=== PATIENT | female | born 1940 | race Caucasian/White ===

== ENCOUNTER → 2017-08-08 10:15 | Outpatient (CLI) | payer SELFPAY ==
[2017-08-08 10:53] LABS: Cholesterol 178 mg/dL (200); Glucose 85 mg/dL (74-106); High Density Lipoprotein 64 mg/dL; Triglycerides 93 mg/dL; Very Low Density Lipoprotein 19 mg/dL (5-40)
== END ==
PROVIDERS: Family Provider Internal Medicine; PCP Internal Medicine; Visit Provider Internal Medicine
DX: Z00.00 Encounter for general adult medical examination without abnormal findings (principal)
CPT/HCPCS: 80061; 82947

== ENCOUNTER → 2017-09-01 09:28 | Outpatient (CLI) | payer MEDICARE, SELFPAY ==
[2017-09-01 13:25] LABS: Absolute Lymphocyte Count 1.92 X10^3/ul (0.83-4.51); Absolute Neutrophil Count 2.1 X10^3/uL (2.0-7.7); Basophil# 0.03 X10^3/uL; Basophil% 0.6 % (0-1); Eosinophil# 0.12 X10^3/uL; Eosinophils% 2.5 % (0-5); Hematocrit 43.5 % (37-47); Hemoglobin 14.3 g/dl (12.0-15.0); Lymphocyte # 1.92 X10^3/ul (4.0); Mean Corp Hgb Conc 32.9 g/gl (32-36); Mean Corpuscular Hgb 30.5 pg (27.0-32.0); Mean Corpuscular Volume 92.8 fL (81-99); Monocyte% 12.5 % (0-10); Neutrophil # 2.13 X10^3/uL (2.7-7.7); Neutrophil % 44.4 % (47-70); POSITIVE COUNT NO; POSITIVE DIFFERENTIAL NO; POSITIVE MORPHOLOGY NO; Platelet Count 191 K/mm3 (150-450); RBC Distribution Width CV 11.6 % (11.6-14.6); RBC Distribution Width SD 38.8 fl (35.1-43.9); Red Blood Count 4.69 M/mm3 (4.2-5.4); White Blood Count 4.8 K/mm3 (4.4-11.0)
[2017-09-01 13:37] LABS: ALB/GLOB Ratio 1.1 RATIO (0.9-2.4); AST(SGOT) 23 U/L (15-37); Alanine Aminotransfer ALT/SGPT 32 U/L (13-56); Albumin, Serum 3.8 g/dL (3.2-5.0); Alkaline Phosphatase 113 U/L (45-117); Anion Gap 5 (5-15); BUN 17 mg/dL (7-18); BUN/Creat Ratio 24.5 RATIO (10-20); Calcium,Total 8.7 mg/dL (8.5-10.1); Chloride 105 mmol/L (98-107); EST Glomerular Filtration Rate 87 mL/min (>60); Est Glom Filt Rate - Afr Amer 106 mL/min (>60); Globulin 3.5 g/dL (2.2-4.2); Glucose 72 mg/dL (74-106); Protein, Total 7.3 g/dL (6.4-8.2); Sodium Level 139 mmol/L (136-145)
== END ==
PROVIDERS: Family Provider Internal Medicine; PCP Internal Medicine; Visit Provider Clinical Nurse Specialist
DX: Z01.818 Encounter for other preprocedural examination (principal)
CPT/HCPCS: 80053; 85025

== ENCOUNTER → 2017-09-12 09:47 | Outpatient (CLI) | payer SELFPAY ==
[2017-09-12 11:00] LABS: Cholesterol 173 mg/dL (200); Glucose 85 mg/dL (74-106); High Density Lipoprotein 55 mg/dL; Triglycerides 136 mg/dL; Very Low Density Lipoprotein 27 mg/dL (5-40)
== END ==
PROVIDERS: Family Provider Internal Medicine; PCP Internal Medicine; Visit Provider Internal Medicine
DX: Z00.00 Encounter for general adult medical examination without abnormal findings (principal)
CPT/HCPCS: 36415; 80061; 82947

== ENCOUNTER 2017-10-06 07:42 | Inpatient (IN) | payer MEDICARE, SELFPAY ==
[2017-09-09 13:23] VITALS: BP 115/67; PULSE 76; RESP 17; TEMP 37.2; O2SAT 95; BMI 34.1
[2017-09-09 14:43] LABS: Thyroid Stim Hormone (TSH) 0.19 uIU/mL (0.358-3.74)
--- NOTE | 2017-10-01 09:28 | CASEMGMT ---
PRE-OP Joint Call: RACHEL PHILLIP called Mrs. Ridley to discuss transition planning and care coordination. Mrs. Ridley lives with her in a bilevel home. Mrs. Ridley reports 6-8 stairs to get to her bedroom and bathroom and 2 entry steps. Mrs. Ridley states she has a FWW, raised toilet seat, grab bars, and plans to use a folding chair with a towel on it to shower. Mrs. Ridley will have her dtr and spouse assisting her with recovery. Mrs. Ridley reports she will have transportation to therapy at [facility]. Denies further questions at this time. Disposition Plan: Home with support of family and with outpatient therapy at [facility] DEEP Evans, RN-BC, CCM
[2017-10-06] VITALS (14 sets, daily range): BP systolic 92–114; BP diastolic 54–86; PULSE 66–78; RESP 16–18; TEMP 36–37.1; O2SAT 93–100; BMI 34.1
[2017-10-06] MEDS: oxyCODONE HCl Cr 10 MG Tablet PO (08:23)
[2017-10-06] MEDS: Celecoxib 200 MG Capsule 400 MG PO (08:24)
[2017-10-06] MEDS: Acetaminophen 500 MG Tablet 1000 MG PO ×3 (08:24→22:39)
[2017-10-06] MEDS: Lactated Ringers 1,000 ML 999 ML IV (08:48)
[2017-10-06] MEDS: Cefazolin 2 GM in 0.9% Normal Saline 100 ML IV (09:05)
--- NOTE | 2017-10-06 10:30 | OP.PCM_ITS ---
Report of Operation Date of Procedure: 10/06/17 Pre-Operative Diagnosis: Severe end-stage osteoarthritis left knee Post-Operative Diagnosis: Severe end-stage arthritis left knee Surgery/Procedure Performed:: Total knee arthroplasty left Description of Surgical Findings:: Eburnation of bone, periarticular osteophytes and varus alignment consistent with tricompartmental osteoarthritis criminal psychologist: Josh Clayton Type of Anesthesia:: Spinal Anesthesiologist: Chris Saunders Special Medications: txa Specimen's removed: Bone and soft tissue Estimated Blood Loss (mL): 100 Fluids Replaced: See anesthesia report Description of Procedure: Implants: Mady triathlon size 5 posterior stabilized femur, 4 tibia, 32 x 10 mm patella all cemented with Simplex, 9 mm posterior stabilized articulating surface Indications: Patient has severe end-stage osteoarthritis diagnosed via x-rays in the knee. They have failed all forms of conservative measures including activity modification, injections, anti-inflammatories, use of assistive device. The patient has pain that affects on a daily basis and prevents him from doing things that they enjoyed. They have elected to undergo the above procedure. The risks of the procedure were discussed at length and their questions were answered. Procedure description: The patient was greeted in the preoperative area. The left knee was then marked with a surgical marker. Patient was then taken to or [address]. They were administered a dose of antibiotics as well as tranexamic acid. Once adequate anesthesia was obtained and airway was secured to placed in supine position on the operating room table. A well-padded tourniquet was placed on the affected extremity. Leg was then prepped and draped in the usual sterile fashion from the knee down. Ioban was used on the skin. Surgical timeout was then performed and confirmed with all present. Six-inch Esmarch was used to examine the limb and tourniquet was then inflated to 250 mmHg. A longitudinal incision was then planned and carried out in the anterior aspect of the knee. The dissection was then carried the length of the incision the extensor mechanism was identified. Standard medial parapatellar arthrotomy was then performed revealing severe eburnation of bone and periarticular osteophytes. There is complete loss of cartilage especially in the medial compartment with varus alignment. Anterior fat pad was removed for visualization purposes and the anterior medial aspect of the tibia was skeletonized for exposure to the knee. The knee was then flexed the patella was inverted. Opening reamer was then used in the femur approximately 1 cm anterior to the attachment of the PCL. The intramedullary valgus wand was then placed in the femur set at 5? of valgus. The distal femoral cutting jig was then applied to the femur with anticipated resection of approximately 8 mm. This was then made with a oscillating saw. The sizing guide was then placed referencing off the posterior condyles and also reference off the epicondylar axis. This was measured and the appropriate size 4-in-1 cutting jig was then applied to the distal femur. Anterior posterior cuts were made followed by the anterior and posterior chamfer cuts. These bony pieces and fragments were removed and placed on the back table. Posterior retractor was then utilized and the tibia was subluxed anteriorly. Extramedullary tibial alignment jig was then applied to the tibia referencing off the medial one third of the tibial tubercle the anterior tibial spine the middle aspect of the tibiotalar joint. Also reference off patient's [place] slope. The tibial cutting jig was then pinned with anticipated resection of 2 mm off of the deficient medial tibial condyle. This cut was made with the oscillating saw. Once this was complete a laminar operations architect was utilized in both medial lateral meniscus were removed and a posterior capsular osteophytes were also removed. Posterior capsule release was performed in the posterior capsule as well as the geniculate arteries are treated with the aqua Mitchel. The tibia was incised and the appropriate sized tibial tray was then pinned. The femoral box cutting jig was then applied to the femur and the box was prepared removing a portion of the intercondylar notch. The femoral trial was then placed and the knee was trialed. Full flexion-extension were easily achieved. The knee seemed to balance quite nicely. Any remaining osteophytes were removed at this time. Once this was complete the patella was everted and the Marcus patella reaming device was then utilized the patella was then placed in the appropriate jig and reamer was then used to remove approximately 9 mm of the undersurface of the patella. A soft tissue remaining was in the way was removed and patella trial was then placed listed maintain excellent tracking using the no thumbs technique. The tibial tray at this point was punched to accommodate the fins of the final implant. At this point cement was mixed on the back table. The trial components were removed and the knee was copiously irrigated. Did use a cocktail of injection for postoperative pain control. The final components were then cemented in the standard fashion and excess cement was removed with cement removal tools and patellar clamp is placed in the patella. As the cement had cured in full extension tourniquet was deflated and hemostasis was perfect with Bovie cautery as well as the aqua Manus. Needle is once again trialed with different size polyethylenes to ensure the full range of motion was achieved as well as excellent balancing ligamentously was achieved. At this point the knee was copiously irrigated. Final implant was then inserted locking mechanism was engaged and confirmed to be locked. The arthrotomy was then closed with #1 Vicryl aggravate type fashion interrupted. Subcutaneous tissue was closed with 0 Vicryl and surgical cristina were placed in the skin. A occlusive silver impregnated dressing was then applied followed by well-padded sterile dressing secured with an Duke wrap. The patient was taken to the PACU in stable condition. No complications known at this time. Postoperatively we will maintain standard total knee postoperative protocol. The use of the physician medical receptionist medical assistant was integral during this procedure. They assisted with positioning placement of the tourniquet retracting closure and placement of the dressing. The procedure would have been much more difficult without their expertise and assistance - Complications None known - Admit VTE Documentation VTE Present on Admission: Yes VTE Mechan Device Prophylaxis: SCD's, Thigh High RAFAELA Hose VTE Pharm Prophylaxis ordered?: Yes
--- NOTE | 2017-10-06 11:35 | RAD_ITS ---
STUDY: X-RAY - LEFT KNEE REASON FOR EXAM: Female, 77 years old. Total knee replacement. TECHNIQUE: AP and lateral view(s) of the knee. COMPARISON: None. FINDINGS: Normal visualized distal femur. Normal visualized proximal tibia and fibula. Normal proximal tibiofibular articulation. The patient is status post total knee replacement. There is good alignment. Postoperative soft tissue changes. RAD/Knee 1 or 2 Views IMPRESSION: Status post total knee replacement. There is good alignment. Postoperative soft tissue changes. Electronically Signed: Raymon Dasilva MD at 12:41 EDT Tel [phone], Service support ,
[2017-10-06] MEDS: Cefazolin 1 GM/50 ML BAG IV ×2 (15:23→22:39)
[2017-10-06] MEDS: Aspirin 325 MG Tablet PO (17:28)
[2017-10-06] MEDS: Ketorolac 15 MG/ML Vial IV (18:13)
[2017-10-06] MEDS: oxyCODONE 5 MG Tablet PO (19:11)
[2017-10-06] MEDS: Lactated Ringers 1,000 ML 125 ML IV (20:39)
[2017-10-06] MEDS: Ondansetron 4 MG/2 ML Vial IV (20:39)
--- NOTE | 2017-10-06 21:57 | NURSING ---
Pt is on a continuous pulse ox postop. Sats have been running between 89 - 90%. O2 placed at 2L via n/c for the night. Pt states her tells her she goes for long periods without taking a breath at night. Dory RAMOS, primary nurse, aware.
[2017-10-06] MEDS: Senna/Docusate Sodium 1 Tablet 2 TABLET PO (22:39)
[2017-10-06] MEDS: morphine SR 15 MG Tablet PO (22:40)
[2017-10-07 02:00] VITALS: BP 114/76; PULSE 61; RESP 16; TEMP 36.9; O2SAT 96
[2017-10-07] MEDS: Acetaminophen 500 MG Tablet 1000 MG PO ×3 (05:53→21:03)
[2017-10-07] MEDS: Aspirin 325 MG Tablet PO ×2 (07:45→18:42)
[2017-10-07] MEDS: Famotidine 20 MG Tablet PO (07:45)
[2017-10-07] MEDS: Senna/Docusate Sodium 1 Tablet 2 TABLET PO ×2 (07:45→21:03)
[2017-10-07] MEDS: oxyCODONE 5 MG Tablet PO ×2 (07:46→15:01)
[2017-10-07 07:54] VITALS: O2SAT 94
[2017-10-07 08:00] VITALS: BP 102/62; PULSE 66; RESP 18; TEMP 36.8; O2SAT 96
--- NOTE | 2017-10-07 08:01 | PCM.PN.ORT ---
Subjective: Patient sitting up at bedside eating breakfast. Pain well managed. Patient denies chest pain, shortness breath, calf pain, nausea vomiting. No other complaints. Objective: Dressing is clean dry intact, vital signs labs within normal limits. Negative signs and symptoms of DVT. Patient is afebrile neurovascular is intact. - Physical Exam General: Alert, Oriented x3, Cooperative HEENT: PERRLA Neurological: Cranial nerves II-XII grossly intact Psych/Mental Status: Normal Affect, Alert and oriented to time, place, person, mood and affect Vital Signs Temp Pulse Resp BP Pulse Ox 98.3 F 66 18 102/62 96 10/07/17 08:00 10/07/17 08:00 10/07/17 08:00 10/07/17 08:00 10/07/17 08:00 Oxygen Flow Rate (L/min) 2 Oxygen Delivery Method Room Air Weight: 93 kg Body Mass Index (BMI) 34.1 Intake and Output for Last 24 Hours 10/05/17 10/06/17 10/07/17 23:59 23:59 23:59 Intake Total 3002 / 3002 1404 / 1404 Output Total 400 / 400 1600 / 1600 Balance 2602 / 2602 -196 / -196 Medical Necessity - Tobacco Use Smoking Status: Never smoker Assessment/Plan Status post left total knee arthroplasty. Plan 1. Continue all pain medications as prescribed. 2. Begin physical therapy today 3. Aspirin 325 mg 1 p.o. every 12 hours ?30 days for postop DVT prophylaxis 4. Encourage incentive spirometry 5. Possible discharge home tomorrow
[2017-10-07] MEDS: morphine SR 15 MG Tablet PO ×2 (10:52→21:04)
--- NOTE | 2017-10-07 11:03 | CASEMGMT ---
RACHEL PHILLIP Face to Face with patient for initial transition planning/care coordination assessment. RN KENJI introduced self and role at [facility]. Patient sitting in chair, alert and oriented. Patient willing to participate in assessment and is able to answer all questions appropriately. Care providers, pharmacy, and demographics verified. Patient lives in bi-level house with spouse. DME consists of raised toilet seat, cane, and walker. Patient wishes to discharge home and has outpatient therapy setup with [facility] with spouse providing transportation. Patient states she has no further needs or concerns at this time. CM to follow for discharge planning needs that may arise. Disposition Plan: Patient to discharge home with outpatient therapy, family support, and follow-up plans in place.
[2017-10-07 15:00] VITALS: BP 116/65; PULSE 65; RESP 18; TEMP 36.9; O2SAT 95
[2017-10-07] MEDS: Escitalopram Oxalate 10 MG Tablet PO (15:30)
[2017-10-07] MEDS: Levothyroxine 125 MCG Tablet PO (15:30)
[2017-10-07] MEDS: Celecoxib 200 MG Capsule PO (15:30)
[2017-10-07 21:00] VITALS: BP 105/74; PULSE 65; RESP 16; TEMP 37.4; O2SAT 94
[2017-10-07] MEDS: LORazepam 1 MG Tablet PO (21:04)
[2017-10-08 02:50] VITALS: BP 97/59; PULSE 78; RESP 18; TEMP 37.5; O2SAT 94
[2017-10-08] MEDS: oxyCODONE 5 MG Tablet PO ×3 (02:53→14:34)
[2017-10-08] MEDS: Acetaminophen 500 MG Tablet 1000 MG PO ×2 (05:56→14:32)
[2017-10-08] MEDS: Levothyroxine 125 MCG Tablet PO (05:57)
[2017-10-08] MEDS: Folic Acid 1 MG Tablet 0.5 MG PO (07:48)
[2017-10-08] MEDS: Ondansetron 4 MG/2 ML Vial IV (07:48)
[2017-10-08] MEDS: Aspirin 325 MG Tablet PO (07:48)
[2017-10-08] MEDS: 0.9% NaCl Peripheral Flush Adult/Peds IV (07:49)
[2017-10-08] MEDS: Escitalopram Oxalate 10 MG Tablet PO (07:55)
[2017-10-08] MEDS: Famotidine 20 MG Tablet PO (07:55)
[2017-10-08] MEDS: Celecoxib 200 MG Capsule PO (07:55)
[2017-10-08] MEDS: Senna/Docusate Sodium 1 Tablet 2 TABLET PO (07:55)
[2017-10-08 08:50] VITALS: BP 109/74; PULSE 69; RESP 16; TEMP 37; O2SAT 94
[2017-10-08] MEDS: morphine SR 15 MG Tablet PO (10:46)
--- NOTE | 2017-10-08 13:48 | PN.ORTHO_ITS ---
Subjective: Patient lying in bed, with her at her bedside. Patient awake, pain well -managed. Patient denies chest pain, shortness breath, calf pain, nausea vomiting. Patient ready for discharge home Objective: Dressings clean dry intact. Vital signs labs within normal limits. Patient is afebrile, neurovascular is intact. Negative signs and symptoms of DVT. - Physical Exam General: Alert, Oriented x3, Cooperative HEENT: PERRLA Oral: Moist Mucosa Neurological: Cranial nerves II-XII grossly intact Psych/Mental Status: Normal Affect, Alert and oriented to time, place, person, mood and affect Vital Signs Temp Pulse Resp BP Pulse Ox 98.6 F 69 16 109/74 94 10/08/17 08:50 10/08/17 08:50 10/08/17 08:50 10/08/17 08:50 10/08/17 08:50 Oxygen Flow Rate (L/min) 2 Oxygen Delivery Method Room Air Weight: 93 kg Body Mass Index (BMI) 34.1 Intake and Output for Last 24 Hours 10/06/17 10/07/17 10/08/17 23:59 23:59 23:59 Intake Total 3002 / 3002 1404 / 1404 Output Total 400 / 400 1600 / 1600 Balance 2602 / 2602 -196 / -196 Medical Necessity - Tobacco Use Smoking Status: Never smoker Assessment/Plan Status post left total knee arthroplasty. Plan 1. Continue all pain medications as prescribed. 2. Continue physical therapy at [facility] 3. Aspirin 325 mg 1 p.o. every 12 hours ?30 days for postop DVT prophylaxis 4. Follow-up as scheduled 5. Discharge home today
--- NOTE | 2017-10-08 13:55 | PCM.DC.TKR ---
Discharge Diet: No Restrictions Discharge Activity: May Not Drive, May Shower, Use Walker May shower in (days): 1 Ice area for (Minutes): 20 - each hour while awake. Weight Bearing Status: Weight bearing as tolerated Elevate: Operative Extremity Additional Activity Instructions:: Wear elastic stockings for 2 weeks after your surgery. Call your doctor if your incision/area has: Continuous Slow Oozing, Sudden Increased Bleeding, Increased Pain/ Swelling, Increased Redness, Foul Smelling Discharge Call your doctor if you observe: Fever of 101 or Higher, Coldness, Increased Pain - in extremity, Numbness or Tingling, Change in Color, Calf discomfort, Uncontrolled pain Change Dressing in (Days):: 0 - and daily as needed. Remove Dressing in (days):: 8 Cleanse incision/area with: Soap & Water Allergies/Adverse Reactions: Allergies codeine Adverse Reaction (Verified 09/09/17 13:11) Other MAKES HYPER, UNABLE TO SLEEP Medications to take at Discharge Escitalopram Oxalate [Lexapro] 10 mg PO DAILY 07/31/14 Levothyroxine [Synthroid] 125 mcg PO DAILY 07/31/14 Lorazepam [Ativan] 1 mg PO QHS PRN 07/31/14 Acetic Acid [Acetasol] 4 - 6 drop OTIC PRN PRN 07/15/17 Biotin 5,000 mcg PO DAILY 07/15/17 Celecoxib [Celebrex] 200 mg PO DAILY 07/15/17 Cholecalciferol (VIT D3) [Vitamin D3] 2,000 unit PO DAILY 07/15/17 Folic Acid 0.4 mg PO DAILY@0800 07/15/17 L.acidoph,Paracasei, B.lactis [Probiotic] 1 each PO DAILY 07/15/17 Magnesium 250 mg PO DAILY 07/15/17 Triamcinolone 0.1% Cream [Kenalog] 1 applic TP PRN PRN 07/15/17 Acetaminophen [Tylenol] 1,000 mg PO Q8 #90 tab 10/08/17 Aspirin 325 mg PO BIDCM #60 tab 10/08/17 Oxycodone [Oxyir] 5 - 10 mg PO Q6H PRN PRN 7 Days #60 tab 10/08/17 morphine SR tablet [Ms Contin] 15 mg PO BID 7 Days #14 tab 10/08/17 The following prescriptions were given: Oxycodone [Oxyir] 5 - 10 mg PO Q6H PRN PRN 7 Days #60 tab PRN Reason: Mod-Severe Pain (4-04/01) Acetaminophen [Tylenol] 1,000 mg PO Q8 #90 tab Aspirin 325 mg PO BIDCM #60 tab morphine SR tablet [Ms Contin] 15 mg PO BID 7 Days #14 tab Primary Care Physician: Patrica Jhaveri MD [Primary Care Provider] - Please Follow Up With: Josh Clayton PA-C When: see pink sheet
[2017-10-08 14:02] VITALS: BP 101/66; PULSE 61; RESP 18; TEMP 36.5; O2SAT 97
== END 2017-10-08 15:01 | disposition home or self-care (01) | DRG 470 ==
LOC: ACINP 07:43 → MS3 09:46
PROVIDERS: Anesthesiology; Admitting Provider Orthopaedic Surgery; Family Provider Internal Medicine; PCP Internal Medicine; Visit Provider Orthopaedic Surgery
PROC: 0SRD0J9 Replacement of Left Knee Joint with Synthetic Substitute, Cemented, Open Approach (ICD-10-PCS; CPT 27447; principal; 2017-10-06 08:40)
DX: M17.12 Unilateral primary osteoarthritis, left knee (principal); E07.9 Disorder of thyroid, unspecified; Z79.899 Other long term (current) drug therapy; Z87.891 Personal history of nicotine dependence; I44.0 Atrioventricular block, first degree; K21.9 Gastro-esophageal reflux disease without esophagitis; Z85.3 Personal history of malignant neoplasm of breast; F41.9 Anxiety disorder, unspecified; F32.9 Major depressive disorder, single episode, unspecified
CPT/HCPCS: 73560; 84443; 87081; 97110; 97162; 97165; 97530; 97535; J7120; A4216; J2405

== ENCOUNTER → 2017-10-17 15:50 | Outpatient (CLI) | payer MEDICARE, SELFPAY ==
--- NOTE | 2017-10-17 15:51 | VDLE_ITS ---
Reason For Study: LEG PAIN RIGHT LEFT CFV is compressible, spontaneous, phasic, CFV is compressible, spontaneous, phasic, competent and demonstrates normal competent, and demonstrates normal augmentation. augmentation. FV is compressible, spontaneous, phasic, competent and demonstrates normal augmentation. POP V is compressible, spontaneous, phasic, competent and demonstrates normal augmentation. T/P Trunk is compressible. PTV is compressible. LT PerV is compressible. GSV harvested. Interpretation Summary Deep veins of the left lower extremity are patent and compressible segmentally. There is no evidence of left lower extremity deep vein thrombosis. Valvular competence appears intact within the proximal deep venous system on the left . The left great saphenous vein has been previously harvested. Ordering Physician: Josh Clayton Referring Physician: Patrica Jhaveri Performed By: Marli Adams RVT
== END ==
PROVIDERS: Family Provider Internal Medicine; PCP Internal Medicine; Visit Provider Orthopaedic Surgery
DX: M79.662 Pain in left lower leg (principal)
CPT/HCPCS: 93971

== ENCOUNTER → 2018-04-09 10:36 | Outpatient (CLI) | payer MEDICARE, SELFPAY | PROVIDERS: Family Provider Internal Medicine; PCP Internal Medicine; Referring Provider Internal Medicine; Visit Provider Internal Medicine | DX: Z12.11 Encounter for screening for malignant neoplasm of colon (principal) | CPT/HCPCS: 82274 ==

== ENCOUNTER → 2018-06-01 16:01 | Outpatient (CLI) | payer MEDICARE, SELFPAY ==
[2017-10-06 13:48] VITALS: BMI 34.1
[2018-06-01 16:36] LABS: Hematocrit 40.7 % (37-47); Hemoglobin 13.1 g/dl (12.0-15.0); Mean Corp Hgb Conc 32.2 g/gl (32-36); Mean Corpuscular Volume 93.3 fL (81-99); Mean Platelet Vol. 9.3 fl (6.2-12.0); Platelet Count 222 K/mm3 (150-450); RBC Distribution Width CV 12.2 % (11.6-14.6); RBC Distribution Width SD 41.6 fl (35.1-43.9); Red Blood Count 4.36 M/mm3 (4.2-5.4)
[2018-06-01 16:37] LABS: Scan Indicated on CBC? Y/N NO
[2018-06-01 16:51] LABS: AST(SGOT) 22 U/L (15-37); Alanine Aminotransfer ALT/SGPT 30 U/L (13-56); Albumin, Serum 3.6 g/dL (3.2-5.0); Alkaline Phosphatase 126 U/L (45-117); Anion Gap 5 (5-15); BUN 27 mg/dL (7-18); BUN/Creat Ratio 41.6 RATIO (10-20); Calcium,Total 8.5 mg/dL (8.5-10.1); Chloride 107 mmol/L (98-107); Creatinine, Serum 0.65 mg/dL (0.55-1.02); EST Glomerular Filtration Rate 94 mL/min (>60); Est Glom Filt Rate - Afr Amer 114 mL/min (>60); Globulin 3.6 g/dL (2.2-4.2); Glucose 80 mg/dL (74-106); Potassium 4.1 mmol/L (3.5-5.1); Protein, Total 7.2 g/dL (6.4-8.2); Sodium Level 140 mmol/L (136-145); T4 Free Direct 1.04 ng/dL (0.76-1.46); Thyroid Stim Hormone (TSH) 1.52 uIU/mL (0.358-3.74)
--- OUTSIDE RECORDS SUMMARY | 2018-07-19 01:00 | XMS RPT_ITS ---
:1940 Author Organization OHIP Support Name Relationship Address Phone R Unavailable Unavailable Unavailable CONCHAASHU WYNNY Unavailable [address] + [place] [address] CONCHA, YARITZA Unavailable Unavailable + [place] [address] R Unavailable Unavailable Unavailable CONCHA, GERARDO Unavailable [address] + [place] [address] CONCHA, YARITZA Unavailable Unavailable + [place] [address] R Unavailable Unavailable Unavailable CONCHA, GERARDO Unavailable [address] [phone] [place] [address] CONCHA, YARITZA Unavailable X [phone] [place] [address] R Unavailable Unavailable Unavailable CONCHA, GERARDO Unavailable [address] [phone] [place] [address] CONCHA, YARITZA Unavailable X [phone] [place] [address] R Unavailable Unavailable Unavailable CONCHA, GERARDO Unavailable [address] [phone] [place] [address] CONCHA, YARITZA Unavailable X [phone] [place] [address] R Unavailable Unavailable Unavailable CONCHA, GERARDO Unavailable [address] [phone] [place] [address] CONCHA, YARITZA Unavailable X [phone] [place] [address] R Unavailable Unavailable Unavailable CONCHA, GERARDO Unavailable [address] [phone] [place] [address] CONCHA, YARITZA Unavailable X [phone] [place] [address] R Unavailable Unavailable Unavailable CONCHA, GERARDO Unavailable [address] [phone] [place] [address] YARITZA RIDLEY Unavailable X [phone] [place] [address] Care Team Providers Name Role Phone ERENDIRA HERANNDEZ (REGROOVER) Attending Unavailable RAVI FINCH Referring Unavailable HERNANDEZERENDIRA (REGROOVER) Referring Unavailable TALAMPAS, CELIO D Attending Unavailable TALAMPAS, CELIO D Referring Unavailable TALAMPAS, CELIO D Referring Unavailable HERNANDEZ, ERENDIRA (REGROOVER) Attending Unavailable TALAMPAS, CELIO D Attending Unavailable TALAMPAS, CELIO D Referring Unavailable Talampas, Celio Attending Unavailable Talampas, Celio Referring Unavailable Talampas, Celio Primary Care Unavailable Della Larson Attending Unavailable Talampas, Celio Primary Care Unavailable Talampas, Celio Attending Unavailable Talampas, Celio Referring Unavailable Talampas, Celio Primary Care Unavailable Erendira Hernandez AUTOMOTIVE PAINT TECHNICIAN-C Attending Unavailable Hernandez, Erendira AUTOMOTIVE PAINT TECHNICIAN-C Referring Unavailable Talampas, Celio Primary Care Unavailable StefRavi Admitting Unavailable Stef, Ravi Attending Unavailable Talampas, Celio Primary Care Unavailable Talampas, Celio Attending Unavailable Talampas, Celio Referring Unavailable Talampas, Celio Primary Care Unavailable Talampas, Celio Primary Care Unavailable Stef, Ravi Attending Unavailable Talampas, Celio Attending Unavailable Talampas, Celio Referring Unavailable Talampas, Celio Primary Care Unavailable PROBLEMS PROBLEMS DATE TYPE CONDITION / CODE ATTENDING STATUS SOURCE 06/01/2018 Unknown E03.9 - Talampas, Celio Active [place] Hypothyroidism, Community unspecified / Hospital E03.9(ICD-10) Repository 06/01/2018 Unknown Z79.899 - Other long Talampas, Celio Active [place] term (current) drug Community therapy / Hospital Z79.899(ICD-10) Repository 06/01/2018 Active Other long-term NA Active [place] (current) drug Clinic Main therapy / [place] Z79.899(ICD-10) Repository 06/01/2018 Active Hypothyroidism, NA Active [place] unspecified / Clinic Main E03.9(ICD-10) [place] Repository 04/09/2018 Active Encounter for NA Active [place] screening for Clinic Main malignant neoplasm [place] of colon / Repository Z12.11(ICD-10) 04/09/2018 Unknown Z12.11 - Encounter Celio Jhaveri Active [place] for screening for Community malignant neoplasm Hospital of colon / Repository Z12.11(ICD-10) 10/17/2017 Unknown M79.662 - Pain in Ravi Finch Active [facility] left lower leg / Community M79.662(ICD-10) Hospital Repository 10/08/2017 Unknown G89.18 - Other acute Ravi Finch Active [place] postprocedural pain Community / G89.18(ICD-10) Hospital Repository 09/01/2017 Active Encounter for other NA Active [place] preprocedural [facility] Main examination / [place] Z01.818(ICD-10) Repository 09/01/2017 Unknown Z01.818 - Encounter Erendira Hernandez Active [place] for other AUTOMOTIVE PAINT TECHNICIAN-C [facility] preprocedural Hospital examination / Repository Z01.818(ICD-10) PROCEDURES PROCEDURES No Procedure Records FoundRESULTS RESULTS CBC Collected: 06/01/2018 Status: F Source: [place] 10:20 AM [facility] REPOSITORY TYPE CODE TESTS RESULT OUT OF REFERENCE UNITS RANGE LAB WBC 3.70-11.00 k/uL Test WBC sent to [facility]. Result Comment: Account Credited [facility] LAB RBC 3.90-5.20 m/uL Test sent RBC to [facility]. Result Comment: Account Credited [facility] LAB HGB 11.5-15.5 g/dL Hemoglobin Test sent to [facility]. Result Comment: Account Credited [facility] LAB HCT 36.0-46.0 % Hematocrit Test sent to [facility]. Result Comment: Account Credited [facility] LAB MCV 80.0-100.0 fL Test sent MCV to [facility]. Result Comment: Account Credited [facility] LAB MCH 26.0-34.0 pG Test sent MCH to [facility]. Result Comment: Account Credited [facility] LAB MCHC 30.5-36.0 g/dL Test MCHC sent to [facility]. Result Comment: Account Credited [facility] LAB RDWCV 11.5-15.0 % Test RDW-CV sent to [facility]. Result Comment: Account Credited [facility] LAB PLTCT 150-400 k/uL Test Platelet Count sent to [facility]. Result Comment: Account Credited [facility] LAB MPV 9.0-12.7 fL Test sent MPV to [facility]. Result Comment: Account Credited [facility] LAB NITHYA Recheck Test sent to [facility]. Result Comment: Account Credited [facility]IDE LAB REVW Test sent to Review [facility]. Result Comment: Account Credited [facility]IDE LAB CBCCOM Comment Test sent to [facility]. Result Comment: Account Credited [facility] LAB ABSNUC <0.01 k/uL Test Absolute nRBC sent to [facility]. Result Comment: Account Credited [facility]IDE COMP METABOLIC PANEL Collected: 06/01/2018 Status: F Source: [place] 10:20 AM CLINIC [facility]IN [facility] REPOSITORY TYPE CODE TESTS RESULT OUT OF REFERENCE UNITS RANGE LAB TP 6.3-8.0 g/dL Test sent to [facility]. Result Comment: Account Credited [facility] LAB ALB 3.9-4.9 g/dL Test Albumin sent to [facility]. Result Comment: Account Credited [facility] LAB CA 8.5-10.2 mg/dL Test Calcium, Total sent to [facility]. Result Comment: Account Credited HIDE LAB TBIL 0.2-1.3 mg/dL Bilirubin, Test Total sent to [facility]. Result Comment: Account Credited H[facility] LAB ALKP 34-123 U/L Alkaline Test Phosphatase sent to [facility]. Result Comment: Account Credited [facility] LAB AST 13-35 U/L Test sent AST to [facility]. Result Comment: Account Credited [facility] LAB GLU 74-99 mg/dL Test sent Glucose to [facility]. Result Comment: Account Credited [facility] LAB BUN 7-21 mg/dL Test sent BUN to [facility]. Result Comment: Account Credited [facility] LAB CRET 0.58-0.96 mg/dL Creatinine Test sent to [facility]. Result Comment: Account Credited [facility] LAB NA 136-144 mmol/L Test Sodium sent to [facility]. Result Comment: Account Credited [facility] LAB K 3.7-5.1 mmol/L Test Potassium sent to [facility]. Result Comment: Account Credited [facility] LAB CL 97-105 mmol/L Test Chloride sent to [facility]. Result Comment: Account Credited [facility] LAB CO2 22-30 mmol/L Test sent CO2 to [facility]. Result Comment: Account Credited [facility] LAB AGAP 9-18 mmol/L Test sent Anion Gap to [facility]. Result Comment: Account Credited [place] LAB ALT 7-38 U/L Test sent to ALT [facility]. Result Comment: Account Credited [place] LAB GFRAA eGFR- Amer. Test sent to [facility]. Result Comment: Account Credited [place] LAB GFRNAA . eGFR-All Test sent Other Races to [facility]. Result Comment: Account Credited [facility] LAB GFRPED eGFR-Ped. Test sent Factor to [facility]. Result Comment: Account Credited HIDE FREE T4 Collected: 06/01/2018 Status: F Source: [place] 10:20 AM [facility] REPOSITORY TYPE CODE TESTS RESULT OUT OF REFERENCE UNITS RANGE LAB FT4 0.9-1.7 ng/dL Test Free sent to [address] Result Comment: Account Credited [place] TSH Collected: 06/01/2018 Status: F Source: [place] 10:20 AM [facility] REPOSITORY TYPE CODE TESTS RESULT OUT OF REFERENCE UNITS RANGE LAB TSH 0.400-5.500 uU/mL Test TSH sent to [facility]. Result Comment: Account Credited MAR[facility]NE CBC-COMPLETE BLOOD CNT Collected: 06/01/2018 Status: F Source: [place] NO DIFF 10:15 AM [facility] REPOSITORY TYPE CODE TESTS RESULT OUT OF RANGE REFERENCE UNITS LAB L100.1000 4.4-11.0 K/mm3 Low WBC 4.0 LAB L100.1200 4.2-5.4 M/mm3 Normal RBC 4.36 LAB L100.1300 12.0-15.0 g/dl Normal HGB 13.1 LAB L100.1400 37-47 % Normal HCT 40.7 LAB L100.1500 81-99 fL Normal MCV 93.3 LAB L100.1600 27.0-32.0 pg Normal MCH 30.0 LAB L100.1700 32-36 g/gl Normal MCHC 32.2 LAB L100.1810 11.6-14.6 % Normal RDW CV 12.2 LAB L100.1820 35.1-43.9 fl Normal RDW SD 41.6 LAB L100.1900 150-450 K/mm3 Normal PLT 222 LAB L100.2000 6.2-12.0 fl Normal MPV 9.3 Performed By: #### L100.0500 #### [facility] [address] [place], [address] COMPREHENSIVE METABOLIC Collected: 06/01/2018 Status: F Source: [place] 10:15 AM [facility] REPOSITORY TYPE CODE TESTS RESULT OUT OF RANGE REFERENCE UNITS LAB L501.0100 74-106 mg/dL Normal GLU 80 Result Comment: Please note revised GLUCOSE reference range effective 2017. LAB L501.1000 7-18 mg/dL High BUN 27 LAB L501.1100 0.55-1.02 mg/dL Normal CREAT,SERUM 0.65 Result Comment: The validity of the calculated GFR AND GFRAA in patients over 70 years has not been determined. Clinical correlation is essential. LAB L501.1110 >60 mL/min Normal EST GFR 94 Result Comment: Non- GFR Calc LAB L501.1115 >60 mL/min Normal EST GFR - AA 114 Result Comment: GFR Calc LAB L501.1300 10-20 RATIO High BUN/CRE 41.6 LAB L501.1500 6.4-8.2 g/dL T Normal PROT 7.2 LAB L501.1800 3.2-5.0 g/dL Normal ALB 3.6 LAB L501.1950 2.2-4.2 g/dL Normal GLOB 3.6 LAB L501.2000 0.9-2.4 RATIO Normal A/G 1.0 LAB L501.2200 8.5-10.1 mg/dL CA Normal 8.5 LAB L501.4100 15-37 U/L Normal AST 22 LAB L501.4305 45-117 U/L High ALK P 126 LAB L501.4405 13-56 U/L Normal ALT 30 LAB L501.4600 0.20-1.00 mg/dL T Normal BILI 0.30 LAB L501.5300 136-145 mmol/L NA Normal 140 LAB L501.5600 3.5-5.1 mmol/L K Normal 4.1 LAB L501.5900 98-107 mmol/L CL Normal 107 LAB L501.6100 21.0-32.0 mmol/L Normal CO2 28.0 LAB L501.6200 5-15 Normal GAP 5 Performed By: #### L500.4050, L501.9520, L506.0400 #### [facility] [address] [place], [address] THYROID STIM HORMONE Collected: 06/01/2018 Status: F Source: [place] (TSH) 10:15 AM [facility] REPOSITORY TYPE CODE TESTS RESULT OUT OF RANGE REFERENCE UNITS LAB L501.9520 0.358-3.74 uIU/mL Normal TSH 1.52 Performed By: #### L500.4050, L501.9520, L506.0400 #### [facility] [address] [place], [address] T4 FREE DIRECT Collected: 06/01/2018 Status: F Source: [place] 10:15 AM [facility] REPOSITORY TYPE CODE TESTS RESULT OUT OF RANGE REFERENCE UNITS LAB L506.0400 0.76-1.46 ng/dL Normal T4 FREE 1.04 DIRECT Performed By: #### L500.4050, L501.9520, L506.0400 #### [facility] [address] [place], [address] PROGRESS Observed: 06/01/2018 Status: COMPLETED Source: [place] 9:22 AM [facility] REPOSITORY O ID: [id number] Author: Celio Jhaveri Service: (none) Author Type: Physician Type: Progress Notes Filed: 06/01/2018 7:39 PM Note Text: Patient presents with: Recheck: Follow up SUBJECTIVE: Patty Ridley is a 77 year old year old lady here today for 6 month follow up appointment for review of medical conditions. Taking 2 pills Lexapro cause issues with tension in jaw and trouble with sleep. Would like to be able to stay on the Lexapro 5 mg dose and get off lorazepam. Tapering off lorazepam. Hard going from 1mg pill at bedtime to half pill at bedtime nightly. Trouble sleeping. Withrdrawal symptoms. Okay at this time but still not sleeping as well as used to. Would like to try something Legs get tired easily. Plans to resume PT exercises and some walking. Had stopped being as active as used to be with dancing before had TKR 10/06/2017. Had stopped doing PT exercises.Cannot dance as much as used to. Reviewed had issues with skin lesions in the past and treated by F[employer]ERLINE SUPERVISOR with Keflex and Bactroban. Prior issues MRSA treated. Now seems to be one lesion will pop up the start resolving then another will pop up. 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 hydrocortisone-acetic acid (ACETASOL HC) otic solution Use 4 Drops in the ears as needed. LORazepam (ATIVAN) 1 mg tablet Take 0.5-1 tablets by mouth once daily for 180 days. For neck pain or spasms and anxiety. mupirocin (BACTROBAN) 2 % ointment Apply 1 application to affected area three times daily. triamcinolone acetonide (KENALOG) 0.1 % cream Apply 1 application to affected area three times daily. Apply sparingly to area for rash/itching. ketoconazole (NIZORAL) 2 % cream Apply 1 application to affected area once daily as needed. As directed escitalopram oxalate (LEXAPRO) 5 mg tablet Take 1-2 tablets by mouth once daily. As directed (Usually once daily but increases as needed--last filled September 2017) BACILLUS COAGULANS (PROBIOTIC, B. COAGULANS, ORAL) Take by mouth. levothyroxine (SYNTHROID) 125 mcg tablet Take 1 tablet by mouth once daily. Biotin 2,500 mcg cap Take 2 capsules by mouth once daily. Cholecalciferol, Vitamin D3, 2,000 unit cap Take 1 tablet by mouth once daily. folic acid ORAL Take one(1) tablet two(2) times daily. Magnesium Oxide-Mg AA Chelate (ELEMENTAL MAGNESIUM) 300 mg ORAL Cap Take one(1) tablet three times daily. celecoxib (CELEBREX) 200 mg capsule Take 200 mg by mouth. No current facility-administered medications for this visit. OBJECTIVE: BP 122/84 Pulse 60 Temp 36.5 ?C (97.7 ?F) (Tympanic) Resp 20 Wt 91.2 kg (201 lb) BMI 32.94 kg/m? Patient is alert, oriented times 3, no apparent distress, affect is bright, reactive. Last 5 Encounter BP Readings: Date: BP: 06/01/2018 122/84 05/22/2018 122/88 04/06/2018 130/82 03/07/2018 122/88 11/25/2017 116/80 Last 5 Encounter Wt Readings: Date: Wt: 06/01/2018 91.2 kg (201 lb) 05/22/2018 89.4 kg (197 lb) 04/06/2018 87.8 kg (193 lb 9.6 oz) 03/07/2018 85.6 kg (188 lb 12.8 oz) 11/25/2017 85.3 kg (188 lb) Heart: Regular rate, rhythm, no murmurs, gallops, rubs. Lungs: Clear to auscultation, bilaterally, breathing non labored. Ext: No cyanosis, clubbing, or pitting edema (mild doughy edema left). Skin: noted healing red skin sore on left cheek. No signs of cellulitis. Last labs done at [facility] reviewed. ASSESSMENT AND PLAN: Encounter Diagnosis ICD-10-CM 1. Acquired hypothyroidism E03.9 levothyroxine (SYNTHROID) 125 mcg tablet TSH BLD T4 FREE/FREE THYROX 2. Depression, unspecified depression type F32.9 3. Anxiety F41.9 4. Skin lesion L98.9 can get new lesion anywhere--face, leg, arms or torso; seems like one at a time 5. Encounter for long-term current use of medication Z79.899 CBC COMP METABOLIC PANEL 6. Need for vaccination Z23 INFLUENZA SEASONAL HIGH DOSE AGE 65+ 7. 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 Patient involved in shared decision making for management of medical issues. History and medications reviewed. Epic updated as needed Refills taken care of and meds adjusted as indicated after reviewed history, exam and labs. Health Maintenance reviewed. Updated record and/or ordered tests as recorded. Encouraged on efforts at healthy diet and regular exercise and adequate sleep. Will try trazodone for sleep with plans to keep tapering off lorazepam as able. Discussed would go from 0.5 to 0.25 mg dose instead of to zero or every other only to avoid withdrawal symptoms from lorazepam. If too much hangover effect still with trazodone, try other meds. Work on sleep hygiene. Resume PT for legs to help with fatigue. 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 Further evaluation and treatment as indicated. Discussed management of skin sores. Also, discussed prevention--encouraged adequate water intake, as well as nutrition with Vitamin C. Consider adding Biotin and minerals including Zinc. Also needs to prevent skin from drying out--lotion daily at least. Further evaluation and treatment as indicated. The majority of the visit was spent counseling and/or coordinating care for the patient. Ssms-bb-ioas time was at least 30 minutes. Celio Jhaveri MD CNOV Observed: 06/01/2018 Status: COMPLETED Source: [place] 8:40 AM [facility] REPOSITORY Office Visit (INTMWS) PATTY RIDLEY ([id number]) 1940 F Date Time Provider Department 06/01/18 8:40 AM CELIO JHAVERI INTMWS During your visit today, we recorded the following information about you: Temperature Pulse Respiration Blood pressure 97.7 degrees 60/minute 20/minute 122/84 Weight 91.2 kg Celio Jhaveri MD 06/01/2018 7:39 PM Signed Patient presents with: Recheck: Follow up SUBJECTIVE: Patty Ridley is a 77 year old year old lady here today for 6 month follow up appointment for review of medical conditions. Taking 2 pills Lexapro cause issues with tension in jaw and trouble with sleep. Would like to be able to stay on the Lexapro 5 mg dose and get off lorazepam. Tapering off lorazepam. Hard going from 1mg pill at bedtime to half pill at bedtime nightly. Trouble sleeping. Withrdrawal symptoms. Okay at this time but still not sleeping as well as used to. Would like to try something Legs get tired easily. Plans to resume PT exercises and some walking. Had stopped being as active as used to be with dancing before had TKR 10/06/2017. Had stopped doing PT exercises.Cannot dance as much as used to. Reviewed had issues with skin lesions in the past and treated by [employer]ER[employer] SUPERVISOR with Keflex and Bactroban. Prior issues MRSA treated. Now seems to be one lesion will pop up the start resolving then another will pop up. 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 hydrocortisone-acetic acid (ACETASOL HC) otic solution Use 4 Drops in the ears as needed. LORazepam (ATIVAN) 1 mg tablet Take 0.5-1 tablets by mouth once daily for 180 days. For neck pain or spasms and anxiety. mupirocin (BACTROBAN) 2 % ointment Apply 1 application to affected area three times daily. triamcinolone acetonide (KENALOG) 0.1 % cream Apply 1 application to affected area three times daily. Apply sparingly to area for rash/itching. ketoconazole (NIZORAL) 2 % cream Apply 1 application to affected area once daily as needed. As directed escitalopram oxalate (LEXAPRO) 5 mg tablet Take 1-2 tablets by mouth once daily. As directed (Usually once daily but increases as needed--last filled September 2017) BACILLUS COAGULANS (PROBIOTIC, B. COAGULANS, ORAL) Take by mouth. levothyroxine (SYNTHROID) 125 mcg tablet Take 1 tablet by mouth once daily. Biotin 2,500 mcg cap Take 2 capsules by mouth once daily. Cholecalciferol, Vitamin D3, 2,000 unit cap Take 1 tablet by mouth once daily. folic acid ORAL Take one(1) tablet two(2) times daily. Magnesium Oxide-Mg AA Chelate (ELEMENTAL MAGNESIUM) 300 mg ORAL Cap Take one(1) tablet three times daily. celecoxib (CELEBREX) 200 mg capsule Take 200 mg by mouth. No current facility-administered medications for this visit. OBJECTIVE: BP 122/84 Pulse 60 Temp 36.5 ?C (97.7 ?F) (Tympanic) Resp 20 Wt 91.2 kg (201 lb) BMI 32.94 kg/m? Patient is alert, oriented times 3, no apparent distress, affect is bright, reactive. Last 5 Encounter BP Readings: Date: BP: 06/01/2018 122/84 05/22/2018 122/88 04/06/2018 130/82 03/07/2018 122/88 11/25/2017 116/80 Last 5 Encounter Wt Readings: Date: Wt: 06/01/2018 91.2 kg (201 lb) 05/22/2018 89.4 kg (197 lb) 04/06/2018 87.8 kg (193 lb 9.6 oz) 03/07/2018 85.6 kg (188 lb 12.8 oz) 11/25/2017 85.3 kg (188 lb) Heart: Regular rate, rhythm, no murmurs, gallops, rubs. Lungs: Clear to auscultation, bilaterally, breathing non labored. Ext: No cyanosis, clubbing, or pitting edema (mild doughy edema left). Skin: noted healing red skin sore on left cheek. No signs of cellulitis. Last labs done at [facility] reviewed. ASSESSMENT AND PLAN: Encounter Diagnosis ICD-10-CM 1. Acquired hypothyroidism E03.9 levothyroxine (SYNTHROID) 125 mcg tablet TSH BLD T4 FREE/FREE THYROX 2. Depression, unspecified depression type F32.9 3. Anxiety F41.9 4. Skin lesion L98.9 can get new lesion anywhere--face, leg, arms or torso; seems like one at a time 5. Encounter for long-term current use of medication Z79.899 CBC COMP METABOLIC PANEL 6. Need for vaccination Z23 INFLUENZA SEASONAL HIGH DOSE AGE 65+ 7. 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 Patient involved in shared decision making for management of medical issues. History and medications reviewed. Epic updated as needed Refills taken care of and meds adjusted as indicated after reviewed history, exam and labs. Health Maintenance reviewed. Updated record and/or ordered tests as recorded. Encouraged on efforts at healthy diet and regular exercise and adequate sleep. Will try trazodone for sleep with plans to keep tapering off lorazepam as able. Discussed would go from 0.5 to 0.25 mg dose instead of to zero or every other only to avoid withdrawal symptoms from lorazepam. If too much hangover effect still with trazodone, try other meds. Work on sleep hygiene. Resume PT for legs to help with fatigue. 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 Further evaluation and treatment as indicated. Discussed management of skin sores. Also, discussed prevention--encouraged adequate water intake, as well as nutrition with Vitamin C. Consider adding Biotin and minerals including Zinc. Also needs to prevent skin from drying out--lotion daily at least. Further evaluation and treatment as indicated. The majority of the visit was spent counseling and/or coordinating care for the patient. [id number] time was at least 30 minutes. MD Stacey Dixon LPN 06/01/2018 10:05 AM Signed Influenza Vaccine Documentation: ? Patient is identified by name and date of : Yes ? Patient is older than 6 months of age: Yes ? Patient denies a severe allergy to any vaccine component or to a previous dose of influenza vaccine: Yes FOR EGG ALLERGY CONCERNS, REFER TO PROVIDER. ? Denies allergy to gelatin, formaldehyde, thimerosol :Yes ? Patient is afebrile and not moderately or severely ill: Yes ? Does the patient have a history of Guillain ?[place] Syndrome (a severe paralytic illness): No ? Denies bone marrow transplant prior 6 months or solid organ transplant prior 3 months: Yes ? Denies a history of fainting after a prior injection or medical procedure? Yes If patient has fainted in the past, the CDC recommends sitting or lying down for 15 minutes after the vaccination. ? VIS sheet provided: Yes ? See Immunization Form in [employer] for details of immunizations administered today. If patient reports dizziness, vision changes or ringing in the ears post vaccination ? please have patient sit or lie down for 15 minutes. Referring Provider: SELF [200] Allergies As of Date: 06/01/2018 (No Known Allergies) Date Reviewed: 06/01/2018 Reviewed by: Stacey Call LPN - Fully Assessed Reason for Visit: Recheck [92] Cmt: Follow up Imm/Inj [58] Cmt: Flu Vaccine Reason For Visit History Recorded Primary Visit Diagnosis:Acquired hypothyroidism [E03.9] Other Visit Diagnoses:Depression, unspecified depression type [F32.9] Anxiety [F41.9] Skin lesion [L98.9] Comment:can get new lesion anywhere--face, leg, arms or torso; seems like one at a time Encounter for long-term current use of medication [Z79.899] Need for vaccination [Z23] 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 Monitor for symptoms for now. Order(s):traZODone (DESYREL) 50 mg tabletTake 0.5-1 tablets by mouth daily at bedtime.Disp: 30 tabletRfl: 0 levothyroxine (SYNTHROID) 125 mcg tabletTake 1 tablet by mouth once daily.Disp: 90 tabletRfl: 3 CBC [SQCBC] Order #: [id number] FUTURE COMP METABOLIC PANEL [SQCMP] Order #: [id number] FUTURE TSH BLD [SQTSH] Order #: [id number] STANDING T4 FREE/FREE THYROX [SQFT4] Order #: [id number] STANDING INFLUENZA SEASONAL HIGH DOSE AGE 65+ [[id number]] Order #: [id number] Prescriptions as of 06/01/2018 Sig: ASCORBIC ACID (VITAMIN C) 1,0* Take 1,000 mg by mouth once d* TRAZODONE 50 MG TABLET Take 0.5-1 tablets by mouth d* LEVOTHYROXINE 125 MCG TABLET Take 1 tablet by mouth once d* HYDROCORTISONE-ACETIC ACID 1 * Use 4 Drops in the ears as ne* LORAZEPAM 1 MG TABLET Take 0.5-1 tablets by mouth o* MUPIROCIN 2 % TOPICAL OINTMENT Apply 1 application to affect* TRIAMCINOLONE ACETONIDE 0.1 %* Apply 1 application to affect* KETOCONAZOLE 2 % TOPICAL CREAM Apply 1 application to affect* ESCITALOPRAM 5 MG TABLET Take 1-2 tablets by mouth onc* PROBIOTIC (B. COAGULANS) ORAL Take by mouth. BIOTIN 2,500 MCG CAPSULE Take 2 capsules by mouth once* CHOLECALCIFEROL (VITAMIN D3) * Take 1 tablet by mouth once d* FOLIC ACID 400 MCG TABLET Take one(1) tablet two(2) sinai* ELEMENTAL MAGNESIUM 300 MG CA* Take one(1) tablet three time* CELECOXIB 200 MG CAPSULE Take 200 mg by mouth. Medication notes this encounter HYDROCORTISONE-ACETIC ACID 1 %-2 % EAR DROPS >> Celio Jhaveri MD 06/01/2018 9:44 AM >> CELIO JHAVERI MD FriJun 01, 2018 9:44 AM Effective ESCITALOPRAM 5 MG TABLET >> Celio Jhaveri MD 06/01/2018 9:33 AM >> CELIO JHAVERI MD FriJun 01, 2018 9:33 AM taking just 1 pills a day CELECOXIB 200 MG CAPSULE >> Stacey Call LPN 06/01/2018 8:58 AM >> STACEY CALL LPN FriJun 01, 2018 8:58 AM Problem List As Of Date 06/01/2018 Noted Resolved Sprain of neck [S13.9XXA] INVALID FOR*09/26/2014 Unspecified constipation [K59.00] 11/16/2010 More... BREAST DISORDERS NEC [611.8] INVALID FOR* PERS HX OF BREAST MALIGNANCY [Z85.3] INVALID FOR* Hypothyroidism [E03.9] INVALID FOR* More... Hyperlipidemia [E78.5] INVALID FOR* More... Pain in limb [M79.609] INVALID FOR*09/26/2014 Unspecified Backache [M54.9] INVALID FOR* Abnormal mammogram, unspecified [R92.8] INVALID FOR* Depression [F32.9] INVALID FOR* More... 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 Chronic allergic rhinitis [J30.9] INVALID FOR* ADD (attention deficit disorder) [F98.8] INVALID FOR* Osteopenia [M85.80] INVALID FOR* Occult blood in stools [R19.5] INVALID FOR* More... Nonintractable episodic headache [R51] INVALID FOR* More... Visit Notes: >> Stacey Call LPN Mon Jun 01, 2018 10:05 AM Status: Signed Influenza Vaccine Documentation: ? Patient is identified by name and date of : Yes ? Patient is older than 6 months of age: Yes ? Patient denies a severe allergy to any vaccine component or to a previous dose of influenza vaccine: Yes FOR EGG ALLERGY CONCERNS, REFER TO PROVIDER. ? Denies allergy to gelatin, formaldehyde, thimerosol :Yes ? Patient is afebrile and not moderately or severely ill: Yes ? Does the patient have a history of Guillain ?[place] Syndrome (a severe paralytic illness): No ? Denies bone marrow transplant prior 6 months or solid organ transplant prior 3 months: Yes ? Denies a history of fainting after a prior injection or medical procedure? Yes If patient has fainted in the past, the CDC recommends sitting or lying down for 15 minutes after the vaccination. ? VIS sheet provided: Yes ? See Immunization Form in [facility] for details of immunizations administered today. If patient reports dizziness, vision changes or ringing in the ears post vaccination ? please have patient sit or lie down for 15 minutes. Prescriptions ordered this encounter Disp Refills Start End TRAZODONE 50 MG TABLET 30 t* 0 06/01/2018 Route: ORAL Sig: Take 0.5-1 tablets by mouth daily at bedtime. LEVOTHYROXINE 125 MCG TABLET 90 t* 3 06/01/2018 Route: ORAL Sig: Take 1 tablet by mouth once daily. Medications Discontinued During This Encounter levothyroxine (SYNTHROID) 125 mcg ta* 90 t* 3 05/21/2017 06/01/2018 Route: ORAL Sig: Take 1 tablet by mouth once daily. Disc: Reason for discontinue is not on file. Disposition: Return in about 6 months (around 11/30/2018) for 6 months follow up. Follow-up and Disposition History Recorded Encounter Status:Closed by CELIO JHAVERI MD on 06/01/18 PROGRESS Observed: 05/22/2018 Status: COMPLETED Source: [place] 9:21 AM [facility] REPOSITORY HNO ID: [id number] Author: Erendira (Expedition Supervisor) Hernandez Service: (none) Author Type: Nurse Specialist Type: Progress Notes Filed: 05/22/2018 10:10 AM Note Text: OUTPATIENT VISIT DATE May 22, 2018 OUTPATIENT VISIT TYPE ESTABLISHED PRIMARY CARE PHYSICIAN: Celio Jhaveri MD CHIEF COMPLAINT: Patient presents with: Abscess: L cheek History of Present Illness: Patty Ridley is a 77 year old female who was last seen 02/2018 She has been seen in the past for ACTIVE PROBLEM LIST Other Specified Disorder of Breast Personal History of Malignant Neoplasm of Breast Hypothyroidism Hyperlipidemia Backache, Unspecified Abnormal Mammogram, Unspecified Depression Anxiety Iliac Artery Aneurysm (Hcc) Chronic Allergic Rhinitis Add (Attention Deficit Disorder) Osteopenia Occult Blood in Stools Nonintractable Episodic Headache Treated for rash with bactroban at last visit. Culture completed showed staph. She reports she reports large pimple-like lesions appearing on her nose, face, left arm and right leg. She reports they have been coming and going since February. She reports treatment with Bactroban and has helped them go away. She reports the lesions get large bit do not typically formed pustules and drain, become large red and painful then resolved. No fever. No recent travel. No change in soaps detergents or clothing. She has had a respiratory illness for which she has taken amoxicillin with some relief however symptoms of nasal drainage and congestion persist. No recent hospital or ED visits. No new medical problems or medications. Able to obtain medications. No problems with taking medications or note side effects. 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 - PAST SURGICAL HISTORY OF 07/2007 breast implants removed and replaced with new ones - PAST SURGICAL HISTORY OF Jan 2009 release of trigger finger , right thumb - PAST SURGICAL HISTORY OF 06/2008 TRANSFLAP RECONSTRUCTION OF LEFT BREAST - PAST SURGICAL HISTORY OF 03/09/2009 left saffes vein ablasted and removed varicose vein left leg, dr corea - STEREO LOC FOR CORE BRST BX LT 11-1-10 FAMILY HISTORY Problem Relation Age of Onset - Breast Cancer Paternal Aunt - other (hodgkins disease [Other]) Father - Cancer Brother renal cancer - Heart Mother - Hypertension Mother CHF - Genitourinary () Father renal failure Social History Substance Use Topics - Smoking status: Former Smoker - Smokeless tobacco: Never Used Comment: quit about 24 yrs ago; passive smoker prior to quitting - Alcohol use Yes Comment: occasionally ALLERGIES: ALLERGIES No Known Allergies MEDICATIONS triamcinolone acetonide (KENALOG) 0.1 % cream Apply 1 application to affected area three times daily. Apply sparingly to area for rash/itching. ketoconazole (NIZORAL) 2 % cream Apply 1 application to affected area once daily as needed. As directed escitalopram oxalate (LEXAPRO) 5 mg tablet Take 1-2 tablets by mouth once daily. As directed (Usually once daily but increases as needed--last filled September 2017) LORazepam (ATIVAN) 1 mg tablet Take 0.5-1 tablets by mouth once daily for 180 days. For neck pain or spasms and anxiety. BACILLUS COAGULANS (PROBIOTIC, B. COAGULANS, ORAL) Take by mouth. levothyroxine (SYNTHROID) 125 mcg tablet Take 1 tablet by mouth once daily. hydrocortisone-acetic acid (ACETASOL HC) otic solution Use 4 Drops in the ears as needed. Biotin 2,500 mcg cap Take 2 capsules by mouth once daily. Cholecalciferol, Vitamin D3, 2,000 unit cap Take 1 tablet by mouth once daily. folic acid ORAL Take one(1) tablet two(2) times daily. Magnesium Oxide-Mg AA Chelate (ELEMENTAL MAGNESIUM) 300 mg ORAL Cap Take one(1) tablet three times daily. celecoxib (CELEBREX) 200 mg capsule Take 200 mg by mouth. REVIEW OF SYSTEMS: GENERAL: Negative for: Weight loss or gain, Fever or Chills, Weakness and Sleep difficulties. Physical Examination: BP 122/88 Pulse 68 Resp 16 Wt 197 lb (89.4kg) BP w/Orthostatic Vitals Date and Time Orthostatic BP Orthostatic Pulse BP Pulse BP Position BP Site BP Cuff Size 05/22/18906 -- -- 122/88 68 Sitting Left Arm Regular Adult Peak Flow Date and Time PF Resp 05/22/18906 -- 16 General appearance: Well appearing, alert, in no acute distress, well-hydrated, well nourished. Skin: Skin color, texture, turgor normal, erythematous raised lesion ~1cm diameter consistent with boil on left cheek, tender to palpation, no fluctuance; 5mm erythematous lesion left forearm, non-tender. Head: Normocephalic, no masses, lesions, tenderness or abnormalities Eyes: Anicteric sclera. Ears: External ears normal, canals with some cerumen, TM's normal Nose/Sinuses: Nares erythematous, septum midline, mucosa normal, clear drainage no sinus tenderness Oropharynx: Lips, mucosa, and tongue normal, teeth and gums normal, oropharynx normal Peripheral pulses: Normal Neuro: Gait normal. Sensation grossly intact. Reviewed chart, outside records, tests I personally interviewed, confirmed and edited the above information if obtained by others. TESTING: Glucose (mg/dL) Date Value 09/01/2017 Test sent to [facility]. Potassium (mmol/L) Date Value 09/01/2017 Test sent to [facility]. Sodium (mmol/L) Date Value 09/01/2017 Test sent to [facility]. Chloride (mmol/L) Date Value 09/01/2017 Test sent to [facility]. CO2 (mmol/L) Date Value 09/01/2017 Test sent to [facility]. Creatinine (mg/dL) Date Value 09/01/2017 Test sent to [facility]. BUN (mg/dL) Date Value 09/01/2017 Test sent to [facility]. Anion Gap (mmol/L) Date Value 09/01/2017 Test sent to [facility]. Calcium (mg/dL) Date Value 09/01/2017 Test sent to [facility]. Glucose (mg/dL) Date Value 09/01/2017 Test sent to [facility]. Potassium (mmol/L) Date Value 09/01/2017 Test sent to [facility]. Sodium (mmol/L) Date Value 09/01/2017 Test sent to [facility]. Chloride (mmol/L) Date Value 09/01/2017 Test sent to [facility]. CO2 (mmol/L) Date Value 09/01/2017 Test sent to [facility]. Creatinine (mg/dL) Date Value 09/01/2017 Test sent to [facility]. BUN (mg/dL) Date Value 09/01/2017 Test sent to [facility]. Anion Gap (mmol/L) Date Value 09/01/2017 Test sent to [facility]. Calcium (mg/dL) Date Value 09/01/2017 Test sent to [facility]. Protein, Total (g/dL) Date Value 09/01/2017 Test sent to [facility]. Albumin (g/dL) Date Value 09/01/2017 Test sent to [facility]. Bilirubin, Total (mg/dL) Date Value 09/01/2017 Test sent to [facility]. Alkaline Phosphatase (U/L) Date Value 09/01/2017 Test sent to [facility]. AST (U/L) Date Value 09/01/2017 Test sent to [facility]. ALT (U/L) Date Value 09/01/2017 Test sent to [facility]. Hemoglobin (g/dL) Date Value 09/01/2017 Test sent to [facility]. Hematocrit (%) Date Value 09/01/2017 Test sent to [facility]. WBC (k/uL) Date Value 09/01/2017 Test sent to [facility]. Cholesterol, Total (mg/dL) Date Value 05/13/2017 200 Cholesterol (no units) Date Value 09/12/2017 173 HDL Cholesterol Date Value 09/12/2017 55 05/13/2017 82 mg/dL LDL Cholesterol Date Value 09/12/2017 91 05/13/2017 103 mg/dL Triglyceride Date Value 09/12/2017 136 05/13/2017 77 mg/dL Hemoglobin A1C Date Value Ref Range Status 02/10/2009 5.3 4.0 - 6.0 % Final Ejection Fraction - Result: 59 % Date: 05/17/2014 Time: 11:18:12 IMPRESSION: Ms. Ridley is a 77 year old Woman presents for skin lesions that have appeared off and on x-rays places on her body, nose, left cheek, left forearm since February; exam today consistent with boil, reports continued symptoms of sinusitis however improved After my examination and review of data, I make the following recommendations. PLAN AND RECOMMENDATIONS: 1. Skin lesions - ICD9: 709.9, ICD10: L98.9 (primary diagnosis) - CEPHALEXIN 500 MG CAPSULE - CONSULT TO DERMATOLOGY 2. Rash - ICD9: 782.1, ICD10: R21 - MUPIROCIN 2 % TOPICAL OINTMENT - CONSULT TO DERMATOLOGY - if continues to recur, concerns Advised to go to ER if develops chest pain, shortness of breath, or severe worsening of symptoms. Discussed risks, benefits, alternatives, and potential side effects of medications. Ms. Ridley expressed understanding and agreed with the plan. Erendira Hernandez APRN.CNS CNOV Observed: 05/22/2018 Status: COMPLETED Source: [place] 9:00 AM [facility] REPOSITORY Office Visit (INTMWS) PATTY RIDLEY ([id number]) 1940 F Date Time Provider Department 05/22/18 9:00 AM ERENDIRA HERNANDEZ (SARAH) INTMWS During your visit today, we recorded the following information about you: Pulse Respiration Blood pressure Weight 68/minute 16/minute 122/88 89.4 kg Erendira Hernandez APRN.REGROOVER 05/22/2018 10:10 AM Signed OUTPATIENT VISIT DATE May 22, 2018 OUTPATIENT VISIT TYPE ESTABLISHED PRIMARY CARE PHYSICIAN: Celio Jhaveri MD CHIEF COMPLAINT: Patient presents with: Abscess: L cheek History of Present Illness: Patty Ridley is a 77 year old female who was last seen 02/2018 She has been seen in the past for ACTIVE PROBLEM LIST Other Specified Disorder of Breast Personal History of Malignant Neoplasm of Breast Hypothyroidism Hyperlipidemia Backache, Unspecified Abnormal Mammogram, Unspecified Depression Anxiety Iliac Artery Aneurysm (Hcc) Chronic Allergic Rhinitis Add (Attention Deficit Disorder) Osteopenia Occult Blood in Stools Nonintractable Episodic Headache Treated for rash with bactroban at last visit. Culture completed showed staph. She reports she reports large pimple-like lesions appearing on her nose, face, left arm and right leg. She reports they have been coming and going since February. She reports treatment with Bactroban and has helped them go away. She reports the lesions get large bit do not typically formed pustules and drain, become large red and painful then resolved. No fever. No recent travel. No change in soaps detergents or clothing. She has had a respiratory illness for which she has taken amoxicillin with some relief however symptoms of nasal drainage and congestion persist. No recent hospital or ED visits. No new medical problems or medications. Able to obtain medications. No problems with taking medications or note side effects. 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 - PAST SURGICAL HISTORY OF 07/2007 breast implants removed and replaced with new ones - PAST SURGICAL HISTORY OF Jan 2009 release of trigger finger , right thumb - PAST SURGICAL HISTORY OF 06/2008 TRANSFLAP RECONSTRUCTION OF LEFT BREAST - PAST SURGICAL HISTORY OF 03/09/2009 left saffes vein ablasted and removed varicose vein left leg, dr corea - STEREO LOC FOR CORE BRST BX LT 11-1-10 FAMILY HISTORY Problem Relation Age of Onset - Breast Cancer Paternal Aunt - other (hodgkins disease [Other]) Father - Cancer Brother renal cancer - Heart Mother - Hypertension Mother CHF - Genitourinary () Father renal failure Social History Substance Use Topics - Smoking status: Former Smoker - Smokeless tobacco: Never Used Comment: quit about 24 yrs ago; passive smoker prior to quitting - Alcohol use Yes Comment: occasionally ALLERGIES: ALLERGIES No Known Allergies MEDICATIONS triamcinolone acetonide (KENALOG) 0.1 % cream Apply 1 application to affected area three times daily. Apply sparingly to area for rash/itching. ketoconazole (NIZORAL) 2 % cream Apply 1 application to affected area once daily as needed. As directed escitalopram oxalate (LEXAPRO) 5 mg tablet Take 1-2 tablets by mouth once daily. As directed (Usually once daily but increases as needed--last filled September 2017) LORazepam (ATIVAN) 1 mg tablet Take 0.5-1 tablets by mouth once daily for 180 days. For neck pain or spasms and anxiety. BACILLUS COAGULANS (PROBIOTIC, B. COAGULANS, ORAL) Take by mouth. levothyroxine (SYNTHROID) 125 mcg tablet Take 1 tablet by mouth once daily. hydrocortisone-acetic acid (ACETASOL HC) otic solution Use 4 Drops in the ears as needed. Biotin 2,500 mcg cap Take 2 capsules by mouth once daily. Cholecalciferol, Vitamin D3, 2,000 unit cap Take 1 tablet by mouth once daily. folic acid ORAL Take one(1) tablet two(2) times daily. Magnesium Oxide-Mg AA Chelate (ELEMENTAL MAGNESIUM) 300 mg ORAL Cap Take one(1) tablet three times daily. celecoxib (CELEBREX) 200 mg capsule Take 200 mg by mouth. REVIEW OF SYSTEMS: GENERAL: Negative for: Weight loss or gain, Fever or Chills, Weakness and Sleep difficulties. Physical Examination: BP 122/88 Pulse 68 Resp 16 Wt 197 lb (89.4kg) BP w/Orthostatic Vitals Date and Time Orthostatic BP Orthostatic Pulse BP Pulse BP Position BP Site BP Cuff Size 05/22/18906 -- -- 122/88 68 Sitting Left Arm Regular Adult Peak Flow Date and Time PF Resp 05/22/18906 -- 16 General appearance: Well appearing, alert, in no acute distress, well-hydrated, well nourished. Skin: Skin color, texture, turgor normal, erythematous raised lesion ~1cm diameter consistent with boil on left cheek, tender to palpation, no fluctuance; 5mm erythematous lesion left forearm, non-tender. Head: Normocephalic, no masses, lesions, tenderness or abnormalities Eyes: Anicteric sclera. Ears: External ears normal, canals with some cerumen, TM's normal Nose/Sinuses: Nares erythematous, septum midline, mucosa normal, clear drainage no sinus tenderness Oropharynx: Lips, mucosa, and tongue normal, teeth and gums normal, oropharynx normal Peripheral pulses: Normal Neuro: Gait normal. Sensation grossly intact. Reviewed chart, outside records, tests I personally interviewed, confirmed and edited the above information if obtained by others. TESTING: Glucose (mg/dL) Date Value 09/01/2017 Test sent to [facility]. Potassium (mmol/L) Date Value 09/01/2017 Test sent to [facility]. Sodium (mmol/L) Date Value 09/01/2017 Test sent to [facility]. Chloride (mmol/L) Date Value 09/01/2017 Test sent to [facility]. CO2 (mmol/L) Date Value 09/01/2017 Test sent to [facility]. Creatinine (mg/dL) Date Value 09/01/2017 Test sent to [facility]. BUN (mg/dL) Date Value 09/01/2017 Test sent to [facility]. Anion Gap (mmol/L) Date Value 09/01/2017 Test sent to [facility]. Calcium (mg/dL) Date Value 09/01/2017 Test sent to [facility]. Glucose (mg/dL) Date Value 09/01/2017 Test sent to [facility]. Potassium (mmol/L) Date Value 09/01/2017 Test sent to [facility]. Sodium (mmol/L) Date Value 09/01/2017 Test sent to [facility]. Chloride (mmol/L) Date Value 09/01/2017 Test sent to [facility]. CO2 (mmol/L) Date Value 09/01/2017 Test sent to [facility]. Creatinine (mg/dL) Date Value 09/01/2017 Test sent to [facility]. BUN (mg/dL) Date Value 09/01/2017 Test sent to [facility]. Anion Gap (mmol/L) Date Value 09/01/2017 Test sent to [facility]. Calcium (mg/dL) Date Value 09/01/2017 Test sent to [facility]. Protein, Total (g/dL) Date Value 09/01/2017 Test sent to [facility]. Albumin (g/dL) Date Value 09/01/2017 Test sent to [facility]. Bilirubin, Total (mg/dL) Date Value 09/01/2017 Test sent to [facility]. Alkaline Phosphatase (U/L) Date Value 09/01/2017 Test sent to [facility]. AST (U/L) Date Value 09/01/2017 Test sent to [facility]. ALT (U/L) Date Value 09/01/2017 Test sent to [facility]. Hemoglobin (g/dL) Date Value 09/01/2017 Test sent to [facility]. Hematocrit (%) Date Value 09/01/2017 Test sent to [facility]. WBC (k/uL) Date Value 09/01/2017 Test sent to [facility]. Cholesterol, Total (mg/dL) Date Value 05/13/2017 200 Cholesterol (no units) Date Value 09/12/2017 173 HDL Cholesterol Date Value 09/12/2017 55 05/13/2017 82 mg/dL LDL Cholesterol Date Value 09/12/2017 91 05/13/2017 103 mg/dL Triglyceride Date Value 09/12/2017 136 05/13/2017 77 mg/dL Hemoglobin A1C Date Value Ref Range Status 02/10/2009 5.3 4.0 - 6.0 % Final Ejection Fraction - Result: 59 % Date: 05/17/2014 Time: 11:18:12 IMPRESSION: Ms. Ridley is a 77 year old Woman presents for skin lesions that have appeared off and on x-rays places on her body, nose, left cheek, left forearm since February; exam today consistent with boil, reports continued symptoms of sinusitis however improved After my examination and review of data, I make the following recommendations. PLAN AND RECOMMENDATIONS: 1. Skin lesions - ICD9: 709.9, ICD10: L98.9 (primary diagnosis) - CEPHALEXIN 500 MG CAPSULE - CONSULT TO DERMATOLOGY 2. Rash - ICD9: 782.1, ICD10: R21 - MUPIROCIN 2 % TOPICAL OINTMENT - CONSULT TO DERMATOLOGY - if continues to recur, concerns Advised to go to ER if develops chest pain, shortness of breath, or severe worsening of symptoms. Discussed risks, benefits, alternatives, and potential side effects of medications. Ms. Ridley expressed understanding and agreed with the plan. Erendira Hernandez APRN.REGROOVER Referring Provider: SELF [200] Allergies As of Date: 05/22/2018 (No Known Allergies) Date Reviewed: 05/22/2018 Reviewed by: Jackelyn Heard LPN - Fully Assessed Reason for Visit: Abscess [1744] Cmt: L cheek Primary Visit Diagnosis:Skin lesions [L98.9] Other Visit Diagnosis:Rash [R21] Order(s):cephALEXin (KEFLEX) 500 mg capsuleTake 1 capsule by mouth four times daily for 5 days. Take with foodDisp: 40 capsuleRfl: 0 mupirocin (BACTROBAN) 2 % ointmentApply 1 application to affected area three times daily.Disp: 22 gRfl: 0 CONSULT TO DERMATOLOGY [9006] Order #: [id number]: 1 Prescriptions as of 05/22/2018 Sig: TRIAMCINOLONE ACETONIDE 0.1 %* Apply 1 application to affect* KETOCONAZOLE 2 % TOPICAL CREAM Apply 1 application to affect* ESCITALOPRAM 5 MG TABLET Take 1-2 tablets by mouth onc* LORAZEPAM 1 MG TABLET Take 0.5-1 tablets by mouth o* PROBIOTIC (B. COAGULANS) ORAL Take by mouth. LEVOTHYROXINE 125 MCG TABLET Take 1 tablet by mouth once d* HYDROCORTISONE-ACETIC ACID 1 * Use 4 Drops in the ears as ne* BIOTIN 2,500 MCG CAPSULE Take 2 capsules by mouth once* CHOLECALCIFEROL (VITAMIN D3) * Take 1 tablet by mouth once d* FOLIC ACID 400 MCG TABLET Take one(1) tablet two(2) sinai* ELEMENTAL MAGNESIUM 300 MG CA* Take one(1) tablet three time* CEPHALEXIN 500 MG CAPSULE Take 1 capsule by mouth four * MUPIROCIN 2 % TOPICAL OINTMENT Apply 1 application to affect* CELECOXIB 200 MG CAPSULE Take 200 mg by mouth. Problem List As Of Date 05/22/2018 Noted Resolved Sprain of neck [S13.9XXA] INVALID FOR*09/26/2014 Unspecified constipation [K59.00] 11/16/2010 More... BREAST DISORDERS NEC [611.8] INVALID FOR* PERS HX OF BREAST MALIGNANCY [Z85.3] INVALID FOR* Hypothyroidism [E03.9] INVALID FOR* More... Hyperlipidemia [E78.5] INVALID FOR* More... Pain in limb [M79.609] INVALID FOR*09/26/2014 Unspecified Backache [M54.9] INVALID FOR* Abnormal mammogram, unspecified [R92.8] INVALID FOR* Depression [F32.9] INVALID FOR* More... 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 Nonintractable episodic headache [R51] INVALID FOR* More... Prescriptions ordered this encounter Disp Refills Start End CEPHALEXIN 500 MG CAPSULE 40 c* 0 05/22/2018 05/27/2018 Route: ORAL Sig: Take 1 capsule by mouth four times daily for 5 days. Take with food MUPIROCIN 2 % TOPICAL OINTMENT 22 g 0 05/22/2018 Cmt: Hold on file until needed Route: TOPICAL Sig: Apply 1 application to affected area three times daily. Encounter Status:Closed by ERENDIRA FIGUEROA on 05/22/18 Observed: 04/09/2018 Status: F Source: [place] STOOL OCCULT BLOOD 10:36 AM [facility] REPOSITORY STOB iFOB Occult Blood Negative Performed By: #### [id number] #### [facility] [address] [place], [address] FECAL OCCULT BLD Collected: 04/09/2018 Status: F Source: [place] TST 7:38 AM [facility] [place] REPOSITORY TYPE CODE TESTS RESULT OUT OF RANGE REFERENCE UNITS LAB IFO Negative Abnormal Test Alert Immuno sent to [facility]. Result Comment: Account Credited HIDE PROGRESS Observed: 04/06/2018 Status: COMPLETED Source: [place] 10:33 AM [facility] REPOSITORY HNO ID: [id number] Author: Guillermo Chávez Service: (none) Author Type: Physician Type: Progress Notes Filed: 04/06/2018 10:54 AM Note Text: Patient presents with: cough, congestion, JEAN-BAPTISTE bodyaches and ear pain: x 4 weeks HPI: Feeling sick for 4 weeks. URI improved after 1 week, flared again for the last couple weeks. Positive symptoms: Cough, Earache, Body Aches, Headache, head congestion, ear congestion, Nasal Congestion, Rhinorrhea, Post nasal drainage, chills Negative symptoms: Shortness of breath, Chest pain, OTC: Mucinex DM MEDICATIONS: Current Outpatient Prescriptions: triamcinolone acetonide (KENALOG) 0.1 % cream Apply 1 application to affected area three times daily. Apply sparingly to area for rash/itching. ketoconazole (NIZORAL) 2 % cream Apply 1 application to affected area once daily as needed. As directed escitalopram oxalate (LEXAPRO) 5 mg tablet Take 1-2 tablets by mouth once daily. As directed (Usually once daily but increases as needed--last filled September 2017) LORazepam (ATIVAN) 1 mg tablet Take 0.5-1 tablets by mouth once daily for 180 days. For neck pain or spasms and anxiety. BACILLUS COAGULANS (PROBIOTIC, B. COAGULANS, ORAL) Take by mouth. celecoxib (CELEBREX) 200 mg capsule Take 200 mg by mouth. levothyroxine (SYNTHROID) 125 mcg tablet Take 1 tablet by mouth once daily. hydrocortisone-acetic acid (ACETASOL HC) otic solution Use 4 Drops in the ears as needed. Biotin 2,500 mcg cap Take 2 capsules by mouth once daily. Cholecalciferol, Vitamin D3, 2,000 unit cap Take 1 tablet by mouth once daily. folic acid ORAL Take one(1) tablet two(2) times daily. Magnesium Oxide-Mg AA Chelate (ELEMENTAL MAGNESIUM) 300 mg ORAL Cap Take one(1) tablet three times daily. No current facility-administered medications for this visit. ALLERGIES: ALLERGIES No Known Allergies VITALS: BP 130/82 Pulse 73 Temp 36.6 ?C (97.9 ?F) (Tympanic) Resp 16 Wt 87.8 kg (193 lb 9.6 oz) SpO2 96% BMI 31.73 kg/m? PHYSICAL EXAM: GEN: mildly ill appearing HEENT: PERRL, EOMI, conjunctiva clear Ears: canals clear, TMs without erythema, bulge, or effusion Sinuses: pressure over frontal sinus, pressure over maxillary sinuses Throat: moist mucous membranes, mild erythema, no exudate Neck: supple, no thyromegaly, no lymphadenopathy HEART: regular rate and rhythm, no murmurs LUNGS: clear to auscultation, no wheezes or crackles, no increased WOB ASSESSMENT/PLAN: 1. Acute non-recurrent sinusitis, unspecified location - ICD9: 461.9, ICD10: J01.90 - AMOXICILLIN 875 MG TABLET Guillermo Chávez MD CNOV Observed: 04/06/2018 Status: COMPLETED Source: [place] 10:30 AM [facility] REPOSITORY Office Visit ([facility]) PATTY RIDLEY ([id number]) 1940 F Date Time Provider Department 04/06/18 10:30 AM GUILLERMO CHÁVEZ [facility] During your visit today, we recorded the following information about you: Temperature Pulse Respiration Blood pressure 97.9 degrees 73/minute 16/minute 130/82 Weight 87.8 kg Guillermo Chávze MD 04/06/2018 10:54 AM Signed Patient presents with: cough, congestion, JEAN-BAPTISTE bodyaches and ear pain: x 4 weeks HPI: Feeling sick for 4 weeks. URI improved after 1 week, flared again for the last couple weeks. Positive symptoms: Cough, Earache, Body Aches, Headache, head congestion, ear congestion, Nasal Congestion, Rhinorrhea, Post nasal drainage, chills Negative symptoms: Shortness of breath, Chest pain, OTC: Mucinex DM MEDICATIONS: Current Outpatient Prescriptions: triamcinolone acetonide (KENALOG) 0.1 % cream Apply 1 application to affected area three times daily. Apply sparingly to area for rash/itching. ketoconazole (NIZORAL) 2 % cream Apply 1 application to affected area once daily as needed. As directed escitalopram oxalate (LEXAPRO) 5 mg tablet Take 1-2 tablets by mouth once daily. As directed (Usually once daily but increases as needed--last filled September 2017) LORazepam (ATIVAN) 1 mg tablet Take 0.5-1 tablets by mouth once daily for 180 days. For neck pain or spasms and anxiety. BACILLUS COAGULANS (PROBIOTIC, B. COAGULANS, ORAL) Take by mouth. celecoxib (CELEBREX) 200 mg capsule Take 200 mg by mouth. levothyroxine (SYNTHROID) 125 mcg tablet Take 1 tablet by mouth once daily. hydrocortisone-acetic acid (ACETASOL HC) otic solution Use 4 Drops in the ears as needed. Biotin 2,500 mcg cap Take 2 capsules by mouth once daily. Cholecalciferol, Vitamin D3, 2,000 unit cap Take 1 tablet by mouth once daily. folic acid ORAL Take one(1) tablet two(2) times daily. Magnesium Oxide-Mg AA Chelate (ELEMENTAL MAGNESIUM) 300 mg ORAL Cap Take one(1) tablet three times daily. No current facility-administered medications for this visit. ALLERGIES: ALLERGIES No Known Allergies VITALS: BP 130/82 Pulse 73 Temp 36.6 ?C (97.9 ?F) (Tympanic) Resp 16 Wt 87.8 kg (193 lb 9.6 oz) SpO2 96% BMI 31.73 kg/m? PHYSICAL EXAM: GEN: mildly ill appearing HEENT: PERRL, EOMI, conjunctiva clear Ears: canals clear, TMs without erythema, bulge, or effusion Sinuses: pressure over frontal sinus, pressure over maxillary sinuses Throat: moist mucous membranes, mild erythema, no exudate Neck: supple, no thyromegaly, no lymphadenopathy HEART: regular rate and rhythm, no murmurs LUNGS: clear to auscultation, no wheezes or crackles, no increased WOB ASSESSMENT/PLAN: 1. Acute non-recurrent sinusitis, unspecified location - ICD9: 461.9, ICD10: J01.90 - AMOXICILLIN 875 MG TABLET Guillermo Chávez MD Referring Provider: SELF [200] Allergies As of Date: 04/06/2018 (No Known Allergies) Date Reviewed: 04/06/2018 Reviewed by: Tanvi Ramirez LPN - Fully Assessed Reason for Visit: cough, congestion, JEAN-BAPTISTE bodyaches and ear pain [Other] Cmt: x 4 weeks Primary Visit Diagnosis:Acute non-recurrent sinusitis, unspecified location [J01.90] Order(s):amoxicillin (AMOXIL) 875 mg tabletTake 1 tablet by mouth twice daily for 7 days.Disp: 14 tabletRfl: 0 Prescriptions as of 04/06/2018 Sig: TRIAMCINOLONE ACETONIDE 0.1 %* Apply 1 application to affect* KETOCONAZOLE 2 % TOPICAL CREAM Apply 1 application to affect* ESCITALOPRAM 5 MG TABLET Take 1-2 tablets by mouth onc* LORAZEPAM 1 MG TABLET Take 0.5-1 tablets by mouth o* PROBIOTIC (B. COAGULANS) ORAL Take by mouth. CELECOXIB 200 MG CAPSULE Take 200 mg by mouth. LEVOTHYROXINE 125 MCG TABLET Take 1 tablet by mouth once d* HYDROCORTISONE-ACETIC ACID 1 * Use 4 Drops in the ears as ne* BIOTIN 2,500 MCG CAPSULE Take 2 capsules by mouth once* CHOLECALCIFEROL (VITAMIN D3) * Take 1 tablet by mouth once d* FOLIC ACID 400 MCG TABLET Take one(1) tablet two(2) sinai* ELEMENTAL MAGNESIUM 300 MG CA* Take one(1) tablet three time* AMOXICILLIN 875 MG TABLET Take 1 tablet by mouth twice * Problem List As Of Date 04/06/2018 Noted Resolved Sprain of neck [S13.9XXA] INVALID FOR*09/26/2014 Unspecified constipation [K59.00] 11/16/2010 More... BREAST DISORDERS NEC [611.8] INVALID FOR* PERS HX OF BREAST MALIGNANCY [Z85.3] INVALID FOR* Hypothyroidism [E03.9] INVALID FOR* More... Hyperlipidemia [E78.5] INVALID FOR* More... Pain in limb [M79.609] INVALID FOR*09/26/2014 Unspecified Backache [M54.9] INVALID FOR* Abnormal mammogram, unspecified [R92.8] INVALID FOR* Depression [F32.9] INVALID FOR* More... 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 Nonintractable episodic headache [R51] INVALID FOR* More... Prescriptions ordered this encounter Disp Refills Start End AMOXICILLIN 875 MG TABLET 14 t* 0 04/06/2018 04/13/2018 Route: ORAL Sig: Take 1 tablet by mouth twice daily for 7 days. Medications Discontinued During This Encounter dextroamphetamine-amphetamine (ADDER* 30 t* 0 05/21/2017 04/06/2018 Class: Print RX Route: ORAL Sig: Take 1 tablet by mouth once daily. Patient not taking: Reported on 11/15/2017 Disc: Course of therapy completed mupirocin (BACTROBAN) 2 % ointment 22 g 0 03/07/2018 04/06/2018 Route: TOPICAL Sig: Apply 1 application to affected area three times daily. Disc: Course of therapy completed Encounter Status:Closed by GUILLERMO CHÁVEZ MD on 04/06/18 PROGRESS Observed: 03/07/2018 Status: COMPLETED Source: [place] 12:33 PM [facility] REPOSITORY O ID: [id number] Author: Kylie Iglesias Service: (none) Author Type: Nurse Practitioner Type: Progress Notes Filed: 03/07/2018 12:39 PM Note Text: Subjective HPI Pt presents with c/o rash to nose x 5 months. Suspects MRSA as her daughter and son-in-law were dx with MRSA last year. Denies fever, chills, erythema, edema, heat, drainage from rash. Has been applying bactroban for a week, has run out. bactroban was prescribed for a skin lac several months ago. Review of Systems Constitutional: Negative for chills and fever. Musculoskeletal: Negative for myalgias. Skin: Positive for rash. Negative for itching. Objective Physical Exam Constitutional: She is oriented to person, place, and time and well-developed, well-nourished, and in no distress. No distress. HENT: Nose: 2, approx 2mm pink papules noted on nose. 1cm patch of flesh colored maculopapular lesions noted to right temporal area. No erythema, edema, heat, drainage noted from any lesions. Neurological: She is alert and oriented to person, place, and time. Skin: Skin is warm and dry. She is not diaphoretic. BP 122/88 Pulse 72 Temp 37 ?C (98.6 ?F) (Left Tympanic) Resp 16 Wt 85.6 kg (188 lb 12.8 oz) SpO2 98% BMI 30.94 kg/m? 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 - PAST SURGICAL HISTORY OF 07/2007 breast implants removed and replaced with new ones - PAST SURGICAL HISTORY OF Jan 2009 release of trigger finger , right thumb - PAST SURGICAL HISTORY OF 06/2008 TRANSFLAP RECONSTRUCTION OF LEFT BREAST - PAST SURGICAL HISTORY OF 03/09/2009 left saffes vein ablasted and removed varicose vein left leg, dr corea - STEREO LOC FOR CORE BRST BX LT 11-1-10 ALLERGIES Patient has no known allergies. MEDICATIONS triamcinolone acetonide (KENALOG) 0.1 % cream Apply 1 application to affected area three times daily. Apply sparingly to area for rash/itching. ketoconazole (NIZORAL) 2 % cream Apply 1 application to affected area once daily as needed. As directed escitalopram oxalate (LEXAPRO) 5 mg tablet Take 1-2 tablets by mouth once daily. As directed (Usually once daily but increases as needed--last filled September 2017) LORazepam (ATIVAN) 1 mg tablet Take 0.5-1 tablets by mouth once daily for 180 days. For neck pain or spasms and anxiety. BACILLUS COAGULANS (PROBIOTIC, B. COAGULANS, ORAL) Take by mouth. celecoxib (CELEBREX) 200 mg capsule Take 200 mg by mouth. levothyroxine (SYNTHROID) 125 mcg tablet Take 1 tablet by mouth once daily. hydrocortisone-acetic acid (ACETASOL HC) otic solution Use 4 Drops in the ears as needed. Biotin 2,500 mcg cap Take 2 capsules by mouth once daily. Cholecalciferol, Vitamin D3, 2,000 unit cap Take 1 tablet by mouth once daily. folic acid ORAL Take one(1) tablet two(2) times daily. Magnesium Oxide-Mg AA Chelate (ELEMENTAL MAGNESIUM) 300 mg ORAL Cap Take one(1) tablet three times daily. mupirocin (BACTROBAN) 2 % ointment Apply 1 application to affected area three times daily. dextroamphetamine-amphetamine (ADDERALL) 5 mg tablet Take 1 tablet by mouth once daily. FAMILY HISTORY Problem Relation Age of Onset - Breast Cancer Paternal Aunt - other (hodgkins disease [Other]) Father - Cancer Brother renal cancer - Heart Mother - Hypertension Mother CHF - Genitourinary () Father renal failure Social History Substance Use Topics - Smoking status: Former Smoker - Smokeless tobacco: Never Used Comment: quit about 24 yrs ago; passive smoker prior to quitting - Alcohol use Yes Comment: occasionally ASSESSMENT/PLAN: 1. Rash - ICD9: 782.1, ICD10: R21 - WOUND CULTURE AND GRAM STAIN Will call with results and any further POC. - MUPIROCIN 2 % TOPICAL OINTMENT The patient is instructed to return or seek emergency treatment if symptoms become worse or with any acute change in condition. The patient verbalizes understanding and is in agreement with plan of care. Kylie Iglesias CNP WOUND Observed: 03/07/2018 Status: F Source: [place] CULTURE/STAIN 12:30 PM [facility] REPOSITORY Sp. Request/Comment: - Swab Smear Result - No cells or organisms seen Culture Result - Rare Coagulase negative Staphylococcus species --> ABNORMAL ALERT No further workup --> ABNORMAL ALERT Performed By: #### WCUL #### [facility] [address] [place], [place] [address] CNOV Observed: 03/07/2018 Status: COMPLETED Source: [place] 12:00 PM [facility] REPOSITORY [facility] PATTY RIDLEY ([id number]) 1940 F Date Time Provider Department 03/07/18 12:00 PM KYLIE IGLESIAS [facility] During your visit today, we recorded the following information about you: Temperature Pulse Respiration Blood pressure 98.6 degrees 72/minute 16/minute 122/88 Weight 85.6 kg Kylie Iglesias APRN.FREDERICK 03/07/2018 12:39 PM Signed Subjective HPI Pt presents with c/o rash to nose x 5 months. Suspects MRSA as her daughter and son-in-law were dx with MRSA last year. Denies fever, chills, erythema, edema, heat, drainage from rash. Has been applying bactroban for a week, has run out. bactroban was prescribed for a skin lac several months ago. Review of Systems Constitutional: Negative for chills and fever. Musculoskeletal: Negative for myalgias. Skin: Positive for rash. Negative for itching. Objective Physical Exam Constitutional: She is oriented to person, place, and time and well-developed, well-nourished, and in no distress. No distress. HENT: Nose: 2, approx 2mm pink papules noted on nose. 1cm patch of flesh colored maculopapular lesions noted to right temporal area. No erythema, edema, heat, drainage noted from any lesions. Neurological: She is alert and oriented to person, place, and time. Skin: Skin is warm and dry. She is not diaphoretic. BP 122/88 Pulse 72 Temp 37 ?C (98.6 ?F) (Left Tympanic) Resp 16 Wt 85.6 kg (188 lb 12.8 oz) SpO2 98% BMI 30.94 kg/m? 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 - PAST SURGICAL HISTORY OF 07/2007 breast implants removed and replaced with new ones - PAST SURGICAL HISTORY OF Jan 2009 release of trigger finger , right thumb - PAST SURGICAL HISTORY OF 06/2008 TRANSFLAP RECONSTRUCTION OF LEFT BREAST - PAST SURGICAL HISTORY OF 03/09/2009 left saffes vein ablasted and removed varicose vein left leg, dr corea - STEREO LOC FOR CORE BRST BX LT 11-1-10 ALLERGIES Patient has no known allergies. MEDICATIONS triamcinolone acetonide (KENALOG) 0.1 % cream Apply 1 application to affected area three times daily. Apply sparingly to area for rash/itching. ketoconazole (NIZORAL) 2 % cream Apply 1 application to affected area once daily as needed. As directed escitalopram oxalate (LEXAPRO) 5 mg tablet Take 1-2 tablets by mouth once daily. As directed (Usually once daily but increases as needed--last filled September 2017) LORazepam (ATIVAN) 1 mg tablet Take 0.5-1 tablets by mouth once daily for 180 days. For neck pain or spasms and anxiety. BACILLUS COAGULANS (PROBIOTIC, B. COAGULANS, ORAL) Take by mouth. celecoxib (CELEBREX) 200 mg capsule Take 200 mg by mouth. levothyroxine (SYNTHROID) 125 mcg tablet Take 1 tablet by mouth once daily. hydrocortisone-acetic acid (ACETASOL HC) otic solution Use 4 Drops in the ears as needed. Biotin 2,500 mcg cap Take 2 capsules by mouth once daily. Cholecalciferol, Vitamin D3, 2,000 unit cap Take 1 tablet by mouth once daily. folic acid ORAL Take one(1) tablet two(2) times daily. Magnesium Oxide-Mg AA Chelate (ELEMENTAL MAGNESIUM) 300 mg ORAL Cap Take one(1) tablet three times daily. mupirocin (BACTROBAN) 2 % ointment Apply 1 application to affected area three times daily. dextroamphetamine-amphetamine (ADDERALL) 5 mg tablet Take 1 tablet by mouth once daily. FAMILY HISTORY Problem Relation Age of Onset - Breast Cancer Paternal Aunt - other (hodgkins disease [Other]) Father - Cancer Brother renal cancer - Heart Mother - Hypertension Mother CHF - Genitourinary () Father renal failure Social History Substance Use Topics - Smoking status: Former Smoker - Smokeless tobacco: Never Used Comment: quit about 24 yrs ago; passive smoker prior to quitting - Alcohol use Yes Comment: occasionally ASSESSMENT/PLAN: 1. Rash - ICD9: 782.1, ICD10: R21 - WOUND CULTURE AND GRAM STAIN Will call with results and any further POC. - MUPIROCIN 2 % TOPICAL OINTMENT The patient is instructed to return or seek emergency treatment if symptoms become worse or with any acute change in condition. The patient verbalizes understanding and is in agreement with plan of care. Kylie Iglesias CNP Referring Provider: SELF [[id number]] Allergies As of Date: 03/07/2018 (No Known Allergies) Date Reviewed: 03/07/2018 Reviewed by: Sarah Gallo Ma - Fully Assessed Reason for Visit: Derm Problem [33] Cmt: nose AND side of right eye Primary Visit Diagnosis:Rash [R21] Order(s):WOUND CULTURE AND GRAM STAIN [SQWCUL] Order #: [id number] mupirocin (BACTROBAN) 2 % ointmentApply 1 application to affected area three times daily.Disp: 22 gRfl: 0 Prescriptions as of 03/07/2018 Sig: TRIAMCINOLONE ACETONIDE 0.1 %* Apply 1 application to affect* KETOCONAZOLE 2 % TOPICAL CREAM Apply 1 application to affect* ESCITALOPRAM 5 MG TABLET Take 1-2 tablets by mouth onc* LORAZEPAM 1 MG TABLET Take 0.5-1 tablets by mouth o* PROBIOTIC (B. COAGULANS) ORAL Take by mouth. CELECOXIB 200 MG CAPSULE Take 200 mg by mouth. LEVOTHYROXINE 125 MCG TABLET Take 1 tablet by mouth once d* HYDROCORTISONE-ACETIC ACID 1 * Use 4 Drops in the ears as ne* BIOTIN 2,500 MCG CAPSULE Take 2 capsules by mouth once* CHOLECALCIFEROL (VITAMIN D3) * Take 1 tablet by mouth once d* FOLIC ACID 400 MCG TABLET Take one(1) tablet two(2) sinai* ELEMENTAL MAGNESIUM 300 MG CA* Take one(1) tablet three time* MUPIROCIN 2 % TOPICAL OINTMENT Apply 1 application to affect* DEXTROAMPHETAMINE-AMPHETAMINE* Take 1 tablet by mouth once d* Patient not taking: Reported on 11/15/2017 Problem List As Of Date 03/07/2018 Noted Resolved Sprain of neck [S13.9XXA] INVALID FOR*09/26/2014 Unspecified constipation [K59.00] 11/16/2010 More... BREAST DISORDERS NEC [611.8] INVALID FOR* PERS HX OF BREAST MALIGNANCY [Z85.3] INVALID FOR* Hypothyroidism [E03.9] INVALID FOR* More... Hyperlipidemia [E78.5] INVALID FOR* More... Pain in limb [M79.609] INVALID FOR*09/26/2014 Unspecified Backache [M54.9] INVALID FOR* Abnormal mammogram, unspecified [R92.8] INVALID FOR* Depression [F32.9] INVALID FOR* More... 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 Nonintractable episodic headache [R51] INVALID FOR* More... Prescriptions ordered this encounter Disp Refills Start End MUPIROCIN 2 % TOPICAL OINTMENT 22 g 0 03/07/2018 Route: TOPICAL Sig: Apply 1 application to affected area three times daily. Encounter Status:Closed by KYLIE IGLESIAS CNP on 03/07/18 PROGRESS Observed: 11/25/2017 Status: COMPLETED Source: [place] 9:23 AM [facility] REPOSITORY HNO ID: [id number] Author: Celio Jhaveri Service: (none) Author Type: Physician Type: Progress Notes Filed: 12/05/2017 12:12 AM Note Text: Patient presents with: Recheck: 6 month follow up SUBJECTIVE: Patty Ridley is a 77 year old year old lady here today for 6 month follow up appointment for review of medical conditions. Nausea and headaches--reason went to . Diagnosed with dental abscess. Gets pain left side of head--can be severe and stop her in her tracks. For years. Random. Not daily. Not monthly or weekly. Very brief. Does not last even a minute. No associated symptoms. Eating vegan diet mostly. Small amount. Doing well with PT after knee surgery--TKR left. Doing fine on Lexapro for depression and anxiety. 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 As directed BACILLUS COAGULANS (PROBIOTIC, B. COAGULANS, ORAL) Take by mouth. triamcinolone acetonide (KENALOG) 0.1 % cream Apply 1 application to affected area three times daily. Apply sparingly to area for rash/itching. celecoxib (CELEBREX) 200 mg capsule Take 200 mg by mouth. levothyroxine (SYNTHROID) 125 mcg tablet Take 1 tablet by mouth once daily. ketoconazole (NIZORAL) 2 % cream Apply 1 application to affected area once daily as needed. As directed hydrocortisone-acetic acid (ACETASOL HC) otic solution Use 4 Drops in the ears as needed. Biotin 2,500 mcg cap Take 2 capsules by mouth once daily. Cholecalciferol, Vitamin D3, 2,000 unit cap Take 1 tablet by mouth once daily. folic acid ORAL Take one(1) tablet two(2) times daily. Magnesium Oxide-Mg AA Chelate (ELEMENTAL MAGNESIUM) 300 mg ORAL Cap Take one(1) tablet three times daily. amoxicillin (AMOXIL) 875 mg tablet Take 1 tablet by mouth twice daily for 10 days. GLUCOSAMINE HCL/CHONDROITIN VINCENT (GLUCOSAMINE-CHONDROITIN ORAL) Take by mouth. dextroamphetamine-amphetamine (ADDERALL) 5 mg tablet Take 1 tablet by mouth once daily. (Patient not taking: Reported on 11/15/2017 ) oxybutynin (DITROPAN) 5 mg tablet Take 1 tablet by mouth twice daily. As needed as directed (Patient not taking: Reported on 11/15/2017 ) hydrOXYzine HCl (ATARAX) 25 mg tablet Take 1 tablet by mouth every 6 hours as needed for Itching/Rash. (Patient not taking: Reported on 11/15/2017 ) No current facility-administered medications for this visit. OBJECTIVE: BP 116/80 Pulse 88 Resp 12 Wt 85.3 kg (188 lb) BMI 30.81 kg/m? Patient is alert, oriented times 3, no apparent distress, affect is bright, reactive. Last 5 Encounter BP Readings: Date: BP: 11/25/2017 116/80 11/15/2017 122/68 09/01/2017 116/82 05/21/2017 114/78 02/07/2017 120/70 Last 5 Encounter Wt Readings: Date: Wt: 11/25/2017 85.3 kg (188 lb) 11/15/2017 85.7 kg (189 lb) 09/01/2017 92.5 kg (204 lb) 05/21/2017 91 kg (200 lb 9.6 oz) 02/07/2017 90.3 kg (199 lb) Heart: Regular rate, rhythm, no murmurs, gallops, rubs. Lungs: Clear to auscultation, bilaterally, breathing non labored. Ext: No cyanosis, clubbing, or edema aside from trace left leg edema . LIPID PROFILE Collected: 09/12/2017 9:56 AM Status: F Source: [facility] REPOSITORY Order Comment: THIS REQUISITION IS A SELF DIRECTED LABORATORY ORDER. THESE RESULTS ARE BEING SENT TO YOU A COURTESY PER PATIENT REQUEST. TYPE CODE TESTS RESULT OUT OF RANGE REFERENCE UNITS LAB L501.4900 CHOL 173 Normal 200 mg/dL Result Comment: <200 mg/dL Desirable 200-240 mg/dL Borderline >240 mg/dL High Risk LAB L501.5000 TRIG 136 Normal ? mg/dL Result Comment: The drugs N-Acetylcysteine and Metamizole may falsely depress this assay. Serum Triglycerides Reference Interval Normal <150 mg/dL Borderline high 150 - 199 mg/dL High 200 - 499 mg/dL Very High > or = 500 mg/dL LAB L501.6400 HDL 55 Normal ? mg/dL Result Comment: The drugs N-Acetylcysteine and Metamizole may falsely depress this assay. Reference Range HDL <40 mg/dL Low HDL Cholesterol HDL >or= 60 mg/dL High HDL Cholesterol LAB L501.6500 LDL 91 Normal 0-130 mg/dL LAB L501.6600 VLDL 27 Normal 5-40 mg/dL Performed By: #### L500.4100, L501.0100 #### [facility] [address] [place], [address] GLUCOSE Collected: 09/12/2017 9:56 AM Status: F Source: [facility] REPOSITORY Order Comment: THIS REQUISITION IS A SELF DIRECTED LABORATORY ORDER. THESE RESULTS ARE BEING SENT TO YOU A COURTESY PER PATIENT REQUEST. TYPE CODE TESTS RESULT OUT OF RANGE REFERENCE UNITS LAB L501.0100 GLU 85 Normal 74-106 mg/dL Result Comment: Please note revised GLUCOSE reference range effective 2017. Performed By: #### L500.4100, L501.0100 #### [facility] [address] [place], [address] THYROID STIM HORMONE (TSH) Collected: 09/09/2017 1:58 PM Status: F Source: [facility] REPOSITORY TYPE CODE TESTS RESULT OUT OF RANGE REFERENCE UNITS LAB L501.9520 TSH 0.19 Low 0.358-3.74 uIU/mL Performed By: #### L501.9520 #### [facility] [address] [place], [address] MRSA/SAID SCREEN Observed: 09/09/2017 1:58 PM Status: F Source: [facility] MRSA/SAID SCRN S. AUREUS S. aureus Negative MRSA MRSA Negative Performed By: #### M100.651 #### [facility] [address] [place], [address] CBC W/DIFF, AUTOMATED Collected: 09/01/2017 9:33 AM Status: F Source: [facility] TYPE CODE TESTS RESULT OUT OF RANGE REFERENCE UNITS LAB L100.1000 WBC 4.8 Normal 4.4-11.0 K/mm3 LAB L100.1200 RBC 4.69 Normal 4.2-5.4 M/mm3 LAB L100.1300 HGB 14.3 Normal 12.0-15.0 g/dl LAB L100.1400 HCT 43.5 Normal 37-47 % LAB L100.1500 MCV 92.8 Normal 81-99 fL LAB L100.1600 MCH 30.5 Normal 27.0-32.0 pg LAB L100.1700 MCHC 32.9 Normal 32-36 g/gl LAB L100.1810 RDW CV 11.6 Normal 11.6-14.6 % LAB L100.1820 RDW SD 38.8 Normal 35.1-43.9 fl LAB L100.1900 PLT 191 Normal 150-450 K/mm3 LAB L100.2000 MPV 10.0 Normal 6.2-12.0 fl LAB L100.2100 NEUT% 44.4 Low 47-70 % LAB L100.2200 LY% 40.0 Normal 19-41 % LAB L100.2300 MONO% 12.5 High 0-10 % LAB L100.2400 EO% 2.5 Normal 0-5 % LAB L100.2500 BASO% 0.6 Normal 0-1 % LAB L100.2550 IM GRAN % 0.000 Normal 0.0-0.9 % Result Comment: IG% - Immature Granulocytes (promyelocytes, myelocytes and metamyelocytes) > 1% indicates that a LEFT SHIFT is Present. LAB L100.2620 Absolute Neut 2.1 Normal 2.0-7.7 X10 3/uL LAB L100.2720 Absolute Lymph 1.92 Normal 0.83-4.51 X10 3/ul Performed By: #### L100.0100 #### [facility] [address] [place], [address] COMPREHENSIVE METABOLIC PROFIL Collected: 09/01/2017 9:33 AM Status: F Source: [facility] REPOSITORY TYPE CODE TESTS RESULT OUT OF RANGE REFERENCE UNITS LAB L501.0100 GLU 72 Low 74-106 mg/dL Result Comment: Please note revised GLUCOSE reference range effective 2017. LAB L501.1000 BUN 17 Normal 7-18 mg/dL LAB L501.1100 CREAT,SERUM 0.70 Normal 0.55-1.02 mg/dL Result Comment: The validity of the calculated GFR AND GFRAA in patients over 70 years has not been determined. Clinical correlation is essential. LAB L501.1110 EST GFR 87 Normal >60 mL/min Result Comment: Non- GFR Calc LAB L501.1115 EST GFR - AA 106 Normal >60 mL/min Result Comment: GFR Calc LAB L501.1300 BUN/CRE 24.5 High 10-20 RATIO LAB L501.1500 T PROT 7.3 Normal 6.4-8.2 g/dL LAB L501.1800 ALB 3.8 Normal 3.2-5.0 g/dL LAB L501.1950 GLOB 3.5 Normal 2.2-4.2 g/dL LAB L501.2000 A/G 1.1 Normal 0.9-2.4 RATIO LAB L501.2200 CA 8.7 Normal 8.5-10.1 mg/dL LAB L501.4100 AST 23 Normal 15-37 U/L LAB L501.4305 ALK P 113 Normal 45-117 U/L LAB L501.4405 ALT 32 Normal 13-56 U/L Result Comment: Please note revised ALT reference range effective 2017. LAB L501.4600 T BILI 0.40 Normal 0.20-1.00 mg/dL LAB L501.5300 NA 139 Normal 136-145 mmol/L LAB L501.5600 K 4.0 Normal 3.5-5.1 mmol/L LAB L501.5900 CL 105 Normal 98-107 mmol/L LAB L501.6100 CO2 29.0 Normal 21.0-32.0 mmol/L LAB L501.6200 GAP 5 Normal 5-15 ? Performed By: #### L500.4050 #### [facility] [address] [place], [address] LIPID PROFILE Collected: 08/08/2017 10:00 AM Status: F Source: [facility] REPOSITORY Order Comment: THIS REQUISITION IS A SELF DIRECTED LABORATORY ORDER. THESE RESULTS ARE BEING SENT TO YOU A COURTESY PER PATIENT REQUEST. TYPE CODE TESTS RESULT OUT OF RANGE REFERENCE UNITS LAB L501.4900 CHOL 178 Normal 200 mg/dL Result Comment: <200 mg/dL Desirable 200-240 mg/dL Borderline >240 mg/dL High Risk LAB L501.5000 TRIG 93 Normal ? mg/dL Result Comment: The drugs N-Acetylcysteine and Metamizole may falsely depress this assay. Serum Triglycerides Reference Interval Normal <150 mg/dL Borderline high 150 - 199 mg/dL High 200 - 499 mg/dL Very High > or = 500 mg/dL LAB L501.6400 HDL 64 Normal ? mg/dL Result Comment: The drugs N-Acetylcysteine and Metamizole may falsely depress this assay. Reference Range HDL <40 mg/dL Low HDL Cholesterol HDL >or= 60 mg/dL High HDL Cholesterol LAB L501.6500 LDL 95 Normal 0-130 mg/dL LAB L501.6600 VLDL 19 Normal 5-40 mg/dL Performed By: #### L500.4100, L501.0100 #### [facility] [address] [place], [address] GLUCOSE Collected: 08/08/2017 10:00 AM Status: F Source: [facility] REPOSITORY Order Comment: THIS REQUISITION IS A SELF DIRECTED LABORATORY ORDER. THESE RESULTS ARE BEING SENT TO YOU A COURTESY PER PATIENT REQUEST. TYPE CODE TESTS RESULT OUT OF RANGE REFERENCE UNITS LAB L501.0100 GLU 85 Normal 74-106 mg/dL Result Comment: Please note revised GLUCOSE reference range effective 2017. Performed By: #### L500.4100, L501.0100 #### [facility] [address] [place], [address] ASSESSMENT AND PLAN: Encounter Diagnosis ICD-10-CM 1. Neck muscle spasm M62.838 LORazepam (ATIVAN) 1 mg tablet 2. Anxiety F41.9 escitalopram oxalate (LEXAPRO) 5 mg tablet LORazepam (ATIVAN) 1 mg tablet 3. Acquired hypothyroidism E03.9 TSH BLD T4 FREE/FREE THYROX 4. Nonintractable episodic headache, unspecified headache type R51 ice pick headache 5. Rectal itching L29.0 triamcinolone acetonide (KENALOG) 0.1 % cream ketoconazole (NIZORAL) 2 % cream suspect lichen sclerosus contributing 6. Depression, unspecified depression type F32.9 escitalopram oxalate (LEXAPRO) 5 mg tablet Additional Medical Conditions Last edited 11/25/17 09:52 EDT by Celio Jhaveri MD Discussed ice pick headache. Further evaluation and treatment as indicated. Doing okay on Lexapro and prn lorazepam. Neck spasms also controlled. Further evaluation and treatment as indicated. Above issues addressed with patient. Patient involved in shared decision making for management of her medical issues. History and medications reviewed. Epic updated as needed Refills taken care of and meds adjusted as indicated after reviewed history, exam and labs. Further evaluation and treatment as indicated. Health Maintenance reviewed. Updated record and/or ordered tests as recorded. Encouraged on efforts at healthy diet and regular exercise and adequate sleep. Stable with control of anxiety. No signs of diversion or abuse of medication(s); no adverse effects. Continue present management. [place]ARRS website checked and validated. All prescriptions have been APPROPRIATELY filled. No suspicious activity was identified.- 12/05/2017 by Celio Jhaveri MD The majority of the visit was spent counseling and/or coordinating care for the patient. Klly-xr-pabi time was at least 25 minutes. Celio Jhaveri MD CNOV Observed: 11/25/2017 Status: COMPLETED Source: [place] 8:40 AM [facility] REPOSITORY Office Visit (INTMWS) PATTY RIDLEY ([id number]) 1940 F Date Time Provider Department 11/25/17 8:40 AM CELIO JHAVERI INTMWS During your visit today, we recorded the following information about you: Pulse Respiration Blood pressure Weight 88/minute 12/minute 116/80 85.3 kg Celio Jhaveri MD 12/05/2017 12:12 AM Signed Patient presents with: Recheck: 6 month follow up SUBJECTIVE: Patty Ridley is a 77 year old year old lady here today for 6 month follow up appointment for review of medical conditions. Nausea and headaches--reason went to UC. Diagnosed with dental abscess. Gets pain left side of head--can be severe and stop her in her tracks. For years. Random. Not daily. Not monthly or weekly. Very brief. Does not last even a minute. No associated symptoms. Eating vegan diet mostly. Small amount. Doing well with PT after knee surgery--TKR left. Doing fine on Lexapro for depression and anxiety. 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 As directed BACILLUS COAGULANS (PROBIOTIC, B. COAGULANS, ORAL) Take by mouth. triamcinolone acetonide (KENALOG) 0.1 % cream Apply 1 application to affected area three times daily. Apply sparingly to area for rash/itching. celecoxib (CELEBREX) 200 mg capsule Take 200 mg by mouth. levothyroxine (SYNTHROID) 125 mcg tablet Take 1 tablet by mouth once daily. ketoconazole (NIZORAL) 2 % cream Apply 1 application to affected area once daily as needed. As directed hydrocortisone-acetic acid (ACETASOL HC) otic solution Use 4 Drops in the ears as needed. Biotin 2,500 mcg cap Take 2 capsules by mouth once daily. Cholecalciferol, Vitamin D3, 2,000 unit cap Take 1 tablet by mouth once daily. folic acid ORAL Take one(1) tablet two(2) times daily. Magnesium Oxide-Mg AA Chelate (ELEMENTAL MAGNESIUM) 300 mg ORAL Cap Take one(1) tablet three times daily. amoxicillin (AMOXIL) 875 mg tablet Take 1 tablet by mouth twice daily for 10 days. GLUCOSAMINE HCL/CHONDROITIN VINCENT (GLUCOSAMINE-CHONDROITIN ORAL) Take by mouth. dextroamphetamine-amphetamine (ADDERALL) 5 mg tablet Take 1 tablet by mouth once daily. (Patient not taking: Reported on 11/15/2017 ) oxybutynin (DITROPAN) 5 mg tablet Take 1 tablet by mouth twice daily. As needed as directed (Patient not taking: Reported on 11/15/2017 ) hydrOXYzine HCl (ATARAX) 25 mg tablet Take 1 tablet by mouth every 6 hours as needed for Itching/Rash. (Patient not taking: Reported on 11/15/2017 ) No current facility-administered medications for this visit. OBJECTIVE: BP 116/80 Pulse 88 Resp 12 Wt 85.3 kg (188 lb) BMI 30.81 kg/m? Patient is alert, oriented times 3, no apparent distress, affect is bright, reactive. Last 5 Encounter BP Readings: Date: BP: 11/25/2017 116/80 11/15/2017 122/68 09/01/2017 116/82 05/21/2017 114/78 02/07/2017 120/70 Last 5 Encounter Wt Readings: Date: Wt: 11/25/2017 85.3 kg (188 lb) 11/15/2017 85.7 kg (189 lb) 09/01/2017 92.5 kg (204 lb) 05/21/2017 91 kg (200 lb 9.6 oz) 02/07/2017 90.3 kg (199 lb) Heart: Regular rate, rhythm, no murmurs, gallops, rubs. Lungs: Clear to auscultation, bilaterally, breathing non labored. Ext: No cyanosis, clubbing, or edema aside from trace left leg edema . LIPID PROFILE Collected: 09/12/2017 9:56 AM Status: F Source: [facility] REPOSITORY Order Comment: THIS REQUISITION IS A SELF DIRECTED LABORATORY ORDER. THESE RESULTS ARE BEING SENT TO YOU A COURTESY PER PATIENT REQUEST. TYPE CODE TESTS RESULT OUT OF RANGE REFERENCE UNITS LAB L501.4900 CHOL 173 Normal 200 mg/dL Result Comment: <200 mg/dL Desirable 200-240 mg/dL Borderline >240 mg/dL High Risk LAB L501.5000 TRIG 136 Normal ? mg/dL Result Comment: The drugs N-Acetylcysteine and Metamizole may falsely depress this assay. Serum Triglycerides Reference Interval Normal <150 mg/dL Borderline high 150 - 199 mg/dL High 200 - 499 mg/dL Very High > or = 500 mg/dL LAB L501.6400 HDL 55 Normal ? mg/dL Result Comment: The drugs N-Acetylcysteine and Metamizole may falsely depress this assay. Reference Range HDL <40 mg/dL Low HDL Cholesterol HDL >or= 60 mg/dL High HDL Cholesterol LAB L501.6500 LDL 91 Normal 0-130 mg/dL LAB L501.6600 VLDL 27 Normal 5-40 mg/dL Performed By: #### L500.4100, L501.0100 #### [facility] [address] [place], [address] GLUCOSE Collected: 09/12/2017 9:56 AM Status: F Source: [facility] REPOSITORY Order Comment: THIS REQUISITION IS A SELF DIRECTED LABORATORY ORDER. THESE RESULTS ARE BEING SENT TO YOU A COURTESY PER PATIENT REQUEST. TYPE CODE TESTS RESULT OUT OF RANGE REFERENCE UNITS LAB L501.0100 GLU 85 Normal 74-106 mg/dL Result Comment: Please note revised GLUCOSE reference range effective 2017. Performed By: #### L500.4100, L501.0100 #### [facility] [address] [place], [address] THYROID STIM HORMONE (TSH) Collected: 09/09/2017 1:58 PM Status: F Source: [facility] TYPE CODE TESTS RESULT OUT OF RANGE REFERENCE UNITS LAB L501.9520 TSH 0.19 Low 0.358-3.74 uIU/mL Performed By: #### L501.9520 #### [facility] [address] [place], [address] MRSA/SAID SCREEN Observed: 09/09/2017 1:58 PM Status: F Source: [facility] MRSA/SAID SCRN S. AUREUS S. aureus Negative MRSA MRSA Negative Performed By: #### M100.651 #### [facility] [address] [place], [address] CBC W/DIFF, AUTOMATED Collected: 09/01/2017 9:33 AM Status: F Source: [facility] TYPE CODE TESTS RESULT OUT OF RANGE REFERENCE UNITS LAB L100.1000 WBC 4.8 Normal 4.4-11.0 K/mm3 LAB L100.1200 RBC 4.69 Normal 4.2-5.4 M/mm3 LAB L100.1300 HGB 14.3 Normal 12.0-15.0 g/dl LAB L100.1400 HCT 43.5 Normal 37-47 % LAB L100.1500 MCV 92.8 Normal 81-99 fL LAB L100.1600 MCH 30.5 Normal 27.0-32.0 pg LAB L100.1700 MCHC 32.9 Normal 32-36 g/gl LAB L100.1810 RDW CV 11.6 Normal 11.6-14.6 % LAB L100.1820 RDW SD 38.8 Normal 35.1-43.9 fl LAB L100.1900 PLT 191 Normal 150-450 K/mm3 LAB L100.2000 MPV 10.0 Normal 6.2-12.0 fl LAB L100.2100 NEUT% 44.4 Low 47-70 % LAB L100.2200 LY% 40.0 Normal 19-41 % LAB L100.2300 MONO% 12.5 High 0-10 % LAB L100.2400 EO% 2.5 Normal 0-5 % LAB L100.2500 BASO% 0.6 Normal 0-1 % LAB L100.2550 IM GRAN % 0.000 Normal 0.0-0.9 % Result Comment: IG% - Immature Granulocytes (promyelocytes, myelocytes and metamyelocytes) > 1% indicates that a LEFT SHIFT is Present. LAB L100.2620 Absolute Neut 2.1 Normal 2.0-7.7 X10 3/uL LAB L100.2720 Absolute Lymph 1.92 Normal 0.83-4.51 X10 3/ul Performed By: #### L100.0100 #### [facility] [address] [place], [place], [address] COMPREHENSIVE METABOLIC PROFIL Collected: 09/01/2017 9:33 AM Status: F Source: [facility] REPOSITORY TYPE CODE TESTS RESULT OUT OF RANGE REFERENCE UNITS LAB L501.0100 GLU 72 Low 74-106 mg/dL Result Comment: Please note revised GLUCOSE reference range effective 2017. LAB L501.1000 BUN 17 Normal 7-18 mg/dL LAB L501.1100 CREAT,SERUM 0.70 Normal 0.55-1.02 mg/dL Result Comment: The validity of the calculated GFR AND GFRAA in patients over 70 years has not been determined. Clinical correlation is essential. LAB L501.1110 EST GFR 87 Normal >60 mL/min Result Comment: Non- GFR Calc LAB L501.1115 EST GFR - AA 106 Normal >60 mL/min Result Comment: GFR Calc LAB L501.1300 BUN/CRE 24.5 High 10-20 RATIO LAB L501.1500 T PROT 7.3 Normal 6.4-8.2 g/dL LAB L501.1800 ALB 3.8 Normal 3.2-5.0 g/dL LAB L501.1950 GLOB 3.5 Normal 2.2-4.2 g/dL LAB L501.2000 A/G 1.1 Normal 0.9-2.4 RATIO LAB L501.2200 CA 8.7 Normal 8.5-10.1 mg/dL LAB L501.4100 AST 23 Normal 15-37 U/L LAB L501.4305 ALK P 113 Normal 45-117 U/L LAB L501.4405 ALT 32 Normal 13-56 U/L Result Comment: Please note revised ALT reference range effective 2017. LAB L501.4600 T BILI 0.40 Normal 0.20-1.00 mg/dL LAB L501.5300 NA 139 Normal 136-145 mmol/L LAB L501.5600 K 4.0 Normal 3.5-5.1 mmol/L LAB L501.5900 CL 105 Normal 98-107 mmol/L LAB L501.6100 CO2 29.0 Normal 21.0-32.0 mmol/L LAB L501.6200 GAP 5 Normal 5-15 ? Performed By: #### L500.4050 #### [facility] [address] [place], [place], [address] LIPID PROFILE Collected: 08/08/2017 10:00 AM Status: F Source: [facility] REPOSITORY Order Comment: THIS REQUISITION IS A SELF DIRECTED LABORATORY ORDER. THESE RESULTS ARE BEING SENT TO YOU A COURTESY PER PATIENT REQUEST. TYPE CODE TESTS RESULT OUT OF RANGE REFERENCE UNITS LAB L501.4900 CHOL 178 Normal 200 mg/dL Result Comment: <200 mg/dL Desirable 200-240 mg/dL Borderline >240 mg/dL High Risk LAB L501.5000 TRIG 93 Normal ? mg/dL Result Comment: The drugs N-Acetylcysteine and Metamizole may falsely depress this assay. Serum Triglycerides Reference Interval Normal <150 mg/dL Borderline high 150 - 199 mg/dL High 200 - 499 mg/dL Very High > or = 500 mg/dL LAB L501.6400 HDL 64 Normal ? mg/dL Result Comment: The drugs N-Acetylcysteine and Metamizole may falsely depress this assay. Reference Range HDL <40 mg/dL Low HDL Cholesterol HDL >or= 60 mg/dL High HDL Cholesterol LAB L501.6500 LDL 95 Normal 0-130 mg/dL LAB L501.6600 VLDL 19 Normal 5-40 mg/dL Performed By: #### L500.4100, L501.0100 #### [facility] [address] [place], [address] GLUCOSE Collected: 08/08/2017 10:00 AM Status: F Source: [facility] REPOSITORY Order Comment: THIS REQUISITION IS A SELF DIRECTED LABORATORY ORDER. THESE RESULTS ARE BEING SENT TO YOU A COURTESY PER PATIENT REQUEST. TYPE CODE TESTS RESULT OUT OF RANGE REFERENCE UNITS LAB L501.0100 GLU 85 Normal 74-106 mg/dL Result Comment: Please note revised GLUCOSE reference range effective 2017. Performed By: #### L500.4100, L501.0100 #### [facility] [address] [place], [address] ASSESSMENT AND PLAN: Encounter Diagnosis ICD-10-CM 1. Neck muscle spasm M62.838 LORazepam (ATIVAN) 1 mg tablet 2. Anxiety F41.9 escitalopram oxalate (LEXAPRO) 5 mg tablet LORazepam (ATIVAN) 1 mg tablet 3. Acquired hypothyroidism E03.9 TSH BLD T4 FREE/FREE THYROX 4. Nonintractable episodic headache, unspecified headache type R51 ice pick headache 5. Rectal itching L29.0 triamcinolone acetonide (KENALOG) 0.1 % cream ketoconazole (NIZORAL) 2 % cream suspect lichen sclerosus contributing 6. Depression, unspecified depression type F32.9 escitalopram oxalate (LEXAPRO) 5 mg tablet Additional Medical Conditions Last edited 11/25/17 09:52 EDT by Celio Jhaveri MD Discussed ice pick headache. Further evaluation and treatment as indicated. Doing okay on Lexapro and prn lorazepam. Neck spasms also controlled. Further evaluation and treatment as indicated. Above issues addressed with patient. Patient involved in shared decision making for management of her medical issues. History and medications reviewed. Epic updated as needed Refills taken care of and meds adjusted as indicated after reviewed history, exam and labs. Further evaluation and treatment as indicated. Health Maintenance reviewed. Updated record and/or ordered tests as recorded. Encouraged on efforts at healthy diet and regular exercise and adequate sleep. Stable with control of anxiety. No signs of diversion or abuse of medication(s); no adverse effects. Continue present management. [place]ARRS website checked and validated. All prescriptions have been APPROPRIATELY filled. No suspicious activity was identified.- 12/05/2017 by Celio Jhaveri MD The majority of the visit was spent counseling and/or coordinating care for the patient. Gdaz-oy-ujgp time was at least 25 minutes. Celio Jhaveri MD Referring Provider: CELIO JHAVERI [[id number]] Allergies As of Date: 11/25/2017 (No Known Allergies) Date Reviewed: 11/25/2017 Reviewed by: Stacey Call LPN - Fully Assessed Reason for Visit: Recheck [92] Cmt: 6 month follow up Primary Visit Diagnosis:Neck muscle spasm [M62.838] Other Visit Diagnoses:Anxiety [F41.9] Acquired hypothyroidism [E03.9] Nonintractable episodic headache, unspecified headache type [R51] Comment:ice pick headache Rectal itching [L29.0] Comment:suspect lichen sclerosus contributing Depression, unspecified depression type [F32.9] Order(s):triamcinolone acetonide (KENALOG) 0.1 % creamApply 1 application to affected area three times daily. Apply sparingly to area for rash/itching.Disp: 30 gRfl: 0 ketoconazole (NIZORAL) 2 % creamApply 1 application to affected area once daily as needed. As directedDisp: 30 gRfl: 0 escitalopram oxalate (LEXAPRO) 5 mg tabletTake 1- 2 tablets by mouth once daily. As directed (Usually once daily but increases as needed--last filled September 2017)Disp: Rfl: LORazepam (ATIVAN) 1 mg tabletTake 0.5-1 tablets by mouth once daily for 180 days. For neck pain or spasms and anxiety.Disp: 90 tabletRfl: 1 TSH BLD [SQTSH] Order #: [id number] STANDING T4 FREE/FREE THYROX [SQFT4] Order #: [id number] STANDING Prescriptions as of 11/25/2017 Sig: TRIAMCINOLONE ACETONIDE 0.1 %* Apply 1 application to affect* ESCITALOPRAM 5 MG TABLET Take 1-2 tablets by mouth onc* PROBIOTIC (B. COAGULANS) ORAL Take by mouth. CELECOXIB 200 MG CAPSULE Take 200 mg by mouth. LEVOTHYROXINE 125 MCG TABLET Take 1 tablet by mouth once d* HYDROCORTISONE-ACETIC ACID 1 * Use 4 Drops in the ears as ne* BIOTIN 2,500 MCG CAPSULE Take 2 capsules by mouth once* CHOLECALCIFEROL (VITAMIN D3) * Take 1 tablet by mouth once d* FOLIC ACID 400 MCG TABLET Take one(1) tablet two(2) sinai* ELEMENTAL MAGNESIUM 300 MG CA* Take one(1) tablet three time* KETOCONAZOLE 2 % TOPICAL CREAM Apply 1 application to affect* LORAZEPAM 1 MG TABLET Take 0.5-1 tablets by mouth o* DEXTROAMPHETAMINE-AMPHETAMINE* Take 1 tablet by mouth once d* Patient not taking: Reported on 11/15/2017 Medication notes this encounter AMOXICILLIN 875 MG TABLET >> Stacey Call LPN 11/25/2017 8:48 AM >> STACEY CALL LPN FriNov 25, 2017 8:48 AM Course of therapy completed. GLUCOSAMINE-CHONDROITIN ORAL >> Stacey Call LPN 11/25/2017 8:48 AM >> STACEY CALL LPN FriNov 25, 2017 8:48 AM No longer taking DEXTROAMPHETAMINE-AMPHETAMINE 5 MG TABLET >> Stacey Call LPN 11/25/2017 8:49 AM >> STACEY CALL LPN FriNov 25, 2017 8:49 AM Patient uses as needed >> Celio Jhaveri MD 11/25/2017 9:46 AM >> CELIO JHAVERI MD FriNov 25, 2017 9:46 AM Not needing RX yet OXYBUTYNIN CHLORIDE 5 MG TABLET >> Stacey Call LPN 11/25/2017 8:49 AM >> STACEY CALL LPN FriNov 25, 2017 8:49 AM No longer using Problem List As Of Date 11/25/2017 Noted Resolved Sprain of neck [S13.9XXA] INVALID FOR*09/26/2014 Unspecified constipation [K59.00] 11/16/2010 More... BREAST DISORDERS NEC [611.8] INVALID FOR* PERS HX OF BREAST MALIGNANCY [Z85.3] INVALID FOR* Hypothyroidism [E03.9] INVALID FOR* More... Hyperlipidemia [E78.5] INVALID FOR* More... Pain in limb [M79.609] INVALID FOR*09/26/2014 Unspecified Backache [M54.9] INVALID FOR* Abnormal mammogram, unspecified [R92.8] INVALID FOR* Depression [F32.9] INVALID FOR* More... 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 Nonintractable episodic headache [R51] INVALID FOR* More... Prescriptions ordered this encounter Disp Refills Start End TRIAMCINOLONE ACETONIDE 0.1 % TOPICA* 30 g 0 11/25/2017 Route: TOPICAL Sig: Apply 1 application to affected area three times daily. Apply sparingly to area for rash/itching. KETOCONAZOLE 2 % TOPICAL CREAM 30 g 0 11/25/2017 Route: TOPICAL Sig: Apply 1 application to affected area once daily as needed. As directed ESCITALOPRAM 5 MG TABLET 11/25/2017 Class: Med Update Route: ORAL Sig: Take 1-2 tablets by mouth once daily. As directed (Usually once daily but increases as needed--last filled September 2017) LORAZEPAM 1 MG TABLET 90 t* 1 11/25/2017 05/24/2018 Class: Print RX Cmt: This RX with the 1 refills is to last 180 days Route: ORAL Sig: Take 0.5-1 tablets by mouth once daily for 180 days. For neck pain or spasms and anxiety. Medications Discontinued During This Encounter hydrOXYzine HCl (ATARAX) 25 mg tablet 20 t* 0 02/07/2017 11/25/2017 Route: ORAL Sig: Take 1 tablet by mouth every 6 hours as needed for Itching/Rash. Patient not taking: Reported on 11/15/2017 Disc: Reason for discontinue is not on file. amoxicillin (AMOXIL) 875 mg tablet 20 t* 0 11/15/2017 11/25/2017 Route: ORAL Sig: Take 1 tablet by mouth twice daily for 10 days. Disc: Course of therapy completed oxybutynin (DITROPAN) 5 mg tablet 30 t* 1 05/21/2017 11/25/2017 Route: ORAL Sig: Take 1 tablet by mouth twice daily. As needed as directed Patient not taking: Reported on 11/15/2017 Disc: Reason for discontinue is not on file. GLUCOSAMINE HCL/CHONDROITIN VINCENT (GLUC* 11/25/2017 Class: Historical Med Route: ORAL Sig: Take by mouth. Disc: Reason for discontinue is not on file. triamcinolone acetonide (KENALOG) 0.* 30 g 0 07/07/2017 11/25/2017 Route: TOPICAL Sig: Apply 1 application to affected area three times daily. Apply sparingly to area for rash/itching. Disc: Reason for discontinue is not on file. ketoconazole (NIZORAL) 2 % cream 30 g 0 05/21/2017 11/25/2017 Route: TOPICAL Sig: Apply 1 application to affected area once daily as needed. As directed Disc: Reason for discontinue is not on file. escitalopram oxalate (LEXAPRO) 5 mg * 180 * 3 09/25/2017 11/25/2017 Route: ORAL Sig: Take 1 tablet by mouth twice daily. As directed Disc: Reason for discontinue is not on file. LORazepam (ATIVAN) 1 mg tablet 14 t* 0 11/11/2017 11/25/2017 Class: Print RX Route: ORAL Sig: Take 0.5-1 tablets by mouth twice daily as needed for up to 7 days. Needed increased dose short term for neck pain or spasms after knee surgery and will wean back down to prior dosing of 0.5 to 1 tablet in the evening as needed for neck pain or spasms Disc: Reason for discontinue is not on file. Disposition: Return in about 6 months (around 05/27/2018) for 6 months follow up. Follow-up and Disposition History Recorded Encounter Status:Closed by CELIO JHAVERI MD on 12/05/17 PROGRESS Observed: 11/15/2017 Status: COMPLETED Source: [place] 12:24 PM [facility] REPOSITORY O ID: [id number] Author: Yecenia Rothman Service: (none) Author Type: Physician [employer] Type: Progress Notes Filed: 11/15/2017 12:54 PM Note Text: 11/15/2017 Patient presents with: Nausea: x 1 week Headache: x 1 week across forehead Dental Problem: x 1 week upper left side of mouth painful at tooth abscess site SUBJECTIVE: This is a 77 year old that is here today for Complaint(s) of nausea x 1 week. + low grade JEAN-BAPTISTE across forehead. Also having abscess on the left upper tooth. Has an appointment with the dentist next week. Not on antibiotics. She does have some acid stomachache last night. Denies fever/chills, vomiting, denies worst JEAN-BAPTISTE of life, head trauma, vision changes, diplopia, dizziness, weakness, paralysis, facial droop, slurred speech, chest pain, SOB. Recent knee replacement surgery. No pain in the knee. Denies redness, warmth, fever/chills. 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 MEDICATIONS Current Outpatient Prescriptions: LORazepam (ATIVAN) 1 mg tablet Take 0.5-1 tablets by mouth twice daily as needed for up to 7 days. Needed increased dose short term for neck pain or spasms after knee surgery and will wean back down to prior dosing of 0.5 to 1 tablet in the evening as needed for neck pain or spasms escitalopram oxalate (LEXAPRO) 5 mg tablet Take 1 tablet by mouth twice daily. As directed triamcinolone acetonide (KENALOG) 0.1 % cream Apply 1 application to affected area three times daily. Apply sparingly to area for rash/itching. celecoxib (CELEBREX) 200 mg capsule Take 200 mg by mouth. levothyroxine (SYNTHROID) 125 mcg tablet Take 1 tablet by mouth once daily. ketoconazole (NIZORAL) 2 % cream Apply 1 application to affected area once daily as needed. As directed hydrocortisone-acetic acid (ACETASOL HC) otic solution Use 4 Drops in the ears as needed. BACILLUS COAGULANS (PROBIOTIC, B. COAGULANS, ORAL) Take by mouth. GLUCOSAMINE HCL/CHONDROITIN VINCENT (GLUCOSAMINE-CHONDROITIN ORAL) Take by mouth. dextroamphetamine-amphetamine (ADDERALL) 5 mg tablet Take 1 tablet by mouth once daily. (Patient not taking: Reported on 11/15/2017 ) oxybutynin (DITROPAN) 5 mg tablet Take 1 tablet by mouth twice daily. As needed as directed (Patient not taking: Reported on 11/15/2017 ) hydrOXYzine HCl (ATARAX) 25 mg tablet Take 1 tablet by mouth every 6 hours as needed for Itching/Rash. (Patient not taking: Reported on 11/15/2017 ) Biotin 2,500 mcg cap Take 2 capsules by mouth once daily. Cholecalciferol, Vitamin D3, 2,000 unit cap Take 1 tablet by mouth once daily. (Patient not taking: Reported on 11/15/2017 ) folic acid ORAL Take one(1) tablet two(2) times daily. Magnesium Oxide-Mg AA Chelate (ELEMENTAL MAGNESIUM) 300 mg ORAL Cap Take one(1) tablet three times daily. No current facility-administered medications for this visit. 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 OBJECTIVE: BP 122/68 Pulse 72 Temp 36.5 ?C (97.7 ?F) Resp 16 Wt 85.7 kg (189 lb) BMI 30.97 kg/m? APPEARANCE Well appearing, alert, in no acute distress, well-hydrated, well nourished. EYES PERRLA, conjunctiva and sclera normal. EARS External ears normal, canals clear. TMs normal GARRET NOSE/SINUS Nares normal. Septum midline. Mucosa normal. No drainage or sinus tenderness. THROAT normal, no erythema Dental + erythematous nodular lesions, not fluctuance overlying left anterior gum line. NECK Supple, no adenopathy HEART RRR with normal S1 and S2 LUNG clear to auscultation, No wheezing, rhonchi, rales. NEURO Awake, alert and oriented x 3, Cranial nerves II-XII grossly intact,No involuntary motions. EXT left knee vertical incision well healed. No surrounding erythema, warmth, drainage. No TTP. ASSESSMENT/PLAN: 1. Dental infection - ICD9: 522.4, ICD10: K04.7 (primary diagnosis) f/u with dentist - AMOXICILLIN 875 MG TABLET 2. Headache, unspecified headache type - ICD9: 784.0, ICD10: R51 Low grade, denies worst JEAN-BAPTISTE of life, neurologically intact. Tylenol prn, tx possible dental infection 3. Nausea - ICD9: 787.02, ICD10: R11.0 Zantac/pepcid Reviewed red flags and when to seek care sooner. Has zofran at home f/u with PCP for persistent sx. Reviewed red flags and when to seek care sooner in ER Yecenia Rothman PA-C CNOV Observed: 11/15/2017 Status: COMPLETED Source: [place] 11:30 AM [facility] REPOSITORY Office Visit ([facility]) PATTY RIDLEY ([id number]) 1940 F Date Time Provider Department 11/15/17 11:30 AM YECENIA ROTHMAN) [facility] During your visit today, we recorded the following information about you: Temperature Pulse Respiration Blood pressure 97.7 degrees 72/minute 16/minute 122/68 Weight 85.7 kg Yecenia Rothman PA-C 11/15/2017 12:54 PM Signed 11/15/2017 Patient presents with: Nausea: x 1 week Headache: x 1 week across forehead Dental Problem: x 1 week upper left side of mouth painful at tooth abscess site SUBJECTIVE: This is a 77 year old that is here today for Complaint(s) of nausea x 1 week. + low grade JEAN-BAPTISTE across forehead. Also having abscess on the left upper tooth. Has an appointment with the dentist next week. Not on antibiotics. She does have some acid stomachache last night. Denies fever/chills, vomiting, denies worst JEAN-BAPTISTE of life, head trauma, vision changes, diplopia, dizziness, weakness, paralysis, facial droop, slurred speech, chest pain, SOB. Recent knee replacement surgery. No pain in the knee. Denies redness, warmth, fever/chills. 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 MEDICATIONS Current Outpatient Prescriptions: LORazepam (ATIVAN) 1 mg tablet Take 0.5-1 tablets by mouth twice daily as needed for up to 7 days. Needed increased dose short term for neck pain or spasms after knee surgery and will wean back down to prior dosing of 0.5 to 1 tablet in the evening as needed for neck pain or spasms escitalopram oxalate (LEXAPRO) 5 mg tablet Take 1 tablet by mouth twice daily. As directed triamcinolone acetonide (KENALOG) 0.1 % cream Apply 1 application to affected area three times daily. Apply sparingly to area for rash/itching. celecoxib (CELEBREX) 200 mg capsule Take 200 mg by mouth. levothyroxine (SYNTHROID) 125 mcg tablet Take 1 tablet by mouth once daily. ketoconazole (NIZORAL) 2 % cream Apply 1 application to affected area once daily as needed. As directed hydrocortisone-acetic acid (ACETASOL HC) otic solution Use 4 Drops in the ears as needed. BACILLUS COAGULANS (PROBIOTIC, B. COAGULANS, ORAL) Take by mouth. GLUCOSAMINE HCL/CHONDROITIN VINCENT (GLUCOSAMINE-CHONDROITIN ORAL) Take by mouth. dextroamphetamine-amphetamine (ADDERALL) 5 mg tablet Take 1 tablet by mouth once daily. (Patient not taking: Reported on 11/15/2017 ) oxybutynin (DITROPAN) 5 mg tablet Take 1 tablet by mouth twice daily. As needed as directed (Patient not taking: Reported on 11/15/2017 ) hydrOXYzine HCl (ATARAX) 25 mg tablet Take 1 tablet by mouth every 6 hours as needed for Itching/Rash. (Patient not taking: Reported on 11/15/2017 ) Biotin 2,500 mcg cap Take 2 capsules by mouth once daily. Cholecalciferol, Vitamin D3, 2,000 unit cap Take 1 tablet by mouth once daily. (Patient not taking: Reported on 11/15/2017 ) folic acid ORAL Take one(1) tablet two(2) times daily. Magnesium Oxide-Mg AA Chelate (ELEMENTAL MAGNESIUM) 300 mg ORAL Cap Take one(1) tablet three times daily. No current facility-administered medications for this visit. 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 OBJECTIVE: BP 122/68 Pulse 72 Temp 36.5 ?C (97.7 ?F) Resp 16 Wt 85.7 kg (189 lb) BMI 30.97 kg/m? APPEARANCE Well appearing, alert, in no acute distress, well- hydrated, well nourished. EYES PERRLA, conjunctiva and sclera normal. EARS External ears normal, canals clear. TMs normal GARRET NOSE/SINUS Nares normal. Septum midline. Mucosa normal. No drainage or sinus tenderness. THROAT normal, no erythema Dental + erythematous nodular lesions, not fluctuance overlying left anterior gum line. NECK Supple, no adenopathy HEART RRR with normal S1 and S2 LUNG clear to auscultation, No wheezing, rhonchi, rales. NEURO Awake, alert and oriented x 3, Cranial nerves II-XII grossly intact,No involuntary motions. EXT left knee vertical incision well healed. No surrounding erythema, warmth, drainage. No TTP. ASSESSMENT/PLAN: 1. Dental infection - ICD9: 522.4, ICD10: K04.7 (primary diagnosis) f/u with dentist - AMOXICILLIN 875 MG TABLET 2. Headache, unspecified headache type - ICD9: 784.0, ICD10: R51 Low grade, denies worst JEAN-BAPTISTE of life, neurologically intact. Tylenol prn, tx possible dental infection 3. Nausea - ICD9: 787.02, ICD10: R11.0 Zantac/pepcid Reviewed red flags and when to seek care sooner. Has zofran at home f/u with PCP for persistent sx. Reviewed red flags and when to seek care sooner in ER Yecenia Rothman PA-C Referring Provider: SELF [[id number]] Allergies As of Date: 11/15/2017 (No Known Allergies) Date Reviewed: 11/15/2017 Reviewed by: Mirela Muller LPN - Fully Assessed Reason for Visit: Nausea [70] Cmt: x 1 week Headache [52] Cmt: x 1 week across forehead Dental Problem [31] Cmt: x 1 week upper left side of mouth painful at tooth abscess site Primary Visit Diagnosis:Dental infection [K04.7] Other Visit Diagnoses:Headache, unspecified headache type [R51] Nausea [R11.0] Order(s):amoxicillin (AMOXIL) 875 mg tabletTake 1 tablet by mouth twice daily for 10 days.Disp: 20 tabletRfl: 0 Prescriptions as of 11/15/2017 Sig: LORAZEPAM 1 MG TABLET Take 0.5-1 tablets by mouth t* ESCITALOPRAM 5 MG TABLET Take 1 tablet by mouth twice * TRIAMCINOLONE ACETONIDE 0.1 %* Apply 1 application to affect* CELECOXIB 200 MG CAPSULE Take 200 mg by mouth. LEVOTHYROXINE 125 MCG TABLET Take 1 tablet by mouth once d* KETOCONAZOLE 2 % TOPICAL CREAM Apply 1 application to affect* HYDROCORTISONE-ACETIC ACID 1 * Use 4 Drops in the ears as ne* AMOXICILLIN 875 MG TABLET Take 1 tablet by mouth twice * PROBIOTIC (B. COAGULANS) ORAL Take by mouth. GLUCOSAMINE-CHONDROITIN ORAL Take by mouth. DEXTROAMPHETAMINE-AMPHETAMINE* Take 1 tablet by mouth once d* Patient not taking: Reported on 11/15/2017 OXYBUTYNIN CHLORIDE 5 MG TABL* Take 1 tablet by mouth twice * Patient not taking: Reported on 11/15/2017 HYDROXYZINE HCL 25 MG TABLET Take 1 tablet by mouth every * Patient not taking: Reported on 11/15/2017 BIOTIN 2,500 MCG CAPSULE Take 2 capsules by mouth once* CHOLECALCIFEROL (VITAMIN D3) * Take 1 tablet by mouth once d* Patient not taking: Reported on 11/15/2017 FOLIC ACID 400 MCG TABLET Take one(1) tablet two(2) sinai* ELEMENTAL MAGNESIUM 300 MG CA* Take one(1) tablet three time* Problem List As Of Date 11/15/2017 Noted Resolved Sprain of neck [S13.9XXA] INVALID FOR*09/26/2014 Unspecified constipation [K59.00] 11/16/2010 More... BREAST DISORDERS NEC [611.8] INVALID FOR* PERS HX OF BREAST MALIGNANCY [Z85.3] INVALID FOR* Hypothyroidism [E03.9] INVALID FOR* More... Hyperlipidemia [E78.5] INVALID FOR* More... Pain in limb [M79.609] INVALID FOR*09/26/2014 Unspecified Backache [M54.9] INVALID FOR* Abnormal mammogram, unspecified [R92.8] INVALID FOR* Depression [F32.9] INVALID FOR* More... 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 Prescriptions ordered this encounter Disp Refills Start End AMOXICILLIN 875 MG TABLET 20 t* 0 11/15/2017 11/25/2017 Route: ORAL Sig: Take 1 tablet by mouth twice daily for 10 days. Encounter Status:Closed by YECENIA ROTHMAN PA-C on 11/15/17 VENOUS DUPLEX LOWER Observed: 10/18/2017 Status: F Source: [facility] 6:55 PM [facility] REPOSITORY [facility] Cardiovascular Services [address] [place] [id number] Venous Duplex US, Unilateral 10/17/17 1549 MR#: [id number] Acct: [id number] Name: PATTY RIDLEY Rep #: [id number] : 1940 77 From: Telly Corea MD Attending Dr: Ravi Finch DO Status: REG CLI Ordering Dr: Josh Clayton PA-C Date: 10/17/17 Location: CVS Sex: F C Admitted: Reason For Study: LEG PAIN RIGHT LEFT CFV is compressible, spontaneous, phasic, CFV is compressible, spontaneous, phasic, competent and demonstrates normal competent, and demonstrates normal augmentation. augmentation. FV is compressible, spontaneous, phasic, competent and demonstrates normal augmentation. POP V is compressible, spontaneous, phasic, competent and demonstrates normal augmentation. T/P Trunk is compressible. PTV is compressible. LT PerV is compressible. GSV harvested. Interpretation Summary Deep veins of the left lower extremity are patent and compressible segmentally. There is no evidence of left lower extremity deep vein thrombosis. Valvular competence appears intact within the proximal deep venous system on the left . The left great saphenous vein has been previously harvested. Ordering Physician: Josh Clayton Referring Physician: Celio Jhaveri Performed By: Marli Adams RVT 10/18/171854 Date Telly Corea MD CC: Ravi Finch DO; Celio Jhaveri MD; Josh YATES Date Dictated: 10/17/17 1549 Date Transcribed: 10/18/171854 Energy Economist: Signed DISCHARGE INSTRUCTION Observed: 10/08/2017 Status: F Source: [place] 1:57 PM [facility] REPOSITORY [facility] Medical Records Department [address] [place] [address] Instructions for Home/Discharge Instructions 10/08/17 1355 MR#: [id number] Acct: [id number] Name: PATTY RIDLEY Rep #: [id number] : 1940 77 From: Josh Clayton PA-C PCP: Celio Jhaveri MD Status: ADM IN Discharge Diet: No Restrictions Discharge Activity: May Not Drive, May Shower, Use Walker May shower in (days): 1 Ice area for (Minutes): 20 - each hour while awake. Weight Bearing Status: Weight bearing as tolerated Elevate: Operative Extremity Additional Activity Instructions:: Wear elastic stockings for 2 weeks after your surgery. Call your doctor if your incision/area has: Continuous Slow Oozing, Sudden Increased Bleeding, Increased Pain/ Swelling, Increased Redness, Foul Smelling Discharge Call your doctor if you observe: Fever of 101 or Higher, Coldness, Increased Pain - in extremity, Numbness or Tingling, Change in Color, Calf discomfort, Uncontrolled pain Change Dressing in (Days):: 0 - and daily as needed. Remove Dressing in (days):: 8 Cleanse incision/area with: Soap AND Water Allergies/Adverse Reactions: Allergies codeine Adverse Reaction (Verified 09/09/17 13:11) Other MAKES HYPER, UNABLE TO SLEEP Medications to take at Discharge Escitalopram Oxalate [Lexapro] 10 mg PO DAILY 07/31/14 Levothyroxine [Synthroid] 125 mcg PO DAILY 07/31/14 Lorazepam [Ativan] 1 mg PO QHS PRN 07/31/14 Acetic Acid [Acetasol] 4 - 6 drop OTIC PRN PRN 07/15/17 Biotin 5,000 mcg PO DAILY 07/15/17 Celecoxib [Celebrex] 200 mg PO DAILY 07/15/17 Cholecalciferol (VIT D3) [Vitamin D3] 2,000 unit PO DAILY 07/15/17 Folic Acid 0.4 mg PO DAILY@0800 07/15/17 L.acidoph,Paracasei, B.lactis [Probiotic] 1 each PO DAILY 07/15/17 Magnesium 250 mg PO DAILY 07/15/17 Triamcinolone 0.1% Cream [Kenalog] 1 applic TP PRN PRN 07/15/17 Acetaminophen [Tylenol] 1,000 mg PO Q8 #90 tab 10/08/17 Aspirin 325 mg PO BIDCM #60 tab 10/08/17 Oxycodone [Oxyir] 5 - 10 mg PO Q6H PRN PRN 7 Days #60 tab 10/08/17 morphine SR tablet [Ms Contin] 15 mg PO BID 7 Days #14 tab 10/08/17 The following prescriptions were given: Oxycodone [Oxyir] 5 - 10 mg PO Q6H PRN PRN 7 Days #60 tab PRN Reason: Mod-Severe Pain (4-10) Acetaminophen [Tylenol] 1,000 mg PO Q8 #90 tab Aspirin 325 mg PO BIDCM #60 tab morphine SR tablet [Ms Contin] 15 mg PO BID 7 Days #14 tab Primary Care Physician: Celio Jhaveri MD [Primary Care Provider] - Please Follow Up With: Josh Clayton PA-C When: see pink sheet 10/08/17 1357 <Electronically signed by Josh Clayton PA-C> Date Josh Clayton PA-C CC: Celio Jhaveri MD OPERATIVE REPORT Observed: 10/06/2017 Status: F Source: [place] 10:30 AM [facility] REPOSITORY [facility] Medical Records Department [address] [place] [address] Operative Report 10/06/17 1028 MR#: [id number] Acct: [id number] Name: PATTY RIDLEY Rep #: [id number] : 1940 77 From: Ravi Finch DO PCP: Celio Jhaveri MD Status: ADM IN Y Location: [place] [id number] Report of Operation Date of Procedure: 10/06/17 Pre-Operative Diagnosis: Severe end-stage osteoarthritis left knee Post-Operative Diagnosis: Severe end-stage arthritis left knee Surgery/Procedure Performed:: Total knee arthroplasty left Description of Surgical Findings:: Eburnation of bone, periarticular osteophytes and varus alignment consistent with tricompartmental osteoarthritis slab tripper: Josh Clayton Type of Anesthesia:: Spinal Anesthesiologist: Chris Saunders Special Medications: txa Specimen's removed: Bone and soft tissue Estimated Blood Loss (mL): 100 Fluids Replaced: See anesthesia report Description of Procedure: Implants: Mady triathlon size 5 posterior stabilized femur, 4 tibia, 32 x 10 mm patella all cemented with Simplex, 9 mm posterior stabilized articulating surface Indications: Patient has severe end-stage osteoarthritis diagnosed via x-rays in the knee. They have failed all forms of conservative measures including activity modification, injections, anti-inflammatories, use of assistive device. The patient has pain that affects on a daily basis and prevents him from doing things that they enjoyed. They have elected to undergo the above procedure. The risks of the procedure were discussed at length and their questions were answered. Procedure description: The patient was greeted in the preoperative area. The left knee was then marked with a surgical marker. Patient was then taken to or [address]. They were administered a dose of antibiotics as well as tranexamic acid. Once adequate anesthesia was obtained and airway was secured to placed in supine position on the operating room table. A well-padded tourniquet was placed on the affected extremity. Leg was then prepped and draped in the usual sterile fashion from the knee down. Ioban was used on the skin. Surgical timeout was then performed and confirmed with all present. Six-inch Esmarch was used to examine the limb and tourniquet was then inflated to 250 mmHg. A longitudinal incision was then planned and carried out in the anterior aspect of the knee. The dissection was then carried the length of the incision the extensor mechanism was identified. Standard medial parapatellar arthrotomy was then performed revealing severe eburnation of bone and periarticular osteophytes. There is complete loss of cartilage especially in the medial compartment with varus alignment. Anterior fat pad was removed for visualization purposes and the anterior medial aspect of the tibia was skeletonized for exposure to the knee. The knee was then flexed the patella was inverted. Opening reamer was then used in the femur approximately 1 cm anterior to the attachment of the PCL. The intramedullary valgus wand was then placed in the femur set at 5 of valgus. The distal femoral cutting jig was then applied to the femur with anticipated resection of approximately 8 mm. This was then made with a oscillating saw. The sizing guide was then placed referencing off the posterior condyles and also reference off the epicondylar axis. This was measured and the appropriate size 4-in-1 cutting jig was then applied to the distal femur. Anterior posterior cuts were made followed by the anterior and posterior chamfer cuts. These bony pieces and fragments were removed and placed on the back table. Posterior retractor was then utilized and the tibia was subluxed anteriorly. Extramedullary tibial alignment jig was then applied to the tibia referencing off the medial one third of the tibial tubercle the anterior tibial spine the middle aspect of the tibiotalar joint. Also reference off patient's [place] slope. The tibial cutting jig was then pinned with anticipated resection of 2 mm off of the deficient medial tibial condyle. This cut was made with the oscillating saw. Once this was complete a laminar toolroom keeper was utilized in both medial lateral meniscus were removed and a posterior capsular osteophytes were also removed. Posterior capsule release was performed in the posterior capsule as well as the geniculate arteries are treated with the aqua Mitchel. The tibia was incised and the appropriate sized tibial tray was then pinned. The femoral box cutting jig was then applied to the femur and the box was prepared removing a portion of the intercondylar notch. The femoral trial was then placed and the knee was trialed. Full flexion-extension were easily achieved. The knee seemed to balance quite nicely. Any remaining osteophytes were removed at this time. Once this was complete the patella was everted and the Marcus patella reaming device was then utilized the patella was then placed in the appropriate jig and reamer was then used to remove approximately 9 mm of the undersurface of the patella. A soft tissue remaining was in the way was removed and patella trial was then placed listed maintain excellent tracking using the no thumbs technique. The tibial tray at this point was punched to accommodate the fins of the final implant. At this point cement was mixed on the back table. The trial components were removed and the knee was copiously irrigated. Did use a cocktail of injection for postoperative pain control. The final components were then cemented in the standard fashion and excess cement was removed with cement removal tools and patellar clamp is placed in the patella. As the cement had cured in full extension tourniquet was deflated and hemostasis was perfect with Bovie cautery as well as the aqua Manus. Needle is once again trialed with different size polyethylenes to ensure the full range of motion was achieved as well as excellent balancing ligamentously was achieved. At this point the knee was copiously irrigated. Final implant was then inserted locking mechanism was engaged and confirmed to be locked. The arthrotomy was then closed with #1 Vicryl aggravate type fashion interrupted. Subcutaneous tissue was closed with 0 Vicryl and surgical cristina were placed in the skin. A occlusive silver impregnated dressing was then applied followed by well-padded sterile dressing secured with an Duke wrap. The patient was taken to the PACU in stable condition. No complications known at this time. Postoperatively we will maintain standard total knee postoperative protocol. The use of the physician rehab assistant was integral during this procedure. They assisted with positioning placement of the tourniquet retracting closure and placement of the dressing. The procedure would have been much more difficult without their expertise and assistance - Complications None known - Admit VTE Documentation VTE Present on Admission: Yes VTE Mechan Device Prophylaxis: SCD's, Thigh High RAFAELA Hose VTE Pharm Prophylaxis ordered?: Yes 10/06/17 1030 <Electronically signed by Ravi Finch DO> Date Ravi Finch DO CC: Ravi Finch DO; Celio Jhaveri MD Signed KNEE 1 OR 2 VIEWS Observed: 10/06/2017 Status: F Source: [place] 9:23 AM [facility] REPOSITORY [facility] Imaging Services [address] [place] [address] Knee 1 or 2 Views MR#: [id number] Acct: [id number] Name: PATTY RIDLEY Rep #: [id number] : 1940 F 77 From: Raymon Dasilva MD PCP: Celio Jhaveri MD Status: ADM IN Study: Knee 1 or 2 Views Date of Exam: 10/06/17 Exam# [id number] Ordering Dr: Ravi Finch DO STUDY: X-RAY - LEFT KNEE REASON FOR EXAM: Female, 77 years old. Total knee replacement. TECHNIQUE: AP and lateral view(s) of the knee. COMPARISON: None. FINDINGS: Normal visualized distal femur. Normal visualized proximal tibia and fibula. Normal proximal tibiofibular articulation. The patient is status post total knee replacement. There is good alignment. Postoperative soft tissue changes. RAD/Knee 1 or 2 Views IMPRESSION: Status post total knee replacement. There is good alignment. Postoperative soft tissue changes. Electronically Signed: Raymon Dasilva MD at 12:41 EDT Tel [phone], Service support , CC: Ravi Finch DO; Celio Jhaveri MD Energy Economist: Signed LIPID PROFILE Collected: 09/12/2017 Status: F Source: [place] 9:56 AM [facility] REPOSITORY Order Comment: THIS REQUISITION IS A SELF DIRECTED LABORATORY ORDER. THESE RESULTS ARE BEING SENT TO YOU A COURTESY PER PATIENT REQUEST. TYPE CODE TESTS RESULT OUT OF RANGE REFERENCE UNITS LAB L501.4900 200 mg/dL Normal CHOL 173 Result Comment: <200 mg/dL Desirable 200-240 mg/dL Borderline >240 mg/dL High Risk LAB L501.5000 mg/dL Normal TRIG 136 Result Comment: The drugs N-Acetylcysteine and Metamizole may falsely depress this assay. Serum Triglycerides Reference Interval Normal <150 mg/dL Borderline high 150 - 199 mg/dL High 200 - 499 mg/dL Very High > or = 500 mg/dL LAB L501.6400 mg/dL Normal HDL 55 Result Comment: The drugs N-Acetylcysteine and Metamizole may falsely depress this assay. Reference Range HDL <40 mg/dL Low HDL Cholesterol HDL >or= 60 mg/dL High HDL Cholesterol LAB L501.6500 0-130 mg/dL Normal LDL 91 LAB L501.6600 5-40 mg/dL Normal VLDL 27 Performed By: #### L500.4100, L501.0100 #### [facility] [address] [place], [address] GLUCOSE Collected: 09/12/2017 Status: F Source: [place] 9:56 AM [facility] REPOSITORY Order Comment: THIS REQUISITION IS A SELF DIRECTED LABORATORY ORDER. THESE RESULTS ARE BEING SENT TO YOU A COURTESY PER PATIENT REQUEST. TYPE CODE TESTS RESULT OUT OF RANGE REFERENCE UNITS LAB L501.0100 74-106 mg/dL Normal GLU 85 Result Comment: Please note revised GLUCOSE reference range effective 2017. Performed By: #### L500.4100, L501.0100 #### [facility] [address] [place], [address] THYROID STIM HORMONE Collected: 09/09/2017 Status: F Source: [place] (TSH) 1:58 PM [facility] REPOSITORY TYPE CODE TESTS RESULT OUT OF RANGE REFERENCE UNITS LAB L501.9520 0.358-3.74 uIU/mL Low TSH 0.19 Performed By: #### L501.9520 #### [facility] [address] [place] [place], [address] Observed: 09/09/2017 Status: F Source: [place] MRSA/SAID SCREEN 1:58 PM [facility] REPOSITORY MRSA/SAID SCRN S. AUREUS S. aureus Negative MRSA MRSA Negative Performed By: #### M100.651 #### [facility] [address] [place], [address] CBC AND DIFFERENTIAL Collected: 09/01/2017 Status: F Source: [place] 9:33 AM [facility] REPOSITORY TYPE CODE TESTS RESULT OUT OF REFERENCE UNITS RANGE LAB WBC 3.70-11.00 k/uL Test WBC sent to [facility]. Result Comment: [facility] Credited [facility] RBC 3.90-5.20 m/uL Test sent RBC to [facility]. Result Comment: [facility] Credited [facility] HGB 11.5-15.5 g/dL Hemoglobin Test sent to [facility]. Result Comment: [facility] HCT 36.0-46.0 % Hematocrit Test sent to [facility]. Result Comment: [facility] MCV 80.0-100.0 fL Test sent MCV to [facility]. Result Comment: [facility]redited [facility] MCH 26.0-34.0 pG Test sent MCH to [facility]. Result Comment: [facility]redited [facility] MCHC 30.5-36.0 g/dL Test MCHC sent to [facility]. Result Comment: [facility] RDWCV 11.5-15.0 % Test RDW-CV sent to [facility]. Result Comment: [facility] PLTCT 150-400 k/uL Test Platelet Count sent to [facility]. Result Comment: [facility] MPV 9.0-12.7 fL Test sent MPV to [facility]. Result Comment: [facility] NITHYA Recheck Test sent to [facility]. Result Comment: [facility] ANEUT % Test sent to Neut% [facility]. Result Comment: [facility]redited [facility] AANEUT 1.45-7.50 k/uL Test Abs sent to [facility]. Result Comment: [facility]redited [facility] ALYMP % Test sent to Lymph% [facility]. Result Comment: [facility] Credited [facility] AALYMP 1.00-4.00 k/uL Test Abs Lymph sent to [facility]. Result Comment: [facility] AMONO % Test sent to [place]% [facility]. Result Comment: [facility]redited [facility] AAMONO <0.87 k/uL Test sent Abs [place] to [facility]. Result Comment: [facility] AEOS [facility] Result Comment: [facility] Credited [facility] AAEOS <0.46 k/uL Test sent Abs Eosin to [facility]. Result Comment: [facility]redited [facility] ABASO % [facility]. Result Comment: [facility] Credited [facility] AABASO <0.11 k/uL Test sent Abs Baso to [facility]. Result Comment: [facility] REVW Test sent to Review [facility]. Result Comment: [facility] CBCCOM Comment Test sent to [facility]. Result Comment: Account Credited [facility] COMP METABOLIC PANEL Collected: 09/01/2017 Status: F Source: [place] 9:33 AM [facility] REPOSITORY TYPE CODE TESTS RESULT OUT OF REFERENCE UNITS RANGE LAB TP 6.3-8.0 g/dL Test sent to [facility]. Result Comment: [facility] Credited [facility] ALB 3.9-4.9 g/dL Test Albumin sent to [facility]. Result Comment: [facility] CA 8.5-10.2 mg/dL Test Calcium, Total sent to [facility]. Result Comment: [facility] TBIL 0.2-1.3 mg/dL Bilirubin, Test Total sent to [facility]. Result Comment: [facility] ALKP 32-117 U/L Alkaline Test Phosphatase sent to [facility]. Result Comment: [facility] AST 13-35 U/L Test sent AST to [facility]. Result Comment: [facility] GLU 74-99 mg/dL Test sent Glucose to [facility]. Result Comment: [facility] BUN 7-21 mg/dL Test sent BUN to [facility]. Result Comment: [facility] CRET 0.58-0.96 mg/dL Creatinine Test sent to [facility]. Result Comment: [facility] NA 136-144 mmol/L Test Sodium sent to [facility]. Result Comment: [facility] K 3.7-5.1 mmol/L Test Potassium sent to [facility]. Result Comment: [facility] CL 97-105 mmol/L Test Chloride sent to [facility]. Result Comment: [facility] CO2 22-30 mmol/L Test sent CO2 to [facility]. Result Comment: [facility] AGAP 9-18 mmol/L Test sent Anion Gap to [facility]. Result Comment: [facility] ALT 7-38 U/L Test sent to ALT [facility]. Result Comment: [facility] GFRAA eGFR- Amer. Test sent to [facility]. Result Comment: [facility]redited [facility] GFRNAA . eGFR-All Test sent Other Races to [facility]. Result Comment: [facility]redited [facility] GFRPED eGFR-Ped. Test sent Factor to [facility]. Result Comment: Account Credited [facility] CBC W/DIFF, AUTOMATED Collected: 09/01/2017 Status: F Source: [place] 9:33 AM [facility] REPOSITORY TYPE CODE TESTS RESULT OUT OF RANGE REFERENCE UNITS LAB L100.1000 4.4-11.0 K/mm3 Normal WBC 4.8 LAB L100.1200 4.2-5.4 M/mm3 Normal RBC 4.69 LAB L100.1300 12.0-15.0 g/dl Normal HGB 14.3 LAB L100.1400 37-47 % Normal HCT 43.5 LAB L100.1500 81-99 fL Normal MCV 92.8 LAB L100.1600 27.0-32.0 pg Normal MCH 30.5 LAB L100.1700 32-36 g/gl Normal MCHC 32.9 LAB L100.1810 11.6-14.6 % Normal RDW CV 11.6 LAB L100.1820 35.1-43.9 fl Normal RDW SD 38.8 LAB L100.1900 150-450 K/mm3 Normal PLT 191 LAB L100.2000 6.2-12.0 fl Normal MPV 10.0 LAB L100.2100 47-70 % Low NEUT% 44.4 LAB L100.2200 19-41 % Normal LY% 40.0 LAB L100.2300 0-10 % High MONO% 12.5 LAB L100.2400 0-5 % Normal EO% 2.5 LAB L100.2500 0-1 % Normal BASO% 0.6 LAB L100.2550 0.0-0.9 % Normal IM GRAN % 0.000 Result Comment: IG% - Immature Granulocytes (promyelocytes, myelocytes and metamyelocytes) > 1% indicates that a LEFT SHIFT is Present. LAB L100.2620 2.0-7.7 X10 3/uL Normal Absolute Neut 2.1 LAB L100.2720 0.83-4.51 X10 3/ul Normal Absolute Lymph 1.92 Performed By: #### L100.0100 #### [facility] [address] [place], [address] COMPREHENSIVE METABOLIC Collected: 09/01/2017 Status: F Source: [facility] 9:33 AM [facility] REPOSITORY TYPE CODE TESTS RESULT OUT OF RANGE REFERENCE UNITS LAB L501.0100 74-106 mg/dL Low GLU 72 Result Comment: Please note revised GLUCOSE reference range effective 2017. LAB L501.1000 7-18 mg/dL Normal BUN 17 LAB L501.1100 0.55-1.02 mg/dL Normal CREAT,SERUM 0.70 Result Comment: The validity of the calculated GFR AND GFRAA in patients over 70 years has not been determined. Clinical correlation is essential. LAB L501.1110 >60 mL/min Normal EST GFR 87 Result Comment: Non- GFR Calc LAB L501.1115 >60 mL/min Normal EST GFR - AA 106 Result Comment: GFR Calc LAB L501.1300 10-20 RATIO High BUN/CRE 24.5 LAB L501.1500 6.4-8.2 g/dL T Normal PROT 7.3 LAB L501.1800 3.2-5.0 g/dL Normal ALB 3.8 LAB L501.1950 2.2-4.2 g/dL Normal GLOB 3.5 LAB L501.2000 0.9-2.4 RATIO Normal A/G 1.1 LAB L501.2200 8.5-10.1 mg/dL CA Normal 8.7 LAB L501.4100 15-37 U/L Normal AST 23 LAB L501.4305 45-117 U/L Normal ALK P 113 LAB L501.4405 13-56 U/L Normal ALT 32 Result Comment: Please note revised ALT reference range effective 2017. LAB L501.4600 0.20-1.00 mg/dL Normal T BILI 0.40 LAB L501.5300 136-145 mmol/L Normal NA 139 LAB L501.5600 3.5-5.1 mmol/L Normal K 4.0 LAB L501.5900 98-107 mmol/L Normal CL 105 LAB L501.6100 21.0-32.0 mmol/L Normal CO2 29.0 LAB L501.6200 5-15 Normal GAP 5 Performed By: #### L500.4050 #### [facility] [address] [place], [address] CNOV Observed: 09/01/2017 Status: COMPLETED Source: [place] 8:40 AM [facility] REPOSITORY Office Visit (INTMWS) PATTY RIDLEY ([id number]) 1940 F Date Time Provider Department 09/01/17 8:40 AM ERENDIRA HERNANDEZ) INTMWS During your visit today, we recorded the following information about you: Pulse Respiration Blood pressure Weight 72/minute 16/minute 116/82 92.5 kg Height 1.664 m Erendira HernandezSARAH, REGROOVER 09/01/2017 9:21 AM Signed OUTPATIENT VISIT DATE September 01, 2017 OUTPATIENT VISIT TYPE ESTABLISHED PRIMARY CARE PHYSICIAN: Celio Jhaveri MD CHIEF COMPLAINT: Patient presents with: Pre-Op Exam History of Present Illness: Patty Ridley is a 77 year old female who was last seen 04/2017 by Celio Jhaveri MD She has been seen in the past for ACTIVE PROBLEM LIST Other Specified Disorder of Breast Personal History of Malignant Neoplasm of Breast Hypothyroidism Hyperlipidemia Backache, Unspecified Abnormal Mammogram, Unspecified Depression Anxiety Iliac Artery Aneurysm (Hcc) Chronic Allergic Rhinitis Add (Attention Deficit Disorder) Osteopenia Occult Blood in Stools She presents today for preoperative evaluation prior to left total knee arthroplasty. She is scheduled to have surgery with Dr. Ravi Finch October 09 without [facility]. She does have a preop visit scheduled at the hospital prior to surgery. She reports no current chest pain shortness of breath palpitations presyncope or syncope. She does note feeling a bit lightheaded now and then for about 90 seconds, no associated symptoms, passes without intervention, not associated with position change. No edema, presyncope or syncope. She had chest pain 2014 with negative stress test, no further chest pain noted, attributed to GERD. Echocardiogram was completed which showed 2+ aortic regurgitation, normal ejection fraction. No history of heart disease or stroke. No history of diabetes. No prior treatment for hypertension. She is currently active, somewhat limited by her left knee pain. Independent in daily activities. ACS NSQIP Surgical Risk Calculator Procedure CPT Code: Left total knee arthroplasty 1. Age Group: 75 - 84 years 2. Sex: female 3. Functional Status: Independent 4. Emergency Case: No 5. ASA Class: Mild systemic disease 6. Steroid use for chronic condition: No 7. Ascites within 30 days prior to surgery: No 8. Systemic Sepsis within 48 hours prior to surgery: None 9. Ventilator Dependent: No 10. 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 Diabetes: None 12. Hypertension requiring medication: No 13. Congestive Heart Failure in 30 days prior to surgery: No 14. Dyspnea: No 15. Current Smoker within 1 Year: No 16. History of COPD: No 17. Dialysis: No 18. Acute Renal Failure: No 19. BMI Class Calculation: 33 No recent hospital or ED visits. No new medical problems or medications. Able to obtain medications. No problems with taking medications or note side effects. 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 - PAST SURGICAL HISTORY OF 07/2007 breast implants removed and replaced with new ones - PAST SURGICAL HISTORY OF Jan 2009 release of trigger finger , right thumb - PAST SURGICAL HISTORY OF 06/2008 TRANSFLAP RECONSTRUCTION OF LEFT BREAST - PAST SURGICAL HISTORY OF 03/09/2009 left saffes vein ablasted and removed varicose vein left leg, dr corea - STEREO LOC FOR CORE BRST BX LT 11-1-10 FAMILY HISTORY Problem Relation Age of Onset - Breast Cancer Paternal Aunt - hodgkins disease [Other] [OTHER] Father - Cancer Brother renal cancer - Heart Mother - Hypertension Mother CHF - Genitourinary () Father renal failure Social History Substance Use Topics - Smoking status: Former Smoker - Smokeless tobacco: Never Used Comment: quit about 24 yrs ago; passive smoker prior to quitting - Alcohol use Yes Comment: occasionally ALLERGIES: ALLERGIES No Known Allergies MEDICATIONS BACILLUS COAGULANS (PROBIOTIC, B. COAGULANS, ORAL) Take by mouth. GLUCOSAMINE HCL/CHONDROITIN VINCENT (GLUCOSAMINE-CHONDROITIN ORAL) Take by mouth. triamcinolone acetonide (KENALOG) 0.1 % cream Apply 1 application to affected area three times daily. Apply sparingly to area for rash/itching. celecoxib (CELEBREX) 200 mg capsule Take 200 mg by mouth. levothyroxine (SYNTHROID) 125 mcg tablet Take 1 tablet by mouth once daily. dextroamphetamine-amphetamine (ADDERALL) 5 mg tablet Take 1 tablet by mouth once daily. LORazepam (ATIVAN) 1 mg tablet Take 1/2 - 1 whole tablet by mouth in the evening as needed for neck pain or spasms. escitalopram oxalate (LEXAPRO) 5 mg tablet Take 1 tablet by mouth twice daily. ketoconazole (NIZORAL) 2 % cream Apply 1 application to affected area once daily as needed. As directed oxybutynin (DITROPAN) 5 mg tablet Take 1 tablet by mouth twice daily. As needed as directed hydrocortisone-acetic acid (ACETASOL HC) otic solution Use 4 Drops in the ears as needed. Biotin 2,500 mcg cap Take 2 capsules by mouth once daily. Cholecalciferol, Vitamin D3, 2,000 unit cap Take 1 tablet by mouth once daily. folic acid ORAL Take one(1) tablet two(2) times daily. Magnesium Oxide-Mg AA Chelate (ELEMENTAL MAGNESIUM) 300 mg ORAL Cap Take one(1) tablet three times daily. hydrOXYzine HCl (ATARAX) 25 mg tablet Take 1 tablet by mouth every 6 hours as needed for Itching/Rash. escitalopram oxalate (LEXAPRO) 5 mg tablet Take 1 tablet by mouth once daily. Currently taking 1 daily. REVIEW OF SYSTEMS: GENERAL: Negative for: Weight loss or gain, Fever or Chills, Weakness and Sleep difficulties. Physical Examination: BP 116/82 Pulse 72 Resp 16 Ht 5' 5.5ANDquot; (1.66m) Wt 204 lb (92.5kg) BMI 33.42 kg/(m2). Extended Vitals not filed for this encounter. General appearance: Well appearing, alert, in no acute distress, well-hydrated, well nourished. Skin: Skin color, texture, turgor normal, no suspicious rashes or lesions Head: Normocephalic, no masses, lesions, tenderness or abnormalities Eyes: Anicteric sclera. Pupils are equally round and reactive to light. Extraocular movements are intact. Ears: External ears normal, canals clear, TM's normal Nose/Sinuses: Nares normal, septum midline, mucosa normal, no drainage or sinus tenderness Oropharynx: Lips, mucosa, and tongue normal, teeth and gums normal, oropharynx normal Neck: Supple, no adenopathy; thyroid symmetric, normal size, no bruits Back: Normal exam Lungs: Lungs clear to auscultation. No wheezing, rhonchi, rales Heart: RRR without murmur, gallop, or rubs. No ectopy Abdomen: Normal abdominal exam, Abdomen soft, non-tender. Bowel sounds normal. No masses, organomegaly Extremities: No deformities, edema, skin discoloration, clubbing or cyanosis. Good capillary refill. Musculoskeletal: Spine range of motion normal. Muscular strength intact, No joint swelling, deformity, or tenderness Peripheral pulses: Normal Neuro: Gait normal. Reflexes normal and symmetric. Sensation grossly intact. Reviewed chart, outside records, tests I personally interviewed, confirmed and edited the above information if obtained by others. TESTING: Glucose (mg/dL) Date Value 05/13/2017 79 Potassium (mmol/L) Date Value 05/13/2017 4.3 Sodium (mmol/L) Date Value 05/13/2017 142 Chloride (mmol/L) Date Value 05/13/2017 102 CO2 (mmol/L) Date Value 05/13/2017 24 Creatinine (mg/dL) Date Value 05/13/2017 0.81 BUN (mg/dL) Date Value 05/13/2017 20 Anion Gap (mmol/L) Date Value 05/13/2017 16 Calcium (mg/dL) Date Value 05/13/2017 9.3 Glucose (mg/dL) Date Value 05/13/2017 79 Potassium (mmol/L) Date Value 05/13/2017 4.3 Sodium (mmol/L) Date Value 05/13/2017 142 Chloride (mmol/L) Date Value 05/13/2017 102 CO2 (mmol/L) Date Value 05/13/2017 24 Creatinine (mg/dL) Date Value 05/13/2017 0.81 BUN (mg/dL) Date Value 05/13/2017 20 Anion Gap (mmol/L) Date Value 05/13/2017 16 Calcium (mg/dL) Date Value 05/13/2017 9.3 Protein, Total (g/dL) Date Value 05/11/2014 Test sent to [facility]. Albumin (g/dL) Date Value 05/11/2014 Test sent to [facility]. Bilirubin, Total (mg/dL) Date Value 05/11/2014 Test sent to [facility]. Alkaline Phosphatase (U/L) Date Value 05/11/2014 Test sent to [facility]. AST (U/L) Date Value 05/11/2014 Test sent to [facility]. ALT (U/L) Date Value 05/11/2014 Test sent to [facility]. Hemoglobin (g/dL) Date Value 05/13/2017 14.7 Hematocrit (%) Date Value 05/13/2017 46.3 WBC (k/uL) Date Value 05/13/2017 5.01 Cholesterol, Total (mg/dL) Date Value 05/13/2017 200 HDL Cholesterol (mg/dL) Date Value 05/13/2017 82 LDL Cholesterol (mg/dL) Date Value 05/13/2017 103 Triglyceride (mg/dL) Date Value 05/13/2017 77 Hemoglobin A1C Date Value Ref Range Status 02/10/2009 5.3 4.0 - 6.0 % Final Ejection Fraction - Result: 59 % Date: 05/17/2014 Time: 11:18:12 IMPRESSION: Ms. Ridley is a 77 year old woman presents for preoperative evaluation prior to left total knee arthroplasty with Dr. Ravi Finch at [facility] scheduled for October 09, 2017 After my examination and review of data, I make the following recommendations. PLAN AND RECOMMENDATIONS: 1. Preop exam for internal medicine - ICD9: V72.83, ICD10: Z01.818 ACS NSQIP - risk of serious application is 3%, any complication 3.5%, below average EKG completed in office today showed sinus rhythm with first- degree AV block and left anterior fascicular block. Ventricular rate 64 bpm, AK interval 226 ms, QRS duration 94 ms QTc 447 ms. She will complete lab work today. Barring any abnormalities she will be at low risk for complications with surgery. Once lab results are received will fax information to [facility]. - CBC + DIFF - COMP METABOLIC PANEL - ECG COMPLETE W INTERPRETATION Advised to go to ER if develops chest pain, shortness of breath, or severe worsening of symptoms. Discussed risks, benefits, alternatives, and potential side effects of medications. Ms. Ridley expressed understanding and agreed with the plan. Erendira Hernandez, REGROOVER Referring Provider: RAVI FINCH [[id number]] Allergies As of Date: 09/01/2017 (No Known Allergies) Date Reviewed: 09/01/2017 Reviewed by: Jackelyn Heard LPN - Fully Assessed Reason for Visit: Pre-Op Exam [87] Primary Visit Diagnosis:Preop exam for internal medicine [Z01.818] Order(s):CBC + DIFF [SQCBCDIF] Order #: [id number] FUTURE COMP METABOLIC PANEL [SQCMP] Order #: [id number] FUTURE ECG COMPLETE W INTERPRETATION [ECG01] Order #: [id number] FUTURE Prescriptions as of 09/01/2017 Sig: PROBIOTIC (B. COAGULANS) ORAL Take by mouth. GLUCOSAMINE-CHONDROITIN ORAL Take by mouth. TRIAMCINOLONE ACETONIDE 0.1 %* Apply 1 application to affect* CELECOXIB 200 MG CAPSULE Take 200 mg by mouth. LEVOTHYROXINE 125 MCG TABLET Take 1 tablet by mouth once d* DEXTROAMPHETAMINE-AMPHETAMINE* Take 1 tablet by mouth once d* LORAZEPAM 1 MG TABLET Take 1/2 - 1 whole tablet by * ESCITALOPRAM 5 MG TABLET Take 1 tablet by mouth twice * KETOCONAZOLE 2 % TOPICAL CREAM Apply 1 application to affect* OXYBUTYNIN CHLORIDE 5 MG TABL* Take 1 tablet by mouth twice * HYDROCORTISONE-ACETIC ACID 1 * Use 4 Drops in the ears as ne* BIOTIN 2,500 MCG CAPSULE Take 2 capsules by mouth once* CHOLECALCIFEROL (VITAMIN D3) * Take 1 tablet by mouth once d* FOLIC ACID 400 MCG TABLET Take one(1) tablet two(2) sinai* ELEMENTAL MAGNESIUM 300 MG CA* Take one(1) tablet three time* HYDROXYZINE HCL 25 MG TABLET Take 1 tablet by mouth every * ESCITALOPRAM 5 MG TABLET Take 1 tablet by mouth once d* Patient taking differently: Take 5 mg by mouth once daily* Medication notes this encounter HYDROXYZINE HCL 25 MG TABLET >> Jackelyn Heard [facility] 09/01/2017 8:43 AM >> JACKELYN HEARD LPN FriSep 01, 2017 8:43 AM Not taking ESCITALOPRAM 5 MG TABLET >> Jackelyn Heard LPN 09/01/2017 8:36 AM >> JACKELYN HEARD LPN FriSep 01, 2017 8:36 AM duplicate Problem List As Of Date 09/01/2017 Noted Resolved Sprain of neck [S13.9XXA] INVALID FOR*09/26/2014 Unspecified constipation [K59.00] 11/16/2010 More... BREAST DISORDERS NEC [611.8] INVALID FOR* PERS HX OF BREAST MALIGNANCY [Z85.3] INVALID FOR* Hypothyroidism [E03.9] INVALID FOR* More... Hyperlipidemia [E78.5] INVALID FOR* More... Pain in limb [M79.609] INVALID FOR*09/26/2014 Unspecified Backache [M54.9] INVALID FOR* Abnormal mammogram, unspecified [R92.8] INVALID FOR* Depression [F32.9] INVALID FOR* More... 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 Encounter Status:Closed by ERENDIRA FIGUEROA on 09/01/17 PROGRESS Observed: 09/01/2017 Status: COMPLETED Source: [place] 8:35 AM [facility] [place] REPOSITORY HNO ID: [id number] Author: Erendira (Sarah) SARAH Hernandez Service: (none) Author Type: Nurse Specialist Type: Progress Notes Filed: 09/01/2017 9:21 AM Note Text: OUTPATIENT VISIT DATE September 01, 2017 OUTPATIENT VISIT TYPE ESTABLISHED PRIMARY CARE PHYSICIAN: Celio Jhaveri MD CHIEF COMPLAINT: Patient presents with: Pre-Op Exam History of Present Illness: Patty Ridley is a 77 year old female who was last seen 04/2017 by Celio Jhaveri MD She has been seen in the past for ACTIVE PROBLEM LIST Other Specified Disorder of Breast Personal History of Malignant Neoplasm of Breast Hypothyroidism Hyperlipidemia Backache, Unspecified Abnormal Mammogram, Unspecified Depression Anxiety Iliac Artery Aneurysm (Hcc) Chronic Allergic Rhinitis Add (Attention Deficit Disorder) Osteopenia Occult Blood in Stools She presents today for preoperative evaluation prior to left total knee arthroplasty. She is scheduled to have surgery with Dr. Ravi Finch October 09 without [facility]. She does have a preop visit scheduled at the hospital prior to surgery. She reports no current chest pain shortness of breath palpitations presyncope or syncope. She does note feeling a bit lightheaded now and then for about 90 seconds, no associated symptoms, passes without intervention, not associated with position change. No edema, presyncope or syncope. She had chest pain 2014 with negative stress test, no further chest pain noted, attributed to GERD. Echocardiogram was completed which showed 2+ aortic regurgitation, normal ejection fraction. No history of heart disease or stroke. No history of diabetes. No prior treatment for hypertension. She is currently active, somewhat limited by her left knee pain. Independent in daily activities. ACS NSQIP Surgical Risk Calculator Procedure CPT Code: Left total knee arthroplasty 1. Age Group: 75 - 84 years 2. Sex: female 3. Functional Status: Independent 4. Emergency Case: No 5. ASA Class: Mild systemic disease 6. Steroid use for chronic condition: No 7. Ascites within 30 days prior to surgery: No 8. Systemic Sepsis within 48 hours prior to surgery: None 9. Ventilator Dependent: No 10. 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 Diabetes: None 12. Hypertension requiring medication: No 13. Congestive Heart Failure in 30 days prior to surgery: No 14. Dyspnea: No 15. Current Smoker within 1 Year: No 16. History of COPD: No 17. Dialysis: No 18. Acute Renal Failure: No 19. BMI Class Calculation: 33 No recent hospital or ED visits. No new medical problems or medications. Able to obtain medications. No problems with taking medications or note side effects. 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 - PAST SURGICAL HISTORY OF 07/2007 breast implants removed and replaced with new ones - PAST SURGICAL HISTORY OF Jan 2009 release of trigger finger , right thumb - PAST SURGICAL HISTORY OF 06/2008 TRANSFLAP RECONSTRUCTION OF LEFT BREAST - PAST SURGICAL HISTORY OF 03/09/2009 left saffes vein ablasted and removed varicose vein left leg, dr corea - STEREO LOC FOR CORE BRST BX LT 11-1-10 FAMILY HISTORY Problem Relation Age of Onset - Breast Cancer Paternal Aunt - hodgkins disease [Other] [OTHER] Father - Cancer Brother renal cancer - Heart Mother - Hypertension Mother CHF - Genitourinary () Father renal failure Social History Substance Use Topics - Smoking status: Former Smoker - Smokeless tobacco: Never Used Comment: quit about 24 yrs ago; passive smoker prior to quitting - Alcohol use Yes Comment: occasionally ALLERGIES: ALLERGIES No Known Allergies MEDICATIONS BACILLUS COAGULANS (PROBIOTIC, B. COAGULANS, ORAL) Take by mouth. GLUCOSAMINE HCL/CHONDROITIN VINCENT (GLUCOSAMINE-CHONDROITIN ORAL) Take by mouth. triamcinolone acetonide (KENALOG) 0.1 % cream Apply 1 application to affected area three times daily. Apply sparingly to area for rash/itching. celecoxib (CELEBREX) 200 mg capsule Take 200 mg by mouth. levothyroxine (SYNTHROID) 125 mcg tablet Take 1 tablet by mouth once daily. dextroamphetamine-amphetamine (ADDERALL) 5 mg tablet Take 1 tablet by mouth once daily. LORazepam (ATIVAN) 1 mg tablet Take 1/2 - 1 whole tablet by mouth in the evening as needed for neck pain or spasms. escitalopram oxalate (LEXAPRO) 5 mg tablet Take 1 tablet by mouth twice daily. ketoconazole (NIZORAL) 2 % cream Apply 1 application to affected area once daily as needed. As directed oxybutynin (DITROPAN) 5 mg tablet Take 1 tablet by mouth twice daily. As needed as directed hydrocortisone-acetic acid (ACETASOL HC) otic solution Use 4 Drops in the ears as needed. Biotin 2,500 mcg cap Take 2 capsules by mouth once daily. Cholecalciferol, Vitamin D3, 2,000 unit cap Take 1 tablet by mouth once daily. folic acid ORAL Take one(1) tablet two(2) times daily. Magnesium Oxide-Mg AA Chelate (ELEMENTAL MAGNESIUM) 300 mg ORAL Cap Take one(1) tablet three times daily. hydrOXYzine HCl (ATARAX) 25 mg tablet Take 1 tablet by mouth every 6 hours as needed for Itching/Rash. escitalopram oxalate (LEXAPRO) 5 mg tablet Take 1 tablet by mouth once daily. Currently taking 1 daily. REVIEW OF SYSTEMS: GENERAL: Negative for: Weight loss or gain, Fever or Chills, Weakness and Sleep difficulties. Physical Examination: BP 116/82 Pulse 72 Resp 16 Ht 5' 5.5 (1.66m) Wt 204 lb (92.5kg) BMI 33.42 kg/(m2). Extended Vitals not filed for this encounter. General appearance: Well appearing, alert, in no acute distress, well-hydrated, well nourished. Skin: Skin color, texture, turgor normal, no suspicious rashes or lesions Head: Normocephalic, no masses, lesions, tenderness or abnormalities Eyes: Anicteric sclera. Pupils are equally round and reactive to light. Extraocular movements are intact. Ears: External ears normal, canals clear, TM's normal Nose/Sinuses: Nares normal, septum midline, mucosa normal, no drainage or sinus tenderness Oropharynx: Lips, mucosa, and tongue normal, teeth and gums normal, oropharynx normal Neck: Supple, no adenopathy; thyroid symmetric, normal size, no bruits Back: Normal exam Lungs: Lungs clear to auscultation. No wheezing, rhonchi, rales Heart: RRR without murmur, gallop, or rubs. No ectopy Abdomen: Normal abdominal exam, Abdomen soft, non-tender. Bowel sounds normal. No masses, organomegaly Extremities: No deformities, edema, skin discoloration, clubbing or cyanosis. Good capillary refill. Musculoskeletal: Spine range of motion normal. Muscular strength intact, No joint swelling, deformity, or tenderness Peripheral pulses: Normal Neuro: Gait normal. Reflexes normal and symmetric. Sensation grossly intact. Reviewed chart, outside records, tests I personally interviewed, confirmed and edited the above information if obtained by others. TESTING: Glucose (mg/dL) Date Value 05/13/2017 79 Potassium (mmol/L) Date Value 05/13/2017 4.3 Sodium (mmol/L) Date Value 05/13/2017 142 Chloride (mmol/L) Date Value 05/13/2017 102 CO2 (mmol/L) Date Value 05/13/2017 24 Creatinine (mg/dL) Date Value 05/13/2017 0.81 BUN (mg/dL) Date Value 05/13/2017 20 Anion Gap (mmol/L) Date Value 05/13/2017 16 Calcium (mg/dL) Date Value 05/13/2017 9.3 Glucose (mg/dL) Date Value 05/13/2017 79 Potassium (mmol/L) Date Value 05/13/2017 4.3 Sodium (mmol/L) Date Value 05/13/2017 142 Chloride (mmol/L) Date Value 05/13/2017 102 CO2 (mmol/L) Date Value 05/13/2017 24 Creatinine (mg/dL) Date Value 05/13/2017 0.81 BUN (mg/dL) Date Value 05/13/2017 20 Anion Gap (mmol/L) Date Value 05/13/2017 16 Calcium (mg/dL) Date Value 05/13/2017 9.3 Protein, Total (g/dL) Date Value 05/11/2014 Test sent to [facility]. Albumin (g/dL) Date Value 05/11/2014 Test sent to [facility]. Bilirubin, Total (mg/dL) Date Value 05/11/2014 Test sent to [facility]. Alkaline Phosphatase (U/L) Date Value 05/11/2014 Test sent to [facility]. AST (U/L) Date Value 05/11/2014 Test sent to [facility]. ALT (U/L) Date Value 05/11/2014 Test sent to [facility]. Hemoglobin (g/dL) Date Value 05/13/2017 14.7 Hematocrit (%) Date Value 05/13/2017 46.3 WBC (k/uL) Date Value 05/13/2017 5.01 Cholesterol, Total (mg/dL) Date Value 05/13/2017 200 HDL Cholesterol (mg/dL) Date Value 05/13/2017 82 LDL Cholesterol (mg/dL) Date Value 05/13/2017 103 Triglyceride (mg/dL) Date Value 05/13/2017 77 Hemoglobin A1C Date Value Ref Range Status 02/10/2009 5.3 4.0 - 6.0 % Final Ejection Fraction - Result: 59 % Date: 05/17/2014 Time: 11:18:12 IMPRESSION: Ms. Ridley is a 77 year old woman presents for preoperative evaluation prior to left total knee arthroplasty with Dr. Ravi Finch at [facility] scheduled for October 09, 2017 After my examination and review of data, I make the following recommendations. PLAN AND RECOMMENDATIONS: 1. Preop exam for internal medicine - ICD9: V72.83, ICD10: Z01.818 ACS NSQIP - risk of serious application is 3%, any complication 3.5%, below average EKG completed in office today showed sinus rhythm with first- degree AV block and left anterior fascicular block. Ventricular rate 64 bpm, AK interval 226 ms, QRS duration 94 ms QTc 447 ms. She will complete lab work today. Barring any abnormalities she will be at low risk for complications with surgery. Once lab results are received will fax information to [facility]. - CBC + DIFF - COMP METABOLIC PANEL - ECG COMPLETE W INTERPRETATION Advised to go to ER if develops chest pain, shortness of breath, or severe worsening of symptoms. Discussed risks, benefits, alternatives, and potential side effects of medications. Ms. Ridley expressed understanding and agreed with the plan. SARAH Rasmussen LIPID PROFILE Collected: 08/08/2017 Status: F Source: [place] 10:00 AM [facility] [place] REPOSITORY Order Comment: THIS REQUISITION IS A SELF DIRECTED LABORATORY ORDER. THESE RESULTS ARE BEING SENT TO YOU A COURTESY PER PATIENT REQUEST. TYPE CODE TESTS RESULT OUT OF RANGE REFERENCE UNITS LAB L501.4900 200 mg/dL Normal CHOL 178 Result Comment: <200 mg/dL Desirable 200-240 mg/dL Borderline >240 mg/dL High Risk LAB L501.5000 mg/dL Normal TRIG 93 Result Comment: The drugs N-Acetylcysteine and Metamizole may falsely depress this assay. Serum Triglycerides Reference Interval Normal <150 mg/dL Borderline high 150 - 199 mg/dL High 200 - 499 mg/dL Very High > or = 500 mg/dL LAB L501.6400 mg/dL Normal HDL 64 Result Comment: The drugs N-Acetylcysteine and Metamizole may falsely depress this assay. Reference Range HDL <40 mg/dL Low HDL Cholesterol HDL >or= 60 mg/dL High HDL Cholesterol LAB L501.6500 0-130 mg/dL Normal LDL 95 LAB L501.6600 5-40 mg/dL Normal VLDL 19 Performed By: #### L500.4100, L501.0100 #### [facility] [address] [place], [address] GLUCOSE Collected: 08/08/2017 Status: F Source: [place] 10:00 AM [facility] REPOSITORY Order Comment: THIS REQUISITION IS A SELF DIRECTED LABORATORY ORDER. THESE RESULTS ARE BEING SENT TO YOU A COURTESY PER PATIENT REQUEST. TYPE CODE TESTS RESULT OUT OF RANGE REFERENCE UNITS LAB L501.0100 74-106 mg/dL Normal GLU 85 Result Comment: Please note revised GLUCOSE reference range effective 2017. Performed By: #### L500.4100, L501.0100 #### [facility] [address] [place], [address] VENOUS DUPLEX LOWER Observed: 07/15/2017 Status: F Source: [place] EXTREMITY 11:16 AM [facility] REPOSITORY [facility] Cardiovascular Services [address] [place] [address] Venous Duplex US, Unilateral 07/15/17 0841 MR#: [id number] Acct: [id number] Name: PATTY RIDLEY Rep #: [id number] : 1940 76 From: Pedro Pablo Apodaca MD Attending Dr: Status: DEP ER Ordering Dr: Della Larson MD Date: 07/15/17 Location: ED Sex: F C Admitted: Reason For Study: LEG PAIN Procedure LEFT Exam performed portable in ED. CFV is compressible, spontaneous, phasic, A preliminary report was called and/or faxed competent, and demonstrates normal to ED nurse. augmentation. FV is compressible, spontaneous, phasic, competent and demonstrates normal augmentation. POP V is compressible, spontaneous, phasic, competent and demonstrates normal augmentation. T/P Trunk is compressible. PTV is compressible. LT PerV is compressible. GSV absent s/p stripping. Interpretation Summary There is no evidence of left lower extremity deep vein thrombosis. Surgically removed left great saphenous vein. Ordering Physician: Della Larson Referring Physician: Celio Jhaveri M.D. Performed By: Marli Adams RVT 07/15/17 1116 Date Pedro Pablo Apodaca MD CC: Della Larson MD; Celio Jhaveri MD Date Dictated: 07/15/17 0841 Date Transcribed: 07/15/17 111 Energy Economist: Signed DISCHARGE INSTRUCTION Observed: 07/15/2017 Status: F Source: [place] 9:17 AM [facility] REPOSITORY [facility] Medical Records Department [address] [place] [address] Discharge Instruction 07/15/17 0915 MR#: [id number] Acct: [id number] Name: PATTY RIDLEY Rep #: [id number] : 1940 76 From: Della Larson MD PCP: Celio Jhaveri MD Status: REG ER ED Disposition - Plan for ED Patient: Chief Complaint: Lower Extremity Injury Instructions: ED Muscle Pain Leg Cramps Prescriptions: Cyclobenzaprine [Flexeril] 10 mg PO TID PRN #20 tablet PRN Reason: Muscle Spasm Referrals: Celio Jhaveri MD [Primary Care Provider] - What to do if you have Problems For any increased pain, shortness of breath, bleeding, nausea or vomiting, chest pain, or any unexpected problems, contact your Primary Care Provider. Call [facility] ([phone]) or report to the closest Emergency Room. Call 911 if necessary. 07/15/17 0917 <Electronically signed by Della Larson MD> Date Della Larson MD Cosigner Signature (If Indicated): Date CC: Celio Jhaveri MD EMERGENCY DEPARTMENT Observed: 07/15/2017 Status: F Source: [place] SUMMARY 9:15 AM [facility] REPOSITORY [facility] Medical Records Department [address] [place] [address] Emergency Department Summary 07/15/17 0820 MR#: [id number] Acct: [id number] Name: PATTY RIDLEY Rep #: [id number] : 1940 76 From: Della Larson MD PCP: Celio Jhaveri MD Status: REG ER - ER Visit Summary Date of Service: 07/15/17 Chief Complaint: Left leg pain History of Present Illness: The patient is a 76 F presenting with left leg pain which started yesterday. She states after sitting in a meeting for over an hour yesterday she began having pain in her left posterior thigh. She initially thought this was a cramp. She states she tried to move around and massage the area. This did not improve. She denies injury. Denies history of blood clots. Denies fever. Denies chest pain or shortness of breath. She is able to ambulate. Physical Examination: Vitals are stable. Patient is afebrile. Alert no acute distress. HEENT exam is unremarkable. Lungs are clear and equal bilaterally. Heart is regular rate and rhythm. Extremities left posterior thigh mild tenderness, normal distal pulses, normal cap refill Skin is warm and dry. No focal neurologic deficit. Remainder of exam is unremarkable. Emergency Department Course and Treatment: Venous doppler was obtained and shows no acute process. She is given a prescription for Flexeril and advised to take Tylenol as needed. Advised to follow-up with primary care physician. Advised to return to ED if worsening complaints. Disposition: Discharge home Impression: Left thigh pain This note was generated with Viralheat dictation software. It may contain incorrect words, spelling, and punctuation that were not noted in review of the chart prior to signing ED Disposition - Plan for ED Patient: Chief Complaint: Lower Extremity Injury Referrals: Celio Jhaveri MD [Primary Care Provider] - What to do if you have Problems For any increased pain, shortness of breath, bleeding, nausea or vomiting, chest pain, or any unexpected problems, contact your Primary Care Provider. Call [facility] ([phone]) or report to the closest Emergency Room. Call 911 if necessary. 07/15/17 0915 <Electronically signed by Della Larson MD> Date Della Larson MD Cosigner Signature (If Indicated): Date CC: Celio Jhaveri MD ALLERGIES ALLERGIES DATE TYPE / CODE NAME / CODE REACTION SEVERITY SOURCE 09/09/2017 Drug codeine/[id number] Other Unknown [facility] Allergy/416 50(RXNORM) [facility] 354388(SNOM Repository ED CT) Drug NO KNOWN [facility] Class/27071 ALLERGIES [place] 1003(SNOMED Repository CT) ENCOUNTERS ENCOUNTERS ADMIT/DISCHARGE ACCOUNT ADMITTING ENCOUNTER LOCATION SOURCE NUMBER CLASS 06/01/[id number] [facility] ing:LABSPEC Repository 06/01/2018/06/01/20 [id number] Ambulatory [address] Main [place] Repository 06/01/2018/06/02/20 [id number] Ambulatory [address] Repository 05/22/2018/05/25/20 [id number] Ambulatory [address] Repository 04/09/2018/04/09/20 [id number] Ambulatory [address] Repository 04/09/[id number] [facility] ing:LABSPEC Repository 04/06/2018/04/08/20 [id number] Ambulatory [address] Repository 03/07/2018/03/09/20 [id number] Ambulatory [address] Repository 11/25/2017/12/06/19 [id number] Ambulatory [address] Repository 11/15/2017/11/19/19 [id number] Ambulatory [address] Repository 10/17/[id number] [facility] ing:CVS Repository 10/06/2017/10/09/[id number] ing:PU2Bfjo: Repository [id number]: 1 09/12/[id number] [facility] ing:LAB Repository 09/01/2017 [id number] Ambulatory [facility] Repository 09/01/[id number] [facility] ing:LABSPEC Repository 09/01/2017/09/02/19 [id number] Ambulatory [address] Repository 08/08/2017 [id number] Ambulatory [facility] ing:LAB Repository 07/15/2017/07/15/19 [id number] Emergency [address] ing:ED Repository PAYERS PAYERS ENCOUNTER GUARANTOR PAYER SUBSCRIBER SOURCE 06/01/2018 GERARDO DUNN Primary PATTY REBOLLEDO Insurance:[facility] [place]: [place] [id number] [address]Dqm: (330) Number: Repository [phone] () [id number] Date:5591-68-[address] [place] [address]RD: 06/01/2018 Secondary NOT GIVENUNK [place] Insurance:SELF PAY [facility] Number: Effective Repository Date:2018-06-01 04/09/2018 GERARDO DUNN Primary CHERRILL C [place] KESHA [facility] [place]: [place] [id number] [address]Tel: (330) Number: Repository [phone] () [id number] Date:4546-36-44[address] [place] [address]YD: 04/09/2018 Secondary NOT GIVENUNK [place] Insurance:SELF PAY [facility] [place] Number: Effective Repository Date:2018-04-09 10/17/2017 GERARDO DUNN Primary CHERRILL C [place] KESHA Insurance[facility] [place] [id number] [place] [address]Tel: Number: Repository [phone] [id number] (HP) Date:0676-62-55[address], [place] [address]IA: 10/17/2017 Secondary NOT GIVENUNK [place] Insurance:SELF PAY [facility] [place] Number: Effective Repository Date:2017-10-17 10/06/2017 GERARDO RIDLEY112 Primary CHERRILL C [place] KESHA Insurance:[facility] WERT[place]DOB: [place] [id number] [place] [id number]: Number: Repository [phone] [id number] (HP) Date:[address]20[address]25[address] [place] [address]HN: 10/06/2017 Secondary NOT GIVENUNK [place] Insurance:SELF PAY [facility] Number: Effective Repository Date:2017-07-29 09/12/2017 GERARDO DUNN Primary Insurance:[facility] CHERRILL C [place] KES[place] PACKAGE PLANPolicy WERTZDOB: [facility] [place] Number: [id number] Hospital [address]Eiy: 330 [id number] Repository [phone] () Date:2017-09-12 09/12/2017 Secondary NOT GIVENUNK [place] Insurance:SELF PAY [facility] Number: Effective Repository Date:2017-09-12 09/01/2017 GERARDO Susan [id number] Primary CHERRILL C [place] K[place]HA Insurance:[facility] [place]DOB: [place] [id number] Hospital [address]Aqd: (330) Number: Repository [phone] () [id number] Date:2558-25-29QS [place] [address] [address]HL: 09/01/2017 Secondary NOT GIVENUNK [place] Insurance:SELF PAY [facility] Number: Effective Repository Date:2017-09-01 08/08/2017 GERARDO Davis [id number] Primary Insurance:[facility] VIVEKRILL C [place] KESHA PACKAGE PLANPolicy WERTZDOB: [facility] [place] Number: [id number] Hospital [address]Dvt: 330 [id number] Repository [phone] () Date:2017-08-08 08/08/2017 Secondary NOT GIVENUNK [place] Insurance:SELF PAY [facility] Number: Effective Repository Date:2017-08-08 07/15/2017 GERARDO Davis [id number] Primary VIVEKRILL C [place] KESHA Insurance:[facility] WERTZDOB: [facility] [place] [id number] Hospital [address]Tjd: (330) Number: Repository [phone] () [id number] Date:8708-70-09KV [address] [facility] CenterJo-Ann[place], [place] [address]FY: 07/15/2017 Secondary NOT GIVENUNK [place] Insurance:SELF PAY [facility] Number: Effective Repository Date:2017-07-15
== END ==
PROVIDERS: Family Provider Internal Medicine; PCP Internal Medicine; Referring Provider Internal Medicine; Visit Provider Internal Medicine
DX: E03.9 Hypothyroidism, unspecified (principal); Z79.899 Other long term (current) drug therapy
CPT/HCPCS: 80053; 84439; 84443; 85027

== ENCOUNTER → 2018-12-02 | Outpatient (CLI) | payer MEDICARE, SELFPAY ==
[2017-10-06 13:48] VITALS: BMI 34.1
[2018-12-02 12:03] LABS: Hemoglobin A1c 5.5 % (4.2-6.3)
[2018-12-02 12:05] LABS: Cholesterol 173 mg/dL (200); High Density Lipoprotein 52 mg/dL; T4 Free Direct 1.17 ng/dL (0.76-1.46); Thyroid Stim Hormone (TSH) 0.09 uIU/mL (0.358-3.74); Triglycerides 133 mg/dL; Very Low Density Lipoprotein 27 mg/dL (5-40)
== END | disposition home or self-care (01) ==
LOC: LABSPEC 11:24
PROVIDERS: Family Provider Internal Medicine; PCP Internal Medicine; Referring Provider Internal Medicine; Visit Provider Internal Medicine
DX: E03.9 Hypothyroidism, unspecified (principal); E78.5 Hyperlipidemia, unspecified; Z79.899 Other long term (current) drug therapy
CPT/HCPCS: 80061; 83036; 84439; 84443

== ENCOUNTER → 2019-03-08 16:48 | Outpatient (CLI) | payer MEDICARE, SELFPAY ==
[2017-10-06 13:48] VITALS: BMI 34.1
== END ==
PROVIDERS: Family Provider Internal Medicine; PCP Internal Medicine
DX: R35.0 Frequency of micturition (principal)
CPT/HCPCS: 87086; 87088; 87186

== ENCOUNTER → 2019-04-02 15:52 | Outpatient (CLI) | payer MEDICARE, SELFPAY ==
[2017-10-06 13:48] VITALS: BMI 34.1
[2019-04-02 17:26] LABS: T4 Free Direct 0.97 ng/dL (0.76-1.46); Thyroid Stim Hormone (TSH) 3.19 uIU/mL (0.358-3.74)
== END ==
PROVIDERS: Family Provider Internal Medicine; PCP Internal Medicine; Referring Provider Internal Medicine; Visit Provider Internal Medicine
DX: E03.9 Hypothyroidism, unspecified (principal)
CPT/HCPCS: 84439; 84443

== ENCOUNTER → 2019-06-02 13:01 | Outpatient (CLI) | payer MEDICARE, SELFPAY ==
[2017-10-06 13:48] VITALS: BMI 34.1
[2019-06-02 13:48] LABS: T4 Free Direct 1.09 ng/dL (0.76-1.46); Thyroid Stim Hormone (TSH) 1.45 uIU/mL (0.358-3.74)
[2019-06-02 13:52] LABS: Microalbumin,Random Urine 9.8 mg/L (NO RANGE EST.); Microalbumin:Creatinine Ratio 13.5 mg/g CRE (<30 mg/g CRE)
== END ==
PROVIDERS: Family Provider Internal Medicine; PCP Internal Medicine; Referring Provider Internal Medicine; Visit Provider Internal Medicine
DX: E03.9 Hypothyroidism, unspecified (principal); Z79.899 Other long term (current) drug therapy
CPT/HCPCS: 82043; 82570; 83036; 84439; 84443

== ENCOUNTER → 2020-01-04 11:14 | Outpatient (CLI) | payer MEDICARE, SELFPAY ==
[2017-10-06 13:48] VITALS: BMI 34.1
[2020-01-04 12:12] LABS: Magnesium 2.2 mg/dL (1.6-2.6); T4 Free Direct 1.37 ng/dL (0.76-1.46)
== END ==
PROVIDERS: PCP Internal Medicine; Referring Provider Internal Medicine; Visit Provider Internal Medicine
DX: Z79.899 Other long term (current) drug therapy (principal)
CPT/HCPCS: 83735; 84439; 84443

== ENCOUNTER 2020-05-29 09:36 | Observation (INO) | payer MEDICARE, SELFPAY ==
[2020-05-29] VITALS (14 sets, daily range): BP systolic 113–166; BP diastolic 71–118; PULSE 63–97; RESP 12–20; TEMP 36.3–36.9; O2SAT 92–98; BMI 34.9; BMI 35.4
--- NOTE | 2020-05-29 09:46 | EKG12_ITS ---
Test Reason : Blood Pressure : / mmHG Vent. Rate : 096 BPM Atrial Rate : 120 BPM P-R Int : 000 ms QRS Dur : 090 ms QT Int : 326 ms P-R-T Axes : 000 -46 006 degrees QTc Int : 411 ms Atrial fibrillation Left anterior fascicular block Septal infarct , age undetermined Abnormal ECG Confirmed by CALVIN CAM, VIPIN ([id number]), editorial manager CAMMY BARKER ([id number]) on 05/31/2020 12:54:54 PM Referred By: CHEPE Confirmed By:VIPIN SIMPSON MD
--- NOTE | 2020-05-29 09:46 | RAD_ITS ---
STUDY: X-RAY CHEST REASON FOR EXAM: Female, 79 years old. AFIB, FATIGUE, NO CHEST PAIN TECHNIQUE: Single AP portable view of the chest. COMPARISON: Comparison is made with prior study dated 07/31/2014. FINDINGS: EKG electrodes are seen. Surgical clips are seen overlying the left breast. The lungs are clear and expanded. There is no demonstrated pleural abnormality. Normal size heart. Normal mediastinum and william. Normal visualized pulmonary arteries. There is atherosclerotic tortuosity of the aortic arch and descending thoracic aorta. Normal visualized thoracic spine. Normal visualized ribs, clavicles, and shoulders. There is no demonstrated abnormality of the visualized soft tissue structures of the upper abdomen. RAD/Chest 1 View (Portable) IMPRESSION: No acute abnormality is seen. Electronically Signed: Raymon Dasilva, at 10:22 EST , Service support ,
--- NOTE | 2020-05-29 09:47 | ED.VIS.GEN ---
History of Present Illness Chief Complaint: Palpitations Informant: Patient Onset: Days Context: Gradual Onset Timing: Intermittent Current Severity: Moderate Maximum Severity: Moderate Narrative: Patient is a 79-year-old female with medical history significant for fibromyalgia, GERD, thyroid disease the presents to the emergency department with new onset atrial fibrillation. Patient states she had outpatient follow-up this morning. She states that she is waiting to have a carotid ultrasound. She states that for the past 2 months, she will have intermittent dizziness. She states that it only lasts a few seconds and goes away. About 3 weeks ago, she states she got rather significant shortness of breath that woke her from sleep. She states she also chest tightness at that time. She does admit to some orthopnea and peripheral edema. She denies any fevers or chills. Apparently, at her primary care, she did have new onset atrial fibrillation. Patient has no history of underlying heart disease. She states she is otherwise been in her normal state of health. Prior similar symptoms: No Recent Illness/Hospitalization: No Past Medical History - Allergies and Home Meds Allergies/Adverse Reactions: Allergies codeine Adverse Reaction (Verified 05/29/20 09:39) Other MAKES HYPER, UNABLE TO SLEEP Primary Care Physician: Patrica Jhaveri MD [Primary Care Provider] - Prior records reviewed: Yes Past Medical History: - - Fibromyalgia, GERD, thyroid disease Surgical History: appendectomy, - - She has the past had bilateral breast implants. 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 She has had a facelift and bilateral blepharoplasty. She has also had a vein ligation in her lower extremity, left leg. She has had surgery on her right hand for trigger finger. Smoking Status: Never smoker - Family History Maternal Family History: Reports: - - Her mother had pulmonary hypertension and COPD Paternal Family History: Reports: - - Father had lymphoma. She states that she has brothers and sisters and they are all healthy. Her family of old age. Review of Systems General: Denies: Chills, Fever, Sweats Eyes: Denies: Visual changes - bilaterally, Diplopia ENT: Denies: Rhinorrhea, Sore throat Cardiovascular: Reports: Chest pain, Palpitations Respiratory: Reports: Dyspnea, Dyspnea on exertion. Denies: Cough Gastrointestinal: Denies: Abdominal pain, Nausea, Vomiting, Diarrhea, Melena, Hematochezia Genitourinary: Denies: Dysuria, Hematuria, Frequency Musculoskeletal: Denies: Back pain, Extremity Pain Skin: Denies: Rash, Wounds Neurological: Denies: Headache, Weakness, Numbness Physical Exam Vital Signs/Narrative: Vital Signs Temp Pulse Resp BP Pulse Ox 05/29/20 09:37 97.6 F L 97 20 H 166/113 H 98 Inital Vital Signs reviewed: Yes General: Well nourished, Well developed, No Acute Distress Head: Normocephalic, Atraumatic Eyes: Perrl, EOMI ENT: Moist mucous membranes, No rhinorrhea Neck: Supple, Nontender Cardiovascular: No murmurs, Irregular, Tachycardia Respiratory: No distress, CTA bilaterally, Chest nontender Abdomen: Soft, Nontender, Nondistended, Normal bowel sounds Back: Nontender, Normal Inspection Extremities: Nontender, No edema Skin: Normal color, No rash Neurological: Alert, Oriented x3, Cranial nerves II-XII grossly intact, Normal Strength, Normal Sensation Psychological: Normal affect, Normal Mood Diagnostic/Tx/Re-eval Chest X-Ray - ED: 1 View, Read by ED Physician, Normal, Heart, Lungs, Mediastinum Clinical Impression(s) from Imaging Studies Chest X-Ray 05/29/20 09:46 IMPRESSION: No acute abnormality is seen. Electronically Signed: Raymon Dasilva, at 10:22 EST , Service support , Abnormal Lab Results 05/29/20 05/29/20 05/29/20 10:00 10:00 10:00 WBC 7.7 RBC 5.17 Hgb 15.0 Hct 45.9 MCV 88.8 MCH 29.0 MCHC 32.7 RDW Std Deviation 39.2 RDW Coeff of [place] 12.1 Plt Count 207 MPV 9.5 Immature Gran % (Auto) 0.300 Neut % (Auto) 52.5 Lymph % (Auto) 34.5 [place] % (Auto) 10.0 Eos % (Auto) 2.2 Baso % (Auto) 0.5 Absolute Neuts (auto) 4.0 Absolute Lymphs (auto) 2.65 Nucleated RBC % 0 Sodium 140 Potassium 3.8 Chloride 106 Carbon Dioxide 29.0 Anion Gap 5 BUN 25 H Creatinine 0.82 Estim Creat Clear Calc 50.88 Est GFR (MDRD) Af Amer 86 Est GFR (MDRD) Non-Af 71 BUN/Creatinine Ratio 30.3 H Glucose 85 Calcium 9.2 Magnesium 2.3 Total Bilirubin 0.50 AST 15 ALT 24 Alkaline Phosphatase 138 H Troponin I < 0.015 B-Natriuretic Peptide 108.1 H Total Protein 7.7 Albumin 3.8 Globulin 3.9 Albumin/Globulin Ratio 1.0 - Rhythm Strip Rate: 90 Ectopy: PVC(s) - EKG Initial EKG Interpretation: No Acute Injury Pattern, Atrial Fibrillation Prior: Changed - Medical Decision Making The patient presents with new onset atrial fibrillation. She states that she has had exertional shortness of breath and a few bouts of chest tightness. On arrival, EKG was obtained. It did demonstrate A. fib at a rate of 90. There was no RVR. Metabolic work-up was pursued. The patient's rate was not aggressively controlled because she was intrinsically rate controlled. Chest x-ray shows no significant volume overload. Metabolic work-up was unremarkable. My concern is that the patient is having exertional dyspnea. I am not sure if this is from underlying heart disease versus symptomatic atrial fibrillation. As she has no history, I do feel the most prudent plan of care would be observation for echo and reevaluation. The patient was discussed with the hospitalist. Impression 1. New onset atrial fibrillation 2. Exertional dyspnea ED Disposition - Plan for ED Patient: Referrals: Patrica Jhaveri MD [Primary Care Provider] -
[2020-05-29 10:14] LABS: Absolute Lymphocyte Count 2.65 X10^3/uL (0.83-4.51); Basophil# 0.04 X10^3/uL; Basophil% 0.5 % (0-1); Eosinophil# 0.17 X10^3/uL; Eosinophils% 2.2 % (0-5); Hematocrit 45.9 % (37-47); Lymphocyte # 2.65 X10^3/ul (4.0); Lymphocyte % 34.5 % (19-41); Mean Corp Hgb Conc 32.7 g/dL (32-36); Mean Corpuscular Volume 88.8 fL (81-99); Mean Platelet Vol. 9.5 fl (6.2-12.0); Monocyte# 0.77 X10^3/uL; NRBC Flagged by Analyzer 0 % (0-5); Neutrophil # 4.03 X10^3/uL (2.7-7.7); Neutrophil % 52.5 % (47-70); Platelet Count 207 K/mm3 (150-450); RBC Distribution Width CV 12.1 % (11.6-14.6); RBC Distribution Width SD 39.2 fl (35.1-43.9); Red Blood Count 5.17 M/mm3 (4.2-5.4); White Blood Count 7.7 K/mm3 (4.4-11.0)
[2020-05-29 10:28] LABS: AST(SGOT) 15 U/L (15-37); Alanine Aminotransfer ALT/SGPT 24 U/L (13-56); Albumin, Serum 3.8 g/dL (3.2-5.0); Alkaline Phosphatase 138 U/L (45-117); Anion Gap 5 (5-15); BUN 25 mg/dL (7-18); BUN/Creat Ratio 30.3 RATIO (10-20); Calcium,Total 9.2 mg/dL (8.5-10.1); Chloride 106 mmol/L (98-107); Creatinine, Serum 0.82 mg/dL (0.55-1.02); EST Glomerular Filtration Rate 71 mL/min (>60); Est Glom Filt Rate - Afr Amer 86 mL/min (>60); Estimated Creatinine Clearance 50.88 ml/min; Globulin 3.9 g/dL (2.2-4.2); Glucose 85 mg/dL (74-106); Magnesium 2.3 mg/dL (1.6-2.6); Potassium 3.8 mmol/L (3.5-5.1); Protein, Total 7.7 g/dL (6.4-8.2); Sodium Level 140 mmol/L (136-145)
[2020-05-29 10:39] LABS: BNP,B-Type NATRIURETIC PEPTIDE 108.1 pg/mL (0-100)
--- NOTE | 2020-05-29 11:22 | NURSING ---
DR TURK FOR DR LINTON
--- NOTE | 2020-05-29 11:35 | NURSING ---
PCU NEW ONSET AFSHE PASTRANAAH
--- NOTE | 2020-05-29 12:17 | ECHOD_ITS ---
Reason For Study: AFIB Procedure This was a 2D Doppler, Color Flow transthoracic echocardiogram. The study was technically difficult. Exam performed portable in patient room. Left Ventricle Normal LV size. Left ventricular systolic function is normal. The estimated ejection fraction is 60 %. Diastolic function is indeterminate. Unable to assess diastolic dysfunction due to arrhythmia. Right Ventricle Normal RV size. Normal systolic function. Atria Normal left atrium. Normal right atrium. Mitral Valve There is mild mitral annular calcification. Mild (1+) mitral valve insufficiency. Tricuspid Valve Normal tricuspid valve. Mild (1+) tricuspid valve insufficiency. Pulmonary artery systolic pressure is 36 mmHg. Aortic Valve Trisinus/trileaflet aortic valve. Mild focal aortic valve calcification. Trivial aortic valve insufficiency. Pulmonic Valve Normal pulmonic valve. Great Vessels Mildly dilated aortic root. The pulmonary artery is normal size. Normal inferior vena cava. Pericardium/Pleural No pericardial effusion. MMode/2D Measurements & Calculations LVIDd: 4.1 cm IVSd: 0.80 cm Ao root diam: 4.2 cm LVIDs: 2.9 cm LVPWd: 0.72 cm RVDd: 2.8 cm FS: 30.0 % LAV(MOD-bp): 58.5 ml LVAd ap4: 21.2 cm2 SV(MOD-sp4): 25.6 ml LAV(MOD-bp) Indexed: 29.0 ml/m2 EDV(MOD-sp4): 48.3 ml LAV(MOD-sp2): 71.9 ml EDV(sp4-el): 50.9 ml LAV(MOD-sp4): 39.9 ml LVAs ap4: 13.3 cm2 ESV(MOD-sp4): 22.7 ml ESV(sp4-el): 23.2 ml EF(MOD-sp4): 53.1 % EF(sp4-el): 54.4 % SV(sp4-el): 27.7 ml LA A4 area: 15.3 cm2 LA dimension(2D): 4.1 cm RA A4 area: 8.7 cm2 Time Measurements MV dec time: 0.19 sec Doppler Measurements & Calculations MV E max gina: 107.3 cm/sec Ao V2 max: 141.3 cm/sec AI max gina: 281.1 cm/sec Ao max P.0 mmHg AI max P.6 mmHg AI dec slope: 165.0 cm/sec2 AI P1/2t: 498.9 msec LV V1 max: 83.8 cm/sec PA V2 max: 74.6 cm/sec TR max gina: 284.2 cm/sec LV V1 max P.8 mmHg TR max P.3 mmHg Interpretation Summary Normal LV size. Left ventricular systolic function is normal. The estimated ejection fraction is 60 %. Diastolic function is indeterminate. Unable to assess diastolic dysfunction due to arrhythmia. Pulmonary artery systolic pressure is 36 mmHg. Ordering Physician: Polo Webber Referring Physician: CELIO BARRETT Performed By: Gaby Rascon, ZITA, RVT
--- NOTE | 2020-05-29 13:06 | HP.PCM_ITS ---
Problem List (1) New onset atrial fibrillation Status: Acute (2) Hypothyroidism Status: Chronic (3) Nephrolithiasis Status: Chronic (4) Mixed anxiety depressive disorder Status: Chronic History of Present Illness Date of Admission: 05/29/20 Chief Complaint: She was sent from her PCPs office for new onset A. fib. The patient is a 79 year old F with past medical history as mentioned above was sent to ED by her PCPs office for new onset atrial fibrillation. Today, patient went to see her PCP for symptoms of fatigue and weakness that has been going on for at least 1 year and she thinks that she may have fibromyalgia. Also, she complained of intermittent episodes of dizziness on the tendons over the last 2 months. She complains of significant shortness of breath on exertion, associated with palpitation and without aggravating or relieving factors. She denied chest pain. She denied cough or sputum production. She denied fever or chills. She had an EKG done at her PCPs office and she was found to have new onset atrial fibrillation. She had a history of hypothyroidism and she has been on levothyroxine. She will history of depression and anxiety, has been on Lexapro but recently, she was started on trazodone to help her sleep. She had history of kidney stones as well without history of kidney disease. In the emergency department, patient was afebrile, heart rate has been around 90, was in A. fib, no RVR, blood pressure was slight elevated, pulse ox was 97% on room air. Routine blood work was unremarkable. LFT was unremarkable. EKG revealed atrial fibrillation, rate is 96 bpm, no acute ischemic changes. Troponin was negative. Chest x-ray showed no acute findings. She is being admitted for new onset atrial fibrillation for evaluation and treatment. Past Medical History Past Medical History (Chronic Problems): Chronic Problems Hypothyroidism (Chronic) Obesity (BMI 30.0-34.9) (Chronic) Nephrolithiasis (Chronic) Mixed anxiety depressive disorder (Chronic) Allergies codeine Adverse Reaction (Mild, Verified 05/29/20 12:27) Other MAKES HYPER, UNABLE TO SLEEP Home Medications: Ambulatory Orders Medication Instructions Recorded Levothyroxine [Synthroid] 112 mcg PO DAILY 07/31/14 Lorazepam [Ativan] 1 mg PO QHS PRN 07/31/14 Acetic Acid [Acetasol] 4 - 6 drop OTIC PRN PRN 07/15/17 Biotin 5,000 mcg PO DAILY 07/15/17 Cholecalciferol (VIT D3) [Vitamin 2,000 unit PO DAILY 07/15/17 D3] Folic Acid 0.8 mg PO DAILY@0800 07/15/17 Magnesium 250 mg PO DAILY 07/15/17 Triamcinolone 0.1% Cream [Kenalog] 1 applic TP PRN PRN 07/15/17 Ascorbic Acid [Vitamin C] 500 mg PO DAILY 05/29/20 Meloxicam [Mobic] 15 mg PO DAILY 05/29/20 Omeprazole [Prilosec] 10 mg PO DAILY 05/29/20 Vitamin E 100 unit PO DAILY 05/29/20 traZODone [Desyrel] 50 mg PO QHS 05/29/20 Surgical History: appendectomy, total knee arthroplasty, - - She has the past had bilateral breast implants. 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 She has had a facelift and bilateral blepharoplasty. She has also had a vein ligation in her lower extremity, left leg. She has had surgery on her right hand for trigger finger. 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 She states that she has brothers and sisters and they are all healthy. Her family of old age. Review of Systems Constitutional: Reports: Weakness, Fatigue. Denies: Anorexia, Chills, Fever Eyes: Denies: Blurred vision, Double vision, Drainage, Redness HEENT: Denies: Difficulty Hearing, Ear Pain, Nasal Congestion, Sore Throat Cardiovascular: Reports: Light Headedness, Palpitations. Denies: Chest Pain, Chest Pressure, Chest Tightness, Heaviness, Syncope Respiratory: Reports: Shortness of breath upon exertion. Denies: Cough, Pleuritic Pain, Shortness of Breath, Sputum production, Wheezing Gastrointestinal: Denies: Abdominal Pain, Constipation, Diarrhea, Nausea, Vo miting Genitourinary: Denies: Dysuria, Frequency, Hematuria Musculoskeletal: Denies: Arm Pain, Back Pain, Foot Pain Skin: Denies: Dryness, Rash Neurological: Denies: Balance problems, Double vision, Change in Speech, Slurred speech, Confusion, Headaches, Incoordination, Numbness Psychiatric: Reports: Anxiety, Depression Endocrine: Denies: Change in Body Habitus, Polydipsia, Polyuria VTE Information - Inpt Only VTE Present on Admission: No VTE Mechan Device Prophylaxis: None VTE Pharm Prophylaxis ordered?: No - Physical Exam Vitals/I&O's: Vital Signs Temp Pulse Resp BP Pulse Ox 97.6 F L 84 12 152/108 H 97 05/29/20 12:21 05/29/20 12:42 05/29/20 12:21 05/29/20 12:21 05/29/20 12:21 Oxygen Delivery Method Room Air Weight: 213 lb Body Mass Index (BMI) 35.4 General: Alert, Oriented x3, Cooperative, No apparent distress HEENT: Atraumatic, PERRLA, EOMI, Normocephalic Oral: Moist Mucosa, No Gingival or Mucosal Lesions/ Ulcerations Neck: Supple, No JVD, Negative Carotid Bruits, Trachea Midline, Thyroid Normal Size and Texture Lungs: Clear to auscultation, Normal air movement, No rhonchi, No wheeze, No rales, Diminished Cardiovascular: Normal S1, Normal S2, No murmurs, PMI Normal, Irregular Rate Abdomen: Bowel Sounds Present, Soft, Non Tender, Non-Distended, No Hepato- splenomegaly, Obese Extremities: No clubbing, No cyanosis, No edema Skin: No rashes, No breakdown Lymphatic: No Cervical, Supraclavicular, or Inguinal Adenopathy Neurological: Cranial nerves II-XII grossly intact, Motor Exam 5/5 strength throughout Psych/Mental Status: Normal Affect, Appropriate, Alert and oriented to time, place, person, mood and affect Laboratory Results 05/29/20 10:00: WBC 7.7, RBC 5.17, Hgb 15.0, Hct 45.9, MCV 88.8, MCH 29.0, MCHC 32.7, RDW Std Deviation 39.2, RDW Coeff of Talita 12.1, Plt Count 207, MPV 9.5, Immature Gran % (Auto) 0.300, Neut % (Auto) 52.5, Lymph % (Auto) 34.5, Lamb % (Auto) 10.0, Eos % (Auto) 2.2, Baso % (Auto) 0.5, Absolute Neuts (auto) 4.0, Absolute Lymphs (auto) 2.65, Nucleated RBC % 0 05/29/20 10:00: Sodium 140, Potassium 3.8, Chloride 106, Carbon Dioxide 29.0, Anion Gap 5, BUN 25 H, Creatinine 0.82, Estim Creat Clear Calc 50.88, Est GFR (MDRD) Af Amer 86, Est GFR (MDRD) Non-Af 71, BUN/Creatinine Ratio 30.3 H, Glucose 85, Calcium 9.2, Magnesium 2.3, Total Bilirubin 0.50, AST 15, ALT 24, Alkaline Phosphatase 138 H, Troponin I < 0.015, Total Protein 7.7, Albumin 3.8, Globulin 3.9, Albumin/Globulin Ratio 1.0 05/29/20 10:00: B-Natriuretic Peptide 108.1 H Clinical Impression(s) from Imaging Studies Chest X-Ray 05/29/20 09:46 IMPRESSION: No acute abnormality is seen. Electronically Signed: Raymon Dasilva, at 10:22 EST , Service support , Current Medications Acetaminophen (Acetaminophen 325 Mg Tablet) 650 mg PO Q6H PRN PRN PRN Reason: Pain Score 1-10/Temp > 100.7 F Enoxaparin Sodium (Enoxaparin 100 Mg/Ml Syringe) 90 mg SC Q12@0600,1800 [facility] Levothyroxine Sodium (Levothyroxine 112 Mcg Tablet) 112 mcg PO DAILY@0600 [facility] Lorazepam (Lorazepam 1 Mg Tablet) 1 mg PO QHS PRN PRN PRN Reason: SLEEP Meloxicam (Meloxicam 15 Mg Tablet) 15 mg PO DAILY GEORGE Metoprolol Tartrate (Metoprolol Tartrate 25 Mg Tablet) 25 mg PO BID GEORGE Ondansetron HCl (Ondansetron 4 Mg/2 Ml Vial) 4 mg IV Q8H PRN PRN PRN Reason: NAUSEA/VOMITING Pantoprazole Sodium (Pantoprazole Sodium 20 Mg Tablet) 20 mg PO DAILY GEORGE Sodium Chloride (0.9% Saline Lock 10 Ml Syringe) 10 - 40 ml IV UD PRN PRN Reason: SALINE FLUSH Trazodone HCl (Trazodone 50 Mg Tablet) 50 mg PO QHS GEORGE Zolpidem Tartrate (Zolpidem Tartrate 5 Mg Tablet) 5 mg PO QHS PRN PRN PRN Reason: INSOMNIA Assessment/Plan All Active Problems New onset atrial fibrillation (Acute) This is a 79 years old female patient presented to the emergency room because of fatigue and weakness postexertional as well as exertional shortness of breath and dizziness, found to have new onset atrial fibrillation and she is being admitted for evaluation and treatment. #1 new onset atrial fibrillation: Without history of cardiac disease in the past. EKG reviewed, revealed A. fib, no RVR, no acute ischemic changes. Troponin was negative. Blood pressure slight elevated, other vital signs are stable. Plan: Admit to PCU, cardiac monitoring, serial cardiac enzymes, repeat EKG tomorrow morning, 2D echocardiogram, start metoprolol for rate control, start Lovenox for anticoagulation, check TSH, serum magnesium, Tylenol as needed, Zofran as needed, PT OT evaluation and treatment. #2 hypothyroidism: Continue levothyroxine, will check TSH. #3 anxiety/depression: Continue trazodone and Ativan as needed. #4 DVT prophylaxis: She will be on Lovenox for anticoagulation. This note was generated with Trac[employer] dictation software. It may contain incorrect words, spelling, and punctuation that were not noted in checking the note before signing. Inpatient E&M: 76000 Init Hosp L2
[2020-05-29] MEDS: Metoprolol Tartrate 25 MG Tablet PO ×2 (13:14→22:15)
[2020-05-29 14:11] LABS: Magnesium 2.5 mg/dL (1.6-2.6); Thyroid Stim Hormone (TSH) 0.55 uIU/mL (0.358-3.74)
[2020-05-29 14:35] LABS: International Normalized Ratio 0.9; Prothrombin Time (Protime)PT. 12.1 SECONDS (11.7-14.9)
[2020-05-29] MEDS: Enoxaparin 100 MG/ML Syringe 90 MG SC (17:12)
[2020-05-29] MEDS: traZODone 50 MG Tablet PO (22:15)
[2020-05-29] MEDS: Acetaminophen 325 MG Tablet 650 MG PO (22:15)
[2020-05-30 03:02] VITALS: PULSE 72
[2020-05-30 03:58] VITALS: BP 132/88; PULSE 70; RESP 15; TEMP 36.4; O2SAT 92
--- NOTE | 2020-05-30 05:55 | EKG12_ITS ---
Test Reason : AM EKG Blood Pressure : / mmHG Vent. Rate : 065 BPM Atrial Rate : 234 BPM P-R Int : 000 ms QRS Dur : 088 ms QT Int : 456 ms P-R-T Axes : 000 -43 -29 degrees QTc Int : 474 ms Atrial fibrillation Left axis deviation Poor R wave progression Abnormal ECG Confirmed by CALVIN CAM, VIPIN ([id number]), online editor CAMMY BARKER ([id number]) on 05/31/2020 1:39:35 PM Referred By: BURKE Confirmed By:VIPIN SIMPSON MD
[2020-05-30] MEDS: Enoxaparin 100 MG/ML Syringe 90 MG SC (05:59)
[2020-05-30] MEDS: Levothyroxine 112 MCG Tablet PO (05:59)
[2020-05-30 06:59] VITALS: PULSE 55
[2020-05-30 07:01] VITALS: O2SAT 92
--- NOTE | 2020-05-30 08:28 | DCINST_ITS ---
- Discharge Diagnoses Current Active Problems: Current Active and Chronic Problems New onset atrial fibrillation (Acute) Hypothyroidism (Chronic) Nephrolithiasis (Chronic) Mixed anxiety depressive disorder (Chronic) You will use the following diet at home:: Cardiac Your food should be the consistency of: Regular Discharge Activity: Return to Normal Activity Weight Bearing Status: Full weight bearing Call your doctor if you observe: Fever of 101 or Higher, Shortness of breath, Dizziness, Fainting spells, Chest pain, Increased palpitations (irregular heartbeat), Uncontrolled pain Instructions: Apixaban Oral tablet, Atrial Fibrillation, What Is Atrial Flutter/Atrial Fibrillation? Allergies/Adverse Reactions: Allergies codeine Adverse Reaction (Mild, Verified 05/29/20 12:27) Other MAKES HYPER, UNABLE TO SLEEP Medications to take at Discharge Levothyroxine [Synthroid] 112 mcg PO DAILY 07/31/14 Lorazepam [Ativan] 1 mg PO QHS PRN 07/31/14 Acetic Acid [Acetasol] 4 - 6 drop OTIC PRN PRN 07/15/17 Biotin 5,000 mcg PO DAILY 07/15/17 Cholecalciferol (VIT D3) [Vitamin D3] 2,000 unit PO DAILY 07/15/17 Folic Acid 0.8 mg PO DAILY@0800 07/15/17 Magnesium 250 mg PO DAILY 07/15/17 Triamcinolone 0.1% Cream [Kenalog] 1 applic TP PRN PRN 07/15/17 Ascorbic Acid [Vitamin C] 500 mg PO DAILY 05/29/20 Omeprazole [Prilosec] 10 mg PO DAILY 05/29/20 Vitamin E 100 unit PO DAILY 05/29/20 traZODone [Desyrel] 50 mg PO QHS 05/29/20 Apixaban [Eliquis] 5 mg PO BID #90 tab 05/30/20 Metoprolol Tartrate [Lopressor (beta telly)] 25 mg PO BID #90 tab 05/30/20 The following prescriptions were given: Apixaban [Eliquis] 5 mg PO BID #90 tab Transmission Status: Pending to [id number] Metoprolol Tartrate [Lopressor (beta telly)] 25 mg PO BID #90 tab Transmission Status: Pending to [id number] Primary Care Physician: Patrica Jhaveri MD [Primary Care Provider] - Please follow up with your Primary Care Physician in: 1 week. Test Results: Test results from this visit will be discussed in further detail at your follow- up appointment, if applicable. Please Follow Up With: Eligio Butler MD When: 2-4 weeks.
--- NOTE | 2020-05-30 08:29 | PCM.DC.SUM ---
Discharge Date and Diagnosis - Problem List Patient Problems: Active and Suspected Problems New onset atrial fibrillation (Acute) Date of Admission: 05/29/20 Date of Discharge: 05/30/20 - Primary Discharge Diagnosis Acute Problems: Active Problems New onset atrial fibrillation (Acute) - Secondary Discharge Diagnosis Chronic Problems: Chronic Problems Hypothyroidism (Chronic) Obesity (BMI 30.0-34.9) (Chronic) Nephrolithiasis (Chronic) Mixed anxiety depressive disorder (Chronic) Hospital Course and Treatment Imaging Results: Clinical Impression(s) from Imaging Studies Chest X-Ray 05/29/20 09:46 IMPRESSION: No acute abnormality is seen. Electronically Signed: Raymon Dasilva, at 10:22 EST , Service support , Procedures: 2-D Echocardiogram, EKG Summary of Care Provided: Patient seen and examined on the day of discharge and appeared to be stable to be discharged home. She remained in A. fib but heart rate has been controlled. She denied any more symptoms of dizziness, lightheadedness, no shortness of breath. She denied chest pain. Her vital signs are stable. The patient is a 79 year old F was referred to the ED by her PCPs office for new onset atrial fibrillation. Patient stated that she has been having symptoms of fatigue and weakness after activity for almost 1 year. In addition to that, over the last couple of months, she has been having exertional shortness of breath as well with occasional dizziness and lightheadedness. Her EKG at the PCP office revealed atrial fibrillation and heart rate was around 90s. EKG in the emergency department revealed new onset atrial fibrillation and heart rate has been around 90s to 100. There was no acute ischemic changes. Troponin was negative x3. Her routine blood work was unremarkable. Serum electrolytes including sodium, potassium, magnesium were normal. TSH was normal. LFT was unremarkable. There was no evidence of acute CHF. Patient was started on metoprolol for rate control and on Lovenox for anticoagulation. 2D echocardiogram revealed normal LV size and function, ejection fraction was 60%, pulmonary artery pressure was 36 and there was no evidence of significant valvular heart disease. Patient was started on Eliquis for anticoagulation. Patient discharged home in a stable medical condition, discharged on metoprolol 25 mg p.o. twice daily for rate control, discharged on Eliquis for anticoagulation, recommended follow-up with PCP in 1 week, follow-up with cardiology in 2 to 4 weeks. Patient Problems: Active and Suspected Problems New onset atrial fibrillation (Acute) - Physical Exam Vitals/I&O's: Vital Signs Temp Pulse Resp BP Pulse Ox 97.6 F L 55 L 15 132/88 H 92 05/30/20 03:58 05/30/20 06:59 05/30/20 03:58 05/30/20 03:58 05/30/20 07:01 Oxygen Delivery Method Room Air Weight: 213 lb Body Mass Index (BMI) 35.4 Intake and Output for Last 24 Hours 05/28/20 05/29/20 05/30/20 23:59 23:59 23:59 Intake Total 120 / 745 625 / 625 Balance 120 / 745 625 / 625 General: Alert, Oriented x3, Cooperative, No apparent distress HEENT: Atraumatic, PERRLA, EOMI, Normocephalic Oral: Moist Mucosa, No Gingival or Mucosal Lesions/ Ulcerations Neck: Supple, No JVD, Negative Carotid Bruits, Trachea Midline, Thyroid Normal Size and Texture Lungs: Clear to auscultation, Normal air movement, No rhonchi, No wheeze, No rales Cardiovascular: Normal S1, Normal S2, No murmurs, PMI Normal, Irregular Rate Abdomen: Bowel Sounds Present, Soft, Non Tender, Non-Distended, Obese Extremities: No clubbing, No cyanosis, No edema Skin: No rashes, No breakdown Lymphatic: No Cervical, Supraclavicular, or Inguinal Adenopathy Neurological: Cranial nerves II-XII grossly intact, Neuro grossly intact Psych/Mental Status: Normal Affect, Appropriate Laboratory Results 05/29/20 10:00: WBC 7.7, RBC 5.17, Hgb 15.0, Hct 45.9, MCV 88.8, MCH 29.0, MCHC 32.7, RDW Std Deviation 39.2, RDW Coeff of Talita 12.1, Plt Count 207, MPV 9.5, Immature Gran % (Auto) 0.300, Neut % (Auto) 52.5, Lymph % (Auto) 34.5, Foster % (Auto) 10.0, Eos % (Auto) 2.2, Baso % (Auto) 0.5, Absolute Neuts (auto) 4.0, Absolute Lymphs (auto) 2.65, Nucleated RBC % 0 05/29/20 10:00: Sodium 140, Potassium 3.8, Chloride 106, Carbon Dioxide 29.0, Anion Gap 5, BUN 25 H, Creatinine 0.82, Estim Creat Clear Calc 50.88, Est GFR (MDRD) Af Amer 86, Est GFR (MDRD) Non-Af 71, BUN/Creatinine Ratio 30.3 H, Glucose 85, Calcium 9.2, Magnesium 2.3, Total Bilirubin 0.50, AST 15, ALT 24, Alkaline Phosphatase 138 H, Troponin I < 0.015, Total Protein 7.7, Albumin 3.8, Globulin 3.9, Albumin/Globulin Ratio 1.0 05/29/20 10:00: B-Natriuretic Peptide 108.1 H 05/29/20 13:08: PT 12.1, INR 0.9 05/29/20 13:08: Magnesium 2.5, Troponin I < 0.015, TSH 0.55 05/29/20 16:27: Troponin I < 0.015 Current Medications Acetaminophen (Acetaminophen 325 Mg Tablet) 650 mg PO Q6H PRN PRN PRN Reason: Pain Score 1-10/Temp > 100.7 F Last Admin: 05/29/20 22:15 Dose: 650 mg Documented by: Apixaban (Apixaban 5 Mg Tablet) 5 mg PO BID [facility] Levothyroxine Sodium (Levothyroxine 112 Mcg Tablet) 112 mcg PO DAILY@0600 [facility] Last Admin: 05/30/20 05:59 Dose: 112 mcg Documented by: Lorazepam (Lorazepam 1 Mg Tablet) 1 mg PO QHS PRN PRN PRN Reason: SLEEP Meloxicam (Meloxicam 15 Mg Tablet) 15 mg PO DAILY [facility] Metoprolol Tartrate (Metoprolol Tartrate 25 Mg Tablet) 25 mg PO BID [facility] Last Admin: 05/29/20 22:15 Dose: 25 mg Documented by: Ondansetron HCl (Ondansetron 4 Mg/2 Ml Vial) 4 mg IV Q8H PRN PRN PRN Reason: NAUSEA/VOMITING Pantoprazole Sodium (Pantoprazole Sodium 20 Mg Tablet) 20 mg PO DAILY [facility] Sodium Chloride (0.9% Saline Lock 10 Ml Syringe) 10 - 40 ml IV UD PRN PRN Reason: SALINE FLUSH Trazodone HCl (Trazodone 50 Mg Tablet) 50 mg PO QHS GEORGE Last Admin: 05/29/20 22:15 Dose: 50 mg Documented by: Zolpidem Tartrate (Zolpidem Tartrate 5 Mg Tablet) 5 mg PO QHS PRN PRN PRN Reason: INSOMNIA Discharge Activity: Return to Normal Activity Weight Bearing Status: Full weight bearing Call your doctor if you observe: Fever of 101 or Higher, Shortness of breath, Dizziness, Fainting spells, Chest pain, Increased palpitations (irregular heartbeat), Uncontrolled pain Home Medications: Medications to take at Discharge Levothyroxine [Synthroid] 112 mcg PO DAILY 07/31/14 Lorazepam [Ativan] 1 mg PO QHS PRN 07/31/14 Acetic Acid [Acetasol] 4 - 6 drop OTIC PRN PRN 07/15/17 Biotin 5,000 mcg PO DAILY 07/15/17 Cholecalciferol (VIT D3) [Vitamin D3] 2,000 unit PO DAILY 07/15/17 Folic Acid 0.8 mg PO DAILY@0800 07/15/17 Magnesium 250 mg PO DAILY 07/15/17 Triamcinolone 0.1% Cream [Kenalog] 1 applic TP PRN PRN 07/15/17 Ascorbic Acid [Vitamin C] 500 mg PO DAILY 05/29/20 Omeprazole [Prilosec] 10 mg PO DAILY 05/29/20 Vitamin E 100 unit PO DAILY 05/29/20 traZODone [Desyrel] 50 mg PO QHS 05/29/20 Apixaban [Eliquis] 5 mg PO BID #90 tab 05/30/20 Metoprolol Tartrate [Lopressor (beta telly)] 25 mg PO BID #90 tab 05/30/20 Following Prescriptions Were Given to Patient: Apixaban [Eliquis] 5 mg PO BID #90 tab Transmission Status: [id number] Metoprolol Tartrate [Lopressor (beta telly)] 25 mg PO BID #90 tab Transmission Status: Re[facility] by [id number] Primary Care Physician: Patrica Jhaveri MD [Primary Care Provider] - Please follow up with your Primary Care Physician in: 1 week. Please Follow Up With: Eligio Butler MD When: 2-4 weeks. Patient Instructions: Apixaban Oral tablet, What Is Atrial Flutter/Atrial Fibrillation?, Atrial Fibrillation Disposition: Home Minutes spent on discharge:: 26 Patient Condition:: Stable Medical Necessity - Tobacco Use Smoking Status: Former smoker Meaningful Use Info Meaningful Use Diagnoses (Choose all that apply): None applicable Inpatient E&M: 13509 Disch Hosp
--- NOTE | 2020-05-30 09:20 | CASEMGMT ---
RN KENJI CARBON [employer]PERVISOR CM to room to meet with patient for initial transition planning/care coordination assessment. RACHEL PHILLIP introduced self and role at [facility]. Pt voices understanding and consents to assessment at this time. Pt resting in bed in no distress at this time. Pt is A/O at this time and answers all questions appropriately. Care providers, pharmacy, and demographics verified/updated at this time. PCP: Dr Jhaveri Specialists: Dr Katey Kerr-Gynecology. States plans to f/u w/[facility] for A-fib. Preferred [facility]acy: [facility]. Eliquis has been e-scribed to [facility]. Pt given Eliquis 30-day free card and instructed on use. Insurance: [employer] Prescription Benefit: Yes Living Will/HPOA: States does not have LW or HCPOA . Interested in more information. Made aware SW may not be available to see her prior to d/c today and she states that is okay. Provided information on advanced directives and given Social Service rac card with number to call if chooses in the future to utilize [facility] social work for advanced directive completion. Educated patient that, if patient so chooses, can come back to [facility] and meet with a SW as an outpatient to complete health care advanced directives. Patient expresses understanding. LNOK: , Yamil. Daughter, Vivi. Has other kids out of state as well Living Arrangements: Lives in split-level home w/. States does have some rails on stairs and does have some difficulty with the stairs since her knee surgery but she has learned how to manage on them. Independent w/ADL's. /pt share home mgmt tasks. Transportation: Pt states drives self and states no transportation concerns at this time. also drives. DME: Denies using any DME and denies needs. Has a cane available but does not use. HHC/SNF: No history of either. Did go to OP therapy after her knee surgery. Denies need for HHC or OP therapy at this time. Pt aware PT/OT ordered to see her here. She states does not feel she needs this prior to discharge. Pt wishes to return home and states has no concerns with going home at time of discharge. CM to follow for any further discharge planning/needs. Pt voices no concerns/needs at this time. Advised pt to ask for CM if any questions/concerns/needs arise. Voices understanding. PLAN: Home Rose CANNONN RN CM
[2020-05-30 10:01] VITALS: BP 122/87; PULSE 72
[2020-05-30] MEDS: APIXABAN 5 MG TABLET PO (10:08)
[2020-05-30 10:09] VITALS: PULSE 72
[2020-05-30] MEDS: Pantoprazole Sodium 20 MG Tablet PO (10:09)
[2020-05-30] MEDS: Metoprolol Tartrate 25 MG Tablet PO (10:09)
[2020-05-30] MEDS: Meloxicam 15 MG Tablet PO (10:09)
--- NOTE | 2020-05-30 10:38 | PHA.DC.MC ---
Pharmacy Service has performed discharge medication reconciliation and counseling for this patient. 1. APIXABAN 5MG PO BID 2. METOPROLOL TARTRATE 25MG PO BID The patient's discharge medication list was reviewed for discrepancies and discrepancies were resolved. Home Medications Levothyroxine [Synthroid] 112 mcg PO DAILY 07/31/14 Lorazepam [Ativan] 1 mg PO QHS PRN 07/31/14 Acetic Acid [Acetasol] 4 - 6 drop OTIC PRN PRN 07/15/17 Biotin 5,000 mcg PO DAILY 07/15/17 Cholecalciferol (VIT D3) [Vitamin D3] 2,000 unit PO DAILY 07/15/17 Folic Acid 0.8 mg PO DAILY@0800 07/15/17 Magnesium 250 mg PO DAILY 07/15/17 Triamcinolone 0.1% Cream [Kenalog] 1 applic TP PRN PRN 07/15/17 Ascorbic Acid [Vitamin C] 500 mg PO DAILY 05/29/20 Omeprazole [Prilosec] 10 mg PO DAILY 05/29/20 Vitamin E 100 unit PO DAILY 05/29/20 traZODone [Desyrel] 50 mg PO QHS 05/29/20 Apixaban [Eliquis] 5 mg PO BID #90 tab 05/30/20 Metoprolol Tartrate [Lopressor (beta telly)] 25 mg PO BID #90 tab 05/30/20 The patient was counseled on the following discharge medications and changes in medications for homegoing were reviewed. The Reason for Use, instructions for use, and potential side effects were reviewed for all new medications. The patient's questions regarding all of their medications were answered. The patient was able to verbally demonstrate an understanding of their discharge medications.
== END 2020-05-30 08:29 | disposition home or self-care (01) ==
LOC: ED 10:24 → PCU 13:10
PROVIDERS: Admitting Provider Hospitalist; Emergency Provider Emergency Medicine; PCP Internal Medicine; Visit Provider Hospitalist
DX: I48.91 Unspecified atrial fibrillation (principal); E66.9 Obesity, unspecified; Z68.35 Body mass index [BMI] 35.0-35.9, adult; F41.8 Other specified anxiety disorders; E03.9 Hypothyroidism, unspecified; M79.7 Fibromyalgia; K21.9 Gastro-esophageal reflux disease without esophagitis; Z79.899 Other long term (current) drug therapy; Z87.891 Personal history of nicotine dependence; R06.02 Shortness of breath
CPT/HCPCS: 71045; 80053; 83735; 83880; 84443; 84484; 85025; 85610; 93005; 93306; 96372; 99218; 99285; A4216; G0378

== ENCOUNTER 2020-06-02 07:15 | Emergency (ER) | payer MEDICARE, SELFPAY ==
[2020-05-29 12:17] VITALS: BMI 35.4
[2020-06-02 07:16] VITALS: PULSE 76; RESP 25; O2SAT 96
[2020-06-02 07:17] VITALS: BP 125/97; PULSE 83; RESP 17; TEMP 36.8; O2SAT 97; BMI 35.8
--- NOTE | 2020-06-02 07:17 | EKG12_ITS ---
Test Reason : CP Blood Pressure : / mmHG Vent. Rate : 078 BPM Atrial Rate : 088 BPM P-R Int : 000 ms QRS Dur : 088 ms QT Int : 376 ms P-R-T Axes : 000 -47 -07 degrees QTc Int : 428 ms Atrial fibrillation Left anterior fascicular block Minimal voltage criteria for LVH, may be normal variant Septal infarct , age undetermined Abnormal ECG Confirmed by CALVIN CAM, VIPIN ([id number]), movie editor CAMMY BARKER ([id number]) on 06/07/2020 9:18:17 AM Referred By: CHEPE Confirmed By:VIPIN SIMPSON MD
--- NOTE | 2020-06-02 07:17 | ED.VIS.GEN ---
History of Present Illness Chief Complaint: Chest Pain Informant: Patient Onset: Today Context: Gradual Onset Timing: Intermittent Current Severity: Moderate Maximum Severity: Moderate Narrative: The patient is a 79-year-old female with no history of coronary vascular disease that presents to the emergency department with chest pain. Patient was recently hospitalized for new onset atrial fibrillation. She was discharged 3 days ago. She had an unremarkable echo. She was started on metoprolol and Eliquis. She states this morning, she had some shortness of breath that woke her from sleep. She states she did feel some tightness on her chest. She denies fever. She denies chills or sweats. It was not made worse with exertion. She states that she has had similar symptoms over the past month. She denies cough or orthopnea. She is otherwise been in her normal state of health. She has been compliant with her medications. Prior similar symptoms: Yes Recent Illness/Hospitalization: Yes Past Medical History - Allergies and Home Meds Allergies/Adverse Reactions: Allergies codeine Adverse Reaction (Mild, Verified 05/29/20 12:27) Other MAKES HYPER, UNABLE TO SLEEP Primary Care Physician: Jose Magaña MD [STAFF PHYSICIAN] - Prior records reviewed: Yes Past Medical History: - - Atrial fibrillation, hypertension Surgical History: appendectomy, total knee arthroplasty, - - She has the past had bilateral breast implants. 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 She has had a facelift and bilateral blepharoplasty. She has also had a vein ligation in her lower extremity, left leg. She has had surgery on her right hand for trigger finger. Smoking Status: Former smoker - Family History Maternal Family History: Reports: - - Her mother had pulmonary hypertension and COPD Paternal Family History: Reports: - - Father had lymphoma. She states that she has brothers and sisters and they are all healthy. Her family of old age. Review of Systems General: Denies: Chills, Fever, Sweats Eyes: Denies: Visual changes - bilaterally, Diplopia ENT: Denies: Rhinorrhea, Sore throat Cardiovascular: Reports: Chest pain. Denies: Palpitations Respiratory: Reports: Dyspnea. Denies: Cough, Dyspnea on exertion Gastrointestinal: Denies: Abdominal pain, Nausea, Vomiting, Diarrhea, Melena, Hematochezia Genitourinary: Denies: Dysuria, Hematuria, Frequency Musculoskeletal: Denies: Back pain, Extremity Pain Skin: Denies: Rash, Wounds Neurological: Denies: Headache, Weakness, Numbness Physical Exam Inital Vital Signs reviewed: Yes General: Well nourished, Well developed, No Acute Distress Head: Normocephalic, Atraumatic Eyes: Perrl, EOMI ENT: Moist mucous membranes, No rhinorrhea Neck: Supple, Nontender Cardiovascular: Regular rate, Regular rhythm, No murmurs Respiratory: No distress, CTA bilaterally, Chest nontender Abdomen: Soft, Nontender, Nondistended, Normal bowel sounds Back: Nontender, Normal Inspection Extremities: Nontender, No edema Skin: Normal color, No rash Neurological: Alert, Oriented x3, Cranial nerves II-XII grossly intact, Normal Strength, Normal Sensation Psychological: Normal affect, Normal Mood Diagnostic/Tx/Re-eval Chest X-Ray - ED: 1 View, Read by ED Physician, Normal, Heart, Lungs, Mediastinum Clinical Impression(s) from Imaging Studies Chest X-Ray 06/02/20 07:36 IMPRESSION: No acute abnormality is seen. Electronically Signed: Raymon Dasilva, at 8:09 EST , Service support , Abnormal Lab Results 06/02/20 06/02/20 06/02/20 07:15 07:15 07:15 WBC 6.8 RBC 5.29 Hgb 15.2 H Hct 46.6 MCV 88.1 MCH 28.7 MCHC 32.6 RDW Std Deviation 38.4 RDW Coeff of [place] 12.0 Plt Count 202 MPV 9.6 Immature Gran % (Auto) 0.300 Neut % (Auto) 48.8 Lymph % (Auto) 40.2 [place] % (Auto) 10.1 H Eos % (Auto) 0.0 Baso % (Auto) 0.6 Absolute Neuts (auto) 3.3 Absolute Lymphs (auto) 2.74 Nucleated RBC % 0 Sodium 140 Potassium 4.0 Chloride 106 Carbon Dioxide 28.0 Anion Gap 6 BUN 25 H Creatinine 0.79 Estim Creat Clear Calc 41.72 Est GFR (MDRD) Af Amer 90 Est GFR (MDRD) Non-Af 74 BUN/Creatinine Ratio 31.5 H Glucose 114 H Calcium 9.5 Troponin I < 0.015 B-Natriuretic Peptide 147.6 H - Rhythm Strip Rhythm Strip: A-fib Rate: 70 Ectopy: None - Medical Decision Making Patient presents with mild chest pain and dyspnea. She was recently hospitalized for atrial fibrillation. EKG was obtained. There is no evidence of acute ischemia. The patient ruled out for cardiac ischemia 3 days ago. I do have some suspicion that she may be having runs of A. fib RVR causing her to be short of breath. She also describes almost apneic episodes when she is sleeping. Chest x-ray shows no acute volume overload. Labs are unremarkable. I did discuss the patient with Dr. Butler as she is going to see Dr. Magaña in the office. We have attempted to set up the patient with Holter monitor, but do not have any available. Patient be discharged to follow-up with cardiology. Impression 1. Atrial fibrillation 2. Shortness of breath ED Disposition - Plan for ED Patient: Disposition: Home or Assisted Living Instructions: ED Chest Pain, Uncertain Cause Referrals: Jose Magaña MD [STAFF PHYSICIAN] -
[2020-06-02] MEDS: Aspirin 81 MG TAB.CHEW 324 MG PO (07:28)
[2020-06-02 07:29] LABS: Absolute Lymphocyte Count 2.74 X10^3/uL (0.83-4.51); Absolute Neutrophil Count 3.3 X10^3/uL (2.0-7.7); Basophil# 0.04 X10^3/uL; Basophil% 0.6 % (0-1); Hematocrit 46.6 % (37-47); Hemoglobin 15.2 g/dL (12.0-15.0); Lymphocyte # 2.74 X10^3/ul (4.0); Lymphocyte % 40.2 % (19-41); Mean Corp Hgb Conc 32.6 g/dL (32-36); Mean Corpuscular Hgb 28.7 pg (27.0-32.0); Mean Corpuscular Volume 88.1 fL (81-99); Mean Platelet Vol. 9.6 fl (6.2-12.0); Monocyte# 0.69 X10^3/uL; Monocyte% 10.1 % (0-10); NRBC Flagged by Analyzer 0 % (0-5); Neutrophil # 3.32 X10^3/uL (2.7-7.7); Neutrophil % 48.8 % (47-70); Platelet Count 202 K/mm3 (150-450); RBC Distribution Width SD 38.4 fl (35.1-43.9); Red Blood Count 5.29 M/mm3 (4.2-5.4); White Blood Count 6.8 K/mm3 (4.4-11.0)
--- NOTE | 2020-06-02 07:36 | RAD_ITS ---
STUDY: X-RAY CHEST REASON FOR EXAM: Female, 79 years old. CHEST TIGHTNESS AND SOB THIS MORNING- CHRONIC SOB, BUT WORSE LATELY -- RECENTLY DIAGNOSED WITH AFIB TECHNIQUE: Single AP portable view of the chest. COMPARISON: Comparison is made with prior study dated 05/29/2020. FINDINGS: EKG electrodes are seen. Surgical clips are seen overlying the lower left hemithorax most likely within the breast. The lungs are clear and expanded. There is no demonstrated pleural abnormality. Normal size heart. Normal mediastinum and william. Normal visualized pulmonary arteries. There is atherosclerotic tortuosity of the aortic arch and descending thoracic aorta. Normal visualized thoracic spine. Normal visualized ribs, clavicles, and shoulders. There is no demonstrated abnormality of the visualized soft tissue structures of the upper abdomen. RAD/Chest 1 View (Portable) IMPRESSION: No acute abnormality is seen. Electronically Signed: Raymon Dasilva, at 8:09 EST , Service support ,
[2020-06-02 07:49] LABS: Anion Gap 6 (5-15); BUN 25 mg/dL (7-18); BUN/Creat Ratio 31.5 RATIO (10-20); Calcium,Total 9.5 mg/dL (8.5-10.1); Chloride 106 mmol/L (98-107); Creatinine, Serum 0.79 mg/dL (0.55-1.02); EST Glomerular Filtration Rate 74 mL/min (>60); Est Glom Filt Rate - Afr Amer 90 mL/min (>60); Estimated Creatinine Clearance 41.72 ml/min; Glucose 114 mg/dL (74-106); Sodium Level 140 mmol/L (136-145)
[2020-06-02 09:15] LABS: BNP,B-Type NATRIURETIC PEPTIDE 147.6 pg/mL (0-100)
[2020-06-02 09:22] VITALS: BP 127/81; PULSE 64; RESP 18; O2SAT 99
== END 2020-06-02 09:24 | disposition home or self-care (01) ==
LOC: ED 07:28
PROVIDERS: Emergency Provider Emergency Medicine; PCP Internal Medicine
DX: I48.91 Unspecified atrial fibrillation (principal); R06.02 Shortness of breath; I10 Essential (primary) hypertension; Z79.899 Other long term (current) drug therapy; Z87.891 Personal history of nicotine dependence
CPT/HCPCS: 71045; 80048; 83880; 84484; 85025; 93005; 99285; A4216

== ENCOUNTER → 2020-06-14 20:27 | Outpatient (CLI) | payer MEDICARE, SELFPAY ==
[2020-06-02 07:17] VITALS: BMI 35.8
== END ==
PROVIDERS: PCP Clinical Nurse Specialist; Referring Provider Clinical Nurse Specialist; Visit Provider Clinical Nurse Specialist
DX: G47.30 Sleep apnea, unspecified (principal)
CPT/HCPCS: 95810

== ENCOUNTER → 2020-06-27 06:31 | Outpatient (CLI) | payer MEDICARE, SELFPAY ==
[2020-06-15 10:11] VITALS: BMI 35.5
--- NOTE | 2020-06-27 10:50 | STRESSREP_ITS ---
Stress Test Report Date: 06-27-2020 Procedure: Pharmacologic stress nuclear imaging study Indications: Atrial fibrillation; fatigue Consent: Per the patient Procedure: The patient underwent pharmacologic (Regadenoson) evaluation with a peak heart rate of 92 beats per minute (64%predicted maximal heart rate) and a peak blood pressure of 114/70 mmHg. The baseline ECG demonstrated atrial fibrillation; nonspecific ST/T wave abnormality. The peak pharmacologic ECG demonstrated somatic/motion artifact with no obvious ECG changes. There were no cardiac dysrhythmias pretest, during pharmacologic infusion, or recovery. There was no complaint of chest discomfort during pharmacologic infusion or recovery. The examination was discontinued secondary to completion of protocol. Impression: 1. Pharmacologic (Regadenoson) evaluation 2. Peak pharmacologic ECG with somatic/motion artifact with no obvious ECG changes. 3. There were no cardiac dysrhythmias pretest, during pharmacologic infusion, or recovery. 4. Nuclear images pending Myocardial perfusion imaging study: Technique: The patient was injected with 11.9 millicuries of technetium 99m Cardiolite and subsequently rest SPECT Cardiolite nuclear imaging was obtained in the horizontal long, vertical long, and short axis views. The patient underwent pharmacologic (Regadenoson) evaluation with a peak heart rate of 92 beats per minute (64% percent predicted maximal heart rate) and a peak blood pressure of 114/70 mmHg. The patient was injected with 34.6 millicuries of technetium 99m Cardiolite and subsequently stress SPECT Cardiolite nuclear imaging was obtained in the horizontal long, vertical long, and short axis views. A gated Cardiolite study at peak stress was obtained. Interpretation: Rest and stress SPECT Cardiolite nuclear imaging status post realignment, normalization, and attenuation correction demonstrate relative uniform tracer uptake and myocardial perfusion appearing within normal limits. There is end systolic thickening and brightening. The gated Cardiolite study demonstrates myocardial thickening and inward wall motion. The reported LVEF is 76%. Impression: 1. Rest and stress SPECT Cardiolite nuclear imaging demonstrate relative uniform tracer uptake and myocardial perfusion appearing within normal limits. 2. The gated Cardiolite study reports an LVEF of 76%. This note was generated with [employer] software. It may contain incorrect words, spelling, and punctuation that were not noted in checking the note before signing.
== END ==
PROVIDERS: PCP Clinical Nurse Specialist; Referring Provider Internal Medicine Cardiovascular Disease; Visit Provider Internal Medicine Cardiovascular Disease
DX: I48.91 Unspecified atrial fibrillation (principal); R06.02 Shortness of breath
CPT/HCPCS: 78452; 93017; A9500; A4216; J2785

== ENCOUNTER → 2020-07-05 20:47 | Outpatient (CLI) | payer MEDICARE, SELFPAY ==
[2020-06-15 10:11] VITALS: BMI 35.5
== END ==
PROVIDERS: PCP Clinical Nurse Specialist; Referring Provider Clinical Nurse Specialist; Visit Provider Clinical Nurse Specialist
DX: G47.33 Obstructive sleep apnea (adult) (pediatric) (principal)
CPT/HCPCS: 95811

== ENCOUNTER → 2020-07-18 | Outpatient (CLI) | payer MEDICARE, SELFPAY ==
[2020-07-18 10:50] VITALS: BMI 35.4
[2020-07-18 13:26] LABS: Erythrocyte Sedimentation Rate 15 mm/hr (0-30)
[2020-07-18 13:38] LABS: Hemoglobin A1c 5.5 % (3.8-5.6)
[2020-07-18 13:43] LABS: ALB/GLOB Ratio 1.1 RATIO (0.9-2.4); AST(SGOT) 31 U/L (15-37); Alanine Aminotransfer ALT/SGPT 52 U/L (13-56); Alkaline Phosphatase 103 U/L (45-117); Anion Gap 4 (5-15); BUN 19 mg/dL (7-18); BUN/Creat Ratio 22.5 RATIO (10-20); CPK Total, Creatine Kinase 47 U/L (26-192); Calcium,Total 9.2 mg/dL (8.5-10.1); Chloride 108 mmol/L (98-107); Cholesterol 178 mg/dL (200); Creatinine, Serum 0.85 mg/dL (0.55-1.02); EST Glomerular Filtration Rate 69 mL/min (>60); Est Glom Filt Rate - Afr Amer 83 mL/min (>60); Globulin 3.6 g/dL (2.2-4.2); Glucose 84 mg/dL (74-106); High Density Lipoprotein 50 mg/dL; Protein, Total 7.6 g/dL (6.4-8.2); Rheumatoid Factor < 10.0 IU/mL (<15); Sodium Level 140 mmol/L (136-145); Thyroid Stim Hormone (TSH) 1.62 uIU/mL (0.358-3.74); Triglycerides 159 mg/dL; Very Low Density Lipoprotein 32 mg/dL (5-40)
[2020-07-19 20:57] LABS: ANTINUCLEAR ANTIBODIES DIRECT Negative (Negative)
== END | disposition home or self-care (01) ==
LOC: LABSPEC 12:52
PROVIDERS: PCP Clinical Nurse Specialist; Referring Provider Internal Medicine; Visit Provider Internal Medicine
DX: E78.5 Hyperlipidemia, unspecified (principal); M79.604 Pain in right leg; E66.9 Obesity, unspecified; M79.605 Pain in left leg
CPT/HCPCS: 80053; 80061; 82550; 83036; 84443; 85652; 86038; 86140; 86431

== ENCOUNTER 2020-07-25 11:02 | Day surgery (SDC) | payer MEDICARE, SELFPAY ==
[2020-07-18 10:50] VITALS: BMI 35.4
[2020-07-19 15:20] LABS: International Normalized Ratio 1.2; Prothrombin Time (Protime)PT. 14.2 SECONDS (11.7-14.9)
[2020-07-19 15:25] LABS: Anion Gap 4 (5-15); BNP,B-Type NATRIURETIC PEPTIDE 224.2 pg/mL (0-100); BUN 23 mg/dL (7-18); BUN/Creat Ratio 26.9 RATIO (10-20); Calcium,Total 8.8 mg/dL (8.5-10.1); Chloride 105 mmol/L (98-107); Creatinine, Serum 0.85 mg/dL (0.55-1.02); EST Glomerular Filtration Rate 68 mL/min (>60); Est Glom Filt Rate - Afr Amer 83 mL/min (>60); Glucose 86 mg/dL (74-106); Potassium 4.1 mmol/L (3.5-5.1); Sodium Level 137 mmol/L (136-145)
[2020-07-24 08:30] VITALS: BMI 35.4
--- NOTE | 2020-07-25 08:34 | HP_ITS ---
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 She has undergone previous evaluation by [facility] cardiology in the past. This is led to noninvasive and invasive studies. It appears that she had a diagnostic cardiac catheterization performed at [facility] in [place], [place] on 01-25-2011. Per the report her coronary arteries were normal, her LV systolic function was normal, and there was an incidental finding of a small left common iliac aneurysm. She states she was being evaluated by her family physician and found to have an irregular heart rate. She was referred to [facility] for further evaluation. There she was admitted and evaluated for concerns of atrial fibrillation. She had troponin I levels performed which were negative. An ECG demonstrated no acute changes. She had a transthoracic echocardiogram performed. The results are as noted below. She denies arm, jaw, or neck discomfort. Her exercise tolerance is stable. She denies symptoms of palpitations, lightheadedness, dizziness, near syncope, or syncopal episodes. She denies claudication issues. She denies fever, chills, blood in urine, blood in stool, or myalgia. She states ongoing fatigue. She is currently undergoing treatment for MYRNA. She states at night she has breathing problems. She states limited sleep. She states d/t sleep issues her chest feels narley. She states ongoing SOB that is noted with activity and improves with rest. She states slight bilateral edema. She feels this to be worsening. She states orthopnea and PND. Intake Vital Signs 07/18/20 Height 5 ft 5 in 07/18/20 Weight: 213 lb 07/18/20 BP 113/80 07/18/20 Blood Pressure Location Lt brachial 07/18/20 Position Sitting 07/18/20 Respiration 18 07/18/20 Pulse 82 07/18/20 Pulse Source Monitor 07/18/20 Pulse Oximetry (%) 92 Intake Visit Reasons: 1 m fu Telecine Operator Required: No Accompanied by: None Is patient in pain?: No Allergies codeine Adverse Reaction (Mild, Verified 07/18/20 10:50) Other Medications Lorazepam [Ativan] 1 mg PO QHS PRN 07/31/14 [History Confirmed 07/18/20] Acetic Acid [Acetasol] 4 - 6 drp OTIC PRN PRN 07/15/17 [History Confirmed 06/15/20] Cholecalciferol (VIT D3) [Vitamin D3] 2,000 unit PO DAILY 07/15/17 [History Confirmed 07/18/20] Folic Acid 0.8 mg PO DAILY@0800 07/15/17 [History Confirmed 07/18/20] Triamcinolone 0.1% Cream [Kenalog] 1 applic TP PRN PRN 07/15/17 [History Confirmed 07/18/20] Ascorbic Acid [Vitamin C] 500 mg PO DAILY 05/29/20 [History Confirmed 07/18/20] Vitamin E 100 unit PO DAILY 05/29/20 [History Confirmed 07/18/20] traZODone [Desyrel] 50 mg PO QHS 05/29/20 [History Confirmed 07/18/20] acetaminophen 500 mg tablet 500 mg PO Q6H PRN 06/15/20 [History Confirmed 07/18/20] cetirizine 10 mg tablet 5 mg PO DAILY PRN 06/15/20 [History Confirmed 07/18/20] ketoconazole 2 % topical cream 1 applic TOPICAL DAILY PRN 06/15/20 [History Confirmed 07/18/20] levothyroxine 112 mcg tablet 112 mcg PO DAILY 06/15/20 [History Confirmed 07/18/20] magnesium 250 mg tablet 500 mg PO DAILY tab 06/15/20 [History Confirmed 07/18/20] omeprazole 10 mg capsule,delayed release 10 mg PO DAILY PRN 06/15/20 [History Confirmed 06/15/20] turmeric 400 mg capsule 400 mg PO DAILY cap 06/15/20 [History Confirmed 07/18/20] zinc 50 mg tablet 50 mg PO DAILY 06/15/20 [History Confirmed 07/18/20] apixaban 5 mg tablet 5 mg PO BID #60 tab 07/10/20 [Rx Confirmed 07/18/20] metoprolol tartrate 25 mg tablet 25 mg PO BID #60 tab 07/10/20 [Rx Confirmed 07/18/20] [facility] Medical History (Updated 06/15/20 @ 11:[address] 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) New onset atrial fibrillation (Acute) Hypothyroidism (Chronic) Obesity (BMI 30.0-34.9) (Chronic) Nephrolithiasis (Chronic) Mixed anxiety depressive disorder (Chronic) Sleep apnea (Acute) Osteoarthritis (Chronic) History of left heart catheterization (LHC) (Resolved ~01/25/11) Personal history of malignant neoplasm of breast (Resolved) Surgical History History of appendectomy (Resolved) History of blepharoplasty (Resolved) History of lumpectomy of left breast (Resolved) History of total knee arthroplasty (Resolved) Trigger finger of right hand (Resolved) Family History Mother Pulmonary hypertension COPD (chronic obstructive pulmonary disease) Father Lymphoma Social History (Updated 07/18/20 @ 12:21 by Bayron Pacheco DIRECTOR ACCOUNT MANAGEMENT, DIRECTOR ACCOUNT MANAGEMENT-C) Smoking Status: Former smoker alcohol intake: never substance use type: does not use caffeine: Yes ROS Const Const: Positive for fatigue; negative for weakness, body ache, fever(s) or chills ENT ENT: Negative for dizziness Cardio Chest Pain: No Palpitations: No Edema: Bilateral Muscle aches with walking: None Resp Respiratory: Positive for SOB with activity, SOB orthopnea\SOB lying down and paroxysmal nocturnal dyspnea; negative for SOB at rest GI GI: Negative nausea, vomiting blood/hematemesis, bright, red blood in stools or black,tarry stools : Negative for hematuria or frequent nighttime urination/ nocturia Musc Musc: Negative for muscle aches/ myalgia Skin Skin: Negative non-healing lesions or rash Neuro Neuro: Negative for dizziness, lightheadedness, near syncope, syncope, orthostatic symptoms or weakness Endo Endo: Positive for fatigue Allergy Allergy/Immunology: Negative for rash Cardiology Exam Const Appearance: cooperative, healthy appearing, comfortable and no acute distress Nutritional Appearance: average body habitus and well nourished Orientation: alert, awake and oriented x3 Head Head: normal to inspection Ears: hearing grossly normal bilaterally Nose: external nose normal Face and Sinus: face symmetric Mouth: oral mucosae normal Eyes General: appearance normal, both eyes and all related structures Eyelids: eyelids normal EOM: EOM intact bilaterally Neck Neck: normal visual inspection and no JVD Carotids: normal carotid upstroke Chest Chest inspection: normal inspection of the chest, symmetric chest movement and normal respiratory effort; negative cough Auscultation: Bilateral: Clear to Auscultation Cardio Rate: regular rate Rhythm: irregular rhythm Heart sounds: S1 normal and S2 normal; negative rub, gallop or murmur GI GI: normal to inspection Neuro General: alert, awake, oriented x3 and CN's II-XI intact bilaterally Skin Skin: no rashes or lesions noted Extremities Pulses: Normal: Right Posterior Tibial Pulse, Left Posterior Tibial Pulse, Right Radial Pulse, Left Radial Pulse Lower Extremity Edema: +1: Bilateral Psych Psychological: normal affect Assessment & Plan 1. New onset atrial fibrillation I48.91 Plan Patient's EKG continues to show atrial fibrillation at a rate of 73 bpm, QTC 416, and QRS 98. She states she has been on her anticoagulant/Eliquis therapy consistently since 06/15/2020. She does knowledge ongoing shortness of breath and fatigue. This may be multifactorial, but her rhythm is thought to be a contributory source. She is agreeable to proceed with cardioversion. She does inquire if she will require such medications long-term. This will be decided based on overall progress. Her [id number] score is elevated at 3 (age and gender), and thus it was recommended to consider taking anticoagulant therapy long-term. In regards to her fatigue, this may be result of her rhythm, short of sleep apnea, and beta-telly therapy. Hopefully with rhythm control her symptom improves and depending on long-term progress, her beta-telly could be adjusted as indicated. She was encouraged to continue to follow with treatment regarding MYRNA. Her heart is well controlled today. She will undergo laboratory evaluation with an additional BNP to assess fluid volume overload that may be contributing to her shortness of breath. We will await results for further recommendation or consideration for diuretic therapy. She will continue with Eliquis therapy for CVA protection. Patient's most recent laboratory testing was negative for anemia, electrolyte abnormalities, or thyroid disorder. She is currently on levothyroxine therapy. Her most recent stress test from 06/27/2020 was negative for ischemia. Her most recent echocardiogram on 05/29/2020 showed a preserved ejection fraction of 60% and normal left and right atrium size. Orders Orders: Cardioversion Today 12 Lead EKG performed by BMS Today Basic Metabolic Profile (BMP) Today Prothrombin Time w/INR Today BNP,B-Type NATRIURETIC PEPTIDE Today 2. Aneurysm of left common iliac artery I72.3 Plan She return to office in approximately 1 month to consider repeat ultrasound to evaluate further. Her blood pressure and heart rate are well controlled. Plan Detail Other Orders Orders: Cardioversion Today R06.00 12 Lead EKG performed by BMS Today R06.00 Basic Metabolic Profile (BMP) Today R06.00 Prothrombin Time w/INR Today R06.00 BNP,B-Type NATRIURETIC PEPTIDE Today R06.00 Additional Comments Patient will proceed with outpatient cardioversion with Dr. Magaña. Thank you for allowing us to participate in the patients plan of care, if you have any questions please do not hesitate to call. This note was generated using a voice recognition system and there may be incorrect words, spelling or punctuation that were not noted when reviewing the office note prior to saving. Follow Up DCCV 1 Week DCCV ECG 1 Month (DIRECTOR ACCOUNT MANAGEMENT/PA) 10 Months (PFM) Coding Level of Care Code Off vis,est,level 4 Diagnoses New onset atrial fibrillation I48.91 Aneurysm of left common iliac artery I72.3 Coding Level of Care Code Off vis,est,level 4 Diagnoses New onset atrial fibrillation I48.91 Aneurysm of left common iliac artery I72.3 Supplemental Info Supplemental Information Echocardiogram: 05-29-2020 Interpretation Summary Normal LV size. Left ventricular systolic function is normal. The estimated ejection fraction is 60 %. Diastolic function is indeterminate. Unable to assess diastolic dysfunction due to arrhythmia. Pulmonary artery systolic pressure is 36 mmHg. Stress Test Report Date: 06-27-2020 Procedure: Pharmacologic stress nuclear imaging study Indications: Atrial fibrillation; fatigue Consent: Per the patient Procedure: The patient underwent pharmacologic (Regadenoson) evaluation with a peak heart rate of 92 beats per minute (64%predicted maximal heart rate) and a peak blood pressure of 114/70 mmHg. The baseline ECG demonstrated atrial fibrillation; nonspecific ST/T wave abnormality. The peak pharmacologic ECG demonstrated somatic/motion artifact with no obvious ECG changes. There were no cardiac dysrhythmias pretest, during pharmacologic infusion, or recovery. There was no complaint of chest discomfort during pharmacologic infusion or recovery. The examination was discontinued secondary to completion of protocol. Impression: 1. Pharmacologic (Regadenoson) evaluation 2. Peak pharmacologic ECG with somatic/motion artifact with no obvious ECG changes. 3. There were no cardiac dysrhythmias pretest, during pharmacologic infusion, or recovery. 4. Nuclear images pending Myocardial perfusion imaging study: Technique: The patient was injected with 11.9 millicuries of technetium 99m Cardiolite and subsequently rest SPECT Cardiolite nuclear imaging was obtained in the horizontal long, vertical long, and short axis views. The patient underwent pharmacologic (Regadenoson) evaluation with a peak heart rate of 92 beats per minute (64% percent predicted maximal heart rate) and a peak blood pressure of 114/70 mmHg. The patient was injected with 34.6 millicuries of technetium 99m Cardiolite and subsequently stress SPECT Cardiolite nuclear imaging was obtained in the horizontal long, vertical long, and short axis views. A gated Cardiolite study at peak stress was obtained. Interpretation: Rest and stress SPECT Cardiolite nuclear imaging status post realignment, normalization, and attenuation correction demonstrate relative uniform tracer uptake and myocardial perfusion appearing within normal limits. There is end systolic thickening and brightening. The gated Cardiolite study demonstrates myocardial thickening and inward wall motion. The reported LVEF is 76%. Impression: 1. Rest and stress SPECT Cardiolite nuclear imaging demonstrate relative uniform tracer uptake and myocardial perfusion appearing within normal limits. 2. The gated Cardiolite study reports an LVEF of 76%. Diagnostics Electrocardiogram 06/15/20 Echocardiogram 05/29/20 Stress Test Nuclear Medicine 06/27/20 Stress Test 06/27/20 Chest X-Ray 06/02/20 I have re-examined the patient. There are no clinical changes since date of exam. The surgeon/proceduralist and patient have discussed in detail the risk of exposure to and/or potential harm posed by the COVID-19 virus with having a surgery/procedure at this time versus the risk of delaying the surgery/procedure. It is not possible to know either the risk of delaying the surgery or procedure or chance of getting an infection with perfect accuracy, but a joint decision was made between the patient and the surgeon/proceduralist to proceed at this time with the scheduled surgery/procedure as indicated on the consent form. I have re-examined the patient. There are no clinical changes since date of exam.
--- NOTE | 2020-07-25 14:33 | CARDIOVERS_ITS ---
Cardioversion Cardioversion: Date: 07-25-2020 Procedure: Synchronized Biphasic DC Cardioversion Indications: Atrial fibrillation Consent: Per the Patient Anesthesia: per Dr. Cash of pulmonology and critical care medicine with propofol 40 mg IV push total Procedure: Synchronized Biphasic DC Cardioversion: 200 J x 1: Result: Sinus rhythm; PACs Complications: no apparent complications This note was generated with [employer] software. It may contain incorrect words, spelling, and punctuation that were not noted in checking the note before signing.
--- NOTE | 2020-07-25 16:19 | PCM.OP.PRO ---
Problem List (1) New onset atrial fibrillation Status: Acute (2) Aneurysm of left common iliac artery Status: Chronic (3) Hypothyroidism Status: Chronic Qualifiers: (4) Mixed anxiety depressive disorder Status: Chronic (5) Nephrolithiasis Status: Chronic (6) Obesity (BMI 30.0-34.9) Status: Chronic Procedure Report Date of Procedure: 07/25/20 - Late entry CONSCIOUS SEDATION REPORT BRIEF HISTORY OF PRESENT ILLNESS: The patient is a 80-year-old female who presented to [facility] for an elective outpatient cardioversion due to underlying atrial fibrillation. The patient reports no PO intake since midnight. The patient does have a history of obstructive sleep apnea, but is not currently on noninvasive therapy. The patient reports a history of smoking, but denies COPD. The patient denies any recent constitutional symptoms such as fevers, chills, nausea or vomiting. The patient denies previous anesthetic complications. Patient's last known ejection fraction was 60%. Patient did take Eliquis on the day of the procedure PHYSICAL EXAMINATION: VITAL SIGNS: Reviewed and were acceptable. GENERAL: The patient is a female, in no apparent distress, speaking in full sentences. HEENT: Normocephalic, atraumatic. Mucous membranes are moist and pink. Good mouth opening noted. Trachea is midline. Good neck mobility. MP II CHEST: S1, S2 irregularly irregular. No murmurs, rubs or gallops were noted. LUNGS: Clear to auscultation bilaterally without appreciable wheezes, rales or rhonchi. ABDOMEN: Soft, nontender, nondistended. Positive bowel sounds. EXTREMITIES: There is no clubbing, cyanosis or edema. ASA Class: II DESCRIPTION OF PROCEDURE: After confirmation of informed consent, the patient's anesthesia plan was reviewed in detail. Propofol was chosen. Risks and benefits were reviewed and the patient agreed to proceed. At 1:05 PM, the patient was given 40 mg of propofol. The patient achieved an appropriate level of sedation and received 1 attempt synchronized cardioversion, at [address] Magaña at the bedside. This was successful in achieving normal sinus rhythm. The patient was monitored until 1:20 PM, at which time the patient reached their baseline mental status and function. The patient tolerated the procedure well. COMPLICATIONS: None ESTIMATED BLOOD LOSS: None RECOMMENDATIONS: Okay to recover in usual fashion. [id number]: Other Procedure See Report - [id number]
== END 2020-07-25 14:20 | disposition home or self-care (01) ==
LOC: CLSP 11:02
PROVIDERS: Nurse Practitioner Family; PCP Clinical Nurse Specialist; Referring Provider Internal Medicine Cardiovascular Disease; Visit Provider Internal Medicine Cardiovascular Disease
DX: I48.91 Unspecified atrial fibrillation (principal); I72.3 Aneurysm of iliac artery; E03.9 Hypothyroidism, unspecified; E66.9 Obesity, unspecified; G47.33 Obstructive sleep apnea (adult) (pediatric); F41.8 Other specified anxiety disorders; M19.90 Unspecified osteoarthritis, unspecified site; Z85.3 Personal history of malignant neoplasm of breast; Z79.01 Long term (current) use of anticoagulants; Z79.899 Other long term (current) drug therapy; Z87.891 Personal history of nicotine dependence; R06.00 Dyspnea, unspecified
CPT/HCPCS: 36415; 80048; 83880; 85610; 92960; 93005; J7040

== ENCOUNTER → 2020-08-02 10:01 | Outpatient (CLI) | payer MEDICARE, SELFPAY ==
[2020-07-24 08:30] VITALS: BMI 35.4
== END ==
PROVIDERS: PCP Clinical Nurse Specialist; Referring Provider Nurse Practitioner Family; Visit Provider Nurse Practitioner Family
DX: I48.91 Unspecified atrial fibrillation (principal)
CPT/HCPCS: 93005

== ENCOUNTER → 2020-10-12 12:40 | Outpatient (CLI) | payer MEDICARE, SELFPAY ==
[2020-09-20 15:09] VITALS: BMI 35.4
--- NOTE | 2020-10-12 12:44 | CT_ITS ---
STUDY: RIGHT LOWER EXTREMITY CT SCAN REASON FOR EXAM: Female, 80 years old. UNILATERAL PRIMARY OSTEOARTHRITIS,R KNEE -- VARUS DEFORMITY,NOT ELSEWHERE SPECIFIED,R KNEE RADIATION DOSAGE (If Supplied By Facility): CTDIvol = ( 18.76 ) mGy, DLP = ( 1131.31 ) mGycm. Individualized dose optimization techniques were used for this CT.? TECHNIQUE: Axial multidetector CT scan of the right lower extremity. Coronal and sagittal reformatted images. COMPARISON: 10/06/2017. FINDINGS: Right knee varus angulation. Right knee mild patellofemoral joint space narrowing, severe lateral joint space narrowing and preserved lateral compartment. Mild proximal tibiofibular joint arthrosis. Small volume right knee joint effusion. Small popliteal cyst. Mild swelling at the knee. Varicose veins. Right hip mild/moderate joint space narrowing posteriorly. Moderate pubic symphysis arthrosis. Visualized intra-abdominal/pelvic contents within normal limits given technique. Right ankle mild subtalar joint space narrowing. Distal tibial nonspecific sclerotic 8 mm bone lesion (sagittal image 19 series 607 and axial image 531 series 2) without cortical breakthrough. Tiny plantar spur. CT/Extremity Lower without Contra IMPRESSION: Right knee severe medial compartment osteoarthritis with varus angulation Right hip mild/moderate osteoarthritis Right ankle mild osteoarthritis Nonspecific distal tibial sclerotic bone lesion (statistically benign and less history of malignancy) Small volume right knee joint effusion, small popliteal cyst and mild swelling Electronically Signed: Jatinder Salas DO at 8:12 EDT Tel , Service support ,
== END ==
PROVIDERS: PCP Internal Medicine; Referring Provider Orthopaedic Surgery; Visit Provider Orthopaedic Surgery
DX: M17.11 Unilateral primary osteoarthritis, right knee (principal); M21.161 Varus deformity, not elsewhere classified, right knee
CPT/HCPCS: 73700

== ENCOUNTER 2020-10-30 08:11 | Day surgery (SDC) | payer MEDICARE, SELFPAY ==
[2020-09-20 15:09] VITALS: BMI 35.4
--- NOTE | 2020-10-18 11:12 | EKG12_ITS ---
Test Reason : PRE OP Blood Pressure : / mmHG Vent. Rate : 056 BPM Atrial Rate : 056 BPM P-R Int : 244 ms QRS Dur : 090 ms QT Int : 434 ms P-R-T Axes : 053 -48 022 degrees QTc Int : 418 ms Sinus bradycardia with 1st degree A-V block Left anterior fascicular block Poor R wave progression Abnormal ECG Confirmed by CALVIN CAM, VIPIN ([id number]), magazine editor CAMMY BARKER ([id number]) on 10/19/2020 9:17:32 AM Referred By: Roldan Ron Confirmed By:VIPIN SIMPSON MD
[2020-10-18 11:53] LABS: Hematocrit 43.7 % (37-47); Mean Corpuscular Hgb 29.7 pg (27.0-32.0); Mean Corpuscular Volume 92.8 fL (81-99); Mean Platelet Vol. 9.6 fl (6.2-12.0); Platelet Count 207 K/mm3 (150-450); RBC Distribution Width CV 11.7 % (11.6-14.6); Red Blood Count 4.71 M/mm3 (4.2-5.4); White Blood Count 5.6 K/mm3 (4.4-11.0)
[2020-10-18 12:03] LABS: Anion Gap 4 (5-15); BUN 18 mg/dL (7-18); BUN/Creat Ratio 23.8 RATIO (10-20); Calcium,Total 9.3 mg/dL (8.5-10.1); Chloride 105 mmol/L (98-107); Creatinine, Serum 0.76 mg/dL (0.55-1.02); EST Glomerular Filtration Rate 79 mL/min (>60); Est Glom Filt Rate - Afr Amer 95 mL/min (>60); Glucose 85 mg/dL (74-106); Potassium 4.1 mmol/L (3.5-5.1); Sodium Level 138 mmol/L (136-145)
[2020-10-18 12:15] LABS: Magnesium 2.5 mg/dL (1.6-2.6); Thyroid Stim Hormone (TSH) 0.14 uIU/mL (0.358-3.74)
[2020-10-30] VITALS (14 sets, daily range): BP systolic 92–132; BP diastolic 59–81; PULSE 55–74; RESP 16–18; TEMP 36.1–36.9; O2SAT 93–100; BMI 36.8
--- NOTE | 2020-10-30 | KNEE_PTH ---
PATIENT: OTF KERN LOC: [facility] [place] U#:[id number] AGE/SX: 80/F ROOM: RE10/30/[address]: Dr. Roldan Ron DO : 1940 BED: DIS: 10/30/2020 SPEC #: [id number] RECD: 10/30/20 13:20 STATUS: MAHSA REQ #: [id number] HO: 10/30/20 00:[address]: Roldan Ron DEPT: SURGICAL PATHOLOGY RECD BY: Yonathan Garcia ENTERED: 10/30/20 13:20 SP TYPE: TOTAL KNEE OTHR DR: Dr. Patrica Jhaveri MD Tissues: Knee, NOS Procedures: Decalcification bone/plaque Surgery Specimen Level IV HEADER OPERATION: ERAS, total knee replacement robotic arm assist PRE-OP DIAGNOSIS: Osteoarthritis right knee TISSUE SUBMITTED: Right knee bone and tissue MICROSCOPIC DIAGNOSIS Right knee bone and tissue, total knee replacement/resection: Pieces of bone with degenerative osteoarthritic changes. SHEFALI:pee 11/02/2020 MICROSCOPIC DESCRIPTION Slides are reviewed. GROSS DESCRIPTION Received is one container designated right knee bone and tissue. The specimen consists of multiple fragments of capone-yellow bone measuring in aggregate 11 x 9 x 3 cm. No soft tissue is identified. A number of bony fragments contain articular surfaces consistent with tibial plateau and femoral condyle and displaying prominent osteophyte formation, eburnation, and bone erosion. Freight Manager sections are submitted in two cassettes after decalcification. / SHEFALI:pee 10/30/20 TC:5 CPT: 99643, 70372
[2020-10-30] MEDS: Lactated Ringers 1,000 ML 100 ML IV ×3 (07:05→14:28)
[2020-10-30] MEDS: Gabapentin 600 MG Tablet PO (09:06)
[2020-10-30] MEDS: Acetaminophen 500 MG Tablet 1000 MG PO (09:06)
[2020-10-30 09:36] LABS: Bedside Glucose 63 mg/dL (70-110)
--- NOTE | 2020-10-30 09:39 | EX.PCM.DISCH ---
Discharge Instructions Procedure Total Knee Diet Discharge Diet: No restrictions Activity Discharge Activity: May Not Drive May shower in (days): 1 Ice area for (Minutes): 20 (Every hour while awake.) Weight Bearing Status: Weight bearing as tolerated Keep extremity elevated above heart level: Operative Extremity Dressing / Incision Call your doctor if your incision/area has: Continuous Slow Oozing, Sudden Increased Bleeding, Increased Pain/ Swelling, Increased Redness and Foul Smelling Discharge Call your doctor if you observe: Fever of 101 or Higher, Coldness, Increased Pain (in extremity), Numbness or Tingling, Change in Color, Calf discomfort and Uncontrolled pain Change Dressing in: 1 day Cleanse incision/area with: Soap & Water Follow Up Care Test Results: Test results from this visit will be discussed in further detail at your follow-up appointment, if applicable. Discharge Plan Admission Attending Provider: Roldan Ron Primary Care Provider: Patrica Jhaveri Discharge Orders/Prescriptions Prescriptions: Continued levothyroxine 112 mcg tablet 112 mcg PO DAILY RF: 0 ketoconazole 2 % cream 1 applic TOPICAL DAILY PRN (Reason: Agitation) RF: 0 acetaminophen [Tylenol Extra Strength] 500 mg tablet 500 mg PO Q6H PRN (Reason: Pain 1-10 Or Fever) RF: 0 cetirizine [Zyrtec] 10 mg tablet 10 mg PO DAILY RF: 0 tramadol 50 mg tablet 50 mg PO BID PRN (Reason: Pain 1-10 Or Fever) RF: 0 gabapentin 300 mg capsule 300 - 600 mg PO QHS RF: 0 multivitamin [Daily Multi-Vitamin] Tablet 1 tab PO DAILY RF: 0 lorazepam 1 MG tablet 1 mg PO QHS PRN (Reason: Sleep) RF: 0 triamcinolone acetonide 1 APPLIC cream 1 applic TP PRN PRN (Reason: anal rash/itching) RF: 0 magnesium 250 mg tablet 500 mg PO DAILY RF: 0 omeprazole 10 mg capsule,delayed release(DR/EC) 20 mg PO DAILY RF: 0 hydrocortisone-acetic acid 10 ML drops 10 ml OT PRN PRN (Reason: EAR ) RF: 0 metoprolol tartrate 25 mg tablet 25 mg PO BID Qty: 60 RF: 6 apixaban 5 mg tablet 5 mg PO BID Qty: 60 RF: 12 Referrals / Follow Up: Patrica Jhaveri MD [Primary Care Provider] - Disposition Disposition (needs filled in before D/C Order can be placed): Home, self care
[2020-10-30] MEDS: Cefazolin 2 GM in 0.9% Normal Saline 100 ML IV (09:47)
--- NOTE | 2020-10-30 12:05 | RAD_ITS ---
STUDY: X-RAY - RIGHT KNEE REASON FOR EXAM: Female, 80 years old. Post op -- AP and Lateral xray of operative knee in PACU TECHNIQUE: 2 view(s) of the knee. COMPARISON: None. FINDINGS: Normal visualized distal femur. Normal visualized proximal tibia and fibula. Normal proximal tibiofibular articulation. The patient status post total knee replacement. There is good alignment. Postoperative soft tissue changes. RAD/Knee 1 or 2 Views IMPRESSION: Status post total post knee replacement. There is good alignment. Postoperative soft tissue changes. Electronically Signed: Raymon Dasilva MD at 12:40 EDT , Service support ,
--- NOTE | 2020-10-30 12:18 | OP.PCM_ITS ---
Report of Operation Date of Procedure: 10/30/20 Pre-Operative Diagnosis: OA right knee Post-Operative Diagnosis: same Surgery/Procedure Performed:: Right TKR division order technician: rocael Type of Anesthesia: Spinal Specimen's removed: bone Admit VTE Documentation VTE Present on Admission: No VTE Mechan Device Prophylaxis: SCD's and Thigh High RAFAELA Hose VTE Pharm Prophylaxis ordered?: Yes
[2020-10-30 13:26] LABS: Bedside Glucose 115 mg/dL (70-110)
== END 2020-10-30 17:45 | disposition home or self-care (01) ==
LOC: SDC 08:12 → AC 08:13
PROVIDERS: Anesthesiology; PCP Internal Medicine; Referring Provider Orthopaedic Surgery; Visit Provider Orthopaedic Surgery
PROC: 0SRC0JZ Replacement of Right Knee Joint with Synthetic Substitute, Open Approach (ICD-10-PCS; CPT 27447; principal; 2020-10-30 09:45)
DX: M17.11 Unilateral primary osteoarthritis, right knee (principal); I48.91 Unspecified atrial fibrillation; G47.30 Sleep apnea, unspecified; F41.9 Anxiety disorder, unspecified; E06.9 Thyroiditis, unspecified; F32.9 Major depressive disorder, single episode, unspecified; K21.9 Gastro-esophageal reflux disease without esophagitis; Z78.0 Asymptomatic menopausal state; Z79.01 Long term (current) use of anticoagulants; Z79.899 Other long term (current) drug therapy; Z87.891 Personal history of nicotine dependence
CPT/HCPCS: 01402; 27447; S2900; 36415; 73560; 80048; 82962; 83735; 84443; 85027; 87081; 88305; 88311; 93005; 97161; C1776; J7120; J2405

== ENCOUNTER 2020-11-04 21:55 | Emergency (ER) | payer MEDICARE, SELFPAY ==
[2020-10-30 08:59] VITALS: BMI 36.8
[2020-11-04 21:56] VITALS: BP 112/68; PULSE 70; RESP 18; TEMP 37.6; O2SAT 93; BMI 36.8
--- NOTE | 2020-11-04 23:20 | EDS_ITS ---
HPI History of Present Illness Chief Complaint: Wound Check Narrative Narrative: Patient stated she is postop day 6 status post right knee replacement Dr. Ron. Stated she has had persistent pain and bruising from her knee down. She is on Eliquis for history of atrial fibrillation. She has been on that since postop day 1 but she stopped it for 5 days before surgery. She has been elevating. She is doing physical therapy. She is on doxy Contin with no relief of postop pain. She stated it makes her nauseous and she would like to try something else. [facility] Medical History Aneurysm of left common iliac artery History of cardioversion (~07/25/20) History of left heart catheterization (LHC) (~01/25/11) Hypothyroidism Mixed anxiety depressive disorder Nephrolithiasis New onset atrial fibrillation Obesity (BMI 30.0-34.9) Osteoarthritis Paroxysmal atrial fibrillation Personal history of malignant neoplasm of breast Sleep apnea Home Medications lorazepam 1 mg PO QHS PRN 07/31/14 [History Last Taken 10/05/17 22:00] triamcinolone acetonide 1 applic TP PRN PRN 07/15/17 [History Last Taken Unknown] acetaminophen 500 mg tablet 500 mg PO Q6H PRN 06/15/20 [History Last Taken Unknown] cetirizine 10 mg tablet 10 mg PO DAILY 06/15/20 [History Last Taken Unknown] ketoconazole 2 % topical cream 1 applic TOPICAL DAILY PRN 06/15/20 [History Last Taken Unknown] levothyroxine 112 mcg tablet 112 mcg PO DAILY 06/15/20 [History Last Taken 07/25/20] magnesium 250 mg tablet 500 mg PO DAILY tab 06/15/20 [History Last Taken Unknown] metoprolol tartrate 25 mg tablet 25 mg PO BID #60 tab 07/10/20 [Rx Last Taken 07/25/20] gabapentin 300 mg capsule 300 - 600 mg PO QHS 08/21/20 [History Last Taken U nknown] multivitamin 1 tab PO DAILY 08/21/20 [History Last Taken Unknown] omeprazole 10 mg capsule,delayed release 20 mg PO DAILY cap 08/21/20 [History Last Taken Unknown] tramadol 50 mg tablet 50 mg PO BID PRN 08/21/20 [History Last Taken Unknown] apixaban 5 mg tablet 5 mg PO BID #60 tab 09/13/20 [Rx Last Taken Unknown] hydrocortisone-acetic acid 10 ml OT PRN PRN 10/16/20 [History Last Taken Unk nown] escitalopram oxalate [Lexapro] 5 mg PO DAILY 11/04/20 [History Last Taken Unknown] oxycodone 5 mg PO Q6H PRN 11/04/20 [History Last Taken Unknown] Allergy/AdvReac Type Severity Reaction Status Date / Time codeine AdvReac Mild Other Verified 11/04/20 21:59 Family History Mother Pulmonary hypertension COPD (chronic obstructive pulmonary disease) Father Lymphoma Surgical History History of appendectomy History of blepharoplasty History of lumpectomy of left breast History of total knee arthroplasty Trigger finger of right hand Social History Smoking Status: Former smoker alcohol intake: never substance use type: does not use caffeine: Yes ROS ROS ED ROS Narrative ROS General: Denies fever, chills, sweats Eyes: Denies visual changes, blurred vision, double vision ENT: Denies ear pain, rhinorrhea, sore throat Cardiovascular: Denies chest pain, palpitations, heart racing Respiratory: Denies dyspnea, cough, sputum, dyspnea on exertion, orthopnea,PND GI: Denies abdominal pain, nausea, vomiting, diarrhea, constipation, melena : Denies dysuria, hematuria, frequency Musculoskeletal: See HPI Neuro: Denies headache, weakness, paresthesia Psych: Denies depression, anxiety Endo: Denies polyuria, polydipsia, polyphagia Heme: Denies easy bruising, easy bleeding, lymphadenopathy Allergy: Denies hives, swelling EXAM Physical Exam Narrative Exam Narrative: Vital signs reviewed General: Well-nourished well-developed Head: Normocephalic atraumatic Eyes: Pupils equal round and reactive to light extraocular movements intact ENT: TMs clear no hemotympanum no trauma Neck: Nontender full range of motion Cardiovascular: Regular rate rhythm no murmurs normal S1-S2 Respiratory: No distress clear to auscultation bilaterally chest nontender Abdomen: Soft nontender nondistended normal bowel sounds no masses Back: Nontender no CVA tenderness Extremities: Patient has bruising from her knee down to her foot. She has postoperative swelling. Distal neurovascular intact. Good distal pulses. Knee wound appears clean dry and intact. Decreased range of motion postop. Neuro alert oriented cranial nerves II through XII intact normal strength sensation reflexes Const Vital Signs: 11/04/20 21:56 Temperature 99.6 F H Temperature Source Oral Pulse Rate 70 Respiratory Rate 18 Blood Pressure 112/68 Blood Pressure Mean 82 Pulse Ox 93 Oxygen Delivery Method Room Air MDM MDM MDM Narrative Medical decision making narrative: I suspect this is just postoperative swelling. Given [facility] wrap. Give injection of morphine. Will be switched to Vicodin and Zofran for home. Outpatient venous ultrasound ordered just to be safe however I have a low suspicion for DVT. The patient is already on Eliquis. We will follow-up with her orthopedic surgeon Discharge Plan Triage Chief Complaint: Wound Check ED Provider: Allen Juarez Dx/Rx/DC Orders Prescriptions: No Action levothyroxine 112 mcg tablet 112 mcg PO DAILY RF: 0 ketoconazole 2 % cream 1 applic TOPICAL DAILY PRN (Reason: Agitation) RF: 0 acetaminophen [Tylenol Extra Strength] 500 mg tablet 500 mg PO Q6H PRN (Reason: Pain 1-10 Or Fever) RF: 0 cetirizine [Zyrtec] 10 mg tablet 10 mg PO DAILY RF: 0 tramadol 50 mg tablet 50 mg PO BID PRN (Reason: Pain 1-10 Or Fever) RF: 0 gabapentin 300 mg capsule 300 - 600 mg PO QHS RF: 0 multivitamin [Daily Multi-Vitamin] Tablet 1 tab PO DAILY RF: 0 lorazepam 1 MG tablet 1 mg PO QHS PRN (Reason: Sleep) RF: 0 triamcinolone acetonide 1 APPLIC cream 1 applic TP PRN PRN (Reason: anal rash/itching) RF: 0 magnesium 250 mg tablet 500 mg PO DAILY RF: 0 omeprazole 10 mg capsule,delayed release(DR/EC) 20 mg PO DAILY RF: 0 hydrocortisone-acetic acid 10 ML drops 10 ml OT PRN PRN (Reason: EAR ) RF: 0 oxycodone 5 mg Capsule 5 mg PO Q6H PRN (Reason: Pain) RF: 0 escitalopram oxalate [Lexapro] 5 mg tablet 5 mg PO DAILY RF: 0 metoprolol tartrate 25 mg tablet 25 mg PO BID Qty: 60 RF: 6 apixaban 5 mg tablet 5 mg PO BID Qty: 60 RF: 12 Primary Care Provider: Patirca Jhaveri
[2020-11-04 23:50] VITALS: RESP 16
--- NOTE | 2020-11-05 00:38 | ED.RN ---
patient given medication at 2330 via IM injection left arm
== END 2020-11-05 00:05 | disposition home or self-care (01) ==
PROVIDERS: Emergency Provider Emergency Medicine; PCP Internal Medicine
DX: M25.561 Pain in right knee (principal); Z96.651 Presence of right artificial knee joint; E66.9 Obesity, unspecified; Z68.36 Body mass index [BMI] 36.0-36.9, adult; E03.9 Hypothyroidism, unspecified; F41.8 Other specified anxiety disorders; I48.0 Paroxysmal atrial fibrillation; I72.3 Aneurysm of iliac artery; M19.90 Unspecified osteoarthritis, unspecified site; G47.30 Sleep apnea, unspecified; Z85.3 Personal history of malignant neoplasm of breast; Z87.442 Personal history of urinary calculi; Z79.01 Long term (current) use of anticoagulants; Z79.899 Other long term (current) drug therapy; Z87.891 Personal history of nicotine dependence
CPT/HCPCS: 99282

== ENCOUNTER → 2020-11-06 13:54 | Outpatient (CLI) | payer MEDICARE, SELFPAY ==
[2020-11-04 21:56] VITALS: BMI 36.8
--- NOTE | 2020-11-06 13:57 | VDLE_ITS ---
Reason For Study: Pain RIGHT GSV is normal. CFV is compressible, spontaneous, phasic, competent and demonstrates normal augmentation. FV is compressible, spontaneous, phasic, competent and demonstrates normal augmentation. POP V is compressible, spontaneous, phasic, competent and demonstrates normal augmentation. T/P Trunk is compressible. PTV is compressible. RT PerV is compressible. Procedure This is a venous duplex using B-mode, color flow and spectral Doppler. Exam performed in department. A preliminary report was called and/or faxed to [facility]: Asaf and PCP: Shakila. VL/Venous Duplex US, Unilateral Interpretation Summary There is no evidence of right lower extremity deep vein thrombosis. Right great saphenous vein appears patent and compressible segmentally. Ordering Physician: Allen Juarez Referring Physician: Patrica Jhaveri M.D. Performed By: Rita Livingston RVT
== END ==
PROVIDERS: PCP Internal Medicine; Referring Provider Emergency Medicine; Visit Provider Emergency Medicine
DX: M79.604 Pain in right leg (principal)
CPT/HCPCS: 93971

== ENCOUNTER → 2021-01-22 | Outpatient (CLI) | payer MEDICARE, SELFPAY ==
[2021-01-22 12:16] LABS: Ferritin 36 ng/mL (8-252)
[2021-01-22 12:24] LABS: Hemoglobin A1c 5.4 % (3.8-5.6)
[2021-01-22 12:25] LABS: Microalbumin,Random Urine 17.7 mg/L (NO RANGE EST.); Microalbumin:Creatinine Ratio 17.4 mg/g CRE (<30 mg/g CRE)
== END | disposition home or self-care (01) ==
LOC: LABSPEC 11:41
PROVIDERS: PCP Internal Medicine; Referring Provider Internal Medicine; Visit Provider Internal Medicine
DX: G25.81 Restless legs syndrome (principal); Z79.899 Other long term (current) drug therapy
CPT/HCPCS: 82043; 82570; 82728; 83036

== ENCOUNTER 2021-07-17 08:02 | Outpatient (CLI) | payer MEDICARE, SELFPAY ==
[2020-09-20 15:09] VITALS: BMI 35.4
--- NOTE | 2021-07-17 08:07 | AAVD_ITS ---
Reason For Study: Hx of left common iliac artery aneurysm Aorta Measurements Aorta Doppler Measurements Proximal aorta measures1.64 x 1.62cm. in cross- Peak systolic flow velocities within the proximal sectional axis. aorta measure 72.4 cm/sec. Proximal aorta measures1.65cm. in longitudinal Peak systolic flow velocities within the mid aorta axis. measure 71.4 cm/sec. Mid aorta measures1.47 x 1.46cm. in cross- Peak systolic flow velocities within the distal sectional axis. aorta measure 48.7 cm/sec. Mid aorta measures1.47cm. in longitudinal axis. Distal aorta measures1.60 x 1.57cm. in cross- sectional axis. Distal aorta measures1.60cm. in longitudinal axis. Left Iliac Artery Left iliac artery measures 1.68 x 1.68 cm. in the cross-sectional axis. Left iliac artery measures 1.69 cm. in the longitudinal axis. Peak systolic velocity in the left iliac artery measures 79.4 cm/sec. Right Iliac Artery Right iliac artery measures 1.09 x 1.09 cm. in the cross-sectional axis. Right iliac artery measures 1.09 cm. in the longitudinal axis. Peak systolic velocity in the right iliac artery measures 74.2 cm/sec. Procedure Aorta IVC Iliac vasculature or bypass grafts [id number]. Exam performed in department. VL/Abd Aortic/IVC Duplex scan Interpretation Summary No evidence of aortic iliac aneurysm or stenosis. Ordering Physician: Bayron Pacheco Referring Physician: Patrica Jhaveri M.D. Performed By: Rita Livingston RVT
== END 2021-07-17 23:59 | disposition short-term general hospital (02) ==
PROVIDERS: PCP Internal Medicine; Referring Provider Nurse Practitioner Family; Visit Provider Nurse Practitioner Family
DX: I72.3 Aneurysm of iliac artery (principal)
CPT/HCPCS: 93978

== ENCOUNTER → 2022-04-17 | Outpatient (CLI) | payer MEDICARE, SELFPAY ==
[2022-04-17 14:55] LABS: Absolute Lymphocyte Count 2.38 X10^3/uL (0.83-4.51); Absolute Neutrophil Count 2.7 X10^3/uL (2.0-7.7); Basophil# 0.03 X10^3/uL; Basophil% 0.5 % (0-1); Eosinophil# 0.11 X10^3/uL; Eosinophils% 1.9 % (0-5); Hematocrit 43.5 % (37-47); Hemoglobin 14.2 g/dL (12.0-15.0); Lymphocyte # 2.38 X10^3/ul (0.83-4.51); Lymphocyte % 41.5 % (19-41); Mean Corp Hgb Conc 32.6 g/dL (32-36); Mean Corpuscular Hgb 30.1 pg (27.0-32.0); Mean Corpuscular Volume 92.4 fL (81-99); Mean Platelet Vol. 9.8 fl (6.2-12.0); Monocyte# 0.55 X10^3/uL; Monocyte% 9.6 % (0-10); NRBC Flagged by Analyzer 0 % (0-5); Neutrophil # 2.65 X10^3/uL (2.7-7.7); Neutrophil % 46.3 % (47-70); Platelet Count 209 K/mm3 (150-450); RBC Distribution Width CV 11.9 % (11.6-14.6); RBC Distribution Width SD 40.3 fl (35.1-43.9); Red Blood Count 4.71 M/mm3 (4.2-5.4); White Blood Count 5.7 K/mm3 (4.4-11.0)
[2022-04-17 15:24] LABS: AST(SGOT) 20 U/L (15-37); Alanine Aminotransfer ALT/SGPT 32 U/L (13-56); Albumin, Serum 3.8 g/dL (3.2-5.0); Alkaline Phosphatase 96 U/L (45-117); Anion Gap 3 (5-15); BUN 22 mg/dL (7-18); BUN/Creat Ratio 26.6 RATIO (10-20); Calcium,Total 9.4 mg/dL (8.5-10.1); Chloride 106 mmol/L (98-107); Cholesterol 200 mg/dL (200); Creatinine, Serum 0.83 mg/dL (0.55-1.02); EST Glomerular Filtration Rate 70 mL/min (>60); Est Glom Filt Rate - Afr Amer 85 mL/min (>60); Globulin 3.8 g/dL (2.2-4.2); Glucose 86 mg/dL (74-106); High Density Lipoprotein 45 mg/dL; Potassium 4.3 mmol/L (3.5-5.1); Protein, Total 7.6 g/dL (6.4-8.2); Sodium Level 139 mmol/L (136-145); Triglycerides 246 mg/dL; Very Low Density Lipoprotein 49 mg/dL (5-40)
== END | disposition home or self-care (01) ==
LOC: LAB 14:00
PROVIDERS: PCP Internal Medicine; Referring Provider Internal Medicine; Visit Provider Internal Medicine
DX: E78.2 Mixed hyperlipidemia (principal); Z79.899 Other long term (current) drug therapy
CPT/HCPCS: 36415; 80053; 80061; 85025

== ENCOUNTER 2022-04-23 15:22 | Outpatient (RCR) | payer MEDICARE, SELFPAY | END 2022-05-22 18:00 | disposition home or self-care (01) | LOC: LAB 15:22 | PROVIDERS: PCP Internal Medicine; Visit Provider Internal Medicine | DX: E03.9 Hypothyroidism, unspecified (principal) | CPT/HCPCS: 36415; 84443 ==

== ENCOUNTER 2022-07-04 13:14 | Outpatient (RCR) | payer MEDICARE, SELFPAY ==
[2022-07-04 14:27] LABS: Thyroid Stim Hormone (TSH) 1.84 uIU/mL (0.358-3.74)
== END 2022-07-15 15:00 | disposition home or self-care (01) ==
LOC: LAB 13:14
PROVIDERS: PCP Internal Medicine; Referring Provider Internal Medicine; Visit Provider Internal Medicine
DX: Z00.00 Encounter for general adult medical examination without abnormal findings (principal)
CPT/HCPCS: 36415; 84443; 84481

== ENCOUNTER 2022-07-04 13:31 | Outpatient (CLI) | payer MEDICARE, SELFPAY ==
--- NOTE | 2022-07-04 13:33 | ECHOD_ITS ---
Reason For Study: afib Procedure This was a 2D Doppler, Color Flow transthoracic echocardiogram. The exam was of adequate technical quality. Exam performed in department. Left Ventricle Normal LV size. Mid cavitary false tendon noted. Left ventricular systolic function is normal. The estimated ejection fraction is 60 %. Diastolic function is indeterminate. No regional wall motion abnormalities noted. Right Ventricle Normal RV size. Normal systolic function. Atria The left atrium is moderately enlarged. The right atrium is moderately enlarged. No doppler evidence for ASD. Mitral Valve There is no mitral annular calcification. Normal mitral valve. Moderate (2+) mitral valve insufficiency. Tricuspid Valve Normal tricuspid valve. Moderate (2+) tricuspid valve insufficiency. Right ventricular systolic pressure estimated to be 40 mmHg. Aortic Valve Trisinus/trileaflet aortic valve. Mild focal aortic valve calcification. Mild (1+) aortic valve insufficiency. Pulmonic Valve The pulmonic valve is not well visualized. Trivial pulmonic valve insufficiency. Great Vessels Normal sized aortic root. Pericardium/Pleural No pericardial effusion. MMode/2D Measurements & Calculations LVIDd: 4.3 cm IVSd: 0.82 cm Ao root diam: 3.5 cm LVIDs: 3.0 cm LVPWd: 0.79 cm RVDd: 2.3 cm FS: 30.7 % LAV(MOD-sp4): 94.1 ml LVAd ap4: 21.0 cm2 SV(MOD-sp4): 30.7 ml LVLd ap4: 6.7 cm EDV(MOD-sp4): 51.9 ml EDV(sp4-el): 55.6 ml LVAs ap4: 12.3 cm2 LVLs ap4: 5.9 cm ESV(MOD-sp4): 21.3 ml ESV(sp4-el): 21.5 ml EF(MOD-sp4): 59.1 % EF(sp4-el): 61.2 % SV(sp4-el): 34.0 ml LA A4 area: 27.2 cm2 LA dimension(2D): 4.7 cm RA A4 area: 23.2 cm2 Doppler Measurements & Calculations MV E max gina: 112.7 cm/sec MV V2 max: 118.0 cm/sec Ao V2 max: 127.0 cm/sec MV max P.6 mmHg Ao max P.5 mmHg MV V2 mean: 66.9 cm/sec Ao V2 mean: 90.6 cm/sec MV mean P.1 mmHg Ao mean P.7 mmHg MV V2 VTI: 31.3 cm Ao V2 VTI: 27.3 cm AV (velocity ratio): 0.74 AI max gian: 350.8 cm/sec LV V1 max: 86.3 cm/sec PA V2 max: 87.0 cm/sec AI max P.2 mmHg LV V1 max P.0 mmHg PA V2 mean: 60.4 cm/sec LV V1 mean P.7 mmHg AI dec slope: 241.6 cm/sec2 LV V1 mean: 59.4 cm/sec AI P1/2t: 425.2 msec LV V1 VTI: 20.1 cm TR max gina: 304.7 cm/sec TR max P.1 mmHg ECHO/Echo Complete Interpretation Summary Left ventricular systolic function is normal. The estimated ejection fraction is 60 %. Mid cavitary false tendon noted. The left atrium is moderately enlarged. The right atrium is moderately enlarged. Moderate (2+) mitral valve insufficiency. Moderate (2+) tricuspid valve insufficiency. Mild focal aortic valve calcification. Mild (1+) aortic valve insufficiency. Trivial pulmonic valve insufficiency. Right ventricular systolic pressure estimated to be 40 mmHg. Diastolic function is indeterminate. Ordering Physician: Jose Magaña Referring Physician: Patrica Jhaveri M.D. Performed By: Jenny Keene RCS
== END 2022-07-04 23:59 | disposition home or self-care (01) ==
LOC: CVS 13:32
PROVIDERS: PCP Internal Medicine; Visit Provider Internal Medicine Cardiovascular Disease
DX: I48.0 Paroxysmal atrial fibrillation (principal); I34.0 Nonrheumatic mitral (valve) insufficiency; E03.9 Hypothyroidism, unspecified
CPT/HCPCS: 36415; 84443; 84481; 93306

== ENCOUNTER 2022-08-13 10:29 | Day surgery (SDC) | payer MEDICARE, SELFPAY ==
--- NOTE | 2022-08-06 15:15 | RAD_ITS ---
STUDY: X-RAY CHEST REASON FOR EXAM: Female, 82 years old. Cardioversion. TECHNIQUE: Frontal and lateral views of the chest. COMPARISON: May 2020. FINDINGS: The lungs are clear and expanded. There is no demonstrated pleural abnormality. Stable cardiomegaly. Normal mediastinum and william. Normal visualized pulmonary arteries. Aortic tortuosity unchanged. Thoracic osteopenia with increased kyphosis.. Normal visualized ribs, clavicles, and shoulders. There is no demonstrated abnormality of the visualized soft tissue structures of the upper abdomen. RAD/Chest PA and Lateral IMPRESSION: Stable cardiomegaly with no acute or active cardiopulmonary disease. Electronically Signed: Josh Villalba, at 10:46 EST ,
[2022-08-06 16:19] LABS: Anion Gap 4 (5-15); BUN 22 mg/dL (7-18); BUN/Creat Ratio 25.3 RATIO (10-20); Calcium,Total 9.2 mg/dL (8.5-10.1); Chloride 104 mmol/L (98-107); Creatinine, Serum 0.87 mg/dL (0.55-1.02); EST Glomerular Filtration Rate 67 mL/min (>60); Est Glom Filt Rate - Afr Amer 81 mL/min (>60); Glucose 80 mg/dL (74-106); Potassium 4.2 mmol/L (3.5-5.1); Sodium Level 138 mmol/L (136-145)
[2022-08-09 15:42] VITALS: BMI 36.4
--- NOTE | 2022-08-12 08:29 | HP.PCM_ITS ---
History and Physical Date of Admission: 08/13/22 [facility] [address] [place] [address] OFFICE VISIT Date of Service:? 08/06/22 MR#: [id number] Acct: [id number] Name:OTF HUFF Rep #: [id number] : 1940 Provider: ?CHANDA Orozco Age/Sex:? 82/F [place] [facility] [place] Status: Signed HPI HPI History of Present Illness Surgical H&P: Yes Details: This is a 82-year-old white female who presents to the office today for a cardiovascular follow-up visit. 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 She has undergone previous evaluation by [facility] in the past.? This is led to noninvasive and invasive studies.? It appears that she had a diagnostic cardiac catheterization performed at [facility] in [place], [place] on 01-25-2011.? Per the report her coronary arteries were normal, her LV systolic function was normal, and there was an incidental finding of a small left common iliac aneurysm. She states she was being evaluated by her family physician and found to have an irregular heart rate.? She was referred to [facility] for further evaluation.? There she was admitted and evaluated for concerns of atrial fibrillation.? She had troponin I levels performed which were negative.? An ECG demonstrated no acute changes.? She had a transthoracic echocardiogram performed.? She ultimately proceeded with a cardioversion on 07/25/2020. From a cardiac standpoint, the patient is doing well. She does use a cane to help with ambulation. She denies any palpitations. She does have an occasional chest pressure. This is located midsternal. This will last for a few minutes. This will occur at rest. She does have an occasional SOB with exertion and at rest. This is nothing new or worsening. She does have orthopnea.? She denies PND. She has been wearing her CPAP since her last office visit. She does not have bleeding issues; no blood in urine, stool or nosebleeds. She does acknowledge a decrease in energy level.? She denies claudication. She does have myalgias.? She does have bilateral ankle edema. This is relieved with elevation. She denies sudden weight gain. She does have an occasional dizziness/lighthead edness. She denies syncopal or near syncopal episodes, and headaches. Intake Vital Signs ? 08/06/2313:28 08/06/2313:35 Height 5 ft 5 in 5 ft 5 in Weight: ? 219 lb BMI ? 36.4 BP ? 102/78 Blood Pressure Location ? Lt brachial Position ? Sitting Respiration ? 18 Pulse ? 68 Pulse Source ? Monitor Pulse Oximetry (%) ? 96 Oxygen Delivery Method ? room air Intake Visit Reasons:?UPDATE H&P 08/13 DCCV Allergies codeine Adverse Reaction (Mild, Verified 08/06/22 14:32) Other Medications lorazepam 1 mg tablet 1 mg PO QHS PRN Sleep 07/31/14 [History Confirmed 3] triamcinolone acetonide 0.1 % topical cream 1 applic TP PRN PRN anal rash/itching 07/15/17 [History Confirmed 08/06/22] acetaminophen 500 mg tablet (Tylenol Extra Strength) 500 mg PO Q6H PRN Pain 1-10 Or Fever 06/15/20 [History Confirmed 08/06/22] cetirizine 10 mg tablet (Zyrtec) 10 mg PO DAILY 06/15/20 [History Confirmed 08/06/22] ketoconazole 2 % topical cream 1 applic topical DAILY PRN Agitation 06/15/20 [History Confirmed 08/06/22] hydrocortisone-acetic acid 1 %-2 % ear drops 10 ml OT PRN PRN EAR 10/16/20 [History Confirmed 08/06/22] escitalopram oxalate 5 mg tablet (Lexapro) 7.5 mg PO DAILY 07/24/21 [History Confirmed 08/06/22] apixaban 5 mg tablet 5 mg PO BID #180 tabs 07/02/22 [Rx Confirmed 08/06/22] metoprolol tartrate 25 mg tablet 25 mg PO BID 07/12/22 [History Confirmed ] omeprazole 20 mg tablet,delayed release 20 mg PO DAILY 07/12/22 [History Confirmed 08/06/22] gabapentin 300 mg capsule 300 mg PO QHS 08/06/22 [History Confirmed 08/06/22] levothyroxine 112 mcg tablet 100 mcg PO DAILY 08/06/22 [History Confirmed 08/06/22] PFSH Medical History?(Reviewed 08/06/22 @ 16:17 by Shoshana Orozco [employer], [employer]) Aneurysm of left common iliac artery History of cardioversion (~07/25/20) History of left heart catheterization (LHC) (~01/25/11) Hypothyroidism Mixed anxiety depressive disorder Nephrolithiasis New onset atrial fibrillation Obesity (BMI 30.0-34.9) Osteoarthritis Paroxysmal atrial fibrillation Personal history of malignant neoplasm of breast Sleep apnea Surgical History?(Reviewed 08/06/22 @ 16:17 by Shoshana Orozco [employer], [employer]) History of appendectomy History of blepharoplasty History of lumpectomy of left breast History of right knee joint replacement (~10/2020) History of total knee arthroplasty Trigger finger of right hand Family History?(Reviewed 08/06/22 @ 16:17 by Shoshana Orozco [employer], [employer]ELOPER-C) Mother Pulmonary hypertension COPD (chronic obstructive pulmonary disease)Father Lymphoma Social History? Smoking Status:? Former smoker alcohol intake:? never substance use type:? does not use caffeine:? Yes ROS Const Const: Positive for fatigue; Negative for weakness, fever(s), headache(s), chills, frequent falls, weight gain or weight loss Eyes Eyes: Negative for blind spots, loss of peripheral vision, transient loss of vision, blurry vision, change in vision, double vision, floaters or tunnel vision ENT ENT: Positive for dizziness (occasional); Negative for headache(s), Nosebleed/epistaxis, balance problems or neck pain Cardio Chest Pain: Yes Frequency: other Character: other (pressure) Onset: at rest and other (laying down) Location: mid sternal Duration: minutes Palpitations: No Edema: Bilateral (ankle) Muscle aches with walking: None Resp Respiratory: Positive for SOB with activity (occasional-nothing new or worsening) and SOB at rest; Negative for SOB orthopnea\SOB lying down GI GI: Negative nausea, vomiting, heartburn, bloating, vomiting blood/hematemesis, bright, red blood in stools or black,tarry stools Musc Musc: Positive for muscle aches/ myalgia; Negative for muscle weakness, joint pain or balance problems Neuro Neuro: Positive for dizziness (occasional) and lightheadedness; Negative for near syncope, syncope, orthostatic symptoms, frequent falls, headache(s), weakness, blurry vision or double vision Gary Hematologic/Lymphatic: Negative for easy bleeding or easy bruising Endo Endo: Positive for fatigue Cardiology Exam Const Appearance: cooperative, healthy appearing, comfortable and no acute distress Nutritional Appearance: well nourished and obese Orientation: alert, awake and oriented x3 Head Head: normal to inspection Ears: hearing grossly normal bilaterally Nose: external nose normal Face and Sinus: face symmetric Eyes General: appearance normal, both eyes and all related structures Eyelids: eyelids normal EOM: EOM intact bilaterally Neck Neck: normal visual inspection and no JVD Carotids: normal carotid upstroke Chest Chest inspection: normal inspection of the chest, symmetric chest movement and normal respiratory effort; Negative cough Auscultation: Bilateral: Clear to Auscultation Cardio Rate: bradycardic Rhythm: irregularly irregular Heart sounds: S1 normal, S2 normal and murmur; Negative rub or gallop Murmur: Grade 1/6, soft and LOPEZ loudest primary aortic area GI GI: normal to inspection and obese Neuro General: patient alert, patient awake, patient oriented x3 and CN's II-XI intact bilaterally Skin Skin: no rashes or lesions noted Extremities Pulses: Normal: Right Posterior Tibial Pulse, Left Posterior Tibial Pulse, Right Radial Pulse and Left Radial Pulse Lower Extremity Edema: None: Bilateral Psych Psychological: normal affect Supplemental Info Supplemental Information Echocardiogram 07/04/2022: Interpretation Summary Left ventricular systolic function is normal. The estimated ejection fraction is 60 %. Mid cavitary false tendon noted. The left atrium is moderately enlarged. The right atrium is moderately enlarged. Moderate (2+) mitral valve insufficiency. Moderate (2+) tricuspid valve insufficiency. Mild focal aortic valve calcification. Mild (1+) aortic valve insufficiency. Trivial pulmonic valve insufficiency. Right ventricular systolic pressure estimated to be 40 mmHg. Diastolic function is indeterminate. Echocardiogram from 05/29/2020: Interpretation Summary Normal LV size. Left ventricular systolic function is normal. The estimated ejection fraction is 60 %. Diastolic function is indeterminate. Unable to assess diastolic dysfunction due to arrhythmia. Pulmonary artery systolic pressure is 36 mmHg. Stress Test Report Date: 06-27-2020 Procedure: Pharmacologic stress nuclear imaging study Indications: Atrial fibrillation; fatigue Consent: Per the patient Procedure: The patient underwent pharmacologic (Regadenoson) evaluation with a peak heart rate of 92 beats per minute (64%predicted maximal heart rate) and a peak blood pressure of 114/70 mmHg. The baseline ECG demonstrated atrial fibrillation; nonspecific ST/T wave abnormality.? The peak pharmacologic ECG demonstrated somatic/motion artifact with no obvious ECG changes. There were no cardiac dysrhythmias pretest, during pharmacologic infusion, or recovery. There was no complaint of chest discomfort during pharmacologic infusion or recovery. The examination was discontinued secondary to completion of protocol. Impression: 1.? Pharmacologic (Regadenoson) evaluation 2.? Peak pharmacologic ECG with somatic/motion artifact with no obvious ECG changes. 3.? There were no cardiac dysrhythmias pretest, during pharmacologic infusion, or recovery. 4.? Nuclear images pending Myocardial perfusion imaging study: Technique: The patient was injected with 11.9 millicuries of technetium 99m Cardiolite and subsequently rest SPECT Cardiolite nuclear imaging was obtained in the horizontal long, vertical long, and short axis views. The patient underwent pharmacologic (Regadenoson) evaluation with a peak heart rate of 92 beats per minute (64% percent predicted maximal heart rate) and a peak blood pressure of 114/70 mmHg. The patient was injected with 34.6 millicuries of technetium 99m Cardiolite and subsequently stress SPECT Cardiolite nuclear imaging was obtained in the horizontal long, vertical long, and short axis views.? A gated Cardiolite study at peak stress was obtained. Interpretation: Rest and stress SPECT Cardiolite nuclear imaging status post realignment, normalization, and attenuation correction demonstrate relative uniform tracer uptake and myocardial perfusion appearing within normal limits.? There is end systolic thickening and brightening.? The gated Cardiolite study demonstrates myocardial thickening and inward wall motion.? The reported LVEF is 76%. Impression: 1.? Rest and stress SPECT Cardiolite nuclear imaging demonstrate relative uniform tracer uptake and myocardial perfusion appearing within normal limits. 2.? The gated Cardiolite study reports an LVEF of 76%. Aortic iliac vascular ultrasound from 07/17/2021: Interpretation Summary No evidence of aortic iliac aneurysm or stenosis. Labs: ?? ? LDL Cholesterol 106 mg/dL (0-130) ?? ? HDL Cholesterol 45 mg/dL (40-) ?? ? Triglycerides 246 mg/dL (-199) H ?? ? VLDL Cholesterol 49 mg/dL (5-40)? H Diagnostics: ?? ? Electrocardiogram ? Echocardiogram ? Venous Doppler Study ? Pulmonary: ?? ? No Data to Display Assessment and Plan Assessment and Plan (1) Paroxysmal atrial fibrillation: ?Status:?Chronic ?Comment: DCCV on 07/25/2020; ?Plan: Patient has a history of paroxysmal atrial fibrillation.? Her echocardiogram from 07/04/2022 demonstrated ejection fraction of 60%, and moderately enlarged left and right atrium. Her EKG from today demonstrates atrial fibrillation, heart rate 58. She does have complaints of chest pressure, fatigue, and shortness of breath.? She will undergo cardioversion on 08/13/[address] Magaña. Cardioversion instructions were reviewed with patient. She was instructed not to miss any doses of Eliquis.? If this is unsuccessful, we may need to attempt an antiarrhythmic.? She will continue Eliquis 5mg twice daily, and metoprolol tartrate 25mg twice daily. (2) Valvular heart disease: ?Status:?Acute ?Plan: Her recent echocardiogram demonstrated an ejection fraction of 60%, and moderate mitral valve insufficiency, and moderate tricuspid valve insufficiency, mild focal aortic valve calcification, and mild (1+) aortic valve insufficiency. At this time, we will continue to monitor with history, exam, and echocardiograms as deemed appropriate. (3) Aneurysm of left common iliac artery: ?Status:?Chronic ?Plan: She underwent an aortic iliac vascular ultrasound on 07/17/2021 that showed no evidence of aorta iliac aneurysm or stenosis.? She will continue current medical therapy.? We will continue to monitor. ? ? ? Orders: Orders 12 Lead EKG performed by [facility] [place] Today I48.9 1 - Unspecified atrial fibrillation ? Plan Details Additional Comments: Patient will follow up in 2 months, or sooner if needed. Thank you for allowing me to participate in the care of your patient. Please don't hesitate to call if any issues arise. This note was generated using a voice recognition system and there may be incorrect words, spelling, or punctuation that were not noted when reviewing the office note prior to saving. Portions of this documentation were copied and pasted from previous office visit notes to provide a cohesive continuity of the history. The note has been reviewed, edited, and updated, as necessary. Follow Up: ? ? Keep as is? (PFM) COVID (Procedure Consent) Procedure Criteria Procedure Criteria: Yes Elective The surgeon/proceduralist and patient have discussed in detail the risk of exposure to and/or potential harm posed by the COVID-19 virus with having a surgery/procedure at this time versus the risk of? delaying the surgery/procedure. It is not possible to know either the risk of delaying the surgery or procedure or chance of getting an infection with perfect accuracy, but a joint decision was made between the patient and the surgeon/proceduralist ?to proceed at this time with the scheduled surgery/procedure as indicated on the consent form. Coding Level of Care Code Off vis,est,level 4 Diagnoses Paroxysmal atrial fibrillation? I48.0 Valvular heart disease? I38 Aneurysm of left common iliac artery? I72.3 Coding Level of Care Code Off vis,est,level 4 Diagnoses Paroxysmal atrial fibrillation? I48.0 Valvular heart disease? I38 Aneurysm of left common iliac artery? I72.3 08/06/22 [id number] <Electronically signed by Shoshana ARMAS> Date Shoshana ARMAS Cosigner Signature: Date (if applicable) CC:? Dr. Patrica Jhaveri MD ~ Assessment & Plan Addt'l Comments Addendum: 08/13/2022: I have examined the patient and the H&P has been reviewed. There are no clinical changes since date of exam. This note was generated using a voice recognition system and there may be incorrect words, spelling or punctuation that were not noted when reviewing the office note prior to saving.
--- NOTE | 2022-08-13 13:17 | CARDIOVERS_ITS ---
Cardioversion Cardioversion: Date: 08-13-2022 Procedure: Synchronized Biphasic DC Cardioversion Indications: Atrial fibrillation Consent: Per the Patient Anesthesia: per Dr. Calderon of pulmonology and critical care medicine with propofol 40 mg IV push total Procedure: Synchronized Biphasic DC Cardioversion: 200 J x 1: Result: Sinus rhythm/sinus bradycardia Complications: no apparent complications This note was generated with Mindframeation software. It may contain incorrect words, spelling, and punctuation that were not noted in checking the note before signing.
--- NOTE | 2022-08-13 13:42 | PRO.PCM_ITS ---
Procedure Report Date of Procedure: 08/13/22 CONSCIOUS SEDATION REPORT DATE OF SERVICE: August 13, 2022 BRIEF HISTORY OF PRESENT ILLNESS: The patient is an 82-year-old female who presented to [facility] for elective outpatient cardioversion due to underlying atrial fibrillation. The patient did undergo a prior cardioversion in July 2020, during which time, 40 mg of propofol was utilized to achieve an appropriate level of sedation. The patient denied any prior anesthetic complications. She is systemically anticoagulated on Eliquis. Her last echocardiogram demonstrated an ejection fraction of approximately 60%. The patient does have a known history of obstructive sleep apnea, for which she reports compliance with use of nocturnal Pap therapy. PHYSICAL EXAMINATION: VITAL SIGNS: Reviewed and were acceptable. GENERAL: The patient is an obese female, in no apparent distress, speaking in full sentences. HEENT: Normocephalic, atraumatic. Mucous membranes are moist and pink. Good mouth opening noted. Trachea is midline. Good neck mobility. CHEST: S1, S2 irregularly irregular. No murmurs, rubs or gallops were noted. LUNGS: Clear to auscultation bilaterally without appreciable wheezes, rales or rhonchi. ABDOMEN: Soft, nontender, nondistended. Positive bowel sounds. EXTREMITIES: There is no clubbing, cyanosis or edema. ASA Class: II DESCRIPTION OF PROCEDURE: After confirmation of informed consent, the patient's anesthesia plan was reviewed in detail. Propofol was chosen. Risks and benefits were reviewed and the patient agreed to proceed. At 1202, the patient was given 40 mg of propofol. The patient achieved an appropriate level of sedation and was given a 200 joule synchronized cardioversion by Dr. Magaña at the bedside. This was successful in achieving normal sinus rhythm. The patient was monitored until 1212, at which time they reached her baseline mental status and function. The patient tolerated the procedure well. COMPLICATIONS: None ESTIMATED BLOOD LOSS: None RECOMMENDATIONS: Okay to recover in usual fashion. Procedures Pulmonary 9xxxx: [id number] Con Sedation
== END 2022-08-13 13:10 | disposition home or self-care (01) ==
PROVIDERS: Nurse Practitioner Gerontology; PCP Internal Medicine; Referring Provider Internal Medicine Cardiovascular Disease; Visit Provider Internal Medicine Cardiovascular Disease
DX: I48.0 Paroxysmal atrial fibrillation (principal); I72.3 Aneurysm of iliac artery; I08.3 Combined rheumatic disorders of mitral, aortic and tricuspid valves; R42 Dizziness and giddiness; F41.8 Other specified anxiety disorders; E66.9 Obesity, unspecified; Z79.01 Long term (current) use of anticoagulants; Z79.899 Other long term (current) drug therapy; Z87.891 Personal history of nicotine dependence
CPT/HCPCS: 36415; 71046; 80048; 92960; 93005; J7040

== ENCOUNTER 2023-04-10 11:35 | Day surgery (SDC) | payer MEDICARE, SELFPAY ==
[2023-04-10 12:03] VITALS: BP 128/90; PULSE 64; RESP 18; TEMP 36.3; O2SAT 96; BMI 36.8
--- NOTE | 2023-04-10 12:06 | PCM.OPRPT ---
Report of Operation Date of Procedure: 04/10/23 Description of Surgical Findings:: Surgeon: Checo Chaves DO Diagnosis: Lumbar stenosis with radiculopathy Procedure: Caudal epidural steroid injection Complications: None Blood loss: None Anesthesia: Local Time out: A timeout was completed verifying correct patient, procedure, site, positioning, implant, and/or special equipment. Fluoroscopy time: Indications for the procedure: Failed physical therapy and oral medications Procedure: The patient was seen in the preop holding area. Risks and benefits of the procedure were explained to the patient and informed consent was obtained. The patient was transported to the procedure room and positioned prone on the fluoroscopy table. The back was prepped and draped in the usual sterile fashion. Sterile technique was used throughout. Corresponding skin and subcutaneous tissue needle entry sites were anesthetized via a 27-gauge 1.5 inch needle using 1% lidocaine x10 mL. Under fluoroscopic guidance a 22-gauge 5 inch spinal needle was advanced to enter the caudal space. Position was confirmed in AP, oblique, and lateral views. Subsequently contrast was injected. Positive epidural spread was noted in both AP and lateral views. No intramuscular or intrathecal uptake was noted. After negative aspiration: Bupivacaine 0.25% 3 mL, 1 mL of Kenalog 40 mg/mL, and preservative-free normal saline 3 mL for a total volume of 7 mL was injected. The needle was removed. No complications were noted. The patient was transported to the recovery room and monitored until discharge criteria were met. Surgeon: Checo Chaves Type of Anesthesia: Local Estimated Blood Loss (mL): None Complications None
--- NOTE | 2023-04-10 12:35 | RAD_ITS ---
PROCEDURE: Caudal block. DATE OF EXAMINATION: April 10, 2023. INDICATION: Female, 82 years old. Chronic low back pain. FLUOROSCOPY TIME (if supplied): (16 seconds) minutes/seconds. 13.38 mGy RAD/Fluor Guidance for Spine Inj IMPRESSION: Intraoperative imaging provided for caudal block. Electronically Signed: Raymon Dasilva MD at 9:07 EDT ,
[2023-04-10 12:58] VITALS: BP 136/98; BP 139/84; O2SAT 95; O2SAT 97
[2023-04-10] MEDS: Triamcinolone Acetonide 40 MG/ML Vial (13:03)
[2023-04-10] MEDS: Lidocaine 1% (20 ml mdv) 20 ML Vial (13:03)
[2023-04-10] MEDS: 0.9% Normal Saline (Pres. free 10 ML Vial (13:03)
[2023-04-10] MEDS: Sodium Bicarbonate 50 MEQ/50 ML Vial (13:03)
[2023-04-10 13:29] VITALS: BP 117/80; PULSE 58; RESP 16; TEMP 36.8; O2SAT 96
== END 2023-04-10 13:38 | disposition home or self-care (01) ==
LOC: SDC 11:41 → AC 11:43
PROVIDERS: PCP Internal Medicine; Referring Provider Orthopaedic Surgery; Visit Provider Orthopaedic Surgery
PROC: 3E0S3BZ Introduction of Anesthetic Agent into Epidural Space, Percutaneous Approach (ICD-10-PCS; CPT 62282; principal; 2023-04-10 13:30)
DX: M48.061 Spinal stenosis, lumbar region without neurogenic claudication (principal); M46.96 Unspecified inflammatory spondylopathy, lumbar region; Z85.3 Personal history of malignant neoplasm of breast; M54.50 Low back pain, unspecified; Z87.891 Personal history of nicotine dependence; M54.16 Radiculopathy, lumbar region; M51.36 Other intervertebral disc degeneration, lumbar region; M41.86 Other forms of scoliosis, lumbar region; M85.88 Other specified disorders of bone density and structure, other site; I10 Essential (primary) hypertension; E66.8 Other obesity; Z68.38 Body mass index [BMI] 38.0-38.9, adult
CPT/HCPCS: 62323; 64483; 77003; J3490

== ENCOUNTER → 2023-05-26 | Outpatient (CLI) | payer MEDICARE, SELFPAY ==
[2023-05-26 10:15] LABS: Hemoglobin 14.5 g/dL (12.0-15.0); Mean Corp Hgb Conc 31.5 g/dL (32-36); Mean Corpuscular Hgb 30.2 pg (27.0-32.0); Mean Corpuscular Volume 95.8 fL (81-99); Mean Platelet Vol. 9.4 fl (6.2-12.0); Platelet Count 209 K/mm3 (150-450); RBC Distribution Width CV 12.3 % (11.6-14.6); RBC Distribution Width SD 44.1 fl (35.1-43.9); White Blood Count 5.8 K/mm3 (4.4-11.0)
[2023-05-26 10:37] LABS: Hemoglobin A1c 5.4 % (3.8-5.6)
[2023-05-26 11:04] LABS: ALB/GLOB Ratio 0.9 RATIO (0.9-2.4); AST(SGOT) 23 U/L (15-37); Alanine Aminotransfer ALT/SGPT 33 U/L (13-56); Albumin, Serum 3.5 g/dL (3.2-5.0); Alkaline Phosphatase 105 U/L (45-117); Anion Gap 5 (5-15); BUN 22 mg/dL (7-18); BUN/Creat Ratio 27.4 RATIO (10-20); Chloride 105 mmol/L (98-107); Cholesterol 221 mg/dL (200); EST Glomerular Filtration Rate 73 mL/min (>60); Est Glom Filt Rate - Afr Amer 88 mL/min (>60); Glucose 88 mg/dL (74-106); High Density Lipoprotein 52 mg/dL; Potassium 4.2 mmol/L (3.5-5.1); Protein, Total 7.5 g/dL (6.4-8.2); Sodium Level 139 mmol/L (136-145); T4 Free Direct 1.01 ng/dL (0.76-1.46); Triglycerides 151 mg/dL; Very Low Density Lipoprotein 30 mg/dL (5-40)
== END | disposition home or self-care (01) ==
LOC: LAB 08:45
PROVIDERS: PCP Internal Medicine; Referring Provider Internal Medicine; Visit Provider Internal Medicine
DX: Z79.899 Other long term (current) drug therapy (principal); E78.2 Mixed hyperlipidemia; E03.9 Hypothyroidism, unspecified
CPT/HCPCS: 36415; 80053; 80061; 83036; 84439; 84443; 85027

== ENCOUNTER 2023-07-14 15:59 | Emergency (ER) | payer MEDICARE, SELFPAY ==
[2023-07-14 16:01] VITALS: BP 136/96; PULSE 67; RESP 16; TEMP 36.2; O2SAT 94; BMI 37.0
--- NOTE | 2023-07-14 16:18 | EDS_ITS ---
HPI <TRUDY Molina - Last Filed: 07/14/23 17:30> History of Present Illness Chief Complaint: Lower Extremity Injury Narrative Narrative: Patient has had 2 days of pain in her left groin and left knee. No fall or injury. She states it hurts with walking. No weakness or paresthesias. She has a history of bilateral knee replacements. She is on Eliquis for A-fib and has no history of DVT/PE. No fever or chills, no swelling or skin changes. PFSH <TRUDY Molina - Last Filed: 07/14/23 17:30> [facility] Medical History (Updated 07/14/23 @ 17:18 by TRUDY Molina) Aneurysm of left common iliac artery History of cardioversion (~07/25/20) History of left heart catheterization (LHC) (~01/25/11) Hypothyroidism Longstanding persistent atrial fibrillation Mixed anxiety depressive disorder Nephrolithiasis New onset atrial fibrillation Obesity (BMI 30.0-34.9) Osteoarthritis Paroxysmal atrial fibrillation Personal history of malignant neoplasm of breast Sleep apnea Home Medications lorazepam 1 mg tablet 1 mg PO QHS PRN Sleep 07/31/14 [History Last Taken 04/09/23] triamcinolone acetonide 0.1 % topical cream 1 applic TP PRN PRN anal rash/itching 07/15/17 [History Last Taken Unknown] acetaminophen 500 mg tablet (Tylenol Extra Strength) 500 mg PO Q6H PRN Pain 1-10 Or Fever 06/15/20 [History Last Taken 04/10/23] cetirizine 10 mg tablet (Zyrtec) 10 mg PO DAILY 06/15/20 [History Last Taken 04/09/23] ketoconazole 2 % topical cream 1 applic topical DAILY PRN Agitation 06/15/20 [History Last Taken Unknown] hydrocortisone-acetic acid 1 %-2 % ear drops 10 ml OT PRN PRN EAR 10/16/20 [History Last Taken Unknown] omeprazole 20 mg tablet,delayed release 20 mg PO DAILY 07/12/22 [History Last Taken 04/10/23] buspirone 10 mg tablet 10 mg PO DAILY 11/01/22 [History Last Taken 04/10/23] escitalopram oxalate 10 mg tablet 10 mg PO DAILY 11/01/22 [History Last Taken 04/10/23] levothyroxine 100 mcg tablet 100 mcg PO DAILY 11/01/22 [History Last Taken 04/09/23] metoprolol tartrate 25 mg tablet 25 mg PO BID #180 tabs 01/13/23 [Rx Last Taken 04/10/23] duloxetine 20 mg capsule,delayed release 20 mg PO BID 05/09/23 [History Last Taken Unknown] apixaban 5 mg tablet 5 mg PO BID #180 tabs 06/25/23 [Rx Last Taken Unknown] Allergy/AdvReac Type Severity Reaction Status Date / Time codeine AdvReac Mild Other Verified 05/09/23 13:41 Family History Mother Pulmonary hypertension COPD (chronic obstructive pulmonary disease) Father Lymphoma Surgical History History of appendectomy History of blepharoplasty History of lumpectomy of left breast History of right knee joint replacement (~10/2020) History of total knee arthroplasty Trigger finger of right hand Social History Smoking Status: Former smoker alcohol intake: never substance use type: does not use caffeine: Yes ROS <TRUDY Molina - Last Filed: 07/14/23 17:30> ROS ED ROS Narrative Constitutional: Negative for fever, chills, malaise. CVS: Negative for chest pain. Respiratory: Negative for shortness of breath. Neuro: Negative for motor/sensory dysfunction. Skin: Negative for rash, abscess, or wound. EXAM <TRUDY Molina - Last Filed: 07/14/23 17:30> Physical Exam Narrative Exam Narrative: CONST: Patient sitting in no acute distress. EYES: Normal inspection. NECK: Normal inspection. RESP: No respiratory distress, CTAB. CVS: Regular rate and rhythm, no murmur, no gallop. ABD: Soft and nontender, no guarding or rebound, nondistended, no palpable hernias. SKIN: Color normal, no rash, warm, dry, intact. EXTREMITIES: Normal appearance of bilateral extremities, symmetric. Full range of motion of all joints. Slight tenderness left medial thigh, no pain with logroll, mild tenderness left patella. No tenderness of the lower leg ankle or foot. 5/5 strength in bilateral hip flexion, knee flexion/extension, and DF/PF. Normal knee extension with negative anterior/posterior drawer and varus valgus stress. 2+ DP pulses. NEURO: Oriented x4. PSYCH: Normal affect. Const Vital Signs: 07/14/23 16:01 07/14/23 17:33 Temperature 97.2 F L Temperature Source Temporal Pulse Rate 67 72 Respiratory Rate 16 16 Blood Pressure 136/96 H 129/88 H Blood Pressure Mean 109 101 Pulse Ox 94 98 Oxygen Delivery Method Room Air <Dr. Santos Tarango MD - Last Filed: 07/14/23 17:38> Physical Exam Const Vital Signs: 07/14/23 16:01 07/14/23 17:33 Temperature 97.2 F L Temperature Source Temporal Pulse Rate 67 72 Respiratory Rate 16 16 Blood Pressure 136/96 H 129/88 H Blood Pressure Mean 109 101 Pulse Ox 94 98 Oxygen Delivery Method Room Air MDM <TRUDY Molina - Last Filed: 07/14/23 17:30> [facility] MDM Narrative Medical decision making narrative: History gathered from: Patient and spouse Patient with 2 days of atraumatic left medial thigh/groin pain and left knee pain. Concerned could be a blood clot. She is on Eliquis for A-fib and has not missed any doses. She has no history of blood clots or recent provoking factors. Her lower extremities appear normal. No swelling or skin changes. She has full range of motion of all joints and is neurovascularly intact. She has mild tenderness over the left medial thigh and left patella. Due to her age and history of knee replacements x-rays were obtained and show no acute findings. Patient advised to ice and take Tylenol and follow-up with her orthopedic doctor if needed. She was reassured that her pain is not consistent with a DVT. She was discharged in stable condition. Radiography Diagnostic Testing: Clinical Impression(s) from Imaging Studies Hip/Pelvis X-Ray 07/14/23 16:45 IMPRESSION: Normal x-ray examination of the pelvis and hip. Electronically Signed: Guillermo Kellogg MD at 17:12 EST , Knee X-Ray 07/14/23 16:45 IMPRESSION: Total knee arthroplasty. Electronically Signed: Guillermo Kellogg MD at 17:14 EST , ED attending interpretation of left hip and pelvis show no fracture or dislocation. ED attending interpretation of left knee shows arthroplasty intact, no fracture or dislocation. <Dr. Santos Tarango MD - Last Filed: 07/14/23 17:38> MDM MDM Narrative Medical decision making narrative: History gathered from: Patient and spouse Patient with 2 days of atraumatic left medial thigh/groin pain and left knee pain. Concerned could be a blood clot. She is on Eliquis for A-fib and has not missed any doses. She has no history of blood clots or recent provoking factors. Her lower extremities appear normal. No swelling or skin changes. She has full range of motion of all joints and is neurovascularly intact. She has mild tenderness over the left medial thigh and left patella. Due to her age and history of knee replacements x-rays were obtained and show no acute findings. Patient advised to ice and take Tylenol and follow-up with her orthopedic doctor if needed. She was reassured that her pain is not consistent with a DVT. She was discharged in stable condition. I have personally performed a face to face assessment of the patient and have reviewed the JAMEY Note. I performed a substantive portion of the visit including all aspects of the following. My martin findings include: History is remarkable for hip pain that she localizes in the left groin area and knee pain. Patient denies trauma. Patient presents because of concern for clot. She is on Eliquis due to chronic atrial fibrillation. She denies paresthesia, anesthesia motors. Certain movements make the pain worse. She is status post left total knee arthroplasty. She denies fever, chills or night sweats. She denies history of gout or pseudogout. She denies chest pain. She denies shortness of breath or dyspnea on exertion. Exam is is remarkable for pain in the left inguinal area. There is no palp mass or pulsatile mass. There is no inguinal lymphadenopathy. There is no shortening of the left lower extremity. Yomi Arnold 4 test is negative. There is no bruising noted. There is no discoloration of the leg or asymmetry. There is no leg vein distention. There is no tenderness on the distribution of deep venous system. There is a well-healed surgical scar left knee. There is no significant laxity with varus valgus stress testing. Modified Ena's test was negative. Megan's test was negative. Patient able to extend 180 degrees and flex to 90 degrees. DP pulses palpable. Medical Decision Making patient concerned of DVT however with her on Eliquis and the fact that there is no asymmetry discoloration or disc comfort other than with movement doubt DVT. This may represent quadricep for Sergey tendon strain or tendinitis. Doubt avulsion fracture. Because patient is had a total knee arthroplasty complains of pain in the knee and hip area x-rays were obtained. Is independently reviewed interpreted by me as negative for any acute pathology. Three-view x-ray of the hip was obtained. There is no significant arthritis. There is no asymmetry of the joint. There is no fracture noted of the femur or pelvis. 4 views of the left knee were obtained and prosthesis is in place with no evidence of effusion. There is degenerative changes noted the patella. Other additions or changes: Patient was discharged home with appropriate home- going instructions. Radiography Diagnostic Testing: Clinical Impression(s) from Imaging Studies Hip/Pelvis X-Ray 07/14/23 16:45 IMPRESSION: Normal x-ray examination of the pelvis and hip. Electronically Signed: Guillermo Kellogg MD at 17:12 EST Reading Location ID and State: [address] [place] [address] Tel , Service support , Knee X-Ray 07/14/23 16:45 IMPRESSION: Total knee arthroplasty. Electronically Signed: Guillermo Kellogg MD at 17:14 EST , Discharge Plan Triage Chief Complaint: Lower Extremity Injury ED Midlevel Provider: Liliana Ballesteros ED Provider: Santos Tarango Dx/Rx/DC Orders Clinical Impression: Left leg pain Instructions: Communicating About Pain Prescriptions: No Action ketoconazole 2 % cream 1 applic TOPICAL DAILY PRN (Reason: Agitation) acetaminophen [Tylenol Extra Strength] 500 mg tablet 500 mg PO Q6H PRN (Reason: Pain 1-10 Or Fever) cetirizine [Zyrtec] 10 mg tablet 10 mg PO DAILY levothyroxine 100 mcg tablet 100 mcg PO DAILY buspirone 10 mg tablet 10 mg PO DAILY escitalopram oxalate 10 mg tablet 10 mg PO DAILY Patient Comments: take 1 tablet by mouth once daily as directed omeprazole 20 mg tablet,delayed release (DR/EC) 20 mg PO DAILY duloxetine 20 mg capsule,delayed release(DR/EC) 20 mg PO BID lorazepam 1 MG tablet 1 mg PO QHS PRN (Reason: Sleep) Patient Comments: ANXIETY triamcinolone acetonide 1 APPLIC cream 1 applic TP PRN PRN (Reason: anal rash/itching) hydrocortisone-acetic acid 10 ML drops 10 ml OT PRN PRN (Reason: EAR ) metoprolol tartrate 25 mg tablet 25 mg PO BID Qty: 180 3RF apixaban 5 mg tablet 5 mg PO BID Qty: 180 3RF Hold Instructions: Resume on 04/11/23. Hold 24 hours after injection Patient Comments: LAST DOSE TO BE 10/24/20 FOR SURGERY Primary Care Provider: Patrica Jhaveri Referrals: Patrica Jhaveri MD [Primary Care Provider] - Activity Restrictions/Additional Instructions: If you continue to have left leg pain that does not improve with ice and Tylenol please follow-up with your orthopedic doctor Disposition Disposition: Home, Self Care Discharge Date/Time: 07/14/23 17:34
--- NOTE | 2023-07-14 16:45 | RAD_ITS ---
STUDY: X-RAY - PELVIS AND LEFT HIP REASON FOR EXAM: Female, 82 years old. pain TECHNIQUE: 3 views of the pelvis and hip. COMPARISON: None. FINDINGS: There is a non-specific bowel gas pattern. Normal visualized soft tissue structures. Normal bilateral iliac wings, sacroiliac joints and visualized sacrum. Normal bilateral superior and inferior pubic rami. Normal pubic symphysis. Normal bilateral ischial tuberosities. Normal visualized femoral head. Normal acetabulum. Normal hip joint. RAD/HIP, UNI W/ Pelvis 2-3 Views IMPRESSION: Normal x-ray examination of the pelvis and hip. Electronically Signed: Guillermo Kellogg MD at 17:12 EST ,
--- NOTE | 2023-07-14 16:45 | RAD_ITS ---
STUDY: X-RAY - LEFT KNEE REASON FOR EXAM: Female, 82 years old. pain TECHNIQUE: 4 view(s) of the knee. COMPARISON: October 06, 2017 FINDINGS: Normal visualized distal femur. Normal visualized proximal tibia and fibula. Normal proximal tibiofibular articulation. Total knee arthroplasty unchanged in alignment. Normal medial femorotibial compartment. Normal lateral femorotibial compartment. Normal patellofemoral articulation. The soft tissue structures are unremarkable. RAD/Knee 4 or More Views IMPRESSION: Total knee arthroplasty. Electronically Signed: Guillermo Kellogg MD at 17:14 EST ,
--- OUTSIDE RECORDS SUMMARY | 2023-07-14 16:46 | XMS RPT_ITS | CCD ---
Author Name Unknown Address [address] [place] [address] Organization [facility] Care Team Providers Care Vb Developer Name Role Phone Celio Jhaveri MD Primary Care Provider Unavailable Primary Care Provider Unavailabl e Celio Jhaveri MD Primary Care Provider NENA CELIO D Primary Care Unavailable HERNANDEZ, ERENDIRA Referring Unavailable TALAMPAS, CELIO D Primary Care Unavailable HERNANDEZ, ERENDIRA Attending Unavailable NENA, CELIO D Primary Care Unavailable KESHA TIAN Referring Unavailable TALAMPAS, CELIO D Primary Care Unavailable TALAMPAS, CELIO D Primary Care Unavailable TALAMPPASQUALE, CELIO D Attending Unavailable HERNANDEZ, ERENDIRA Referring Unavailable TALAMPAS, CELIO D Primary Care Unavailable TALAMPAS, CELIO D Primary Care Unavailable HERNANDEZ, ERENDIRA Attending Unavailable ELVIAAMPPASQUALE, CELIO D Primary Care Unavailable Medications Current Medications Medication Drug Class(es) Dates Sig (Normalized) Sig (Original) amoxicillin 875 mg / clavulanate 125 mg oral tablet (4 sources) Penicillin-class Antibacterial Start: 11-19-2022 End: 11-26-2022 take 1 tablet by mouth twice daily amoxicillin-clav ulanic acid (AUGMENTIN) 875-125 mg per tablet Take 1 tablet by mouth twice daily for 7 days. 14 tablet 0 11/19/2022 11/26/2022 Active Completed/Discontinued Medications Medication Drug Class(es) Dates Sig (Normalized) Sig (Original) acetaminophen 500 mg oral tablet (20 sources) take 1 tablet by mouth every eight hours as needed acetaminophen (TYLENOL) 500 mg tablet Take 500 mg by mouth every 8 hours as needed. 0 Active Problems Active Problems Problem Classification Problem Date Documented Date Episodic/Chronic Anxiety disorders (20 sources) Anxiety; Translations: [Anxiety disorder, unspecified] Onset: 05-18-2010 Chronic Aortic; peripheral; and visceral artery aneurysms (20 sources) Aneurysm of iliac artery; Translations: [Aneurysm of iliac artery] Onset: 06-26-2011 06-01-2018 Chronic Cardiac dysrhythmias (8 sources) Persistent atrial fibrillation; Translations: [Other persistent atrial fibrillation] Onset: 01-09-2023 01-09-2023 Chronic Disorders of lipid metabolism (20 sources) Mixed hyperlipidemia; Translations: [Mixed hyperlipidemia] Onset: 12-08-2007 Chronic Disorders usually diagnosed in infancy, childhood, or adolescence (20 sources) Attention deficit hyperactivity disorder, predominantly inattentive type; Translations: [Other specified behavioral and emotional disorders with onset usually occurring in childhood and adolescence] Onset: 12-19-2011 12-19-2011 Chronic Miscellaneous mental health disorders (20 sources) Chronic insomnia; Translations: [Psychophysiologic insomnia] Onset: 07-21-2020 07-21-2020 Chronic Mood disorders (20 sources) Depressive disorder; Translations: [Depression, unspecified depression type] Onset: 05-18-2010 Chronic Other aftercare (8 sources) Patient encounter status; Translations: [Other usp (current) drug therapy] Episodic Other and unspecified benign neoplasm (1 source) Hyperplastic polyp of intestine; Translations: [Polyp of colon] Episodic Other circulatory disease (1 source) H/O: atrial fibrillation; Translations: [Personal history of other diseases of the circulatory system] 04-22-2023 Episodic Other connective tissue disease (2 sources) Muscle spasm of cervical muscle of neck; Translations: [Other muscle spasm] Episodic Other connective tissue disease (1 source) Paraparesis; Translations: [Other symptoms and signs involving the musculoskeletal system] Episodic Other connective tissue disease (1 source) Pain in bilateral legs; Translations: [Pain in right leg] 01-09-2023 Episodic Other ear and sense organ disorders (1 source) Chronic eczema of external auditory canal; Translations: [Other otitis externa, bilateral] 04-22-2023 Chronic Other female genital disorders (1 source) Pruritus of vagina; Translations: [Other specified noninflammatory disorders of vagina] Episodic Other hereditary and degenerative nervous system conditions (20 sources) Restless legs; Translations: [Restless legs syndrome] Onset: 07-21-2020 07-21-2020 Chronic Other hereditary and degenerative nervous system conditions (1 source) Restless legs syndrome; Translations: [RLS (restless legs syndrome)] Onset: 07-21-2020 Chronic Other inflammatory condition of skin (2 sources) Pruritus ani; Translations: [Pruritus ani] Episodic Other lower respiratory disease (2 sources) Cough; Translations: [Cough] Episodic Other nutritional; endocrine; and metabolic disorders (1 source) Obesity caused by energy imbalance; Translations: [Other obesity due to excess calories] 01-09-2023 Chronic Other upper respiratory disease (20 sources) Allergic rhinitis; Translations: [Allergic rhinitis, unspecified] Onset: 06-26-2011 Chronic Other upper respiratory infections (2 sources) Chronic sinusitis; Translations: [Chronic sinusitis, unspecified] Chronic Residual codes; unclassified (20 sources) Obstructive sleep apnea syndrome; Translations: [Obstructive sleep apnea (adult) (pediatric)] Onset: 06-26-2020 09-22-2020 Chronic Thyroid disorders (20 sources) Acquired hypothyroidism; Translations: [Hypothyroidism, unspecified] Onset: 12-08-2007 Chronic Unclassified (1 source) Acute cough; Translations: [Acute cough] Onset: 06-18-2022 Past or Other Problems Problem Classification Problem Date Documented Da te Episodic/Chronic Cancer of breast (20 sources) History of malignant neoplasm of breast; Translations: [Personal history of malignant neoplasm of breast] Onset: 09-09-2007 09-09-2007 Episodic Headache; including migraine (20 sources) Headache; Translations: [Nonintractable episodic headache] Onset: 11-25-2017 11-25-2017 Episodic Nonmalignant breast conditions (20 sources) Disorder of breast; Translations: [Other specified disorders of breast] Onset: 09-09-2007 09-09-2007 Episodic Other bone disease and musculoskeletal deformities (20 sources) Osteopenia; Translations: [Other specified disorders of bone density and structure, unspecified site] Onset: 02-25-2012 02-25-2012 Episodic Other connective tissue disease (1 source) Other muscle spasm; Translations: [Neck muscle spasm] Onset: 09-10-2022 Episodic Other connective tissue disease (1 source) Other symptoms and signs involving the musculoskeletal system; Translations: [Weakness of both lower extremities] Onset: 09-10-2022 Episodic Other female genital disorders (1 source) Other specified noninflammatory disorders of vagina; Translations: [Vagina itching] Onset: 09-10-2022 Episodic Other gastrointestinal disorders (20 sources) Occult blood in stools; Translations: [Other fecal abnormalities] Onset: 06-07-2014 06-18-2021 Episodic Other inflammatory condition of skin (1 source) Pruritus ani; Translations: [Rectal itching] Onset: 09-10-2022 Episodic Other screening for suspected conditions (not mental disorders or infectious disease) (20 sources) Mammography abnormal; Translations: [Other abnormal and inconclusive findings on diagnostic imaging of breast] Onset: 04-06-2010 04-06-2010 Episodic Spondylosis; intervertebral disc disorders; other back problems (20 sources) Backache; Translations: [Dorsalgia, unspecified] Onset: 12-01-2009 12-01-2009 Episodic Results Test Name Value Interpretation Reference Range Facil ity Vital Signs Date Time Vital Sign Value Performing Clinician Faci lity 04-22-2023 14:37-0400 Body temperature 98.01 [degF] Celio Jhaveri MD Work Phone: [facility] 04-22-2023 14:37-0400 Body weight 99.34 kg Celio Jhaveri MD Work Phone: [facility] 04-22-2023 14:37-0400 Diastolic blood pressure 80 mm[Hg] Celio Jhaveri MD Work Phone: [facility] 04-22-2023 14:37-0400 Heart rate 71 /min Celio Jhaveri MD Work Phone: [facility] 04-22-2023 14:37-0400 Respiratory rate 18 /min Celio Jhaveri MD Work Phone: [facility] 04-22-2023 14:37-0400 SaO2% (BldA) [Mass fraction] 96 % Celio Jhaveri MD Work Phone: [facility] 04-22-2023 14:37-0400 Systolic blood pressure 122 mm[Hg] Celio Jhaveri MD Work Phone: [facility] 01-09-2023 11:46-0400 Body weight 101.15 kg Erendira Hernandez SMALL BUSINESS SALES REPRESENTATIVE.WOOD MACHINE CARVER Work Phone: [facility] 01-09-2023 11:46-0400 Diastolic blood pressure 88 mm[Hg] Erendira Hernandez SMALL BUSINESS SALES REPRESENTATIVE.WOOD MACHINE CARVER Work Phone: [facility] 01-09-2023 11:46-0400 Heart rate 58 /min Erendira Hernandez SMALL BUSINESS SALES REPRESENTATIVE.WOOD MACHINE CARVER Work Phone: [facility] 01-09-2023 11:46-0400 Respiratory rate 16 /min Erendira Hernandez SMALL BUSINESS SALES REPRESENTATIVE.WOOD MACHINE CARVER Work Phone: [facility] 01-09-2023 11:46-0400 SaO2% (BldA) [Mass fraction] 95 % Erendira Hernandez SMALL BUSINESS SALES REPRESENTATIVE.WOOD MACHINE CARVER Work Phone: [facility] 01-09-2023 11:46-0400 Systolic blood pressure 122 mm[Hg] Erendira Hernandez SMALL BUSINESS SALES REPRESENTATIVE.WOOD MACHINE CARVER Work Phone: [facility] 09-10-2022 15:18-0400 Body weight 99.79 kg Erendira Hernandez SMALL BUSINESS SALES REPRESENTATIVE.WOOD MACHINE CARVER Work Phone: [facility] 09-10-2022 15:18-0400 Diastolic blood pressure 88 mm[Hg] Erendira Hernandez SMALL BUSINESS SALES REPRESENTATIVE.WOOD MACHINE CARVER Work Phone: [facility] 09-10-2022 15:18-0400 Heart rate 76 /min Erendira Hernandez SMALL BUSINESS SALES REPRESENTATIVE.WOOD MACHINE CARVER Work Phone: [facility] 09-10-2022 15:18-0400 Respiratory rate 16 /min Erendira Hernandez SMALL BUSINESS SALES REPRESENTATIVE.WOOD MACHINE CARVER Work Phone: [facility] 09-10-2022 15:18-0400 Systolic blood pressure 122 mm[Hg] Erendira Hernandez SMALL BUSINESS SALES REPRESENTATIVE.WOOD MACHINE CARVER Work Phone: [facility] 06-17-2022 14:14-0500 SaO2% (BldA) [Mass fraction] 94 % Kesha Tian SMALL BUSINESS SALES REPRESENTATIVE.NETWORK COMMUNICATIONS ENGINEER Work Phone: [facility] 06-17-2022 14:00-0500 Body temperature 98.4 [degF] Kesha Praisler-Wood SMALL BUSINESS SALES REPRESENTATIVE.NETWORK COMMUNICATIONS ENGINEER Work Phone: [facility] 06-17-2022 14:00-0500 Body weight 101.15 kg Kesha Praisler-Wood SMALL BUSINESS SALES REPRESENTATIVE.NETWORK COMMUNICATIONS ENGINEER Work Phone: [facility] 06-17-2022 14:00-0500 Diastolic blood pressure 82 mm[Hg] Kesha Praisler-Wood SMALL BUSINESS SALES REPRESENTATIVE.NETWORK COMMUNICATIONS ENGINEER Work Phone: [facility] 06-17-2022 14:00-0500 Heart rate 92 /min Kesha Praisler-Wood SMALL BUSINESS SALES REPRESENTATIVE.NETWORK COMMUNICATIONS ENGINEER Work Phone: [facility] 06-17-2022 14:00-0500 Respiratory rate 20 /min Kesha Praisler-Wood SMALL BUSINESS SALES REPRESENTATIVE.NETWORK COMMUNICATIONS ENGINEER Work Phone: [facility] 06-17-2022 14:00-0500 Systolic blood pressure 128 mm[Hg] Kesha Praisler-Wood SMALL BUSINESS SALES REPRESENTATIVE.NETWORK COMMUNICATIONS ENGINEER Work Phone: [facility] 05-30-2022 14:41-0500 Body temperature 97.5 [degF] Kesha Praisler-Wood SMALL BUSINESS SALES REPRESENTATIVE.NETWORK COMMUNICATIONS ENGINEER Work Phone: [facility] 05-30-2022 14:41-0500 Body weight 100.15 kg Kesha Praisler-Wood SMALL BUSINESS SALES REPRESENTATIVE.NETWORK COMMUNICATIONS ENGINEER Work Phone: [facility] 05-30-2022 14:41-0500 Diastolic blood pressure 84 mm[Hg] Kesha Praisler-Wood SMALL BUSINESS SALES REPRESENTATIVE.NETWORK COMMUNICATIONS ENGINEER Work Phone: [facility] 05-30-2022 14:41-0500 Heart rate 81 /min Kesha Praisler-Wood SMALL BUSINESS SALES REPRESENTATIVE.NETWORK COMMUNICATIONS ENGINEER Work Phone: [facility] 05-30-2022 14:41-0500 Respiratory rate 20 /min Kesha Praisler-Wood SMALL BUSINESS SALES REPRESENTATIVE.NETWORK COMMUNICATIONS ENGINEER Work Phone: [facility] 05-30-2022 14:41-0500 SaO2% (BldA) [Mass fraction] 97 % Kesha Praisler-Wood SMALL BUSINESS SALES REPRESENTATIVE.NETWORK COMMUNICATIONS ENGINEER Work Phone: [facility] 05-30-2022 14:41-0500 Systolic blood pressure 110 mm[Hg] Kesha Tian APRN.NETWORK COMMUNICATIONS ENGINEER Work Phone: [facility] 02-15-2022 14:12-0400 Body height 165.1 cm Danielle [place] PA-C Work Phone: [facility] 02-15-2022 14:120400 Body temperature 96.01 [degF] Danielle [place] PA-C Work Phone: [facility] 02-15-2022 14:120400 Body weight 102.06 kg Danielle Hemanth PA-C Work Phone: [facility] 02-15-2022 14:12-0400 Diastolic blood pressure 64 mm[Hg] Danielle [place] PA-C Work Phone: [facility] 02-15-2022 14:12-0400 Heart rate 117 /min Danielle [place] PA-C Work Phone: [facility] 02-15-2022 14:12-0400 SaO2% (BldA) [Mass fraction] 99 % Danielle Hemanth PA-C Work Phone: [facility] 02-15-2022 14:12-0400 Systolic blood pressure 100 mm[Hg] Danielle Hemanth PA-C Work Phone: [facility] 02-11-2022 12:30-0400 Diastolic blood pressure 69 mm[Hg] Lauro Albrecht MD Work Phone: [facility] 02-11-2022 12:30-0400 Respiratory rate 16 /min Lauro Albrecht MD Work Phone: [facility] 02-11-2022 12:30-0400 SaO2% (BldA) [Mass fraction] 95 % Lauro Albrecht MD Work Phone: [facility] 02-11-2022 12:30-0400 Systolic blood pressure 145 mm[Hg] Lauro Albrecht MD Work Phone: [facility] 02-11-2022 12:00-0400 Body temperature 97.2 [degF] Lauro Albrecht MD Work Phone: [facility] 02-11-2022 10:24-0400 Body height 165.1 cm Lauro Albrecht MD Work Phone: [facility] 02-11-2022 10:240400 Body weight 102.06 kg Lauro Albrecht MD Work Phone: [facility] 02-11-2022 10:24-0400 Heart rate 68 /min Lauro Albrecht MD Work Phone: [facility] 11-14-2021 09:14-0400 Body temperature 97.81 [degF] Sierra [place] APRN.NETWORK COMMUNICATIONS ENGINEER Work Phone: [facility] 11-14-2021 09:14-0400 Body weight 103.87 kg Sierra [place] APRN.NETWORK COMMUNICATIONS ENGINEER Work Phone: [facility] 11-14-2021 09:14-0400 Diastolic blood pressure 84 mm[Hg] Sierra [place] APRN.NETWORK COMMUNICATIONS ENGINEER Work Phone: [facility] 11-14-2021 09:14-0400 Heart rate 68 /min Sierra [place] APRN.NETWORK COMMUNICATIONS ENGINEER Work Phone: [facility] 11-14-2021 09:14-0400 Respiratory rate 16 /min Sierra [place] APRN.NETWORK COMMUNICATIONS ENGINEER Work Phone: [facility] 11-14-2021 09:14-0400 SaO2% (BldA) [Mass fraction] 96 % Sierra [place] APRN.NETWORK COMMUNICATIONS ENGINEER Work Phone: [facility] 11-14-2021 09:14-0400 Systolic blood pressure 142 mm[Hg] Sierra [place] APRN.NETWORK COMMUNICATIONS ENGINEER Work Phone: [facility] 08-13-2021 13:37-0500 Body weight 100.7 kg Celio Jhaveri MD Work Phone: [facility] 08-13-2021 13:37-0500 Diastolic blood pressure 78 mm[Hg] Celio Jhaveri MD Work Phone: [facility] 08-13-2021 13:37-0500 Heart rate 64 /min Celio Jhaveri MD Work Phone: [facility] 08-13-2021 13:37-0500 Systolic blood pressure 110 mm[Hg] Celio Jhaveri MD Work Phone: [facility] Encounters Encounter Date Encounter Type Care Provider Facility Start: 05-26-2023 Telephone encounter Celio webb MD Work Phone: [facility] Procedures Date Procedure Procedure Detail Performing Clinician Start: 04-22-2023 INFLUENZA VACCINE, P RSV FREE, AGE 65+ YR, HIGH DOSE, QUADRIVALENT (FLUZONE HIGH-DOSE) Celio Jhaveri MD Work Phone: Start: 04-22-2023 PFIZER-BIONTECH COVI D-19 VACCINE ( SEASON) AGE 12+ YR Celio Jhaveri MD Work Phone: Start: 02-11-2022 Colonoscopy flx dx w /collj spec when pfrmd Danielle Saxena PA-C Work Phone: Start: 02-11-2022 Colonoscopy Celio brown MD Work Phone: Plan of Treatment Date Care Activity Detail Author Start: 12-25-2026 Urine microalbumin profile [facility] Start: 11-14-2024 DIABETES SCREEN DIABETES SCREEN [facility] Start: 11-14-2024 Diabetes Screening Diabetes Screenin g [facility] Start: 08-02-2024 DIABETES SCREEN DIABETES SCREEN [facility] Start: 06-23-2023 Advance Directive Discussion Advance Directive Discussion [facility] Start: 04-22-2023 End: 07-22-2023 CBC panel - Blood by Automated count CBC Lab Routine Encounter for long-term current use of medication Medication management Expected: 04/22/2023, Expires: 07/22/2023 [facility] Work Phone: Immunizations Immunization Date Immunization Notes Care Provider Fa cility 04-22-2023 COVID-19 vaccine, ag e 12+ yr, season (PFIZER-BIONTECH) Celio Jhaveri MD Work Phone: [facility] 04-22-2023 influenza (HD-IIV4) vaccine, age 65+ yr, high dose, quadrivalent, PF (FLUZONE HIGH-DOSE) Celio Jhaveri MD Work Phone: [facility] 03-19-2022 influenza (aIIV4) vaccine, age 65+ yr, quadrivalent, PF (FLUAD QUAD) Celio Jhaveri MD Work Phone: [facility] 03-19-2022 influenza virus vacc ine, unspecified formulation Celio Jhaveri MD Work Phone: [facility] 03-02-2021 influenza (HD-IIV4) vaccine, age 65+ yr, high dose, quadrivalent, PF (FLUZONE HIGH-DOSE) Celio Jhaveri MD Work Phone: [facility] 03-02-2021 influenza, high dose seasonal, preservative-free Celio Jhaveri MD Work Phone: [facility] Work Phone: 07-12-2020 COVID-19 vaccine, ag e 12+ yr (PFIZER-BIONTECH - PURPLE TOP) Celio Jhaveri MD Work Phone: [facility] 06-21-2020 COVID-19 vaccine, ag e 12+ yr (PFIZER-BIONTECH - PURPLE TOP) Celio Jhaveri MD Work Phone: [facility] 05-07-2020 influenza, seasonal, injectable, preservative free Celio Jhaveri MD Work Phone: [facility] 05-12-2019 influenza, high dose seasonal, preservative-free Celio Jhaveri MD Work Phone: [facility] Work Phone: 06-01-2018 influenza, high dose seasonal, preservative-free Celio Jhaveri MD Work Phone: [facility] 04-23-2017 influenza, seasonal, injectable, preservative free Celio Jhaveri MD Work Phone: [facility] Work Phone: 04-07-2017 influenza, high dose seasonal, preservative-free Celio Jhaveri MD Work Phone: [facility] 12-25-2016 tetanus toxoid, redu estuardo diphtheria toxoid, and acellular pertussis vaccine, adsorbed Celio Jhaveri MD Work Phone: [facility] 05-21-2016 influenza, high dose seasonal, preservative-free Celio Jhaveri MD Work Phone: [facility] 05-25-2015 pneumococcal conjuga te vaccine, 13 valent Celio Jhaveri MD Work Phone: [facility] Work Phone: 04-25-2015 influenza, high dose seasonal, preservative-free Celio Jhaveri MD Work Phone: [facility] 05-09-2014 influenza, seasonal, injectable Celio Jhaveri MD Work Phone: [facility] 05-04-2014 influenza, seasonal, injectable, preservative free Celio Jhaveri MD Work Phone: [facility] 06-21-2013 zoster vaccine, live Celio velasco MD Work Phone: [facility] 05-04-2013 influenza virus vacc ine, unspecified formulation Celio Jhaveri MD Work Phone: [facility] 03-24-2012 influenza virus vacc ine, unspecified formulation Celio Jhaveri MD Work Phone: [facility] 05-09-2010 influenza virus vacc ine, unspecified formulation Celio Jhaveri MD Work Phone: [facility] 10-25-2009 pneumococcal polysaccharide vaccine, 23 valent Celio Jhaveri MD Work Phone: [facility] 04-19-2009 influenza virus vacc ine, unspecified formulation Celio Jhaveri MD Work Phone: [facility] Work Phone: 12-08-2007 diphtheria and tetan us toxoids, adsorbed for pediatric use Celio Jhaveri MD Work Phone: [facility] Work Phone: 05-09-2005 influenza virus vacc ine, unspecified formulation Celio Jhaveri MD Work Phone: [facility] Work Phone: 05-01-1998 diphtheria and tetan us toxoids, adsorbed for pediatric use Celio Jhaveri MD Work Phone: [facility] Work Phone: Payers Date Payer Category Payer Medicare [employer] [place] [id number] 2008-Present [phone] [address] [place] [address] O [id number] 2008 Medicare [employer] [place] [employer] [place] [id number] 2008-Present [phone] [address] [place] [address] O [id number] 2008 Medicare [id number] Social History Date Type Detail Facility Start: 04-25-2015 End: 02-15-2022 Tobacco smoking status NHIS Ex-smoker [facility] Start: 03-05-2021 End: 04-22-2023 Alcohol intake Current drinker of alcohol (finding) [facility] Start: 01-09-2020 End: 09-03-2022 History SDOH Alcohol Frequency 3 [facility] Start: 01-09-2020 End: 09-03-2022 History SDOH Alcohol Std Drinks 1 [facility] Start: 01-09-2020 End: 09-03-2022 History SDOH Social Connections Phone 5 [facility] Start: 01-09-2020 History SDOH Social Connections Get Together 98 [facility] Start: 01-09-2020 End: 03-06-2022 History SDOH Physical Activity MPS 0 [facility] Start: 01-09-2020 End: 03-06-2022 History SDOH Stress 4 [facility] Start: 01-09-2020 End: 09-03-2022 History SDOH Transport Med 2 [facility] Start: 01-09-2020 Education 18 [facility] Start: 04-25-2015 End: 02-15-2022 Tobacco Comment quit about 24 yrs ago; passive smoker prior to quitting [facility] Start: 1940 Sex Assigned At Female C [facility] Start: 09-08-2021 End: 02-15-2022 Exposure to SARS-CoV-2 (event) Not sure [facility] History of tobacco use Current smoker [facility] Start: 04-25-2015 End: 02-15-2022 Tobacco use and exposure Smokeless tobacco non-user [facility] Start: 09-03-2022 End: 01-09-2023 History of Social function [facility] Start: 09-03-2022 End: 01-09-2023 Social connection and isolation panel [facility] Do you belong to any clubs or organizations such as quaker groups, unions, fraternal or athletic groups, or school groups? Yes [facility] Are you now , , , , never or living with a partner? [facility] How often to you hav e a drink containing alcohol? 2-4 times a month [facility] How many standard dr inks containing alcohol do you have on a typical day? 1 or 2 [facility] How often do you hav e 6 or more drinks on 1 occasion? Never [facility] How hard is it for y ou to pay for the very basics like food, housing, medical care, and heating Not hard at all [facility] Do you feel stress - tense, restless, nervous, or anxious, or unable to sleep at night because your mind is troubled all the time - these days [OSQ] Only a little [facility] (I/We) worried madhu er (my/our) food would run out before (I/we) got money to buy more. Never true [facility] In the past 12 month s, was there a time when you were not able to pay the mortgage or rent on time? No [facility] Start: 01-09-2020 Gender identity Identifies as female gender (finding) [facility] Start: 01-09-2020 Sexual orientation Heterosexual (jeni lukas) [facility] Tobacco smoking stat us IAIS Tobacco smoking consumption unknown [facility] Start: 1940 Sex Assigned At Not on file [facility] Clinical Notes 12-01-2009 to 06-23-2023 Telephone Encounter - Celio Jhaveri MD - 06/23/2023 10:41 PM ESTTelephone Encounter - Cookie Chavez LPN - 05/30/2023 3:23 PM ESTTelephone Encounter - Karina France RN - 05/22/2023 5:12 PM EST Note Date & Type Note Facility 06-23-2023 Miscellaneous Notes See my reply documented in this encounter [facility] 05-30-2023 Miscellaneous Notes Phoned patient and went over results, notes from Dr Jhaveri with understanding. CBC fine HgA1C within normal limits BMP and thyroid labs within normal limits Lipids with good TG and HDL. LDL 139 BUN a little elevated--make sure to drink enough water daily and also should drink 8 to 12 ounces water prior to labs even if fasting Labs completed at [facility]. They are in scanned. Please review. View External Labs - CMP,lipids,TSH,T4 free direct [ID [id number]] View External Labs - A1c [ID [id number]] View External Labs - Hematology [ID [id number]] documented in this encounter [facility] 05-22-2023 Telephone encounter Note S: Patient calling in Nurse advice line and spoke with [facility] nurse regarding dizziness B: Onset of symptoms/concern Week A: Patient reports experiencing increased dizziness, saw ed tech last week, ed tech suggested dehydration, has headache as well. Has afib, gets some dizziness for last few years but not too bad. Has new dx of pulmonary HTN. Urine is dark as well. Able to get up and walk around when having spells, has to hold onto things and move slowly. Thought she was going to fall. BP 120/78 HR 71, doesn;t feel like heart is racing. Currently taking Eliquis, metoprolol, antidepressant, duloxetine. Denies: back pain, foul smelling urine, fever, chills, difficulty with speech, weakness in extremities, chest pain, difficulty breathing R: Patient advised she should be seen by her PCP within 24 hours. Not currently seeing a [facility] physician. Advised to call PCP office to schedule. Advised if she starts having trouble breathing, chest pain to go to ED. Instructed to increased water intake, rest with feet elevated, and change positions slowly. Patient understands care advice. No further needs at this time. Patient instructed to call back with new or worsening symptoms. Reason for Disposition [1] MODERATE dizziness (e.g., interferes with normal activities) AND [2] has NOT been evaluated by physician for this (Exception: dizziness caused by heat exposure, sudden standing, or poor fluid intake) Protocols used: Dizziness - [id number] [facility] 05-22-2023 Miscellaneous Notes S: Patient calling in Nurse advice line and spoke with [facility] nurse regarding dizziness B: Onset of symptoms/concern Week A: Patient reports experiencing increased dizziness, saw ed tech last week, ed tech suggested dehydration, has headache as well. Has afib, gets some dizziness for last few years but not too bad. Has new dx of pulmonary HTN. Urine is dark as well. Able to get up and walk around when having spells, has to hold onto things and move slowly. Thought she was going to fall. BP 120/78 HR 71, doesn;t feel like heart is racing. Currently taking Eliquis, metoprolol, antidepressant, duloxetine. Denies: back pain, foul smelling urine, fever, chills, difficulty with speech, weakness in extremities, chest pain, difficulty breathing R: Patient advised she should be seen by her PCP within 24 hours. Not currently seeing a [facility] physician. Advised to call PCP office to schedule. Advised if she starts having trouble breathing, chest pain to go to ED. Instructed to increased water intake, rest with feet elevated, and change positions slowly. Patient understands care advice. No further needs at this time. Patient instructed to call back with new or worsening symptoms. Reason for Disposition [1] MODERATE dizziness (e.g., interferes with normal activities) AND [2] has NOT been evaluated by physician for this (Exception: dizziness caused by heat exposure, sudden standing, or poor fluid intake) Protocols used: Dizziness - [id number] documented in this encounter [facility] 04-22-2023 Note HNO ID: [id number] Author: Celio Jhaveri MD Service: ? Author Type: Physician Type: Progress Notes Filed: 05/18/2023 7:01 PM Note Text: This note was created using DeepFlex. Subjective Patty Ridley is a 82 year old female. Patient presents with: F/U 6 months SUBJECTIVE: Patty Ridley is a 82 year old year old lady here today for 6 month follow up appointment for review of medical conditions. Noted that had to stop gabapentin due to adverse effects --deep sleep and hard to wake up; bad dreams. Cymbalta helped with leg symptoms and depression. Noted that when had a fib before, had fatigue and dizziness. Has been in normal rhythm. Will see cardiology next week. Had episode of dizziness the other week. Gets hot and sweaty frequently even when weather cold. Hard at night--covers off and on. Been going on for the past year or so. No meds seemed to cause this, Noted had hot flashes for years after menopause but was associated with nausea. N Working on weight loss. Tried Physician weight loss and worked before with the supplements. 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 escitalopram oxalate (LEXAPRO) 10 mg tablet Take 1 tablet by mouth once daily. As directed Magnesium Oxide 500 mg tab Take 1 tablet by mouth as needed. triamcinolone acetonide (KENALOG) 0.1 % cream Apply 1 application to affected area three times daily as needed (rash). Apply sparingly to area for rash/itching. Up to 2 weeks per area with flare up of rash; may treat recurrences as needed. DULoxetine (CYMBALTA) 20 mg capsule Take 1 capsule by mouth once daily. for pain levothyroxine (SYNTHROID) 100 mcg tablet take 1 tablet by mouth once daily LORazepam (ATIVAN) 1 mg tablet Take 0.5-1 tablets by mouth once daily as needed for anxiety for up to 180 days. For neck pain or spasms and anxiety. hydrocortisone-acetic acid (ACETASOL HC) otic solution Use 4 Drops in the ears as needed. budesonide (RHINOCORT AQ) 32 mcg/actuation nasal spray Use 2 Sprays in each nostril once daily. Rinse mouth after use. busPIRone (BUSPAR) 10 mg tablet Take 1 tablet by mouth twice daily. As directed acetaminophen (TYLENOL) 500 mg tablet Take 500 mg by mouth every 8 hours as needed. CPAP Auto-PAP with humidity - change setting to 8-15 cmH2O. cetirizine (ZYRTEC) 10 mg tablet Take 1 tablet by mouth once daily. apixaban (ELIQUIS) 5 mg tab(s) Take by mouth twice daily. metoprolol tartrate, short acting, (LOPRESSOR) 25 mg tablet Take 25 mg by mouth twice daily. ketoconazole (NIZORAL) 2 % cream Apply 1 application to affected area once daily as needed. As directed semaglutide, weight loss, (WEGOVY) 0.25 mg/0.5 mL pen injector Inject 0.5 mL subcutaneously one time a week. (Patient not taking: Reported on 04/22/2023) gabapentin (NEURONTIN) 300 mg capsule Take 1-2 capsules by mouth daily at bedtime for 180 days. No current facility-administered medications for this visit. Review of Systems Objective BP 122/80 Pulse 71 Temp 36.7 ?C (98 ?F) Resp 18 Wt 99.3 kg (219 lb) SpO2 96% BMI 36.44 kg/m? Physical Exam Constitutional: Appearance: Normal appearance. HENT: Head: Normocephalic. Eyes: Conjunctiva/sclera: Conjunctivae normal. Cardiovascular: Rate and Rhythm: Normal rate and regular rhythm. Heart sounds: Normal heart sounds. Pulmonary: Effort: Pulmonary effort is normal. Breath sounds: Normal breath sounds. Skin: General: Skin is warm and dry. Neurological: General: No focal deficit present. Mental Status: She is alert and oriented to person, place, and time. Psychiatric: Mood and Affect: Mood normal. Behavior: Behavior normal. Thought Content: Thought content normal. Judgment: Judgment normal. Last labs reviewed. Assessment and Plan Encounter Diagnosis ICD-10-CM 1. Acquired hypothyroidism E03.9 TSH BLD T4 FREE/FREE THYROX 2. Chronic eczematous otitis externa of both ears H60.8X3 hydrocortisone-acetic acid (ACETASOL HC) otic solution Topical still effective 3. Anxiety F41.9 LORazepam (ATIVAN) 1 mg tablet Helps to have some lorazepam available to help keep anxiety controlled by just having it on hand to take as n (more content not included)... [facility] 04-22-2023 History of Presen t illness Narrative This note was created using [employer]. Subjective Patty Ridley is a 82 year old female. Patient presents with: F/U 6 months SUBJECTIVE: Patty Ridley is a 82 year old year old lady here today for 6 month follow up appointment for review of medical conditions. Noted that had to stop gabapentin due to adverse effects --deep sleep and hard to wake up; bad dreams. Cymbalta helped with leg symptoms and depression. Noted that when had a fib before, had fatigue and dizziness. Has been in normal rhythm. Will see cardiology next week. Had episode of dizziness the other week. Gets hot and sweaty frequently even when weather cold. Hard at night--covers off and on. Been going on for the past year or so. No meds seemed to cause this, Noted had hot flashes for years after menopause but was associated with nausea. N Working on weight loss. Tried Physician weight loss and worked before with the supplements. 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 escitalopram oxalate (LEXAPRO) 10 mg tablet Take 1 tablet by mouth once daily. As directed Magnesium Oxide 500 mg tab Take 1 tablet by mouth as needed. triamcinolone acetonide (KENALOG) 0.1 % cream Apply 1 application to affected area three times daily as needed (rash). Apply sparingly to area for rash/itching. Up to 2 weeks per area with flare up of rash; may treat recurrences as needed. DULoxetine (CYMBALTA) 20 mg capsule Take 1 capsule by mouth once daily. for pain levothyroxine (SYNTHROID) 100 mcg tablet take 1 tablet by mouth once daily LORazepam (ATIVAN) 1 mg tablet Take 0.5-1 tablets by mouth once daily as needed for anxiety for up to 180 days. For neck pain or spasms and anxiety. hydrocortisone-acetic acid (ACETASOL HC) otic solution Use 4 Drops in the ears as needed. budesonide (RHINOCORT AQ) 32 mcg/actuation nasal spray Use 2 Sprays in each nostril once daily. Rinse mouth after use. busPIRone (BUSPAR) 10 mg tablet Take 1 tablet by mouth twice daily. As directed acetaminophen (TYLENOL) 500 mg tablet Take 500 mg by mouth every 8 hours as needed. CPAP Auto-PAP with humidity - change setting to 8-15 cmH2O. cetirizine (ZYRTEC) 10 mg tablet Take 1 tablet by mouth once daily. apixaban (ELIQUIS) 5 mg tab(s) Take by mouth twice daily. metoprolol tartrate, short acting, (LOPRESSOR) 25 mg tablet Take 25 mg by mouth twice daily. ketoconazole (NIZORAL) 2 % cream Apply 1 application to affected area once daily as needed. As directed semaglutide, weight loss, (WEGOVY) 0.25 mg/0.5 mL pen injector Inject 0.5 mL subcutaneously one time a week. (Patient not taking: Reported on 04/22/2023) gabapentin (NEURONTIN) 300 mg capsule Take 1-2 capsules by mouth daily at bedtime for 180 days. No current facility-administered medications for this visit. Review of Systems Objective BP 122/80 Pulse 71 Temp 36.7 C (98 F) Resp 18 Wt 99.3 kg (219 lb) SpO2 96% BMI 36.44 kg/m Physical Exam Constitutional: Appearance: Normal appearance. HENT: Head: Normocephalic. Eyes: Conjunctiva/sclera: Conjunctivae normal. Cardiovascular: Rate and Rhythm: Normal rate and regular rhythm. Heart sounds: Normal heart sounds. Pulmonary: Effort: Pulmonary effort is normal. Breath sounds: Normal breath sounds. Skin: General: Skin is warm and dry. Neurological: General: No focal deficit present. Mental Status: She is alert and oriented to person, place, and time. Psychiatric: Mood and Affect: Mood normal. Behavior: Behavior normal. Thought Content: Thought content normal. Judgment: Judgment normal. Last labs reviewed. Assessment and Plan Encounter Diagnosis ICD-10-CM 1. Acquired hypothyroidism E03.9 TSH BLD T4 FREE/FREE THYROX 2. Chronic eczematous otitis externa of both ears H60.8X3 hydrocortisone-acetic acid (ACETASOL HC) otic solution Topical still effective 3. Anxiety F41.9 LORazepam (ATIVAN) 1 mg tablet Helps to have some lorazepam available to help keep anxiety controlled by just having it on hand to take as needed. 4. Mixed hyperlipidemia E78.2 LIPID PANEL BASIC 5. Neck muscle spasm M62.838 LORazepam (ATIVAN) 1 mg tablet 6. Medication management Z79.899 COMP METABOLIC PANEL CBC HGB A1C LIPID PANEL BASIC TSH BLD T4 FREE/FREE THYROX 7. Encounter for immunization Z23 INFLUENZA VACCINE, PRSV FREE, AGE 65+ YR, HIGH DOSE, QUADRIVALENT (FLUZONE HIGH-DOSE) Truminim COVID-19 VACCINE ( SEASON) AGE 12+ YR 8. Encounter for long-term current use of medication Z79.899 COMP METABOLIC PANEL CBC 9. History of atrial fibrillation Z86.79 Above issues addressed with patient. Patient involved in shared decision making for management of medical issues. History and medications reviewed. Epic updated as needed Refills and/or prescriptions taken care of and meds adjusted as indicated after reviewed history, exam and labs. Health Maintenance reviewed. Updated record and/or ordered tests as recorded. Encouraged on efforts at healthy diet and regular exercise and adequate sleep. Celio Jhaveri MD documented in this encounter [facility] 04-13-2023 Miscellaneous Notes Reason for Call: Pt had an episode of dizziness today followed by slight headache which has resolved, and now calling because her bp is 136/100. Re-checked and 120/84 with a pulse of 64. Outcome: Disposition- See pcp within 2 weeks. Pt already has an appointment with cardiology this Friday. Reason for Disposition [1] Systolic BP >= 130 OR Diastolic >= 80 AND [2] taking BP medications Answer Assessment - Initial Assessment Questions 1. BLOOD PRESSURE: 136/100 about 20 minutes ago. Rechecked bp during triage and she was down to 120/84 and pulse of 64. After an episode of dizziness this morning she contacted her on-call cardiology group. States he recommended she rest and f/u with her already scheduled appointment this Friday. After talking with him she checked her bp and found it was elevated. 2. ONSET: before calling NOC and during triage. 3. HOW: automatic cuff per upper arm. 4. HISTORY: Yes. 5. MEDICINES: Metoprolol. 6. OTHER SYMPTOMS: Had an episode of dizziness at [employer]. Was standing and talking after running around. Friends noticed and she sat down and felt better. Had a slight headache but gone now. Denies any palpitations. States there was a doctor at the [employer] who checked her pulse and thought it was a bit fast and irregular. 7. : na. Protocols used: Blood Pressure - [id number] documented in this encounter [facility] 04-03-2023 Miscellaneous Notes Okayed MATTHEW 01/09/23 Next OV 04/22/23 Verified with pharmacy there are no refills remaining Patient is out of medication and this was not sent to pharmacy but only medication updated. Patient has been identified by name and date of : Yes Requested Prescriptions Pending Prescriptions Disp Refills escitalopram oxalate (LEXAPRO) 10 mg tablet 90 tablet 3 Sig: Take 1 tablet by mouth once daily. As directed RX INSTRUCTIONS: Patient aware RX will be sent to pharmacy. No need to notify patient. Bozena Odom Pss documented in this encounter [facility] 03-05-2023 Note HNO ID: [id number] Author: Checo Marquez APRN.NETWORK COMMUNICATIONS ENGINEER Service: ? Author Type: Nurse Practitioner Type: Progress Notes Filed: 03/05/2023 2:21 PM Note Text: Subjective HPI Nontoxic-appearing female presents to urgent care chief complaint left-sided neck discomfort. Woke up this morning felt a swollen gland. Is having some ear pain as well. States she did have a sore throat in the last week beginning of this week. Has used Tylenol this is helped quite a bit. Denies any otorrhea or ear trauma. No decreased range of motion of neck trismus difficulty swallowing difficulty in secretions decreased range of motion neck. Denies any fever body aches chills productive cough chest pain shortness of breath pleuritic pain hemoptysis nausea vomiting abdominal pain change in bowel or bladder habits. Past medical history prescription medication use and allergies reviewed. 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 of 2004 DILATION AND CURETTAGE DXAND/THER NONOBSTETRIC Dilation AND curettagewith hysteroscopy HEART CATHETERIZATION 01/25/2011 Dr. 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 PAST SURGICAL HISTORY OF 07/2007 breast implants removed and replaced with new ones PAST SURGICAL HISTORY OF 01/2009 release of trigger finger , right thumb PAST SURGICAL HISTORY OF 06/2008 TRANSFLAP RECONSTRUCTION OF LEFT BREAST PAST SURGICAL HISTORY OF 03/09/2009 left saffes vein ablasted and removed varicose vein left leg, dr corea PAST SURGICAL HISTORY OF Left 10/06/2017 TKR at [facility] STEREO LOC FOR CORE BRST BX LT 04/23/2010 UNSPECIFIED ORAL SURGERY PROCEDURE, BY REPORT 03/15/2014 ALLERGIES Patient has no known allergies. MEDICATIONS Magnesium Oxide 500 mg tab Take by mouth. triamcinolone acetonide (KENALOG) 0.1 % cream Apply 1 application to affected area three times daily as needed (rash). Apply sparingly to area for rash/itching. Up to 2 weeks per area with flare up of rash; may treat recurrences as needed. escitalopram oxalate (LEXAPRO) 10 mg tablet Take 1 tablet by mouth once daily. As directed DULoxetine (CYMBALTA) 20 mg capsule Take 1 capsule by mouth once daily. for pain semaglutide, weight loss, (WEGOVY) 0.25 mg/0.5 mL pen injector Inject 0.5 mL subcutaneously one time a week. levothyroxine (SYNTHROID) 100 mcg tablet take 1 tablet by mouth once daily LORazepam (ATIVAN) 1 mg tablet Take 0.5-1 tablets by mouth once daily as needed for anxiety for up to 180 days. For neck pain or spasms and anxiety. hydrocortisone-acetic acid (ACETASOL HC) otic solution Use 4 Drops in the ears as needed. gabapentin (NEURONTIN) 300 mg capsule Take 1-2 capsules by mouth daily at bedtime for 180 days. budesonide (RHINOCORT AQ) 32 mcg/actuation nasal spray Use 2 Sprays in each nostril once daily. Rinse mouth after use. busPIRone (BUSPAR) 10 mg tablet Take 1 tablet by mouth twice daily. As directed acetaminophen (TYLENOL) 500 mg tablet Take 500 mg by mouth every 8 hours as needed. cetirizine (ZYRTEC) 10 mg tablet Take 1 tablet by mouth once daily. apixaban (ELIQUIS) 5 mg tab(s) Take by mouth twice daily. metoprolol tartrate, short acting, (LOPRESSOR) 25 mg tablet Take 25 mg by mouth twice daily. ketoconazole (NIZORAL) 2 % cream Apply 1 application to affected area once daily as needed. As directed CPAP Auto-PAP with humidity - change setting to 8-15 cmH2O. (Patient not taking: Reported on 03/12/2022) FAMILY HISTORY Problem Relation Age of Onset Heart Mother Hypertension Mother CHF Genitourinary () Father renal failure other (hodgkins disease) Father Breast Cancer Paternal Aunt Cancer Brother renal cancer Social History Tobacco Use Smoking status: Former Smokeless toba (more content not included)... [facility] 01-09-2023 Note HNO ID: [id number] Author: Erendira Hernandez APRN.WOOD MACHINE CARVER Service: ? Author Type: Nurse Specialist Type: Progress Notes Filed: 01/09/2023 4:46 PM Note Text: SUBJECTIVE: COVID-19 VACCINE(5 - Pfizer series) due on 2022 RONALDO Ridley is a 82 year old female. PMH significant for ACTIVE PROBLEM LIST Other Specified Disorder of Breast Personal History of Malignant Neoplasm of Breast Hypothyroidism Hyperlipidemia Backache, Unspecified Abnormal Mammogram, Unspecified Depression Anxiety Iliac artery aneurysm (HCC) Chronic Allergic Rhinitis Add (Attention Deficit Disorder) Osteopenia Occult Blood in Stools Nonintractable Episodic Headache Obstructive Sleep Apnea Chronic Insomnia Rls (Restless Legs Syndrome) Presents today regarding shortness of breath and leg weakness. Reports sob at at any time, but mostly at bedtime. Both complaints are chronic. SOBOE: walking 50 feet, stable of late. Orthopnea: 2 pillow, started ~ 2 years ago PND: no CP: no Treating MYRNA: using CPAP She notes right groin pain. She was advised by [facility] that she had arthritis in her right hip. Has not yet pursued treatment for this. She has undergone bilateral total knee replacements with . She has chronic back pain and sees a development specialist for this. Notes left lateral shoulder pain and restricted motion of the left shoulder, chronic. Fall: no Mobility: walking with cane Back pain / radiculopathy: Knee pain 2002, MRI completed. Surgery: bilateral total knee. L TKA 3 years ago, R TKR 1 year ago. Ortho: [facility] Previously took meloxicam but not currently taking due to taking oral anticoagulation. Currently going to PT. Notes leg muscles feel weak, some discomfort. [facility] cardiology. In recent past had recurrence of AF, DCCV was effective. Using CPAP consistently currently. Notes dietary indiscretions and lack of exercise. HTN: Without report of headache, chest pain, palpitations, dyspnea, peripheral edema, orthopnea, fatigue, and PND. . Last 14 Encounter BP Readings: Date: BP: 01/09/2023 122/88 11/19/2022 132/84 09/10/2022 122/88 06/17/2022 128/82 05/30/2022 110/84 03/12/2022 114/72 02/15/2022 100/64 02/11/2022 143/68 02/11/2022 145/69 11/14/2021 142/84 09/18/2021 118/68 08/13/2021 110/78 02/12/2021 130/78 01/30/2021 132/76 Hyperlipidemia. Ms. Ridley reports doing well on current therapy of Her most recent lipid panels are: Cholesterol, Total (mg/dL) Date Value 11/14/2021 235 07/18/2020 Test sent to [facility] 12/02/2018 Test sent to [facility]. Cholesterol (mg/dL) Date Value 07/18/2020 178 12/02/2018 173 HDL Cholesterol (mg/dL) Date Value 11/14/2021 46 07/18/2020 Test sent to [facility]. 07/18/2020 50 12/02/2018 Test sent to [facility]. 12/02/2018 52 LDL Cholesterol (mg/dL) Date Value 11/14/2021 148 07/18/2020 Test sent to [facility]. 07/18/2020 96 12/02/2018 Test sent to [facility]. 12/02/2018 94 Triglyceride (mg/dL) Date Value 11/14/2021 204 07/18/2020 Test sent to [facility]. 07/18/2020 159 12/02/2018 Test sent to [facility]. 12/02/2018 133 Hemoglobin A1C (%) Date Value 08/02/2021 5.5 Anxiety/depression: Mood is is a bit low of late and she self increase Lexapro to 20 mg. No adverse effects noted. Has been effective..Without adverse effects. Not currently seeing counselor. No voiced SI HI Review of Systems Constitutional: Negative. Respiratory: Positive for shortness of breath. Cardiovascular: Negative. Endocrine: Negative. Musculoskeletal: Positive for arthralgias and back pain. Neurological: Positive for weakness. Psychiatric/Behavioral: Positive for dysphoric mood. The patient is not nervous/anxious. Objective BP 122/88 Pulse (!) 58 Resp 16 Wt 101.2 kg (223 lb) SpO2 95% BMI 37.11 kg/m? Physical Exam Vitals and nursing note reviewed. Constitutional: Appearance: Normal appearance. HENT: Head: Normocephalic and atraumatic. Eyes: Conjunctiva/sclera: Conjunctivae normal. Neck: Thyroid: No thyromegaly. Vascular: Normal carotid pulses. No JVD. Cardiovascular: Rate and Rhythm: Normal rate and regular rhythm. Pulses: Carotid pulses are 2+ on the right side and 2+ on the left side. Radial pulses are 2+ on the right side and 2+ on the left side. Heart sounds: Normal heart sounds. Pulmonary: Effort: Pulmonary effort is normal. Breath sounds: Normal breath sounds. Abdominal: General: Bowel sounds are normal. Palpations: Abdomen is soft. Musculoskeletal: Left shoulder: Tenderness present. Decreased range of motion. Lumbar back: Tenderness present. Decreased range of motion. Right hip: Tenderness present. Left hip: Decreased range of motion. Right lower leg: No (more content not included)... [facility] 01-09-2023 Instructions Erendira Hernandez APRN.CNS - 01/09/2023 12:22 PM EDT Keep Lexapro 10 mg. Start taking duloxetine to see if this helps with aches and pains. Increase gabapentin from 1 to 2 tablets at bedtime to see if this helps with pain. Consider addition of Celebrex if okay with your ed tech. See your orthopedic provider for the right hip pain Continue with physical therapy. For weight loss try cutting back on calorie intake. Try increasing activity during the day, walk for a short period of time and rest then repeat as able. I will send a prescription for Wegovy for weight loss, this is an injection once weekly. This may not be covered by your insurance. If not then would recommend checking with your insurance to see if liraglutide or other weight loss medication is covered. documented in this encounter [facility] 01-09-2023 History of Presen t illness Narrative SUBJECTIVE: COVID-19 VACCINE(5 - Pfizer series) due on 2022 HPI Patty Ridley is a 82 year old female. PMH significant for ACTIVE PROBLEM LIST Other Specified Disorder of Breast Personal History of Malignant Neoplasm of Breast Hypothyroidism Hyperlipidemia Backache, Unspecified Abnormal Mammogram, Unspecified Depression Anxiety Iliac artery aneurysm (HCC) Chronic Allergic Rhinitis Add (Attention Deficit Disorder) Osteopenia Occult Blood in Stools Nonintractable Episodic Headache Obstructive Sleep Apnea Chronic Insomnia Rls (Restless Legs Syndrome) Presents today regarding shortness of breath and leg weakness. Reports sob at at any time, but mostly at bedtime. Both complaints are chronic. SOBOE: walking 50 feet, stable of late. Orthopnea: 2 pillow, started ~ 2 years ago PND: no CP: no Treating MYRNA: using CPAP She notes right groin pain. She was advised by [facility] that she had arthritis in her right hip. Has not yet pursued treatment for this. She has undergone bilateral total knee replacements with . She has chronic back pain and sees a development specialist for this. Notes left lateral shoulder pain and restricted motion of the left shoulder, chronic. Fall: no Mobility: walking with cane Back pain / radiculopathy: Knee pain 2002, MRI completed. Surgery: bilateral total knee. L TKA 3 years ago, R TKR 1 year ago. Ortho: [facility] Previously took meloxicam but not currently taking due to taking oral anticoagulation. Currently going to PT. Notes leg muscles feel weak, some discomfort. [facility] cardiology. In recent past had recurrence of AF, DCCV was effective. Using CPAP consistently currently. Notes dietary indiscretions and lack of exercise. HTN: Without report of headache, chest pain, palpitations, dyspnea, peripheral edema, orthopnea, fatigue, and PND. . Last 14 Encounter BP Readings: Date: BP: 01/09/2023 122/88 11/19/2022 132/84 09/10/2022 122/88 06/17/2022 128/82 05/30/2022 110/84 03/12/2022 114/72 02/15/2022 100/64 02/11/2022 143/68 02/11/2022 145/69 11/14/2021 142/84 09/18/2021 118/68 08/13/2021 110/78 02/12/2021 130/78 01/30/2021 132/76 Hyperlipidemia. Ms. Ridley reports doing well on current therapy of Her most recent lipid panels are: Cholesterol, Total (mg/dL) Date Value 11/14/2021 235 07/18/2020 Test sent to [facility]. 12/02/2018 Test sent to [facility]. Cholesterol (mg/dL) Date Value 07/18/2020 178 12/02/2018 173 HDL Cholesterol (mg/dL) Date Value 11/14/2021 46 07/18/2020 Test sent to [facility]. 07/18/2020 50 12/02/2018 Test sent to [facility]. 12/02/2018 52 LDL Cholesterol (mg/dL) Date Value 11/14/2021 148 07/18/2020 Test sent to [facility]. 07/18/2020 96 12/02/2018 Test sent to [facility]. 12/02/2018 94 Triglyceride (mg/dL) Date Value 11/14/2021 204 07/18/2020 Test sent to [facility]. 07/18/2020 159 12/02/2018 Test sent to [facility]. 12/02/2018 133 Hemoglobin A1C (%) Date Value 08/02/2021 5.5 Anxiety/depression: Mood is is a bit low of late and she self increase Lexapro to 20 mg. No adverse effects noted. Has been effective..Without adverse effects. Not currently seeing counselor. No voiced SI HI Review of Systems Constitutional: Negative. Respiratory: Positive for shortness of breath. Cardiovascular: Negative. Endocrine: Negative. Musculoskeletal: Positive for arthralgias and back pain. Neurological: Positive for weakness. Psychiatric/Behavioral: Positive for dysphoric mood. The patient is not nervous/anxious. Objective BP 122/88 Pulse (!) 58 Resp 16 Wt 101.2 kg (223 lb) SpO2 95% BMI 37.11 kg/m Physical Exam Vitals and nursing note reviewed. Constitutional: Appearance: Normal appearance. HENT: Head: Normocephalic and atraumatic. Eyes: Conjunctiva/sclera: Conjunctivae normal. Neck: Thyroid: No thyromegaly. Vascular: Normal carotid pulses. No JVD. Cardiovascular: Rate and Rhythm: Normal rate and regular rhythm. Pulses: Carotid pulses are 2+ on the right side and 2+ on the left side. Radial pulses are 2+ on the right side and 2+ on the left side. Heart sounds: Normal heart sounds. Pulmonary: Effort: Pulmonary effort is normal. Breath sounds: Normal breath sounds. Abdominal: General: Bowel sounds are normal. Palpations: Abdomen is soft. Musculoskeletal: Left shoulder: Tenderness present. Decreased range of motion. Lumbar back: Tenderness present. Decreased range of motion. Right hip: Tenderness present. Left hip: Decreased range of motion. Right lower leg: No edema. Left lower leg: No edema. Skin: General: Skin is warm and dry. Neurological: General: No focal deficit present. Mental Status: She is alert and oriented to person, place, and time. ALLERGIES No Known Allergies Medications escitalopram oxalate (LEXAPRO) 10 mg tablet Take 1 tablet by mouth once daily. As directed levothyroxine (SYNTHROID) 100 mcg tablet take 1 tablet by mouth once daily triamcinolone acetonide (KENALOG) 0.1 % cream Apply 1 application to affected area three times daily as needed (rash). Apply sparingly to area for rash/itching. Up to 2 weeks per area with flare up of rash; may treat recurrences as needed. LORazepam (ATIVAN) 1 mg tablet Take 0.5-1 tablets by mouth once daily as needed for anxiety for up to 180 days. For neck pain or spasms and anxiety. hydrocortisone-acetic acid (ACETASOL HC) otic solution Use 4 Drops in the ears as needed. gabapentin (NEURONTIN) 300 mg capsule Take 1-2 capsules by mouth daily at bedtime for 180 days. budesonide (RHINOCORT AQ) 32 mcg/actuation nasal spray Use 2 Sprays in each nostril once daily. Rinse mouth after use. busPIRone (BUSPAR) 10 mg tablet Take 1 tablet by mouth twice daily. As directed acetaminophen (TYLENOL) 500 mg tablet Take 500 mg by mouth every 8 hours as needed. cetirizine (ZYRTEC) 10 mg tablet Take 1 tablet by mouth once daily. apixaban (ELIQUIS) 5 mg tab(s) Take by mouth twice daily. metoprolol tartrate, short acting, (LOPRESSOR) 25 mg tablet Take 25 mg by mouth twice daily. ketoconazole (NIZORAL) 2 % cream Apply 1 application to affected area once daily as needed. As directed DULoxetine (CYMBALTA) 20 mg capsule Take 1 capsule by mouth once daily. for pain semaglutide, weight loss, (WEGOVY) 0.25 mg/0.5 mL pen injector Inject 0.5 mL subcutaneously one time a week. CPAP Auto-PAP with humidity - change setting to 8-15 cmH2O. (Patient not taking: Reported on 03/12/2022) PAST MEDICAL HISTORY Diagnosis Date Adjustment disorder with depressed mood anxiety Arthritis in hands Bowel habit changes Chronic lymphocytic thyroiditis Diarrhea Diverticulosis of colon (without mention of hemorrhage) Diverticulosis Heart aneurysm 01/2011 monitoring it Heart burn Nonintractable episodic headache 11/25/2017 ice pick headache Osteoarthrosis, unspecified whether generalized or localized, other specified sites Personal history of malignant neoplasm of breast 2003 lumpectomy with radiation Shingles outbreak 10/2011 mild case Unspecified constipation Constipation Unspecified hemorrhoids without mention of complication Hemorrhoids Social History Tobacco Use Smoking status: Former Smokeless tobacco: Never Tobacco comments: quit about 24 yrs ago; passive smoker prior to quitting Vaping Use Vaping Use: Never used Substance Use Topics Alcohol use: Yes Comment: occasionally Drug use: No Creatinine Date Value Ref Range Status 11/14/2021 0.78 0.58 - 0.96 mg/dL Final 01/22/2021 0.80 0.58 - 0.96 mg/dL Final 07/18/2020 Test sent to [facility]. 0.58 - 0.96 mg/dL Final Comment: Account Credited HIDE 07/18/2020 0.85 0.6 - 1.3 MG/DL Final ASSESSMENT/PLAN: 1. Class 2 obesity due to excess calories with body mass index (BMI) of 37.0 to 37.9 in adult, unspecified whether serious comorbidity present - ICD9: 278.00, V85.37, ICD10: E66.09, Z68.37 (primary diagnosis) Interested in [employer]. Understands this may not be covered by her insurance. Endorse decrease caloric intake and routine exercise such as walking as able. Continue with physical therapy and increase her endurance by walking and resting periodically throughout the day. Interested in bariatric medicine, not surgery - [facility] - HGB A1C 2. Anxiety - ICD9: 300.00, ICD10: F41.9 3. Depression, unspecified depression type - ICD9: 311, ICD10: F32.A - ESCITALOPRAM 10 MG TABLET - return to this dose - COMP METABOLIC PANEL - CBC + DIFF 4. Acquired hypothyroidism - ICD9: 244.9, ICD10: E03.9 - TSH BLD - COMP METABOLIC PANEL - T4 FREE/FREE THYROX 5. Mixed hyperlipidemia - ICD9: 272.2, ICD10: E78.2 - HGB A1C - COMP METABOLIC PANEL - LIPID PANEL BASIC 6. Bilateral leg pain M79.604 Recommend continue with PT and trial duloxetine. Defers Celebrex or similar due to OAC. No bleeding difficulties. Erendira Hernandez APRN.CNS Medical Decision Making: Problems: Moderate: 2+ stable chronic illnesses and 1+ chronic illnesses with change Risk: Moderate: Drug management Medical Decision Making Level: 4 - Moderate documented in this encounter [facility] 11-20-2022 Miscellaneous Notes Left message of test results on secure voicemail. Chuyita Kirby MA Please call and let patient know her COVID test was negative. documented in this encounter [facility] 11-19-2022 Note HNO ID: [id number] Author: Diana Jackson PA-C Service: ? Author Type: Physician Medical Records Specialist Type: Progress Notes Filed: 11/19/2022 5:48 PM Note Text: This note was created using DeepFlex. Subjective Patty Ridley is a 82 year old female. HPI Patient presents with a chief complaint of sinus pressure and pain over the past week. Pressure and pain is worsened on the left side of her face. She is also had a cough. No chest pain or shortness of breath. No vomiting. She has had some diarrhea. No home COVID test done. She has had fevers off and on. Temp today was 99 at home. Denies sick contacts. Review of Systems Constitutional: Negative. HENT: Positive for congestion, rhinorrhea, sinus pressure and sinus pain. Negative for sore throat. Respiratory: Positive for cough. Negative for shortness of breath. Cardiovascular: Negative. Gastrointestinal: Negative. Genitourinary: Negative. Musculoskeletal: Negative. All other systems reviewed and are negative. PAST MEDICAL HISTORY Diagnosis Date Adjustment disorder with depressed mood anxiety Arthritis in hands Bowel habit changes Chronic lymphocytic thyroiditis Diarrhea Diverticulosis of colon (without mention of hemorrhage) Diverticulosis Heart aneurysm 01/2011 monitoring it Heart burn Nonintractable episodic headache 11/25/2017 ice pick headache Osteoarthrosis, unspecified whether generalized or localized, other specified sites Personal history of malignant neoplasm of breast 2003 lumpectomy with radiation Shingles outbreak 10/2011 mild case Unspecified constipation Constipation Unspecified hemorrhoids without mention of complication Hemorrhoids Current Outpatient Medications Medication Sig Dispense Refill levothyroxine (SYNTHROID) 100 mcg tablet take 1 tablet by mouth once daily 90 tablet 1 triamcinolone acetonide (KENALOG) 0.1 % cream Apply 1 application to affected area three times daily as needed (rash). Apply sparingly to area for rash/itching. Up to 2 weeks per area with flare up of rash; may treat recurrences as needed. 15 g 0 LORazepam (ATIVAN) 1 mg tablet Take 0.5-1 tablets by mouth once daily as needed for anxiety for up to 180 days. For neck pain or spasms and anxiety. 30 tablet 1 hydrocortisone-acetic acid (ACETASOL HC) otic solution Use 4 Drops in the ears as needed. 10 mL 2 gabapentin (NEURONTIN) 300 mg capsule Take 1-2 capsules by mouth daily at bedtime for 180 days. 180 capsule 1 budesonide (RHINOCORT AQ) 32 mcg/actuation nasal spray Use 2 Sprays in each nostril once daily. Rinse mouth after use. 8.43 mL 11 busPIRone (BUSPAR) 10 mg tablet Take 1 tablet by mouth twice daily. As directed 180 tablet 3 escitalopram oxalate (LEXAPRO) 10 mg tablet Take 1 tablet by mouth once daily. As directed 90 tablet 3 acetaminophen (TYLENOL) 500 mg tablet Take 500 mg by mouth every 8 hours as needed. cetirizine (ZYRTEC) 10 mg tablet Take 1 tablet by mouth once daily. apixaban (ELIQUIS) 5 mg tab(s) Take by mouth twice daily. metoprolol tartrate, short acting, (LOPRESSOR) 25 mg tablet Take 25 mg by mouth twice daily. ketoconazole (NIZORAL) 2 % cream Apply 1 application to affected area once daily as needed. As directed 30 g 0 amoxicillin-clavulanic acid (AUGMENTIN) 875-125 mg per tablet Take 1 tablet by mouth twice daily for 7 days. 14 tablet 0 CPAP Auto-PAP with humidity - change setting to 8-15 cmH2O. (Patient not taking: No sig reported) 1 Device 99 No current facility-administered medications for this visit. PAST SURGICAL HISTORY Procedure Laterality Date APPENDECTOMY COLONOSCOPY SCREENING 02/11/2022 COLONOSCOPY, GI january or 2004 DILATION AND CURETTAGE DXAND/THER NONOBSTETRIC Dilation AND curettagewith hysteroscopy HEART CATHETERIZATION 01/25/2011 Dr. 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 PAST SURGICAL HISTORY OF 07/2007 breast implants removed and replaced with new ones PAST SURGICAL HISTORY OF 01/2009 release of trigger finger , right thumb PAST SURGICAL HISTORY OF 06/2008 TRANSFLAP RECONSTRUCTION OF LEFT BREAST PAST SURGICAL HISTORY OF 03/09/2009 left saffes vein ablasted and removed varicose vein left leg, dr corea PAST SURGICAL HISTORY OF Left 10/06/2017 TKR at [facility] STEREO LOC FOR CORE BRST BX LT 04/23/2010 UNSPECIFIED ORAL SURGERY PROCEDURE, BY REPORT 03/15/2014 FAMILY HISTORY Problem Relation Age of Onset Heart Mother Hypertension Mother CHF Genitourinary () Father renal failure other (hodgkins disease) Father Breast Cancer Paternal Aunt Cancer Brother renal can (more content not included)... [facility] 10-23-2022 Miscellaneous Notes Okayed Patient has been identified by name and date of : Yes Patient phones for refill(s): Requested Prescriptions Pending Prescriptions Disp Refills levothyroxine (SYNTHROID) 100 mcg tablet [Pharmacy Med Name: LEVOTHYROXINE 100 MCG TABLET] 90 tablet 1 Sig: take 1 tablet by mouth once daily Date of last office visit in primary care: 09/10/2022 6 month follow-up: 04/22/2023 Last 2 Encounter Wt Readings: Date: Wt: 09/10/2022 99.8 kg (220 lb) 06/17/2022 101.2 kg (223 lb) Previous labs/tests for medication: Thyroid: TSH Date Value 09/10/2022 1.370 mIU/L 08/02/2021 4.410 uU/mL Please advise. Thank you. Nhi Martin LPN documented in this encounter [facility] 09-16-2022 Miscellaneous Notes Left below results on identified vm. Nhi Martin LPN ----- Message from Celio Jhaveri MD sent at 09/15/2022 6:58 PM EDT ----- TSH now within normal limits Free T4 still within normal limits Stay on same dose thyroid medication documented in this encounter [facility] 09-11-2022 Miscellaneous Notes The following approved medication requests have been transmitted electronically. Requested Prescriptions Signed Prescriptions Disp Refills triamcinolone acetonide (KENALOG) 0.1 % cream 15 g 0 Sig: Apply 1 application to affected area three times daily as needed (rash). Apply sparingly to area for rash/itching. Up to 2 weeks per area with flare up of rash; may treat recurrences as needed. Authorizing Provider: CELIO JHAVERI MD documented in this encounter [facility] 09-10-2022 Note HNO ID: [id number] Author: Erendira Hernandez APRN.[employer] Service: ? Author Type: Nurse Specialist Type: Progress Notes Filed: 09/10/2022 4:28 PM Note Text: SUBJECTIVE: ADVANCE DIRECTIVE DISCUSSION due on 06/23/2022 RONALDO Ridley is a 82 year old female. PMH significant for ACTIVE PROBLEM LIST Other Specified Disorder of Breast Personal History of Malignant Neoplasm of Breast Hypothyroidism Hyperlipidemia Backache, Unspecified Abnormal Mammogram, Unspecified Depression Anxiety Iliac artery aneurysm (HCC) Chronic Allergic Rhinitis Add (Attention Deficit Disorder) Osteopenia Occult Blood in Stools Nonintractable Episodic Headache Obstructive Sleep Apnea Chronic Insomnia Rls (Restless Legs Syndrome) [facility] cardiology Had recurrence of AF, DCCV was effective. Using CPAP consistently currently. At last visit dose of levothyroxine was decreased. [facility] labs: TSH 1.84 with last check Hypothyroidism. She is doing well on her current dose of Synthroid. TSH Date Value 11/14/2021 4.660 mIU/L 08/02/2021 4.410 uU/mL 07/18/2020 Test sent to [facility]. uU/mL 07/18/2020 1.62 IU/ml ) HTN: Without report of headache, chest pain, palpitations, dyspnea, peripheral edema, orthopnea, fatigue, and PND. . Last 3 Encounter BP Readings: Date: BP: 06/17/2022 128/82 05/30/2022 110/84 03/12/2022 114/72 Hyperlipidemia. Ms. Ridley reports doing well on current therapy of Her most recent lipid panels are: Cholesterol, Total (mg/dL) Date Value 11/14/2021 235 07/18/2020 Test sent to [facility]. 12/02/2018 Test sent to [facility]. Cholesterol (mg/dL) Date Value 07/18/2020 178 12/02/2018 173 HDL Cholesterol (mg/dL) Date Value 11/14/2021 46 07/18/2020 Test sent to [facility]. 07/18/2020 50 12/02/2018 Test sent to [facility]. 12/02/2018 52 LDL Cholesterol (mg/dL) Date Value 11/14/2021 148 07/18/2020 Test sent to [facility]. 07/18/2020 96 12/02/2018 Test sent to [facility]. 12/02/2018 94 Triglyceride (mg/dL) Date Value 11/14/2021 204 07/18/2020 Test sent to [facility]. 07/18/2020 159 12/02/2018 Test sent to [facility]. 12/02/2018 133 Anxiety/depression: Mood is stable. Current medications are effective without adverse effects. Not currently seeing counselor. No voiced SI HI Neck muscle spasm: No current complaints She notes lower extremities seem weaker of late, she has not been very active and feels deconditioned especially her lower extremities. She would like to go to physical therapy. She notes vaginal itching and irritation/sensitivity with wiping etc. Does have some difficulties with urinary incontinence. Review of Systems Constitutional: Negative. Respiratory: Negative. Cardiovascular: Negative. Endocrine: Negative. Neurological: Positive for weakness. Psychiatric/Behavioral: Negative for dysphoric mood. The patient is not nervous/anxious. Objective BP 122/88 Pulse 76 Resp 16 Wt 99.8 kg (220 lb) BMI 36.61 kg/m? Physical Exam Vitals and nursing note reviewed. Constitutional: Appearance: Normal appearance. HENT: Head: Normocephalic and atraumatic. Eyes: Conjunctiva/sclera: Conjunctivae normal. Neck: Thyroid: No thyromegaly. Vascular: Normal carotid pulses. No JVD. Cardiovascular: Rate and Rhythm: Normal rate and regular rhythm. Pulses: Carotid pulses are 2+ on the right side and 2+ on the left side. Radial pulses are 2+ on the right side and 2+ on the left side. Heart sounds: Normal heart sounds. Pulmonary: Effort: Pulmonary effort is normal. Breath sounds: Normal breath sounds. Abdominal: General: Bowel sounds are normal. Palpations: Abdomen is soft. Musculoskeletal: Right lower leg: No edema. Left lower leg: No edema. Skin: General: Skin is warm and dry. Neurological: General: No focal deficit present. Mental Status: She is alert and oriented to person, place, and time. ALLERGIES No Known Allergies Medications budesonide (RHINOCORT AQ) 32 mcg/actuation nasal spray Use 2 Sprays in each nostril once daily. Rinse mouth after use. levothyroxine (SYNTHROID) 100 mcg tablet Take 1 tablet by mouth once daily. busPIRone (BUSPAR) 10 mg tablet Take 1 tablet by mouth twice daily. As directed escitalopram oxalate (LEXAPRO) 10 mg tablet Take 1 tablet by mouth once daily. As directed acetaminophen (TYLENOL) 500 mg tablet Take 500 mg by mouth every 8 hours as needed. cetirizine (ZYRTEC) 10 mg tablet Take 1 tablet by mouth once daily. apixaban (ELIQUIS) 5 mg tab(s) Take by mouth twice daily. metoprolol tartrate, short acting, (LOPRESSOR) 25 mg tablet Take 25 mg by mouth twice daily. ketoconazole (NIZORAL) 2 % cream Apply 1 application to affected area once daily as needed. As directed triamcinolone acetonide (more content not included)... [facility] 09-10-2022 History of Presen t illness Narrative SUBJECTIVE: ADVANCE DIRECTIVE DISCUSSION due on 06/23/2022 HPI Patty Ridley is a 82 year old female. PMH significant for ACTIVE PROBLEM LIST Other Specified Disorder of Breast Personal History of Malignant Neoplasm of Breast Hypothyroidism Hyperlipidemia Backache, Unspecified Abnormal Mammogram, Unspecified Depression Anxiety Iliac artery aneurysm (HCC) Chronic Allergic Rhinitis Add (Attention Deficit Disorder) Osteopenia Occult Blood in Stools Nonintractable Episodic Headache Obstructive Sleep Apnea Chronic Insomnia Rls (Restless Legs Syndrome) [facility] cardiology Had recurrence of AF, DCCV was effective. Using CPAP consistently currently. At last visit dose of levothyroxine was decreased. [facility] labs: TSH 1.84 with last check Hypothyroidism. She is doing well on her current dose of Synthroid. TSH Date Value 11/14/2021 4.660 mIU/L 08/02/2021 4.410 uU/mL 07/18/2020 Test sent to [facility]. uU/mL 07/18/2020 1.62 IU/ml ) HTN: Without report of headache, chest pain, palpitations, dyspnea, peripheral edema, orthopnea, fatigue, and PND. . Last 3 Encounter BP Readings: Date: BP: 06/17/2022 128/82 05/30/2022 110/84 03/12/2022 114/72 Hyperlipidemia. Ms. Ridley reports doing well on current therapy of Her most recent lipid panels are: Cholesterol, Total (mg/dL) Date Value 11/14/2021 235 07/18/2020 Test sent to [facility]. 12/02/2018 Test sent to [facility]. Cholesterol (mg/dL) Date Value 07/18/2020 178 12/02/2018 173 HDL Cholesterol (mg/dL) Date Value 11/14/2021 46 07/18/2020 Test sent to [facility]. 07/18/2020 50 12/02/2018 Test sent to [facility]. 12/02/2018 52 LDL Cholesterol (mg/dL) Date Value 11/14/2021 148 07/18/2020 Test sent to [facility]. 07/18/2020 96 12/02/2018 Test sent to [facility]. 12/02/2018 94 Triglyceride (mg/dL) Date Value 11/14/2021 204 07/18/2020 Test sent to [facility]. 07/18/2020 159 12/02/2018 Test sent to [facility]. 12/02/2018 133 Anxiety/depression: Mood is stable. Current medications are effective without adverse effects. Not currently seeing counselor. No voiced SI HI Neck muscle spasm: No current complaints She notes lower extremities seem weaker of late, she has not been very active and feels deconditioned especially her lower extremities. She would like to go to physical therapy. She notes vaginal itching and irritation/sensitivity with wiping etc. Does have some difficulties with urinary incontinence. Review of Systems Constitutional: Negative. Respiratory: Negative. Cardiovascular: Negative. Endocrine: Negative. Neurological: Positive for weakness. Psychiatric/Behavioral: Negative for dysphoric mood. The patient is not nervous/anxious. Objective BP 122/88 Pulse 76 Resp 16 Wt 99.8 kg (220 lb) BMI 36.61 kg/m Physical Exam Vitals and nursing note reviewed. Constitutional: Appearance: Normal appearance. HENT: Head: Normocephalic and atraumatic. Eyes: Conjunctiva/sclera: Conjunctivae normal. Neck: Thyroid: No thyromegaly. Vascular: Normal carotid pulses. No JVD. Cardiovascular: Rate and Rhythm: Normal rate and regular rhythm. Pulses: Carotid pulses are 2+ on the right side and 2+ on the left side. Radial pulses are 2+ on the right side and 2+ on the left side. Heart sounds: Normal heart sounds. Pulmonary: Effort: Pulmonary effort is normal. Breath sounds: Normal breath sounds. Abdominal: General: Bowel sounds are normal. Palpations: Abdomen is soft. Musculoskeletal: Right lower leg: No edema. Left lower leg: No edema. Skin: General: Skin is warm and dry. Neurological: General: No focal deficit present. Mental Status: She is alert and oriented to person, place, and time. ALLERGIES No Known Allergies Medications budesonide (RHINOCORT AQ) 32 mcg/actuation nasal spray Use 2 Sprays in each nostril once daily. Rinse mouth after use. levothyroxine (SYNTHROID) 100 mcg tablet Take 1 tablet by mouth once daily. busPIRone (BUSPAR) 10 mg tablet Take 1 tablet by mouth twice daily. As directed escitalopram oxalate (LEXAPRO) 10 mg tablet Take 1 tablet by mouth once daily. As directed acetaminophen (TYLENOL) 500 mg tablet Take 500 mg by mouth every 8 hours as needed. cetirizine (ZYRTEC) 10 mg tablet Take 1 tablet by mouth once daily. apixaban (ELIQUIS) 5 mg tab(s) Take by mouth twice daily. metoprolol tartrate, short acting, (LOPRESSOR) 25 mg tablet Take 25 mg by mouth twice daily. ketoconazole (NIZORAL) 2 % cream Apply 1 application to affected area once daily as needed. As directed triamcinolone acetonide (KENALOG) 0.1 % cream Apply 1 application to affected area as needed. Apply sparingly to area for rash/itching. LORazepam (ATIVAN) 1 mg tablet Take 0.5-1 tablets by mouth once daily as needed for anxiety for up to 180 days. For neck pain or spasms and anxiety. hydrocortisone-acetic acid (ACETASOL HC) otic solution Use 4 Drops in the ears as needed. fluconazole (DIFLUCAN) 150 mg tablet Take 1 tablet by mouth once daily for 1 day. nystatin-triamcinolone (MYCOLOG) ointment Apply 1 application to affected area twice daily for 14 days. Apply sparingly to perineum twice daily for irritation/infection. gabapentin (NEURONTIN) 300 mg capsule Take 1-2 capsules by mouth daily at bedtime for 180 days. CPAP Auto-PAP with humidity - change setting to 8-15 cmH2O. (Patient not taking: No sig reported) PAST MEDICAL HISTORY Diagnosis Date Adjustment disorder with depressed mood anxiety Arthritis in hands Bowel habit changes Chronic lymphocytic thyroiditis Diarrhea Diverticulosis of colon (without mention of hemorrhage) Diverticulosis Heart aneurysm 01/2011 monitoring it Heart burn Nonintractable episodic headache 11/25/2017 ice pick headache Osteoarthrosis, unspecified whether generalized or localized, other specified sites Personal history of malignant neoplasm of breast 2003 lumpectomy with radiation Shingles outbreak 10/2011 mild case Unspecified constipation Constipation Unspecified hemorrhoids without mention of complication Hemorrhoids Social History Tobacco Use Smoking status: Former Smokeless tobacco: Never Tobacco comments: quit about 24 yrs ago; passive smoker prior to quitting Vaping Use Vaping Use: Never used Substance Use Topics Alcohol use: Yes Comment: occasionally Drug use: No Creatinine Date Value Ref Range Status 11/14/2021 0.78 0.58 - 0.96 mg/dL Final 01/22/2021 0.80 0.58 - 0.96 mg/dL Final 07/18/2020 Test sent to [facility]. 0.58 - 0.96 mg/dL Final Comment: Account Credited NATALIEE 07/18/2020 0.85 0.6 - 1.3 MG/DL Final ASSESSMENT/PLAN: 1. Acquired hypothyroidism - ICD9: 244.9, ICD10: E03.9 (primary diagnosis) Normalizing on dose change. Check labs today. Continue current dose unchanged for now. 2. Rectal itching - ICD9: 698.0, ICD10: L29.0 - TRIAMCINOLONE ACETONIDE 0.1 % TOPICAL CREAM - HYDROCORTISONE-ACETIC ACID 1 %-2 % EAR DROPS 3. Neck muscle spasm - ICD9: 728.85, ICD10: M62.838 no current complaints - LORAZEPAM 1 MG TABLET 4. Anxiety - ICD9: 300.00, ICD10: F41.9 Effective, no adverse effects noted. No current counseling. - LORAZEPAM 1 MG TABLET 5. Weakness of both lower extremities - ICD9: 729.89, ICD10: R29.898 Endorse daily walking, HEP. She would like to go to PT for leg strengthening program - CONSULT TO PHYSICAL THERAPY 6. RLS (restless legs syndrome) - ICD9: 333.94, ICD10: G25.81 Stable, currently controlled, continue to monitor. - GABAPENTIN 300 MG CAPSULE 7. Mixed hyperlipidemia - ICD9: 272.2, ICD10: E78.2 Recommend a plant based diet such as Mediterranean diet with plenty of vegetables, fruits,whole grains, fish, chicken, turkey or plant proteins and routine exercise such as walking - LIPID PANEL, NONFASTING 8. 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 Endorse completing ultrasound at her convenience for recheck. No current complaints other than leg weakness attributed to deconditioning. - US ABD AORTA 9. Vaginal itching N89.8 Notes itching and irritation. Recommend fluconazole and Mycolog cream. She will let us know if not improving. Consider AIRPORT MANAGER or dermatology visit if not improved. Erendira Hernandez APRN.WOOD MACHINE CARVER Medical Decision Making: Problems: Moderate: 2+ stable chronic illnesses Data: Unique test(s) ordered: 1 Risk: Low: Low risk from testing/treatment Medical Decision Making Level: 3 - Low documented in this encounter [facility] 08-19-2022 Miscellaneous Notes MATTHEW: 03/12/2022 Last refill: 08/13/2021 QTY: 8.43 mL Refills: 11 Patient has been identified by name and date of : Yes Requested Prescriptions Pending Prescriptions Disp Refills budesonide (RHINOCORT AQ) 32 mcg/actuation nasal spray 8.43 mL 11 Sig: Use 2 Sprays in each nostril once daily. Rinse mouth after use. RX INSTRUCTIONS: Patient aware RX will be sent to pharmacy. No need to notify patient. Irena Petersen documented in this encounter [facility] 07-05-2022 Miscellaneous Notes Patient aware of results and Provider recommended follow up. Mirela Muller LPN Please let her know TSH is normal, T3 is just a little low, continue on current thyroid medication dose and keep up coming follow up with Erendira, can do labs again in about 2 months around time of appointment. Pt completed labs at [facility]. View External Lab - TSH,free T3 [ID [id number]] documented in this encounter [facility] 06-18-2022 Miscellaneous Notes Patient identified by name and date of . Reviewed chest xray result with patient. She is advised to follow up with her ed tech regarding mild cardiac silhouette enlargement. She verbalized understanding. Kesha Tian APRN.CNP documented in this encounter [facility] 06-18-2022 Note HNO ID: [id number] Author: RT Dada(R) Service: ? Author Type: Integration Project Manager Type: Progress Notes Filed: 06/18/2022 1:28 PM Note Text: Radiology Service Progress Note PATIENT NAME: Patty Ridley DATE OF SERVICE: June 18, 2022 TIME: 1:14 PM PATIENT IDENTITY VERIFICATION COMPLETED USING TWO (2) IDENTIFIERS: Name and Date of confirmed by patient verbally. FALL SCREENING: Has the patient had 2 falls in the last year or 1 fall with injury or currently using an Ambulatory Assistive Device (Walker, Cane, Wheelchair, Crutches, etc.)? No PATIENT GENDER DATA: Female. status: : No status: NO. PATIENT RELEVANT IMPLANT DATA REVIEWED: Yes RADIOLOGY DEPARTMENT: General X-ray: Exam(s) Completed: Chest X-Ray PERIPHERAL IV DATA: Not applicable SIGNED BY: RT Dada(R) June 18, 2022 1:14 PM [facility] 06-17-2022 Note HNO ID: [id number] Author: Kesha Tian APRN.CNP Service: ? Author Type: Nurse Practitioner Type: Progress Notes Filed: 06/17/2022 2:18 PM Note Text: Subjective Cough Associated symptoms include chills, headaches, myalgias and shortness of breath. Pertinent negatives include no wheezing. Patty Ridley is a 81 year old female who presents with productive cough, shortness of breath, headache, body aches, stuffy and runny nose for the past 6 days. She has been taking, tylenol, ibuprofen, and tessalon perles at home. She denies fever. She wears CPAP at night. She has been tired and sleeping more than normal. She took 2 COVID tests at home which were negative. She has not had any known sick contacts. Review of Systems Constitutional: Positive for chills and malaise/fatigue. Negative for fever. Respiratory: Positive for cough, sputum production and shortness of breath. Negative for wheezing. Cardiovascular: Negative. Gastrointestinal: Negative for diarrhea, nausea and vomiting. Musculoskeletal: Positive for myalgias. Neurological: Positive for headaches. BP 128/82 Pulse 92 Temp 36.9 ?C (98.4 ?F) Resp 20 Wt 101.2 kg (223 lb) SpO2 93% BMI 37.11 kg/m? BP 128/82 Pulse 92 Temp 36.9 ?C (98.4 ?F) Resp 20 Wt 101.2 kg (223 lb) SpO2 94% BMI 37.11 kg/m? PAST MEDICAL HISTORY Diagnosis Date Adjustment disorder with depressed mood anxiety Arthritis in hands Bowel habit changes Chronic lymphocytic thyroiditis Diarrhea Diverticulosis of colon (without mention of hemorrhage) Diverticulosis Heart aneurysm 01/2011 monitoring it Heart burn Nonintractable episodic headache 11/25/2017 ice pick headache Osteoarthrosis, unspecified whether generalized or localized, other specified sites Personal history of malignant neoplasm of breast 2003 lumpectomy with radiation Shingles outbreak 10/2011 mild case Unspecified constipation Constipation Unspecified hemorrhoids without mention of complication Hemorrhoids PAST SURGICAL HISTORY Procedure Laterality Date APPENDECTOMY COLONOSCOPY SCREENING 02/11/2022 COLONOSCOPY, GI january or feb. of 2004 DILATION AND CURETTAGE DXAND/THER NONOBSTETRIC Dilation AND curettagewith hysteroscopy HEART CATHETERIZATION 01/25/2011 Dr. 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 PAST SURGICAL HISTORY OF 07/2007 breast implants removed and replaced with new ones PAST SURGICAL HISTORY OF 01/2009 release of trigger finger , right thumb PAST SURGICAL HISTORY OF 06/2008 TRANSFLAP RECONSTRUCTION OF LEFT BREAST PAST SURGICAL HISTORY OF 03/09/2009 left saffes vein ablasted and removed varicose vein left leg, dr corea PAST SURGICAL HISTORY OF Left 10/06/2017 TKR at [facility] STEREO LOC FOR CORE BRST BX LT 04/23/2010 UNSPECIFIED ORAL SURGERY PROCEDURE, BY REPORT 03/15/2014 ALLERGIES Patient has no known allergies. MEDICATIONS amoxicillin-clavulanic acid (AUGMENTIN) 875-125 mg per tablet Take 1 tablet by mouth twice daily for 5 days. benzonatate (TESSALON PERLE) 100 mg capsule Take 2 capsules by mouth three times daily as needed for up to 10 days. levothyroxine (SYNTHROID) 100 mcg tablet Take 1 tablet by mouth once daily. LORazepam (ATIVAN) 1 mg tablet Take 0.5-1 tablets by mouth once daily as needed for anxiety for up to 180 days. For neck pain or spasms and anxiety. busPIRone (BUSPAR) 10 mg tablet Take 1 tablet by mouth twice daily. As directed escitalopram oxalate (LEXAPRO) 10 mg tablet Take 1 tablet by mouth once daily. As directed gabapentin (NEURONTIN) 300 mg capsule Take 1-2 capsules by mouth daily at bedtime for 180 days. budesonide (RHINOCORT AQ) 32 mcg/actuation nasal spray Use 2 Sprays in each nostril once daily. Rinse mouth after use. hydrocortisone-acetic acid (ACETASOL HC) otic solution Use 4 Drops in the ears as needed. acetaminophen (TYLENOL) 500 mg tablet Take 500 mg by mouth every 8 hours as needed. CPAP Auto-PAP with humidity - change setting to 8-15 cmH2O. (Patient not taking: Reported on 03/12/2022) cetirizine (ZYRTEC) 10 mg tablet Take 1 tablet by mouth once daily. apixaban (ELIQUIS) 5 mg tab(s) Take by mouth twice daily. metoprolol tartrate, short acting, (LOPRESSOR) 25 mg tablet Take 25 mg by mouth twice daily. triamcinolone acetonide (KENALOG) 0.1 % cream Apply 1 application to affected area three times daily. Apply sparingly to area for rash/itching. (Patient taking differently: Apply 1 application to affected area as needed. Apply sparingly to area for rash/itching.) ketoconazole (NIZORAL) 2 % cream Ap (more content not included)... [facility] 06-17-2022 History of Presen t illness Narrative Subjective Cough Associated symptoms include chills, headaches, myalgias and shortness of breath. Pertinent negatives include no wheezing. Patty Ridley is a 81 year old female who presents with productive cough, shortness of breath, headache, body aches, stuffy and runny nose for the past 6 days. She has been taking, tylenol, ibuprofen, and tessalon perles at home. She denies fever. She wears CPAP at night. She has been tired and sleeping more than normal. She took 2 COVID tests at home which were negative. She has not had any known sick contacts. Review of Systems Constitutional: Positive for chills and malaise/fatigue. Negative for fever. Respiratory: Positive for cough, sputum production and shortness of breath. Negative for wheezing. Cardiovascular: Negative. Gastrointestinal: Negative for diarrhea, nausea and vomiting. Musculoskeletal: Positive for myalgias. Neurological: Positive for headaches. BP 128/82 Pulse 92 Temp 36.9 C (98.4 F) Resp 20 Wt 101.2 kg (223 lb) SpO2 93% BMI 37.11 kg/m BP 128/82 Pulse 92 Temp 36.9 C (98.4 F) Resp 20 Wt 101.2 kg (223 lb) SpO2 94% BMI 37.11 kg/m PAST MEDICAL HISTORY Diagnosis Date Adjustment disorder with depressed mood anxiety Arthritis in hands Bowel habit changes Chronic lymphocytic thyroiditis Diarrhea Diverticulosis of colon (without mention of hemorrhage) Diverticulosis Heart aneurysm 01/2011 monitoring it Heart burn Nonintractable episodic headache 11/25/2017 ice pick headache Osteoarthrosis, unspecified whether generalized or localized, other specified sites Personal history of malignant neoplasm of breast 2002 lumpectomy with radiation Shingles outbreak 10/2011 mild case Unspecified constipation Constipation Unspecified hemorrhoids without mention of complication Hemorrhoids PAST SURGICAL HISTORY Procedure Laterality Date APPENDECTOMY COLONOSCOPY SCREENING 02/11/2022 COLONOSCOPY, GI january or feb. of 2004 DILATION & CURETTAGE DX&/THER NONOBSTETRIC Dilation & curettagewith hysteroscopy HEART CATHETERIZATION 01/25/2011 Dr. 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 PAST SURGICAL HISTORY OF 07/2007 breast implants removed and replaced with new ones PAST SURGICAL HISTORY OF 01/2009 release of trigger finger , right thumb PAST SURGICAL HISTORY OF 06/2008 TRANSFLAP RECONSTRUCTION OF LEFT BREAST PAST SURGICAL HISTORY OF 03/09/2009 left saffes vein ablasted and removed varicose vein left leg, dr corea PAST SURGICAL HISTORY OF Left 10/06/2017 TKR at [facility] STEREO LOC FOR CORE BRST BX LT 04/23/2010 UNSPECIFIED ORAL SURGERY PROCEDURE, BY REPORT 03/15/2014 ALLERGIES Patient has no known allergies. MEDICATIONS amoxicillin-clavulanic acid (AUGMENTIN) 875-125 mg per tablet Take 1 tablet by mouth twice daily for 5 days. benzonatate (TESSALON PERLE) 100 mg capsule Take 2 capsules by mouth three times daily as needed for up to 10 days. levothyroxine (SYNTHROID) 100 mcg tablet Take 1 tablet by mouth once daily. LORazepam (ATIVAN) 1 mg tablet Take 0.5-1 tablets by mouth once daily as needed for anxiety for up to 180 days. For neck pain or spasms and anxiety. busPIRone (BUSPAR) 10 mg tablet Take 1 tablet by mouth twice daily. As directed escitalopram oxalate (LEXAPRO) 10 mg tablet Take 1 tablet by mouth once daily. As directed gabapentin (NEURONTIN) 300 mg capsule Take 1-2 capsules by mouth daily at bedtime for 180 days. budesonide (RHINOCORT AQ) 32 mcg/actuation nasal spray Use 2 Sprays in each nostril once daily. Rinse mouth after use. hydrocortisone-acetic acid (ACETASOL HC) otic solution Use 4 Drops in the ears as needed. acetaminophen (TYLENOL) 500 mg tablet Take 500 mg by mouth every 8 hours as needed. CPAP Auto-PAP with humidity - change setting to 8-15 cmH2O. (Patient not taking: Reported on 03/12/2022) cetirizine (ZYRTEC) 10 mg tablet Take 1 tablet by mouth once daily. apixaban (ELIQUIS) 5 mg tab(s) Take by mouth twice daily. metoprolol tartrate, short acting, (LOPRESSOR) 25 mg tablet Take 25 mg by mouth twice daily. triamcinolone acetonide (KENALOG) 0.1 % cream Apply 1 application to affected area three times daily. Apply sparingly to area for rash/itching. (Patient taking differently: Apply 1 application to affected area as needed. Apply sparingly to area for rash/itching.) ketoconazole (NIZORAL) 2 % cream Apply 1 application to affected area once daily as needed. As directed FAMILY HISTORY Problem Relation Age of Onset Heart Mother Hypertension Mother CHF Genitourinary () Father renal failure other (hodgkins disease) Father Breast Cancer Paternal Aunt Cancer Brother renal cancer Social History Tobacco Use Smoking status: Former Smokeless tobacco: Never Tobacco comments: quit about 24 yrs ago; passive smoker prior to quitting Vaping Use Vaping Use: Never used Substance Use Topics Alcohol use: Yes Comment: occasionally Drug use: No Objective Physical Exam Vitals and nursing note reviewed. Constitutional: General: She is not in acute distress. Appearance: Normal appearance. She is not toxic-appearing. HENT: Right Ear: Tympanic membrane, ear canal and external ear normal. Left Ear: Tympanic membrane, ear canal and external ear normal. Nose: Mucosal edema, congestion and rhinorrhea present. Mouth/Throat: Pharynx: Uvula midline. No oropharyngeal exudate or posterior oropharyngeal erythema. Cardiovascular: Rate and Rhythm: Normal rate and regular rhythm. Heart sounds: Normal heart sounds. Pulmonary: Effort: Pulmonary effort is normal. No respiratory distress. Breath sounds: Normal breath sounds. No wheezing or rales. Musculoskeletal: Cervical back: Neck supple. Lymphadenopathy: Cervical: No cervical adenopathy. Skin: General: Skin is warm and dry. Findings: No erythema or rash. Neurological: Mental Status: She is alert. ASSESSMENT/PLAN: 1. Bacterial sinusitis - ICD9: 473.9, 041.9, ICD10: J32.9, B96.89 (primary diagnosis) - Will begin treatment with as per antibiotic as written, see orders - Supportive care with plenty of fluids, rest, and analgesia prn. - AMOXICILLIN 875 MG-POTASSIUM CLAVULANATE 125 MG TABLET - BENZONATATE 100 MG CAPSULE 2. Acute cough - ICD9: 786.2, ICD10: R05.1 - XR CHEST 2V FRONTAL/LAT- patient instructed to return tomorrow for chest xray. - Follow-up with your PCP in 3-5 days if symptoms have not improved or sooner if symptoms worsen - Discussed red flags and need for immediate medical evaluation if any occur. - Discussed supportive care treatment with fluids, rest and analgesia. - Discussed expected course of illness Kesha Tian APRN.CNP documented in this encounter [facility] 06-17-2022 Instructions Kesha Tian APRN.CNP - 06/17/2022 2:11 PM EST ASSESSMENT/PLAN: 1. Bacterial sinusitis - ICD9: 473.9, 041.9, ICD10: J32.9, B96.89 (primary diagnosis) - Will begin treatment with as per antibiotic as written, see orders - Supportive care with plenty of fluids, rest, and analgesia prn. - AMOXICILLIN 875 MG-POTASSIUM CLAVULANATE 125 MG TABLET - BENZONATATE 100 MG CAPSULE 2. Acute cough - ICD9: 786.2, ICD10: R05.1 - XR CHEST 2V FRONTAL/LAT- patient instructed to return tomorrow for chest xray. - Follow-up with your PCP in 3-5 days if symptoms have not improved or sooner if symptoms worsen - Discussed red flags and need for immediate medical evaluation if any occur. - Discussed supportive care treatment with fluids, rest and analgesia. - Discussed expected course of illness Kesha Tian APRN.CNP documented in this encounter [facility] 05-30-2022 History of Presen t illness Narrative Subjective Cough Associated symptoms include headaches, myalgias, shortness of breath and wheezing. Pertinent negatives include no chest pain, no chills and no sore throat. Patty Ridley is a 81 year old female who presents with a week of productive cough, chest congestion, body aches, headache, wheezing, sinus congestion and pain. She took a home COVID test after 3 days of symptoms and it was negative. She has not had fever. She feels short of breath at times throughout the day. States she can hear whistling when she breathes. Review of Systems Constitutional: Negative for chills and fever. HENT: Positive for congestion and sinus pain. Negative for sore throat. Respiratory: Positive for cough, sputum production, shortness of breath and wheezing. Cardiovascular: Negative for chest pain. Musculoskeletal: Positive for myalgias. Neurological: Positive for headaches. BP 110/84 Pulse 81 Temp 36.4 C (97.5 F) Resp 20 Wt 100.2 kg (220 lb 12.8 oz) SpO2 97% BMI 36.74 kg/m PAST MEDICAL HISTORY Diagnosis Date Adjustment disorder with depressed mood anxiety Arthritis in hands Bowel habit changes Chronic lymphocytic thyroiditis Diarrhea Diverticulosis of colon (without mention of hemorrhage) Diverticulosis Heart aneurysm 01/2011 monitoring it Heart burn Nonintractable episodic headache 11/25/2017 ice pick headache Osteoarthrosis, unspecified whether generalized or localized, other specified sites Personal history of malignant neoplasm of breast 2002 lumpectomy with radiation Shingles outbreak 10/2011 mild case Unspecified constipation Constipation Unspecified hemorrhoids without mention of complication Hemorrhoids PAST SURGICAL HISTORY Procedure Laterality Date APPENDECTOMY COLONOSCOPY SCREENING 02/11/2022 COLONOSCOPY, GI january or feb. of 2004 DILATION & CURETTAGE DX&/THER NONOBSTETRIC Dilation & curettagewith hysteroscopy HEART CATHETERIZATION 01/25/2011 Dr. 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 PAST SURGICAL HISTORY OF 07/2007 breast implants removed and replaced with new ones PAST SURGICAL HISTORY OF 01/2009 release of trigger finger , right thumb PAST SURGICAL HISTORY OF 06/2008 TRANSFLAP RECONSTRUCTION OF LEFT BREAST PAST SURGICAL HISTORY OF 03/09/2009 left saffes vein ablasted and removed varicose vein left leg, dr corea PAST SURGICAL HISTORY OF Left 10/06/2017 TKR at [facility] STEREO LOC FOR CORE BRST BX LT 04/23/2010 UNSPECIFIED ORAL SURGERY PROCEDURE, BY REPORT 03/15/2014 ALLERGIES Patient has no known allergies. MEDICATIONS benzonatate (TESSALON PERLE) 100 mg capsule Take 2 capsules by mouth three times daily as needed for up to 10 days. amoxicillin-clavulanic acid (AUGMENTIN) 875-125 mg per tablet Take 1 tablet by mouth twice daily for 7 days. predniSONE (DELTASONE) 10 mg tablet Take 4 tabs daily for 3 days, then 2 tabs daily for 3 days, then 1 tab daily for 3 days with food. levothyroxine (SYNTHROID) 100 mcg tablet Take 1 tablet by mouth once daily. LORazepam (ATIVAN) 1 mg tablet Take 0.5-1 tablets by mouth once daily as needed for anxiety for up to 180 days. For neck pain or spasms and anxiety. busPIRone (BUSPAR) 10 mg tablet Take 1 tablet by mouth twice daily. As directed escitalopram oxalate (LEXAPRO) 10 mg tablet Take 1 tablet by mouth once daily. As directed gabapentin (NEURONTIN) 300 mg capsule Take 1-2 capsules by mouth daily at bedtime for 180 days. budesonide (RHINOCORT AQ) 32 mcg/actuation nasal spray Use 2 Sprays in each nostril once daily. Rinse mouth after use. hydrocortisone-acetic acid (ACETASOL HC) otic solution Use 4 Drops in the ears as needed. acetaminophen (TYLENOL) 500 mg tablet Take 500 mg by mouth every 8 hours as needed. CPAP Auto-PAP with humidity - change setting to 8-15 cmH2O. (Patient not taking: Reported on 03/12/2022) cetirizine (ZYRTEC) 10 mg tablet Take 1 tablet by mouth once daily. apixaban (ELIQUIS) 5 mg tab(s) Take by mouth twice daily. metoprolol tartrate, short acting, (LOPRESSOR) 25 mg tablet Take 25 mg by mouth twice daily. triamcinolone acetonide (KENALOG) 0.1 % cream Apply 1 application to affected area three times daily. Apply sparingly to area for rash/itching. (Patient taking differently: Apply 1 application to affected area as needed. Apply sparingly to area for rash/itching.) ketoconazole (NIZORAL) 2 % cream Apply 1 application to affected area once daily as needed. As directed FAMILY HISTORY Problem Relation Age of Onset Heart Mother Hypertension Mother CHF Genitourinary () Father renal failure other (hodgkins disease) Father Breast Cancer Paternal Aunt Cancer Brother renal cancer Social History Tobacco Use Smoking status: Former Smokeless tobacco: Never Tobacco comments: quit about 24 yrs ago; passive smoker prior to quitting Vaping Use Vaping Use: Never used Substance Use Topics Alcohol use: Yes Comment: occasionally Drug use: No Objective Physical Exam Vitals and nursing note reviewed. Constitutional: Appearance: Normal appearance. HENT: Right Ear: Tympanic membrane, ear canal and external ear normal. Left Ear: Tympanic membrane, ear canal and external ear normal. Nose: Nasal tenderness, mucosal edema, congestion and rhinorrhea present. Mouth/Throat: Mouth: Mucous membranes are moist. Pharynx: Oropharynx is clear. Uvula midline. No oropharyngeal exudate or posterior oropharyngeal erythema. Cardiovascular: Rate and Rhythm: Normal rate and regular rhythm. Heart sounds: Normal heart sounds. Pulmonary: Effort: Pulmonary effort is normal. No respiratory distress. Breath sounds: Examination of the right-upper field reveals wheezing. Examination of the left-upper field reveals wheezing. Examination of the right-lower field reveals wheezing. Examination of the left-lower field reveals wheezing. Wheezing present. No rales. Musculoskeletal: Cervical back: Neck supple. Lymphadenopathy: Cervical: No cervical adenopathy. Skin: General: Skin is warm and dry. Findings: No erythema or rash. Neurological: Mental Status: She is alert. ASSESSMENT/PLAN: 1. Sinobronchitis - ICD9: 473.9, 490, ICD10: J32.9, J40 - Will begin treatment with as per antibiotic as written, see orders - Supportive care with plenty of fluids, rest, and analgesia prn. - BENZONATATE 100 MG CAPSULE - AMOXICILLIN 875 MG-POTASSIUM CLAVULANATE 125 MG TABLET - PREDNISONE 10 MG TABLET - Follow-up with your PCP in 3-5 days if symptoms have not improved or sooner if symptoms worsen - Discussed red flags and need for immediate medical evaluation if any occur. - Discussed supportive care treatment with fluids, rest and analgesia. - Discussed expected course of illness Kesha Tian APRN.FREDERICK documented in this encounter [facility] 05-30-2022 Instructions Kesha Tian APRN.CNP - 05/30/2022 3:01 PM EST Images from the original note were not included. ASSESSMENT/PLAN: 1. Sinobronchitis - ICD9: 473.9, 490, ICD10: J32.9, J40 - Will begin treatment with as per antibiotic as written, see orders - Supportive care with plenty of fluids, rest, and analgesia prn. - BENZONATATE 100 MG CAPSULE - AMOXICILLIN 875 MG-POTASSIUM CLAVULANATE 125 MG TABLET - PREDNISONE 10 MG TABLET - Follow-up with your PCP in 3-5 days if symptoms have not improved or sooner if symptoms worsen - Discussed red flags and need for immediate medical evaluation if any occur. - Discussed supportive care treatment with fluids, rest and analgesia. - Discussed expected course of illness Kesha Tian APRN.NETWORK COMMUNICATIONS ENGINEER ACUTE BRONCHITIS: You have acute bronchitis. This means the airway passages in your lungs are inflamed. Bronchitis may be caused by viruses or bacteria. Inhaling cigarette smoke will always make it worse. Exposure to irritating chemicals or second hand smoke as well as allergies can contribute to bronchitis. Repeat episodes of bronchitis may cause lifelong lung problems. Acute bronchitis is usually treated with rest, fluids, cough medicine, and possibly antibiotics or inhaled medicine to open up the small airways. It is very important that you avoid smoke and drink increased amounts of fluids. A cool air vaporizer can help thin bronchial secretions. This makes it easier to cough and clear your chest. If you are a cigarette smoker, consider using nicotine gum or skin patches to help you withdraw. Recovery from bronchitis is often slow, but you should start feeling better after 2-3 days of treatment. Please call your doctor or return here if you have any of the following symptoms: Increased fever, chills, or chest pain. Severe shortness of breath or bloody sputum. Do not improve after 3 days of proper treatment. Adult Sinusitis Patient Education What is Sinusitis? Sinusitis [[id number]] is inflammation of the sinuses or swelling of the lining of the sinus cavity or nose. During an infection the sinuses become blocked with fluid causing swelling of the lining of the sinuses. Symptoms: (viral and bacterial infections) Stuffy nose Runny nose Postnasal drip Fever Toothache Headache Tiredness Cough Sore throat Face and head pressure and or pain Common causes: 98% of sinus infections are viral caused by viruses. Risk Factors of Sinusitis Include: Allergies, air pollution, indoor humidity and outdoor temperature changes, andstructural changes in the nose may contribute to sinus pain, pressure and congestion. When to get help? Temperature greater than 100.4 F Symptoms lasting more than 10 days or worsening symptoms greater than 7-10 days. If you do not improve or worsen after a course of antibiotics, you should be re-examined. Diagnosis and Treatment: Your healthcare provider will ask a number of questions about your symptoms and how long they have occurred. If symptoms of sinusitis persist greater than 10 days, it is possible you have a bacterial sinus infection and an antibiotic is prescribed. If it is viral, antibiotics will not help. You may be instructed to take [id number] medications for symptoms. including fever reducers acetaminophen or ibuprofen, nasal saline spray, cough and cold preparations and decongestants as prescribed by the physician, nurse practitioner or physician surgeon's assistant. Self-Care and Prevention: Rest Fluids for hydration Good hand washing Humidifier Avoid smoking and exposure to second hand smoke Avoid sick contacts documented in this encounter [facility] 05-03-2022 Miscellaneous Notes PATIENT NOTIFIED OF SAME. Labs sent via web. New script sent for synthroid 100 mcg daily and orders for TSH, T3, T4. Please send lab orders to [facility] and let patient know. Thanks! PATIENT NOTIFIED OF SAME. Patient is agreeable to lowering dose of Levothyroxine. Will need order for TSH to be sent to [facility]. Patient is asking for the T3 and T4 be checked also? Last checked was 10/2021. Please return her call and let her know I reviewed her labs, blood counts, electrolytes and cholesterol stable, her TSH is low meaning her thyroid is actually on the overactive side so would recommend decreasing her dose of synthroid and having her repeat labs in about 8 weeks. Is she okay with a decrease in her medication dose? If yes I can send in a lower dose. Let me know, thanks! pt completed 04/17/22 and again 04/23/22. They are both in scanned labs. Please review. Labs completed from [facility]. They have been entered and in scanned labs. Please review. documented in this encounter [facility] 02-23-2022 Miscellaneous Notes Noted that they updated medlist when saw Dr. Albrecht that taking 10mg twice daily. I sent same dose as before since 15 mg pills can be split to take 10 mg twice daily. Can change to 10 mg tablets if/when decides prefers 10 mg tablets. Can discuss at follow up The following approved medication requests have been transmitted electronically. Requested Prescriptions Signed Prescriptions Disp Refills busPIRone (BUSPAR) 15 mg tablet 180 tablet 3 Sig: Take 1 tablet by mouth twice daily. As directed Authorizing Provider: CELIO JHAVERI MD Last seen pcp 08/13/21. Next appt is 03/12/22. Patient has been identified by name and date of : Yes Requested Prescriptions Pending Prescriptions Disp Refills busPIRone (BUSPAR) 15 mg tablet 180 tablet 1 Sig: Take 1 tablet by mouth twice daily as needed. RX INSTRUCTIONS: Patient aware RX will be sent to pharmacy. No need to notify patient. Jazmyne Foley60mo [employer] documented in this encounter [facility] 02-15-2022 Instructions Danielle Saxena PA-C - 02/15/2022 2:24 PM EDT The following instructions are important for you related to your office visit today with the [facility] General Surgeons. INSTRUCTIONS FOLLOWING A POLYP FOUND AT COLONOSCOPY You were found to have a hyperplastic colon polyp. If you note bleeding, change in bowel habits, or other suspicious colon related symptoms before that time, those symptoms should be evaluated as necessary. If you have any difficulties or concerns, you should contact our office immediately. If you note any additional difficulties, questions, or concerns, you should contact our office immediately @ [phone] and ask to be transferred to the General Surgery department. documented in this encounter [facility] 02-15-2022 History of Presen t illness Narrative FOLLOW UP VISIT - ENDOSCOPY NAME: Patty Minaya [place] [facility] NO.: [id number] DATE OF SERVICE: 02/15/2022 : 1940 REFERRING PHYSICIAN: MD Patty Clarke is a patient I am following for screening colonoscopy. Dr. Albrecht performed lower endoscopy on 02/11/22. The patient was found to have a descending colon polyp which was removed. Pathology demonstrated: FINAL DIAGNOSIS A. Ascending colon, biopsy: - Colonic mucosa with no pathologic diagnostic abnormality; negative for dysplasia or malignancy. B. Descending colon, biopsy: - Colonic mucosa with no pathologic diagnostic abnormality; negative for dysplasia or malignancy. C. Descending colon polyp, biopsy: - Colonic mucosa with hyperplastic changes. The patient notes no complaints since the procedure. VITALS: Blood pressure 100/64, pulse 117, temperature (!) 35.6 C (96 F), height 165.1 cm (5' 5 ), weight 102.1 kg (225 lb), SpO2 99 %. General: patient is alert, cooperative, pleasant and in no acute distress On examination, the abdomen is benign. Assessment IMPRESSION: s/p colonoscopy with polypectomy-benign hyperplastic polyp. Unremarkable colon biopsies. diverticulosis PLAN: The operative findings and pathology report were reviewed with the patient, and the patient has had the opportunity to ask questions and have questions answered. If the patient notes any problems or changes in bowel function, the patient should contact me immediately. Recommend daily fiber supplement and plenty of fluids Patient verbalized understanding of all above and agreed with the plan Diagnoses: (K63.5) Hyperplastic polyp of descending colon (primary encounter diagnosis) I spent a total of 24 minutes on the date of the service which included preparing to see the patient, [id number] patient care, completing clinical documentation, obtaining and/or reviewing separately obtained history, counseling and educating the patient/family/caregiver, independently interpreting results (not separately reported), and communicating results to the patient/family/caregiver. Danielle Saxena PA-C documented in this encounter [facility] 02-12-2022 Miscellaneous Notes Called pt and all reviewed. She also reviewed the lab results from October but not this message. She notes she is not taking her thyroid medicine by it's self. She will make a chance on this. Appt as scheduled 03/12/22. My chart message to pt. ----- Message from Celio Jhaveri MD sent at 02/05/2022 11:33 PM EDT ----- TSH still high. Free T3 and Free T4 still within normal limits Cholesterol numbers not as good as before--triglycerides up, LDL up. HDL not as good as in the past (was a high as 82 before and this time down to 46). CMP and CBC within normal limits. If was taking thyroid pill on empty stomach, then that was not enough to get TSH into normal range. Recommend increase dose of thyroid replacement and recheck labs after 6 weeks. If was not taking on empty stomach, could switch to taking on empty stomach versus increase her dose. Cholesterol labs could improve with getting TSH within normal limits. Can discuss at February appointment if prefers over making changes now. documented in this encounter [facility] 02-11-2022 History and physical note UPDATED HISTORY AND PHYSICAL EXAMINATION SERVICE DATE: 02/11/2022 SERVICE TIME: 11:26 AM PHYSICAL EXAM MUST BE COMPLETED ON ADMISSION The History and Physical (completed in the past 30 days) has been reviewed and the patient has been examined. The contents accurately reflect the patient's condition with the following additions or revisions since the H&P was completed. Examination indicates no changes. This H&P can be found in the attached. SIGNATURE: Lauro Albrecht MD PATIENT NAME: Patty Ridley DATE: February 11, 2022 TIME: 11:26 AM Source Note - Lauro Albrecht MD - 02/11/2022 11:30 AM EDT Images from the original note were not included. HISTORY AND PHYSICAL Patty Ridley 1940 REFERRING PHYSICIAN: Celio Jhaveri MD CHIEF COMPLAINT: Consult (colonoscopy) HPI: The patient is a 81 year old female referred for endoscopy. Patty notes no colon complaints. Patient denies any change in bowel habits, weight changes, blood in stools, black tarry stools or abdominal pain. Denies family history of colon issues. The patient notes no upper GI complaints. Patty has undergone prior endoscopy. Most recent colonoscopy 02/14/[address] Guillaume. Colon was noted to be redundant. Small internal hemorrhoids and scattered diverticula were noted. 10 year repeat colonoscopy was recommended. Patient notes wants to be out this time. Patient's past medical history is significant for chronic lymphocytic thyroiditis, heart aneurysm, GERD, history of breast cancer. PAST MEDICAL HISTORY[]Expand by Default PAST MEDICAL HISTORY Diagnosis Date Adjustment disorder with depressed mood anxiety Arthritis in hands Bowel habit changes Chronic lymphocytic thyroiditis Diarrhea Diverticulosis of colon (without mention of hemorrhage) Diverticulosis Heart aneurysm 01/2011 monitoring it Heart burn Nonintractable episodic headache 11/25/2017 ice pick headache Osteoarthrosis, unspecified whether generalized or localized, other specified sites Personal history of malignant neoplasm of breast 2002 lumpectomy with radiation Shingles outbreak 10/2011 mild case Unspecified constipation Constipation Unspecified hemorrhoids without mention of complication Hemorrhoids PAST SURGICAL HISTORY PAST SURGICAL HISTORY Procedure Laterality Date APPENDECTOMY COLONOSCOPY, GI january or feb. of 2004 DILATION & CURETTAGE DX&/THER NONOBSTETRIC Dilation & curettagewith hysteroscopy HEART CATHETERIZATION 01/25/2011 Dr. 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 PAST SURGICAL HISTORY OF 07/2007 breast implants removed and replaced with new ones PAST SURGICAL HISTORY OF Jan 2009 release of trigger finger , right thumb PAST SURGICAL HISTORY OF 06/2008 TRANSFLAP RECONSTRUCTION OF LEFT BREAST PAST SURGICAL HISTORY OF 03/09/2009 left saffes vein ablasted and removed varicose vein left leg, dr corea PAST SURGICAL HISTORY OF Left 10/06/2017 TKR at [facility] STEREO LOC FOR CORE BRST BX LT 11-1-10 UNSPECIFIED ORAL SURGERY PROCEDURE, BY REPORT 03/15/2014 CURRENT MEDICATIONS Current Outpatient Medications Medication Sig escitalopram oxalate (LEXAPRO) 5 mg tablet Take 1.5 tablets by mouth once daily. As directed (Patient taking differently: Take 10 mg by mouth once daily. As directed ) budesonide (RHINOCORT AQ) 32 mcg/actuation nasal spray Use 2 Sprays in each nostril once daily. Rinse mouth after use. levothyroxine (SYNTHROID) 125 mcg tablet Take 1 tablet by mouth once daily. hydrocortisone-acetic acid (ACETASOL HC) otic solution Use 4 Drops in the ears as needed. busPIRone (BUSPAR) 15 mg tablet Take 1 tablet by mouth twice daily as needed. (Patient taking differently: Take 15 mg by mouth twice daily as needed. 10 mg twice daily ) LORazepam (ATIVAN) 1 mg tablet Take 0.5-1 tablets by mouth once daily as needed for anxiety for up to 180 days. For neck pain or spasms and anxiety. gabapentin (NEURONTIN) 300 mg capsule Take 1-2 capsules by mouth daily at bedtime for 180 days. acetaminophen (TYLENOL EXTRA STRENGTH) 500 mg tablet Take 500 mg by mouth every 8 hours as needed. CPAP Auto-PAP with humidity - change setting to 8-15 cmH2O. cetirizine (ZYRTEC) 10 mg tablet Take 1 tablet by mouth once daily. omeprazole (PRILOSEC) 20 mg capsule Take 1 capsule by mouth daily before breakfast. 1/2 hr before meal. apixaban (ELIQUIS) 5 mg tab(s) Take by mouth twice daily. metoprolol tartrate, short acting, (LOPRESSOR) 25 mg tablet Take 25 mg by mouth twice daily. triamcinolone acetonide (KENALOG) 0.1 % cream Apply 1 application to affected area three times daily. Apply sparingly to area for rash/itching. ketoconazole (NIZORAL) 2 % cream Apply 1 application to affected area once daily as needed. As directed estradiol 0.01% estriol 0.01% topical cream (CPD) Use 0.5 grams (2 clicks) vaginally nightly for 2 weeks then twice per week (Patient not taking: Reported on 08/13/2021 ) Magnesium 250 mg tab Take 1 tablet by mouth daily at bedtime. (Patient not taking: Reported on 09/18/2021 ) No current facility-administered medications for this visit. ALLERGIES: Patient has no known allergies. PERSONAL HISTORY: SOCIAL HISTORY Social History Tobacco Use Smoking status: Former Smoker Smokeless tobacco: Never Used Tobacco comment: quit about 24 yrs ago; passive smoker prior to quitting Vaping Use Vaping Use: Never used Substance Use Topics Alcohol use: Yes Comment: occasionally Drug use: No FAMILY HISTORY: FAMILY HISTORY FAMILY HISTORY Problem Relation Age of Onset Heart Mother Hypertension Mother CHF Genitourinary () Father renal failure other (hodgkins disease) Father Breast Cancer Paternal Aunt Cancer Brother renal cancer REVIEW OF SYMPTOMS: The review of systems data was entered by the nurse and reviewed by wi Nursing Notes: Birgit Walden LPN 09/18/2021 9:34 AM Signed REVIEW OF SYSTEMS: General: The patient notes fatigue, denies weight loss, notes weight gain, denies feeling hot, and denies feelings of cold. Eyes: The patient denies glaucoma, denies eye injury/surgery, wears glasses or contacts. Ear/Nose/Throat: The patient notes allergies, denies hayfever, denies ear infections, and denies bloody noses. Cardiovascular: The patient denies chest pain, notes heart disease, denies high blood pressure,denies cardiac stent, denies prior heart attack, notes irregular heart beat, denies high cholesterol, denies poor circulation, denies heart failure, other cardiac issues, notes claudication, denies cold feet, denies peripheral arterial stent. Respiratory: The patient denies tuberculosis, denies pneumonia, notes frequent cough, denies pulmonary embolism, notes shortness of breath, and denies coughing up blood. Gastrointestinal: The patient denies difficulty swallowing, notes acid reflux, denies ulcers, denies vomiting, denies jaundice/hepatitis, denies gallbladder problems, denies black or tarry stools, denies hemorrhoids, denies bleeding from rectum, denies diverticulitis, denies constipation, notes diarrhea, denies loss of stool control, and denies hernias. Kidney/Bladder: The patient denies kidney stones, denies urine infections, and denies bloody urine. Skin: The patient denies a history of skin cancer, denies bleeding/changing moles, and denies a history of skin rash. Neurologic: The patient denies a history of epilepsy/convulsions, notes headaches, denies head/spinal injuries, and denies stroke/TIA. Psychiatric: The patient notes psychiatric medications, notes depression, and denies voices, denies substance abuse. Endocrine: The patient notes thyroid disorders, denies diabetes, and denies hormonal problems. Hematologic: The patient denies a history of bruising, denies bleeding, and denies anemia, denies blood clots. Infections: The patient denies a history of measles and mumps, denies rheumatic fever, and denies sexually transmitted diseases. Musculoskeletal: The patient notes back pain/injury, denies back problems, denies sciatica, notes knee/foot trouble, notes arthritis, or denies gout. When was patient's last Mammogram screening? 2015 Last Colonoscopy: 2009 Birgit Walden LPN No records of any colonoscopy past 2004 seen in [facility] or noted in surgical history or scanned documents, otherwise agree with above. I have confirmed and edited as necessary, the PFSH and ROS obtained by others. Danielle Saxena PA-C PHYSICAL EXAMINATION: General: The patient is 81 year old female, well nourished, well hydrated in no acute distress. The patient is oriented to time, place, and person. VITALS: Blood pressure 118/68, pulse 66, temperature (!) 35.8 C (96.4 F), height 165.1 cm (5' 5 ), weight 103 kg (227 lb), SpO2 99 %. Body mass index is 37.77 kg/m . HEENT: Normal cephalic, ataumatic, pupils are equally round, sclera are anicteric, mucous membranes are moist, oropharynx is clear. Neck has no masses, asymmetry or lymphadenopathy. Respiratory: Clear to auscultation and percussion. Normal respiratory excursion and pattern. Cardiac: Examination is regular rate and rhythm. Normal S1/S2 Abdominal exam: Soft, nontender, with no palpable masses. No hepatosplenomegaly. No palpable hernias. Extremities: no clubbing, cyanosis or edema. No adenopathy. LABORATORY VALUES: As Noted RADIOLOGIC STUDIES: As Noted Assessment IMPRESSION: encounter for colonoscopy PLAN: I have reviewed my findings with the surgeon. Will plan for lower endoscopy. We discussed the risks and benefits of the planned endoscopy. I have informed the patient that complications can occur including failure to complete the endoscopy and perforation. The patient had the opportunity to ask questions concerning the planned endoscopy. My staff has also explained the procedure to the patient in understandable terms and has given the patient printed material concerning the procedure. The patient freely consents to surgery. The patient was offered a surgery/procedure at a [facility] facility. I have counseled the patient regarding the risk of exposure to and/or potential harm posed by the COVID-19 virus with having a surgery/procedure at this time versus the risk of delaying the surgery/procedure. It is not possible to know either the risk of delaying the surgery or procedure or chance of getting an infection with perfect accuracy, but a joint decision was made between the patient and myself to proceed at this time with endoscopy. I plan to use Golytely bowel preparation. OK to substitute miralax prep if Golytely unavailable Request for cardiac clearance sent We will plan for Monitored Anesthetic Care. Patient to remain on her anticoagulation for endoscopy, per Dr. Albrecht Diagnoses: (Z12.11) Colon cancer screening Consultation requested by Dr. Jhaveri for an opinion regarding screening colonoscopy. My final recommendations will be communicated back to the requesting physician by way of shared Medical record or letter to requesting physician via US mail. Danielle Saxena PA-C Images from the original note were not included. HISTORY AND PHYSICAL Patty Ridley 1940 REFERRING PHYSICIAN: Celio Jhaveri MD CHIEF COMPLAINT: Consult (colonoscopy) HPI: The patient is a 81 year old female referred for endoscopy. Patty notes no colon complaints. Patient denies any change in bowel habits, weight changes, blood in stools, black tarry stools or abdominal pain. Denies family history of colon issues. The patient notes no upper GI complaints. Patty has undergone prior endoscopy. Most recent colonoscopy 02/14/[address] Guillaume. Colon was noted to be redundant. Small internal hemorrhoids and scattered diverticula were noted. 10 year repeat colonoscopy was recommended. Patient notes wants to be out this time. Patient's past medical history is significant for chronic lymphocytic thyroiditis, heart aneurysm, GERD, history of breast cancer. PAST MEDICAL HISTORY[]Expand by Default PAST MEDICAL HISTORY Diagnosis Date Adjustment disorder with depressed mood anxiety Arthritis in hands Bowel habit changes Chronic lymphocytic thyroiditis Diarrhea Diverticulosis of colon (without mention of hemorrhage) Diverticulosis Heart aneurysm 01/2011 monitoring it Heart burn Nonintractable episodic headache 11/25/2017 ice pick headache Osteoarthrosis, unspecified whether generalized or localized, other specified sites Personal history of malignant neoplasm of breast 2002 lumpectomy with radiation Shingles outbreak 10/2011 mild case Unspecified constipation Constipation Unspecified hemorrhoids without mention of complication Hemorrhoids PAST SURGICAL HISTORY PAST SURGICAL HISTORY Procedure Laterality Date APPENDECTOMY COLONOSCOPY, GI january or of 2004 DILATION & CURETTAGE DX&/THER NONOBSTETRIC Dilation & curettagewith hysteroscopy HEART CATHETERIZATION 01/25/2011 Dr. 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 PAST SURGICAL HISTORY OF 07/2007 breast implants removed and replaced with new ones PAST SURGICAL HISTORY OF Jan 2009 release of trigger finger , right thumb PAST SURGICAL HISTORY OF 06/2008 TRANSFLAP RECONSTRUCTION OF LEFT BREAST PAST SURGICAL HISTORY OF 03/09/2009 left saffes vein ablasted and removed varicose vein left leg, dr corea PAST SURGICAL HISTORY OF Left 10/06/2017 TKR at [facility] STEREO LOC FOR CORE BRST BX LT 11-1-10 UNSPECIFIED ORAL SURGERY PROCEDURE, BY REPORT 03/15/2014 CURRENT MEDICATIONS Current Outpatient Medications Medication Sig escitalopram oxalate (LEXAPRO) 5 mg tablet Take 1.5 tablets by mouth once daily. As directed (Patient taking differently: Take 10 mg by mouth once daily. As directed ) budesonide (RHINOCORT AQ) 32 mcg/actuation nasal spray Use 2 Sprays in each nostril once daily. Rinse mouth after use. levothyroxine (SYNTHROID) 125 mcg tablet Take 1 tablet by mouth once daily. hydrocortisone-acetic acid (ACETASOL HC) otic solution Use 4 Drops in the ears as needed. busPIRone (BUSPAR) 15 mg tablet Take 1 tablet by mouth twice daily as needed. (Patient taking differently: Take 15 mg by mouth twice daily as needed. 10 mg twice daily ) LORazepam (ATIVAN) 1 mg tablet Take 0.5-1 tablets by mouth once daily as needed for anxiety for up to 180 days. For neck pain or spasms and anxiety. gabapentin (NEURONTIN) 300 mg capsule Take 1-2 capsules by mouth daily at bedtime for 180 days. acetaminophen (TYLENOL EXTRA STRENGTH) 500 mg tablet Take 500 mg by mouth every 8 hours as needed. CPAP Auto-PAP with humidity - change setting to 8-15 cmH2O. cetirizine (ZYRTEC) 10 mg tablet Take 1 tablet by mouth once daily. omeprazole (PRILOSEC) 20 mg capsule Take 1 capsule by mouth daily before breakfast. 1/2 hr before meal. apixaban (ELIQUIS) 5 mg tab(s) Take by mouth twice daily. metoprolol tartrate, short acting, (LOPRESSOR) 25 mg tablet Take 25 mg by mouth twice daily. triamcinolone acetonide (KENALOG) 0.1 % cream Apply 1 application to affected area three times daily. Apply sparingly to area for rash/itching. ketoconazole (NIZORAL) 2 % cream Apply 1 application to affected area once daily as needed. As directed estradiol 0.01% estriol 0.01% topical cream (CPD) Use 0.5 grams (2 clicks) vaginally nightly for 2 weeks then twice per week (Patient not taking: Reported on 08/13/2021 ) Magnesium 250 mg tab Take 1 tablet by mouth daily at bedtime. (Patient not taking: Reported on 09/18/2021 ) No current facility-administered medications for this visit. ALLERGIES: Patient has no known allergies. PERSONAL HISTORY: SOCIAL HISTORY Social History Tobacco Use Smoking status: Former Smoker Smokeless tobacco: Never Used Tobacco comment: quit about 24 yrs ago; passive smoker prior to quitting Vaping Use Vaping Use: Never used Substance Use Topics Alcohol use: Yes Comment: occasionally Drug use: No FAMILY HISTORY: FAMILY HISTORY FAMILY HISTORY Problem Relation Age of Onset Heart Mother Hypertension Mother CHF Genitourinary () Father renal failure other (hodgkins disease) Father Breast Cancer Paternal Aunt Cancer Brother renal cancer REVIEW OF SYMPTOMS: The review of systems data was entered by the nurse and reviewed by wi Nursing Notes: Birgit Walden LPN 09/18/2021 9:34 AM Signed REVIEW OF SYSTEMS: General: The patient notes fatigue, denies weight loss, notes weight gain, denies feeling hot, and denies feelings of cold. Eyes: The patient denies glaucoma, denies eye injury/surgery, wears glasses or contacts. Ear/Nose/Throat: The patient notes allergies, denies hayfever, denies ear infections, and denies bloody noses. Cardiovascular: The patient denies chest pain, notes heart disease, denies high blood pressure,denies cardiac stent, denies prior heart attack, notes irregular heart beat, denies high cholesterol, denies poor circulation, denies heart failure, other cardiac issues, notes claudication, denies cold feet, denies peripheral arterial stent. Respiratory: The patient denies tuberculosis, denies pneumonia, notes frequent cough, denies pulmonary embolism, notes shortness of breath, and denies coughing up blood. Gastrointestinal: The patient denies difficulty swallowing, notes acid reflux, denies ulcers, denies vomiting, denies jaundice/hepatitis, denies gallbladder problems, denies black or tarry stools, denies hemorrhoids, denies bleeding from rectum, denies diverticulitis, denies constipation, notes diarrhea, denies loss of stool control, and denies hernias. Kidney/Bladder: The patient denies kidney stones, denies urine infections, and denies bloody urine. Skin: The patient denies a history of skin cancer, denies bleeding/changing moles, and denies a history of skin rash. Neurologic: The patient denies a history of epilepsy/convulsions, notes headaches, denies head/spinal injuries, and denies stroke/TIA. Psychiatric: The patient notes psychiatric medications, notes depression, and denies voices, denies substance abuse. Endocrine: The patient notes thyroid disorders, denies diabetes, and denies hormonal problems. Hematologic: The patient denies a history of bruising, denies bleeding, and denies anemia, denies blood clots. Infections: The patient denies a history of measles and mumps, denies rheumatic fever, and denies sexually transmitted diseases. Musculoskeletal: The patient notes back pain/injury, denies back problems, denies sciatica, notes knee/foot trouble, notes arthritis, or denies gout. When was patient's last Mammogram screening? 2014 Last Colonoscopy: 2009 Birgit Walden LPN No records of any colonoscopy past 2004 seen in [facility] or noted in surgical history or scanned documents, otherwise agree with above. I have confirmed and edited as necessary, the PFSH and ROS obtained by others. Danielle Saxena PA-C PHYSICAL EXAMINATION: General: The patient is 81 year old female, well nourished, well hydrated in no acute distress. The patient is oriented to time, place, and person. VITALS: Blood pressure 118/68, pulse 66, temperature (!) 35.8 C (96.4 F), height 165.1 cm (5' 5 ), weight 103 kg (227 lb), SpO2 99 %. Body mass index is 37.77 kg/m . HEENT: Normal cephalic, ataumatic, pupils are equally round, sclera are anicteric, mucous membranes are moist, oropharynx is clear. Neck has no masses, asymmetry or lymphadenopathy. Respiratory: Clear to auscultation and percussion. Normal respiratory excursion and pattern. Cardiac: Examination is regular rate and rhythm. Normal S1/S2 Abdominal exam: Soft, nontender, with no palpable masses. No hepatosplenomegaly. No palpable hernias. Extremities: no clubbing, cyanosis or edema. No adenopathy. LABORATORY VALUES: As Noted RADIOLOGIC STUDIES: As Noted Assessment IMPRESSION: encounter for colonoscopy PLAN: I have reviewed my findings with the surgeon. Will plan for lower endoscopy. We discussed the risks and benefits of the planned endoscopy. I have informed the patient that complications can occur including failure to complete the endoscopy and perforation. The patient had the opportunity to ask questions concerning the planned endoscopy. My staff has also explained the procedure to the patient in understandable terms and has given the patient printed material concerning the procedure. The patient freely consents to surgery. The patient was offered a surgery/procedure at a [facility] facility. I have counseled the patient regarding the risk of exposure to and/or potential harm posed by the COVID-19 virus with having a surgery/procedure at this time versus the risk of delaying the surgery/procedure. It is not possible to know either the risk of delaying the surgery or procedure or chance of getting an infection with perfect accuracy, but a joint decision was made between the patient and myself to proceed at this time with endoscopy. I plan to use Golytely bowel preparation. OK to substitute miralax prep if Golytely unavailable Request for cardiac clearance sent We will plan for Monitored Anesthetic Care. Patient to remain on her anticoagulation for endoscopy, per Dr. Albrecht Diagnoses: (Z12.11) Colon cancer screening Consultation requested by Dr. Jhaveri for an opinion regarding screening colonoscopy. My final recommendations will be communicated back to the requesting physician by way of shared Medical record or letter to requesting physician via US mail. Danielle Saxena PA-C documented in this encounter [facility] 12-12-2021 Miscellaneous Notes The following approved medication requests have been transmitted electronically. Signed Prescriptions Disp Refills gabapentin (NEURONTIN) 300 mg capsule 180 capsule 1 Sig: Take 1-2 capsules by mouth daily at bedtime for 180 days. AMY: No Authorizing Provider: CELIO JHAVERI MD Patient has been identified by name and date of : Yes Pending Prescriptions Disp Refills GABAPENTIN 300 MG CAPSULE 180 capsule 1 Sig: Take 1-2 capsules by mouth daily at bedtime for 180 days. AMY: No MATTHEW-08/13/21 Labs-11/14/21 NOV-03/12/22 med filled 01/30/21 ends 11/14/21 RX INSTRUCTIONS: Patient aware RX will be sent to pharmacy. No need to notify patient. Bozena Odom Pss documented in this encounter [facility] 11-14-2021 Instructions Sierra Santiago APRN.NETWORK COMMUNICATIONS ENGINEER - 11/14/2021 9:21 AM EDT Diagnosis: Assessment COUGH: Your doctor wants you to have this information about coughing. The body has a cough reflex which helps expel mucous secretions and irritants from the lung and airway passages. Cough spasms are periods of continuous coughing lasting several minutes. Most coughs is caused by virus infections which may last for up to 2-3 weeks. Coughing helps to protect the lung from pneumonia. A persistent cough lasting longer than 4-6 weeks requires medical evaluation by your primary care doctor. Treatment of cough includes measures to loosen the cough and thin the mucous. Warm liquids, cough drops, and nonprescription cough medicine may help reduce dry hacking cough. Use a humidifier if necessary as dry air can make coughs worse. Ultrasonic humidifiers are especially useful as they kill molds and many bacteria. Some cough medicines have antihistamines, decongestants, or alcohol in them; there is no proof that any of these help control cough. Prescription cough medicine or those with dextromethorphan (DM) should be reserved for dry coughs that prevent sleep or cause spasms or chest pain. Avoid any exposure to cigarette smoke as this will worsen the cough or make it last much longer. Call your doctor right away if you or your child have increased breathing difficulty, a high fever, a cough that lasts longer than 3 weeks, or other serious complaints. documented in this encounter [facility] 11-14-2021 History of Presen t illness Narrative CC: Patient presents with: Chest Congestion: cough, headache, post nasal drip x 2 days HPI: Patty Ridley is a 81 year old female who presents to the office with complaint of head congestion and cough, nonproductive for a few days. Symptoms are worsening Associated symptoms includes cough. Denies nausea, vomiting and diarrhea. Treatments tried include nothing so far. with no relief of symptoms. Sick contacts: unknown. History of asthma, frequent episodes of bronchitis, chronic bronchitis, bronchiectasis or COPD: No Smoker: No Seasonal/environmental allergies: No The ROS is otherwise negative. The patient's pmh, medications, allergies, and past visits are reviewed. PHYSICAL EXAM: BP 142/84 Pulse 68 Temp 36.6 C (97.8 F) Resp 16 Wt 103.9 kg (229 lb) SpO2 96% BMI 38.11 kg/m General appearance: alert, cooperative, pleasant, in no acute distress Head: Normocephalic Eyes: EOM's intact, conjunctiva pink and moist, no icterus, sclera white, non-injected Ears: Right ear: External ear/canal- Normal, TM - clear with good landmarks. Left ear: External ear/canal- Normal, TM - clear with good landmarks Oropharynx:moist without lesions, No erythema, exudates or tonsillar hypertrophy. Heart: Negative. RRR without obvious murmur, gallop, or rubs. No ectopy. 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 of 2004 DILATION & CURETTAGE DX&/THER NONOBSTETRIC Dilation & curettagewith hysteroscopy HEART CATHETERIZATION 01/25/2011 Dr. 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 PAST SURGICAL HISTORY OF 07/2007 breast implants removed and replaced with new ones PAST SURGICAL HISTORY OF Jan 2009 release of trigger finger , right thumb PAST SURGICAL HISTORY OF 06/2008 TRANSFLAP RECONSTRUCTION OF LEFT BREAST PAST SURGICAL HISTORY OF 03/09/2009 left saffes vein ablasted and removed varicose vein left leg, dr corea PAST SURGICAL HISTORY OF Left 10/06/2017 TKR at [facility] STEREO LOC FOR CORE BRST BX LT 11-1-10 UNSPECIFIED ORAL SURGERY PROCEDURE, BY REPORT 03/15/2014 ALLERGIES Patient has no known allergies. MEDICATIONS escitalopram oxalate (LEXAPRO) 10 mg tablet Take 1 tablet by mouth once daily. As directed levothyroxine (SYNTHROID) 125 mcg tablet Take 1 tablet by mouth once daily. hydrocortisone-acetic acid (ACETASOL HC) otic solution Use 4 Drops in the ears as needed. busPIRone (BUSPAR) 15 mg tablet Take 1 tablet by mouth twice daily as needed. LORazepam (ATIVAN) 1 mg tablet Take 0.5-1 tablets by mouth once daily as needed for anxiety for up to 180 days. For neck pain or spasms and anxiety. gabapentin (NEURONTIN) 300 mg capsule Take 1-2 capsules by mouth daily at bedtime for 180 days. acetaminophen (TYLENOL EXTRA STRENGTH) 500 mg tablet Take 500 mg by mouth every 8 hours as needed. CPAP Auto-PAP with humidity - change setting to 8-15 cmH2O. cetirizine (ZYRTEC) 10 mg tablet Take 1 tablet by mouth once daily. apixaban (ELIQUIS) 5 mg tab(s) Take by mouth twice daily. metoprolol tartrate, short acting, (LOPRESSOR) 25 mg tablet Take 25 mg by mouth twice daily. triamcinolone acetonide (KENALOG) 0.1 % cream Apply 1 application to affected area three times daily. Apply sparingly to area for rash/itching. ketoconazole (NIZORAL) 2 % cream Apply 1 application to affected area once daily as needed. As directed predniSONE (DELTASONE) 20 mg tablet Take 2 tablets by mouth once daily for 5 days. benzonatate (TESSALON PERLES) 100 mg capsule Take 1 capsule by mouth three times daily as needed for cough for up to 7 days. budesonide (RHINOCORT AQ) 32 mcg/actuation nasal spray Use 2 Sprays in each nostril once daily. Rinse mouth after use. Magnesium 250 mg tab Take 1 tablet by mouth daily at bedtime. FAMILY HISTORY Problem Relation Age of Onset Heart Mother Hypertension Mother CHF Genitourinary () Father renal failure other (hodgkins disease) Father Breast Cancer Paternal Aunt Cancer Brother renal cancer Social History Tobacco Use Smoking status: Former Smoker Smokeless tobacco: Never Used Tobacco comment: quit about 24 yrs ago; passive smoker prior to quitting Vaping Use Vaping Use: Never used Substance Use Topics Alcohol use: Yes Comment: occasionally Drug use: No ASSESSMENT/PLAN: 1. Cough - ICD9: 786.2, ICD10: R05.9 - COVID WITH FLUA+B, ROUTINE Prescription instructions reviewed with patient as applicable. Tessalon jf PRN and prednisone for 5 days for cough. Potential red flag symptoms discussed with the patient. Reviewed appropriate action plan to take if red flag symptoms occur. Patient agreeable to treatment plan. Sierra Santiago APRN.CNP documented in this encounter [facility] 10-08-2021 Miscellaneous Notes cardiac clearance received and scanned cardiac clearance sent to [facility] 02-11-2022 COLON RINCON documented in this encounter [facility] 08-13-2021 History of Presen t illness Narrative This note was created using DeepFlex. Subjective Patty Ridley is a 81 year old female. Patient presents with: F/U 6 months SUBJECTIVE: Patty Ridley is a 81 year old year old lady here today for 6 month follow up appointment for review of medical conditions. Bowel changes Avoided colonoscopy --has been over 10 years. Will get now. Wants to make sure is out. Mild headaches, diarrhea, nightmares . Thought might be from med. Cut back the dose of buspirone to 10 twice daily. Is helping with anxiety with some breakthrough at 10 mg dose. Nightmares are strange but not as distressing. Cut out the gabapentin for a while than resumed. Had aneurysm checked and they could not see anything. Done through [facility] ([place]ron Pacheco; [place]). Discussed that has been taking thyroid pill with her meds and food. Discussed advance directives. Paperwork given. 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 (Patient taking differently: Take 15 mg by mouth twice daily as needed. 10 mg twice daily ) LORazepam (ATIVAN) 1 mg tablet Take 0.5-1 tablets by mouth once daily as needed for anxiety for up to 180 days. For neck pain or spasms and anxiety. gabapentin (NEURONTIN) 300 mg capsule Take 1-2 capsules by mouth daily at bedtime for 180 days. levothyroxine (SYNTHROID) 112 mcg tablet Take 1 tablet by mouth once daily. acetaminophen (TYLENOL EXTRA STRENGTH) 500 mg tablet Take 500 mg by mouth every 8 hours as needed. CPAP Auto-PAP with humidity - change setting to 8-15 cmH2O. cetirizine (ZYRTEC) 10 mg tablet Take 1 tablet by mouth once daily. escitalopram oxalate (LEXAPRO) 5 mg tablet Take 1 tablet by mouth once daily. As directed budesonide (RHINOCORT AQ) 32 mcg/actuation nasal spray Use 2 Sprays in each nostril once daily. Rinse mouth after use. apixaban (ELIQUIS) 5 mg tab(s) Take by mouth twice daily. metoprolol tartrate, short acting, (LOPRESSOR) 25 mg tablet Take 25 mg by mouth twice daily. hydrocortisone-acetic acid (ACETASOL HC) otic solution Use 4 Drops in the ears as needed. Magnesium 250 mg tab Take 1 tablet by mouth daily at bedtime. triamcinolone acetonide (KENALOG) 0.1 % cream Apply 1 application to affected area three times daily. Apply sparingly to area for rash/itching. ketoconazole (NIZORAL) 2 % cream Apply 1 application to affected area once daily as needed. As directed estradiol 0.01% estriol 0.01% topical cream (CPD) Use 0.5 grams (2 clicks) vaginally nightly for 2 weeks then twice per week (Patient not taking: Reported on 08/13/2021 ) MULTI-VITAMIN ORAL Take 1 tablet by mouth once daily. (Patient not taking: Reported on 08/13/2021 ) omeprazole (PRILOSEC) 20 mg capsule Take 1 capsule by mouth daily before breakfast. 1/2 hr before meal. mupirocin (BACTROBAN) 2 % ointment Apply 1 application to affected area three times daily. (Patient not taking: Reported on 08/13/2021 ) No current facility-administered medications for this visit. Review of Systems Objective BP 110/78 Pulse 64 Wt 100.7 kg (222 lb) BMI 36.38 kg/m Last 5 Encounter BP Readings: Date: BP: 08/13/2021 110/78 02/12/2021 130/78 01/30/2021 132/76 09/21/2020 120/80 07/24/2020 112/86 Last 5 Encounter Wt Readings: Date: Wt: 08/13/2021 100.7 kg (222 lb) 03/05/2021 98.9 kg (218 lb) 01/30/2021 97.5 kg (215 lb) 09/21/2020 96.2 kg (212 lb) 07/24/2020 94.3 kg (208 lb) Physical Exam Constitutional: Appearance: Normal appearance. HENT: Head: Normocephalic. Eyes: Conjunctiva/sclera: Conjunctivae normal. Cardiovascular: Rate and Rhythm: Normal rate and regular rhythm. Heart sounds: Normal heart sounds. Pulmonary: Effort: Pulmonary effort is normal. Breath sounds: Normal breath sounds. Skin: General: Skin is warm and dry. Neurological: General: No focal deficit present. Mental Status: She is alert and oriented to person, place, and time. Psychiatric: Mood and Affect: Mood normal. Behavior: Behavior normal. Thought Content: Thought content normal. Judgment: Judgment normal. Component Latest Ref Rng & Units 07/18/2020 08/02/2021 Hemoglobin A1C 4.3 - 5.6 % 5.5 Estimated Average Glucose mg/dL 111 TSH 0.270 - 4.200 uU/mL 1.62 4.410 (H) Assessment and Plan ASSESSMENT/PLAN: ASSESSMENT/PLAN: 1. Anxiety - ICD9: 300.00, ICD10: F41.9 (primary diagnosis) Continue present management. - ESCITALOPRAM 5 MG TABLET 2. Depression, unspecified depression type - ICD9: 311, ICD10: F32.A - ESCITALOPRAM 5 MG TABLET 3. Colon cancer screening - ICD9: V76.51, ICD10: Z12.11 - CONSULT TO GENERAL SURGERY 4. Chronic allergic rhinitis - ICD9: 477.9, ICD10: J30.9 - BUDESONIDE 32 MCG/ACTUATION NASAL SPRAY 5. Acquired hypothyroidism - ICD9: 244.9, ICD10: E03.9 Clinically euthyroid. TSH fine. Continue to adjust dose of replacement as indicated based on symptoms and labs. - LEVOTHYROXINE 125 MCG TABLET - TSH BLD - T3 FREE BLD - T4 FREE/FREE THYROX 6. Mixed hyperlipidemia - ICD9: 272.2, ICD10: E78.2 - LIPID PANEL BASIC 7. Encounter for long-term current use of medication - ICD9: V58.69, ICD10: Z79.899 - COMP METABOLIC PANEL - CBC Celio D Talampas, MD documented in this encounter [facility] documented as of this encounter (statuses as of 11/07/2021) [facility] History of Past illness Narrative* Problem Noted Date Resolved Date Pain in limb 12/01/2009 09/26/2014 Sprain of neck 09/29/2006 09/26/2014 Unspecified constipation 2 011 Overview: Constipation documented as of this encounter (statuses as of 11/14/2021) [facility] History of Past illness Narrative* Problem Noted Date Resolved Date Pain in limb 12/01/2009 09/26/2014 Sprain of neck 09/29/2006 09/26/2014 Unspecified constipation 2 011 Overview: Constipation documented as of this encounter (statuses as of 12/13/2021) [facility] History of Past illness Narrative* Problem Noted Date Resolved Date Pain in limb 12/01/2009 09/26/2014 Sprain of neck 09/29/2006 09/26/2014 Unspecified constipation 2 011 Overview: Constipation documented as of this encounter (statuses as of 02/12/2022) [facility] History of Past illness Narrative* Problem Noted Date Resolved Date Pain in limb 12/01/2009 09/26/2014 Sprain of neck 09/29/2006 09/26/2014 Unspecified constipation 11/16/2 011 Overview: Constipation documented as of this encounter (statuses as of 02/12/2022) [facility] History of Past illness Narrative* Problem Noted Date Resolved Date Pain in limb 12/01/2009 09/26/2014 Sprain of neck 09/29/2006 09/26/2014 Unspecified constipation 11/16/2 011 Overview: Constipation documented as of this encounter (statuses as of 02/18/2022) [facility] History of Past illness Narrative* Problem Noted Date Resolved Date Pain in limb 12/01/2009 09/26/2014 Sprain of neck 09/29/2006 09/26/2014 Unspecified constipation 2 011 Overview: Constipation documented as of this encounter (statuses as of 02/26/2022) [facility] History of Past illness Narrative* Problem Noted Date Resolved Date Pain in limb 12/01/2009 09/26/2014 Sprain of neck 09/29/2006 09/26/2014 Unspecified constipation 11/16/2 011 Overview: Constipation documented as of this encounter (statuses as of 02/28/2022) [facility] History of Past illness Narrative* Problem Noted Date Resolved Date Pain in limb 12/01/2009 09/26/2014 Sprain of neck 09/29/2006 09/26/2014 Unspecified constipation 11/16/2 011 Overview: Constipation documented as of this encounter (statuses as of 05/03/2022) [facility] History of Past illness Narrative* Problem Noted Date Resolved Date Pain in limb 12/01/2009 09/26/2014 Sprain of neck 09/29/2006 09/26/2014 Unspecified constipation 11/16/2 011 Overview: Constipation documented as of this encounter (statuses as of 05/30/2022) [facility] History of Past illness Narrative* Problem Noted Date Resolved Date Pain in limb 12/01/2009 09/26/2014 Sprain of neck 09/29/2006 09/26/2014 Unspecified constipation 11/16/2 011 Overview: Constipation documented as of this encounter (statuses as of 06/22/2022) [facility] History of Past illness Narrative* Problem Noted Date Resolved Date Pain in limb 12/01/2009 09/26/2014 Sprain of neck 09/29/2006 09/26/2014 Unspecified constipation 11/16/2 011 Overview: Constipation documented as of this encounter (statuses as of 06/24/2022) [facility] History of Past illness Narrative* Problem Noted Date Resolved Date Pain in limb 12/01/2009 09/26/2014 Sprain of neck 09/29/2006 09/26/2014 Unspecified constipation 05/2 011 Overview: Constipation documented as of this encounter (statuses as of 07/05/2022) [facility] History of Past illness Narrative* Problem Noted Date Resolved Date Pain in limb 12/01/2009 09/26/2014 Sprain of neck 09/29/2006 09/26/2014 Unspecified constipation 11/16/2 011 Overview: Constipation documented as of this encounter (statuses as of 08/20/2022) [facility] History of Past illness Narrative* Problem Noted Date Resolved Date Pain in limb 12/01/2009 09/26/2014 Sprain of neck 09/29/2006 09/26/2014 Unspecified constipation 11/16/2 011 Overview: Constipation documented as of this encounter (statuses as of 09/11/2022) [facility] History of Past illness Narrative* Problem Noted Date Resolved Date Pain in limb 12/01/2009 09/26/2014 Sprain of neck 09/29/2006 09/26/2014 Unspecified constipation 05/2 011 Overview: Constipation documented as of this encounter (statuses as of 09/12/2022) [facility] History of Past illness Narrative* Problem Noted Date Resolved Date Pain in limb 12/01/2009 09/26/2014 Sprain of neck 09/29/2006 09/26/2014 Unspecified constipation 27/2 011 Overview: Constipation documented as of this encounter (statuses as of 09/16/2022) [facility] History of Past illness Narrative* Problem Noted Date Resolved Date Pain in limb 12/01/2009 09/26/2014 Sprain of neck 09/29/2006 09/26/2014 Unspecified constipation 05/27/2 011 Overview: Constipation documented as of this encounter (statuses as of 10/23/2022) [facility] History of Past illness Narrative* Problem Noted Date Resolved Date Pain in limb 12/01/2009 09/26/2014 Sprain of neck 09/29/2006 09/26/2014 Unspecified constipation 011 Overview: Constipation documented as of this encounter (statuses as of 11/20/2022) [facility] History of Past illness Narrative* Problem Noted Date Diagnosed Date Resolved Date Pain in limb 12/01/2009 09/26/2014 Sprain of neck 09/29/2006 09/26/2014 Unspecified constipation Overview: Constipation documented as of this encounter (statuses as of 01/10/2023) [facility] History of Past illness Narrative* Problem Noted Date Diagnosed Date Resolved Date Pain in limb 12/01/2009 09/26/2014 Sprain of neck 09/29/2006 09/26/2014 Unspecified constipation Overview: Constipation documented as of this encounter (statuses as of 04/04/2023) [facility] History of Past illness Narrative* Problem Noted Date Diagnosed Date Resolved Date Pain in limb 12/01/2009 09/26/2014 Sprain of neck 09/29/2006 09/26/2014 Unspecified constipation Overview: Constipation documented as of this encounter (statuses as of 04/13/2023) [facility] History of Past illness Narrative* Problem Noted Date Diagnosed Date Resolved Date Pain in limb 12/01/2009 09/26/2014 Sprain of neck 09/29/2006 09/26/2014 Unspecified constipation Overview: Constipation documented as of this encounter (statuses as of 05/08/2023) [facility] History of Past illness Narrative* Problem Noted Date Diagnosed Date Resolved Date Pain in limb 12/01/2009 09/26/2014 Sprain of neck 09/29/2006 09/26/2014 Unspecified constipation Overview: Constipation documented as of this encounter (statuses as of 05/18/2023) [facility] History of Past illness Narrative* Problem Noted Date Diagnosed Date Resolved Date Pain in limb 12/01/2009 09/26/2014 Sprain of neck 09/29/2006 09/26/2014 Unspecified constipation Overview: Constipation documented as of this encounter (statuses as of 05/30/2023) [facility] History of Past illness Narrative* Problem Noted Date Diagnosed Date Resolved Date Pain in limb 12/01/2009 09/26/2014 Sprain of neck 09/29/2006 09/26/2014 Unspecified constipation Overview: Constipation documented as of this encounter (statuses as of 06/24/2023) [facility] note* Diagnosis Anxiety- Primary Anxiety state, unspecified Depression, unspecified depression type Colon cancer screening Special screening for malignant neoplasms, colon Chronic allergic rhinitis Allergic rhinitis, cause unspecified Acquired hypothyroidism Unspecified hypothyroidism Mixed hyperlipidemia Encounter for long-term current use of medication [facility] [place] [facility] Diagnosis Cough- Primary [facility] [place] [facility]* Diagnosis RLS (restless legs syndrome) Restless legs syndrome (RLS) documented [facility] [place] [facility] Diagnosis Special screening for malignant neoplasm of colon- Primary Special screening for malignant neoplasms, colon Screening for colon cancer Special screening for malignant neoplasms, colon [facility] [place] [facility] Diagnosis Hyperplastic polyp of descending colon- Primary [facility] [place] [facility] Diagnosis Screening for colon cancer- Primary Special screening for malignant neoplasms, colon [facility] [place] [facility] Diagnosis Acquired hypothyroidism Unspecified hypothyroidism [facility] [place] [facility] Diagnosis Sinobronchitis- Primary Unspecified sinusitis (chronic) [facility] [place] [facility] Diagnosis Bacterial sinusitis- Primary Unspecified sinusitis (chronic) Acute cough documented in this encounter [facility] note* Diagnosis Chronic allergic rhinitis Allergic rhinitis, cause unspecified documented in this encounter [facility] note* Diagnosis Acquired hypothyroidism- Primary Unspecified hypothyroidism Rectal itching Pruritus ani Neck muscle spasm Spasm of muscle Anxiety Anxiety state, unspecified Weakness of both lower extremities RLS (restless legs syndrome) Restless legs syndrome (RLS) Mixed hyperlipidemia 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 Vagina itching Pruritus of genital organs documented in this encounter [facility] note* Diagnosis Rectal itching Pruritus ani documented in this encounter [facility] note* Diagnosis Acquired hypothyroidism Unspecified hypothyroidism documented in this encounter [facility] note* Diagnosis Class 2 obesity due to excess calories with body mass index (BMI) of 37.0 to 37.9 in adult, unspecified whether serious comorbidity present- Primary Anxiety Anxiety state, unspecified Depression, unspecified depression type Acquired hypothyroidism Unspecified hypothyroidism Mixed hyperlipidemia Bilateral leg pain Pain in limb Recurrent major depressive disorder, in partial remission (HCC) Persistent atrial fibrillation (HCC) Atrial fibrillation documented in this encounter [facility] note* Diagnosis Anxiety Anxiety state, unspecified Depression, unspecified depression type documented in this encounter [facility] note* Diagnosis Acquired hypothyroidism- Primary Unspecified hypothyroidism Chronic eczematous otitis externa of both ears Anxiety Anxiety state, unspecified Mixed hyperlipidemia Neck muscle spasm Spasm of muscle Medication management Encounter for long-term (current) use of other medications Encounter for immunization Need for other specified prophylactic vaccination against single bacterial disease Encounter for long-term current use of medication History of atrial fibrillation Personal history of other diseases of circulatory system documented in this encounter [facility] for referral (narrative)* Outpatient Procedure (Routine) - Closed Specialty Diagnoses / Procedures Referred By Christiano t Referred To Contact [facility] Diagnoses Screening for colon cancer Procedures COLONOSCOPY SCREENING COLONOSCOPY FLX DX W/COLLJ SPEC WHEN PFRMD Danielle Saxena PA-C [address] [place] [address] [facility] [place] [address] [place] [address] Referral ID Status Reason Start Date Expiration Date V isits Requested Visits Authorized [id number] Closed Auto-Generate d Referral 09/18/2021 09/18/2022 1 1 [facility] for referral (narrative)* Outpatient Procedure (Routine) - Closed Specialty Diagnoses / Procedures Referred By Christiano t Referred To Contact [facility] Diagnoses Screening for colon cancer Procedures COLONOSCOPY SCREENING COLONOSCOPY FLX DX W/COLLJ SPEC WHEN PFRMD Danielle Saxena PA-C [address] [place] [address] [facility] [place] [address] [place] [id number] Referral ID Status Reason Start Date Expiration Date V isits Requested Visits Authorized [id number] Closed Auto-Generate d Referral 09/18/2021 09/18/2022 1 1 [facility] for referral (narrative)* Diagnostic Procedure Only (Routine) - Pending Review Specialty Diagnoses / Procedures Referred By Christiano larry Referred To Contact [facility] Diagnoses Iliac artery aneurysm (HCC) Procedures US ABD AORTA US RETROPERITONEAL REAL TIME W/IMAGE LIMITED Erendira Hernandez APRN.[employer] [address] [place] [address] [facility] Referral ID Status Reason Start Date Expiration Date Visits Requested Visits Authorized [id number] Pending Review Auto-Generat ed Referral 09/10/2022 10/10/2023 1 1 * Physical Therapy (Routine) - Pending Review Specialty Diagnoses / Procedures Referred By Christiano t Referred To Contact [facility] Diagnoses Weakness of both lower extremities Procedures CONSULT TO PHYSICAL THERAPY PHYSICAL THERAPY EVALUATION HIGH COMPLEX 45 MINS Erendira Hernandez APRN.[employer] [address] [place] [address] [facility] [address] [address] Referral ID Status Reason Start Date Expiration Date Visits Requested Visits Authorized [id number] Pending Review Auto-Generat ed Referral 09/10/2022 09/10/2023 1 1 [facility] Outpatient Procedure (Routine) - Closed Specialty Diagnoses / Procedures Referred By Christiano t Referred To Contact [facility] Diagnoses Screening for colon cancer Procedures COLONOSCOPY SCREENING COLONOSCOPY FLX DX W/COLLJ SPEC WHEN PFRMD Danielle Saxena PA-C [address] [facility] [place] [address] [facility] [place] [address] [place] [address] Referral ID Status Reason Start Date Expiration Date V isits Requested Visits Authorized [id number] Closed Auto-Generate d Referral 09/18/2021 09/18/2022 1 1 [facility] Reason for Referral Specialty Diagnoses / Procedures Referred By Christiano t Referred To Contact [facility] Surgery Diagnoses Colon cancer screening Procedures CONSULT TO GENERAL SURGERY OFFICE/OUTPATIENT [facility] 60-74 MINUTES Celio Jhaveri MD [address] [place] [address] Referral ID Status Reason Start Date Expiration Date Visits Requested Visits Authorized [id number] Pending Review PCP Requested Referral 08/13/2021 08/13/2022 1 1 Specialty Diagnoses / Procedures Referred By Christiano larry Referred To Contact Diagnoses Class 2 obesity due to excess calories with body mass index (BMI) of 37.0 to 37.9 in adult, unspecified whether serious comorbidity present Procedures CONSULT [facility] OFFICE/OUTPATIENT [facility] 60-74 MINUTES Erendira Hernandez APRN.CNS [address] [place] [address] Referral ID Status Reason Start Date Expiration Date Visits Requested Visits Authorized [id number] Pending Review PCP Requested Referral 01/09/2023 01/09/2024 1 1 Advance Directives Documents on File Type Date Recorded Patient 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 Expl anation Advance Directive(s) Documents on File Type Date Recorded Patient Arborist 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 Expl anation Advance Directive(s) Health Concerns Infection Onset Date Last Indicated Resolved Time COVID-19 Rule-Out 11/14/2021 11/14/2021 Infection Onset Date Last Indicated Resolved Time COVID-19 Rule-Out 11/14/2021 11/14/2021 11/15/2021 2:14 AM EDT Infection Onset Date Last Indicated Resolved Time COVID-19 Rule-Out 11/19/2022 11/19/2022 11/20/2022 4:21 AM EDT Summary Purpose Family History No Family History Records FoundNo Family History Records FoundNo Family History Records Found Additional Source Comments Source Comments (unrecognize d section and content) In the event this informatio n is protected by the Federal Confidentiality of Alcohol and Drug Abuse Patient Records regulations: The Federal rules restrict any use of the information to criminally investigate or prosecute any alcohol or drug abuse patient.[facility] the event this information is protected by the Federal Confidentiality of Alcohol and Drug Abuse Patient Records regulations: The Federal rules restrict any use of the information to criminally investigate or prosecute any alcohol or drug abuse patient.[facility] the event this information is protected by the Federal Confidentiality of Alcohol and Drug Abuse Patient Records regulations: The Federal rules restrict any use of the information to criminally investigate or prosecute any alcohol or drug abuse patient.[facility] the event this information is protected by the Federal Confidentiality of Alcohol and Drug Abuse Patient Records regulations: The Federal rules restrict any use of the information to criminally investigate or prosecute any alcohol or drug abuse patient.[facility] the event this information is protected by the Federal Confidentiality of Alcohol and Drug Abuse Patient Records regulations: The Federal rules restrict any use of the information to criminally investigate or prosecute any alcohol or drug abuse patient.[facility] the event this information is protected by the Federal Confidentiality of Alcohol and Drug Abuse Patient Records regulations: The Federal rules restrict any use of the information to criminally investigate or prosecute any alcohol or drug abuse patient.[facility] the event this information is protected by the Federal Confidentiality of Alcohol and Drug Abuse Patient Records regulations: The Federal rules restrict any use of the information to criminally investigate or prosecute any alcohol or drug abuse patient.[facility] the event this information is protected by the Federal Confidentiality of Alcohol and Drug Abuse Patient Records regulations: The Federal rules restrict any use of the information to criminally investigate or prosecute any alcohol or drug abuse patient.[facility] the event this information is protected by the Federal Confidentiality of Alcohol and Drug Abuse Patient Records regulations: The Federal rules restrict any use of the information to criminally investigate or prosecute any alcohol or drug abuse patient.[facility] the event this information is protected by the Federal Confidentiality of Alcohol and Drug Abuse Patient Records regulations: The Federal rules restrict any use of the information to criminally investigate or prosecute any alcohol or drug abuse patient.[facility] the event this information is protected by the Federal Confidentiality of Alcohol and Drug Abuse Patient Records regulations: The Federal rules restrict any use of the information to criminally investigate or prosecute any alcohol or drug abuse patient.[facility] the event this information is protected by the Federal Confidentiality of Alcohol and Drug Abuse Patient Records regulations: The Federal rules restrict any use of the information to criminally investigate or prosecute any alcohol or drug abuse patient.[facility] the event this information is protected by the Federal Confidentiality of Alcohol and Drug Abuse Patient Records regulations: The Federal rules restrict any use of the information to criminally investigate or prosecute any alcohol or drug abuse patient.[facility] the event this information is protected by the Federal Confidentiality of Alcohol and Drug Abuse Patient Records regulations: The Federal rules restrict any use of the information to criminally investigate or prosecute any alcohol or drug abuse patient.[facility] the event this information is protected by the Federal Confidentiality of Alcohol and Drug Abuse Patient Records regulations: The Federal rules restrict any use of the information to criminally investigate or prosecute any alcohol or drug abuse patient.[facility] the event this information is protected by the Federal Confidentiality of Alcohol and Drug Abuse Patient Records regulations: The Federal rules restrict any use of the information to criminally investigate or prosecute any alcohol or drug abuse patient.[facility] the event this information is protected by the Federal Confidentiality of Alcohol and Drug Abuse Patient Records regulations: The Federal rules restrict any use of the information to criminally investigate or prosecute any alcohol or drug abuse patient.[facility] Hospital[facility] the event this information is protected by the Federal Confidentiality of Alcohol and Drug Abuse Patient Records regulations: The Federal rules restrict any use of the information to criminally investigate or prosecute any alcohol or drug abuse patient.[facility] Hospital[facility] the event this information is protected by the Federal Confidentiality of Alcohol and Drug Abuse Patient Records regulations: The Federal rules restrict any use of the information to criminally investigate or prosecute any alcohol or drug abuse patient.[facility] Hospital[facility] the event this information is protected by the Federal Confidentiality of Alcohol and Drug Abuse Patient Records regulations: The Federal rules restrict any use of the information to criminally investigate or prosecute any alcohol or drug abuse patient.[facility] HospitalIn the event this information is protected by the Federal Confidentiality of Alcohol and Drug Abuse Patient Records regulations: The Federal rules restrict any use of the information to criminally investigate or prosecute any alcohol or drug abuse patient.[facility] HospitalIn the event this information is protected by the Federal Confidentiality of Alcohol and Drug Abuse Patient Records regulations: The Federal rules restrict any use of the information to criminally investigate or prosecute any alcohol or drug abuse patient.[facility] HospitalIn the event this information is protected by the Federal Confidentiality of Alcohol and Drug Abuse Patient Records regulations: The Federal rules restrict any use of the information to criminally investigate or prosecute any alcohol or drug abuse patient.[facility] HospitalIn the event this information is protected by the Federal Confidentiality of Alcohol and Drug Abuse Patient Records regulations: The Federal rules restrict any use of the information to criminally investigate or prosecute any alcohol or drug abuse patient.[facility] HospitalIn the event this information is protected by the Federal Confidentiality of Alcohol and Drug Abuse Patient Records regulations: The Federal rules restrict any use of the information to criminally investigate or prosecute any alcohol or drug abuse patient.[facility] HospitalIn the event this information is protected by the Federal Confidentiality of Alcohol and Drug Abuse Patient Records regulations: The Federal rules restrict any use of the information to criminally investigate or prosecute any alcohol or drug abuse patient.[facility] Reason for Visit (unrecogniz ed section and content) Reason Comments Chest Congestion cough, headache, pos t nasal drip x 2 days Reason Onset Date Comments Refill Request 12/12/2021 Reason Comments Results Reason Comments Follow Up colonoscopy Reason Comments Refill Request Reason Comments 02-11-2022 COLON RINCON Reason Comments Cough Chest congestion, marce dyaches, JEAN-BAPTISTE x1 week Reason Comments Cough Chest congestion x6 days Reason Onset Date Comments Refill Request 08/19/2022 Reason Comments F/U 6 Month Reason Comments Med Change Request Reason Comments Leg Weakness Shortness of Breath Reason Onset Date Comments Refill Request 04/03/2023 Reason Comments High blood pressure Reason Onset Date Comments Refill Request 05/08/2023 Reason Comments F/U 6 months Reason Onset Date Comments Dizziness 05/22/2023 Care Teams (unrecognized sec tion and content) Vb Developer Relationship Specialty Start Date End Date Celio Jhaveri MD [address] [place] [address] PCP - General Internal Medicine 11/29/16 Vb Developer Relationship Specialty Start Date End Date Celio Jhaveri MD [facility] [place] [address] PCP - General Internal Medicine 11/29/16 Vb Developer Relationship Specialty Start Date End Date Celio Jhaveri MD [address] [place] [address] PCP - General Internal Medicine 11/29/16 Vb Developer Relationship Specialty Start Date End Date Celio Jhaveri MD [address] [facility] [place] [address] PCP - General Internal Medicine 11/29/16 Vb Developer Relationship Specialty Start Date End Date Celio Jhaveri MD [address] [place] [address] PCP - General Internal Medicine 11/29/16 Vb Developer Relationship Specialty Start Date End Date Celio Jhaveri MD [address] [place] [address] PCP - General Internal Medicine 11/29/16 Vb Developer Relationship Specialty Start Date End Date Celio Jhaveri MD [address] [facility] [place] [address] PCP - General Internal Medicine 11/29/16 Vb Developer Relationship Specialty Start Date End Date Celio Jhaveri MD [address] [facility] [place] [address] PCP - General Internal Medicine 11/29/16 Vb Developer Relationship Specialty Start Date End Date Celio Jhaveri MD [facility] [place] [address] PCP - General Internal Medicine 11/29/16 Vb Developer Relationship Specialty Start Date End Date Celio Jhaveri MD [address] [place] [address], [place] [address] PCP - General Internal Medicine 11/29/16 Vb Developer Relationship Specialty Start Date End Date Celio Jhaveri MD [facility] [place] [address] PCP - General Internal Medicine 11/29/16 Vb Developer Relationship Specialty Start Date End Date Celio Jhaveri MD [facility] [place] [address] PCP - General Internal Medicine 11/29/16 Vb Developer Relationship Specialty Start Date End Date Celio Jhaveri MD [facility] [place] [address] PCP - General Internal Medicine 11/29/16 Vb Developer Relationship Specialty Start Date End Date Celio Jhaveri MD [address] [place] [address], [place] [address] PCP - General Internal Medicine 11/29/16 Vb Developer Relationship Specialty Start Date End Date Celio Jhaveri MD [address] [place] [address], [place] [address] PCP - General Internal Medicine 11/29/16 Vb Developer Relationship Specialty Start Date End Date Celio Jhaveri MD [address] [facility] [place], [place] [address] PCP - General Internal Medicine 11/29/16 Vb Developer Relationship Specialty Start Date End Date Celio Jhaveri MD [address] [facility] [place], [place] [address] PCP - General Internal Medicine 11/29/16 Vb Developer Relationship Specialty Start Date End Date Celio Jhaveri MD [address] [facility] [place], [place] [address] PCP - General Internal Medicine 11/29/16 Vb Developer Relationship Specialty Start Date End Date Celio Jhaveri MD [address] [facility] [place], [place] [id number] PCP - General Internal Medicine 11/29/16 INFORMATION SOURCE (unrecogn ized section and content) DATE CREATED AUTHOR AUTHOR'S ORGANIZ ATION 05/25/2023 [facility] DATE CREATED AUTHOR AUTHOR'S ORGANIZ ATION 06/02/2023 [facility] FOR RECORDS PERTAINING TO PATIENTS WHO ARE OR HAVE BEEN ENROLLED IN A CHEMICAL DEPENDENCY/SUBSTANCEABUSE PROGRAM, SOME INFORMATION MAY BE OMITTED. This clinical summary was aggregated from multiple sources. Caution should be exercised in using it in the provision of clinical care. This summary normalizes information from multiple sources, and as a consequence, information in this document may materially change the coding, format and clinical context of patient data. In addition, data may be omitted in some cases. CLINICAL DECISIONS SHOULD BE BASED ON THE PRIMARY CLINICAL RECORDS. [employer] [facility]. provides no warranty or guarantee of the accuracy or completeness of information in this document.
[2023-07-14 17:33] VITALS: BP 129/88; PULSE 72; RESP 16; O2SAT 98
== END 2023-07-14 17:34 | disposition home or self-care (01) ==
PROVIDERS: Emergency Provider Emergency Medicine; PCP Internal Medicine; Visit Provider Emergency Medicine
DX: M79.605 Pain in left leg (principal); I48.0 Paroxysmal atrial fibrillation; Z87.891 Personal history of nicotine dependence; Z96.653 Presence of artificial knee joint, bilateral; Z79.01 Long term (current) use of anticoagulants; F41.8 Other specified anxiety disorders; Z79.899 Other long term (current) drug therapy; E03.9 Hypothyroidism, unspecified; Z90.49 Acquired absence of other specified parts of digestive tract
CPT/HCPCS: 73502; 73564; 99282

== ENCOUNTER 2023-09-04 08:28 | Day surgery (SDC) | payer MEDICARE, SELFPAY ==
[2023-09-04] VITALS (10 sets, daily range): BP systolic 110–131; BP diastolic 72–92; PULSE 66–80; RESP 16; TEMP 36–36.6; O2SAT 85–100; BMI 37.1
--- NOTE | 2023-09-04 09:01 | PCM.OPRPT ---
Report of Operation Description of Surgical Findings:: Diagnosis: 1. Lumbar spondylosis 2. Chronic back pain Procedure performed: 1. Spinal cord stimulator trial with percutaneous implantation of epidural lead X 1 2. 1 hour complex programming Complications: None Blood loss: None Anesthesia: MAC local IV fluids: Indication for procedure: Failed PT, p.o. meds Procedure: The patient was seen in the preop holding area. Risks and benefits of the procedure were explained to the patient and informed consent was obtained. The patient was transported to the operative suite. After the appropriate amount of sedation the patient was transferred to the operating table in the prone position. All bony prominences were padded accordingly. The back was prepped and draped in a sterile fashion. Using fluoroscopy, and an AP view the vertebral bodies were identified. Subsequently lidocaine 1% was used to anesthetize the skin and subcutaneous tissue via 27-gauge needle. A Medtronic Touhy needle was advanced under live fluoroscopy to enter the epidural space at L1-2. Position was confirmed both in AP and lateral views. Negative aspiration was confirmed. Subsequently under live fluoroscopy a Medtronic 8 contact lead was advanced such that the superior portion of the lead was at T8 in the midline. Interrogation was conducted. The patient noted the stimulation was present in all areas of pain. No areas of pain were missed. The Touhy needle was removed and the lead anchored to the skin. The site was covered with a sterile dressing. The patient was transported to the recovery room. No complications were noted. The patient was stable throughout. 1 hour of complex programming was performed. The patient was discharged home once all discharge criteria were met. They have been provided with prescription for antibiotics. The patient will be reevaluated within a week. They have been instructed on their activity levels and restrictions. Surgeon: Checo Chaves Type of Anesthesia: Local and MAC Grafts/Implants Used: Medtronic Complications None Admit VTE Documentation VTE Present on Admission: No
--- NOTE | 2023-09-04 09:01 | PCM.PN.ORT ---
Subjective Subjective Seen and examined postop. Lying in bed resting comfortably. Pain controlled. No complaints Physical Exam Const alert, oriented x3 and no apparent distress General Appearance: cooperative, comfortable and well kempt HEENT normocephalic and head/scalp atraumatic Eyes EOMs intact bilaterally and conjunctivae normal Neck full ROM General: normal visual inspection Chest inspection of chest normal and palpation of chest normal Resp normal respiratory effort and normal air movement Effort and Inspection: able to speak in complete sentences Cardio regular rate, regular rhythm and peripheral pulses 2+ throughout GI soft to palpation, non-tender and non-distended Back/Spine Back/Spine Narrative: Dressing clean dry and intact Cervical Spine: cervical ROM normal Thoracic Spine / Upper Back: normal to inspection Lumbar Spine / Lower Back: normal to inspection Extremity normal to inspection, full ROM, normal capillary refill, no clubbing, cyanosis or edema and no calf tenderness Skin no rashes or lesions noted General Skin Exam: no breakdown Neuro oriented x3, CN's II-XII intact bilaterally, moves all extremities, no focal motor deficits, no sensory deficits noted and deep tendon reflexes 2+ bilaterally Motor Exam: strength 5/5 throughout and muscle tone normal throughout Assessment & Plan Assessment/Plan (1) Lumbar stenosis: PLAN: Okay to discharge See discharge instructions Follow-up with Dr. Porter as scheduled
[2023-09-04] MEDS: Lactated Ringers 1,000 ML 15 ML IV (09:21)
[2023-09-04] MEDS: Cefazolin 2 GM in 0.9% Normal Saline (100mL Bag) 100 ML IV (09:51)
--- NOTE | 2023-09-04 09:58 | RAD_ITS ---
PROCEDURE: Fluoroscopic guidance for percutaneous implantation of neurostimulator electrodes. DATE OF EXAMINATION: September 04, 2023. INDICATION: Female, 83 years old. Chronic low back pain. FLUOROSCOPY TIME (if supplied): (2 minutes and 14 seconds) minutes/seconds. 34.09 mGy RAD/Lumbar Spine 2 or 3 Views IMPRESSION: The tip of the electrodes seen at the T7-T8 level. Intraoperative imaging provided for cutaneous implantation of a neurostimulator device. Electronically Signed: Raymon Dasilva MD at 11:02 EDT ,
[2023-09-04] MEDS: Lidocaine 1% (30 ml sdv) 30 ML Vial (10:35)
== END 2023-09-04 12:40 | disposition home or self-care (01) ==
LOC: SDC 08:30 → AC 08:32
PROVIDERS: PCP Internal Medicine; Referring Provider Orthopaedic Surgery; Visit Provider Orthopaedic Surgery
PROC: (CPT 63661; principal; 2023-09-04 09:45)
DX: Z45.42 Encounter for adjustment and management of neurostimulator (principal); I48.20 Chronic atrial fibrillation, unspecified; M47.816 Spondylosis without myelopathy or radiculopathy, lumbar region; M48.061 Spinal stenosis, lumbar region without neurogenic claudication; G89.29 Other chronic pain; K21.9 Gastro-esophageal reflux disease without esophagitis; R23.3 Spontaneous ecchymoses; Z87.891 Personal history of nicotine dependence; E03.9 Hypothyroidism, unspecified; R05.3 Chronic cough; Z90.49 Acquired absence of other specified parts of digestive tract; Z96.651 Presence of right artificial knee joint; Z85.3 Personal history of malignant neoplasm of breast; I10 Essential (primary) hypertension; F32.9 Major depressive disorder, single episode, unspecified; G47.30 Sleep apnea, unspecified; Z99.89 Dependence on other enabling machines and devices; F98.8 Other specified behavioral and emotional disorders with onset usually occurring in childhood and adolescence; F51.04 Psychophysiologic insomnia; G25.81 Restless legs syndrome; Z87.442 Personal history of urinary calculi; E78.5 Hyperlipidemia, unspecified; M85.80 Other specified disorders of bone density and structure, unspecified site; Z01.811 Encounter for preprocedural respiratory examination; Z01.810 Encounter for preprocedural cardiovascular examination
CPT/HCPCS: 63650; 00630; 36415; 71046; 72100; 76000; 80048; 85025; 85610; 85730; 99282; J7120; J2405

== ENCOUNTER 2023-09-04 22:25 | Emergency (ER) | payer MEDICARE, SELFPAY ==
[2023-09-04 22:26] VITALS: BP 130/96; PULSE 89; RESP 17; TEMP 36; O2SAT 90; BMI 37.8
--- OUTSIDE RECORDS SUMMARY | 2023-09-04 22:56 | XMS RPT_ITS | CCD ---
Author Name Unknown Address [address] [place] [address] Organization [facility] Care Team Providers Care Buyer Grain Name Role Phone Celio Jhaveri MD Primary Care Provider Unavailable Primary Care Provider Unavailabl e Celio Jhaveri MD Primary Care Provider ERENDIRA HERNANDEZ Attending Unavailable TALAMPAS, CELIO D Primary Care Unavailable TALAMPAS, CELIO D Primary Care Unavailable HERNANDEZ, ERENDIRA Referring Unavailable TALAMPAS, CELIO D Primary Care Unavailable HERNANDEZASHUI Attending Unavailable TALAMPAS, CELIO D Primary Care Unavailable HERNANDEZ, ERENDIRA Referring Unavailable TALAMPAS, CELIO D Primary Care Unavailable HERNANDEZ, ERENDIRA Attending Unavailable TALAMPAS, CELIO D Primary Care Unavailable HERNANDEZ, ERENDIRA Referring Unavailable TALAMPAS, CELIO D Attending Unavailable TALAMPAS, CELIO D Primary Care Unavailable TALAMPAS, CELIO D Primary Care Unavailable Medications Current [...] (8 sources) Patient encounter status; Translations: [Other penitentiary (current) drug therapy] Episodic Other aftercare (1 source) Other penitentiary (current) drug therapy; Translations: [Medication management] Onset: 07-18-2023 Episodic Other and unspecified benign neoplasm (1 [...] hypothyroidism; Translations: [Hypothyroidism, unspecified] Onset: 12-08-2007 Chronic Past or Other Problems Problem Classification Problem [...] Translations: [Weakness of both lower extremities] Onset: 03-21-2023 Episodic Other female genital disorders (1 source) [...] 98.01 [degF] Celio Jhaveri MD Work Phone: [facility] 04-22-2023 14:37-0400 Body weight 99.34 kg Celio Jhaveri MD Work Phone: [facility] 04-22-2023 14:37-0400 Diastolic blood pressure 80 mm[Hg] Celio Jhaveri MD Work Phone: [facility] 04-22-2023 14:37-0400 Heart rate 71 /min Celio Jhaveri MD Work Phone: [facility] 04-22-2023 14:37-0400 Respiratory rate 18 /min Celio Jhaveri MD Work Phone: [facility] 04-22-2023 14:37-0400 SaO2% (BldA) [Mass fraction] 96 % Celio Jhaveri MD Work Phone: [facility] 04-22-2023 14:37-0400 Systolic blood pressure 122 mm[Hg] Celio Jhaveri MD Work Phone: [facility] 01-09-2023 11:46-0400 Body weight 101.15 kg Erendira Hernandez COLLECTION ADMINISTRATOR.BUILDING COORDINATOR Work Phone: [facility] 01-09-2023 11:46-0400 Diastolic blood pressure 88 mm[Hg] Erendira Hernandez COLLECTION ADMINISTRATOR.BUILDING COORDINATOR Work Phone: [facility] 01-09-2023 11:46-0400 Heart rate 58 /min Erendira Hernandez COLLECTION ADMINISTRATOR.BUILDING COORDINATOR Work Phone: [facility] 01-09-2023 11:46-0400 Respiratory rate 16 /min Erendira Hernandez COLLECTION ADMINISTRATOR.BUILDING COORDINATOR Work Phone: [facility] 01-09-2023 11:46-0400 SaO2% (BldA) [Mass fraction] 95 % Erendira Hernandez COLLECTION ADMINISTRATOR.BUILDING COORDINATOR Work Phone: [facility] 01-09-2023 11:46-0400 Systolic blood pressure 122 mm[Hg] Erendira Hernandez COLLECTION ADMINISTRATOR.BUILDING COORDINATOR Work Phone: [facility] 09-10-2022 15:18-0400 Body weight 99.79 kg Erendira Hernandez COLLECTION ADMINISTRATOR.BUILDING COORDINATOR Work Phone: [facility] 09-10-2022 15:18-0400 Diastolic blood pressure 88 mm[Hg] Erendira Hernandez COLLECTION ADMINISTRATOR.BUILDING COORDINATOR Work Phone: [facility] 09-10-2022 15:18-0400 Heart rate 76 /min Erendira Hernandez COLLECTION ADMINISTRATOR.BUILDING COORDINATOR Work Phone: [facility] 09-10-2022 15:18-0400 Respiratory rate 16 /min Erendira Hernandez COLLECTION ADMINISTRATOR.BUILDING COORDINATOR Work Phone: [facility] 09-10-2022 15:18-0400 Systolic blood pressure 122 mm[Hg] Erendira Hernandez COLLECTION ADMINISTRATOR.BUILDING COORDINATOR Work Phone: [facility] 06-17-2022 14:14-0500 SaO2% (BldA) [Mass fraction] 94 % Kesha Tian COLLECTION ADMINISTRATOR.AUTOMATIC LATHE TENDER Work Phone: [facility] 06-17-2022 14:00-0500 Body temperature 98.4 [degF] Kesha Praisler-Wood COLLECTION ADMINISTRATOR.AUTOMATIC LATHE TENDER Work Phone: [facility] 06-17-2022 14:00-0500 Body weight 101.15 kg Kesha Praisler-Wood COLLECTION ADMINISTRATOR.AUTOMATIC LATHE TENDER Work Phone: [facility] 06-17-2022 14:00-0500 Diastolic blood pressure 82 mm[Hg] Kesha Praisler-Wood COLLECTION ADMINISTRATOR.AUTOMATIC LATHE TENDER Work Phone: [facility] 06-17-2022 14:00-0500 Heart rate 92 /min Kesha Praisler-Wood COLLECTION ADMINISTRATOR.AUTOMATIC LATHE TENDER Work Phone: [facility] 06-17-2022 14:00-0500 Respiratory rate 20 /min Kesha Praisler-Wood COLLECTION ADMINISTRATOR.AUTOMATIC LATHE TENDER Work Phone: [facility] 06-17-2022 14:00-0500 Systolic blood pressure 128 mm[Hg] Kesha Praisler-Wood COLLECTION ADMINISTRATOR.AUTOMATIC LATHE TENDER Work Phone: [facility] 05-30-2022 14:41-0500 Body temperature 97.5 [degF] Kesha Praisler-Wood COLLECTION ADMINISTRATOR.AUTOMATIC LATHE TENDER Work Phone: [facility] 05-30-2022 14:41-0500 Body weight 100.15 kg Kesha Praisler-Wood COLLECTION ADMINISTRATOR.AUTOMATIC LATHE TENDER Work Phone: [facility] 05-30-2022 14:41-0500 Diastolic blood pressure 84 mm[Hg] Kesha Praisler-Wood COLLECTION ADMINISTRATOR.AUTOMATIC LATHE TENDER Work Phone: [facility] 05-30-2022 14:41-0500 Heart rate 81 /min Kesha Praisler-Wood COLLECTION ADMINISTRATOR.AUTOMATIC LATHE TENDER Work Phone: [facility] 05-30-2022 14:41-0500 Respiratory rate 20 /min Kesha Praisler-Wood COLLECTION ADMINISTRATOR.AUTOMATIC LATHE TENDER Work Phone: [facility] 05-30-2022 14:41-0500 SaO2% (BldA) [Mass fraction] 97 % Kesha Praisler-Wood COLLECTION ADMINISTRATOR.AUTOMATIC LATHE TENDER Work Phone: [facility] 05-30-2022 14:41-0500 Systolic blood pressure 110 mm[Hg] Kesha Jaylan GONZALEZ.AUTOMATIC LATHE TENDER Work Phone: [facility] 02-15-2022 14:12-0400 Body height 165.1 cm Danielle Beecher PA-C Work Phone: [facility] 02-15-2022 14:12-0400 Body temperature 96.01 [degF] Danielle Hemanth PA-C Work Phone: [facility] 02-15-2022 14:12-0400 Body weight 102.06 kg Danielle Beecher PA-C Work Phone: [facility] 02-15-2022 14:12-0400 Diastolic blood pressure 64 mm[Hg] Danielle Hemanth PA-C Work Phone: [facility] 02-15-2022 14:12-0400 Heart rate 117 /min Danielle Hemanth PA-C Work Phone: [facility] 02-15-2022 14:12-0400 SaO2% (BldA) [Mass fraction] 99 % Danielle Hemanth PA-C Work Phone: [facility] 02-15-2022 14:12-0400 Systolic blood pressure 100 mm[Hg] Danielle Hemanth PA-C Work Phone: [facility] 02-11-2022 12:30-0400 Diastolic blood pressure 69 mm[Hg] Lauro Albrecht MD Work Phone: [facility] 02-11-2022 12:30-0400 Respiratory rate 16 /min Lauro Albrecht MD Work Phone: [facility] 02-11-2022 12:30-0400 SaO2% (BldA) [Mass fraction] 95 % Lauro Albrecht MD Work Phone: [facility] 02-11-2022 12:30-0400 Systolic blood pressure 145 mm[Hg] Lauro Albrceht MD Work Phone: [facility] 02-11-2022 12:00-0400 Body temperature 97.2 [degF] Lauro Albrecht MD Work Phone: [facility] 02-11-2022 10:24-0400 Body height 165.1 cm Lauro Albrecht MD Work Phone: [facility] 02-11-2022 10:240400 Body weight 102.06 kg Lauro Albrecht MD Work Phone: [facility] 02-11-2022 10:24-0400 Heart rate 68 /min Lauro Albrecht MD Work Phone: [facility] 11-14-2021 09:14-0400 Body temperature 97.81 [degF] Sierra Santiago APRN.AUTOMATIC LATHE TENDER Work Phone: [facility] 11-14-2021 09:14-0400 Body weight 103.87 kg Sierra Santiago APRN.AUTOMATIC LATHE TENDER Work Phone: [facility] 11-14-2021 09:14-0400 Diastolic blood pressure 84 mm[Hg] Sierra Santiago APRN.AUTOMATIC LATHE TENDER Work Phone: [facility] 11-14-2021 09:14-0400 Heart rate 68 /min Sierra Santiago APRN.AUTOMATIC LATHE TENDER Work Phone: [facility] 11-14-2021 09:14-0400 Respiratory rate 16 /min Sierra Santiago APRN.AUTOMATIC LATHE TENDER Work Phone: [facility] 11-14-2021 09:14-0400 SaO2% (BldA) [Mass fraction] 96 % Sierra Santiago APRN.AUTOMATIC LATHE TENDER Work Phone: [facility] 11-14-2021 09:14-0400 Systolic blood pressure 142 mm[Hg] Sierra Santiago APRN.AUTOMATIC LATHE TENDER Work Phone: [facility] 08-13-2021 13:37-0500 Body weight 100.7 kg Celio Jhaveri MD Work Phone: [facility] 08-13-2021 13:37-0500 Diastolic blood pressure 78 mm[Hg] Celio Jhaveri MD Work Phone: [facility] 08-13-2021 13:37-0500 Heart rate 64 /min Celio Jhaveri MD Work Phone: [facility] 08-13-2021 13:37-0500 Systolic blood pressure 110 mm[Hg] Celio Jhaveri MD Work Phone: [facility] Encounters Encounter Date Encounter Type Care Provider Facility Start: 07-18-2023 End: 2023 [facility] Facility:[facility] Start: 07-18-2023 Encounter for other preprocedural examination [facility] Start: 07-18-2023 End: 07-18-2023 [facility] Facility:[facility] Start: 05-26-2023 Telephone encounter Celio webb MD Work Phone: [facility] Procedures Date Procedure Procedure Detail Performing Clinician Start: 04-22-2023 INFLUENZA VACCINE, P RSV FREE, AGE 65+ YR, HIGH DOSE, QUADRIVALENT (FLUZONE HIGH-DOSE) Celio Jhaveri MD Work Phone: Start: 04-22-2023 [employer] COVI D-19 VACCINE ( SEASON) AGE 12+ YR Celio Jhaveri MD Work Phone: Start: 02-11-2022 Colonoscopy flx dx w /collj spec when pfrmd Danielle Saxena PA-C Work Phone: Start: 02-11-2022 Colonoscopy Celio brown MD Work Phone: Plan of Treatment Date Care Activity Detail Author Start: 12-25-2026 Urine microalbumin profile [facility] Start: 11-14-2024 DIABETES SCREEN DIABETES SCREEN [facility] Start: 11-14-2024 Diabetes Screening Diabetes Screenin g [facility] Start: 08-02-2024 DIABETES SCREEN DIABETES SCREEN [facility] Start: 06-23-2023 Advance Directive Discussion Advance Directive Discussion [facility] Start: 04-22-2023 End: 07-22-2023 CBC panel - Blood by Automated count CBC Lab Routine Encounter for long-term current use of medication Medication management Expected: 04/22/2023, Expires: 07/22/2023 [facility] Work Phone: Immunizations Immunization Date Immunization Notes Care Provider Cira melissa 04-22-2023 COVID-19 vaccine, ag e 12+ yr, season (PFIZER-BIONTECH) Celio Jhaveri MD Work Phone: [facility] 04-22-2023 influenza (HD-IIV4) vaccine, age 65+ yr, high dose, quadrivalent, PF (FLUZONE HIGH-DOSE) Celio Jhaveri MD Work Phone: [facility] 03-19-2022 influenza (aIIV4) vaccine, age 65+ yr, quadrivalent, PF (FLUAD QUAD) Celio Jhaveri MD Work Phone: [facility] 03-19-2022 influenza virus vacc ine, unspecified formulation Celio Jhaveri MD Work Phone: [facility] 03-02-2021 influenza (HD-IIV4) vaccine, age 65+ yr, high dose, quadrivalent, PF (FLUZONE HIGH-DOSE) Celio Jhaveri MD Work Phone: [facility] 03-02-2021 influenza, high dose seasonal, preservative-free Celio Jhaveri MD Work Phone: [facility] Work Phone: 07-12-2020 COVID-19 vaccine, ag e 12+ yr (PFIZER-BIONTECH - PURPLE TOP) Celio Jhaveri MD Work Phone: [facility] 06-21-2020 COVID-19 vaccine, ag e 12+ yr (PFIZER-BIONTECH - PURPLE TOP) Celio Jhaveri MD Work Phone: [facility] 05-07-2020 influenza, seasonal, injectable, preservative free Celio Jhaveri MD Work Phone: [facility] 05-12-2019 influenza, high dose seasonal, preservative-free Celio Jhaveri MD Work Phone: [facility] Work Phone: 06-01-2018 influenza, high dose seasonal, preservative-free Celio Jhaveri MD Work Phone: [facility] 04-23-2017 influenza, seasonal, injectable, preservative free Celio Jhaveri MD Work Phone: [facility] Work Phone: 04-07-2017 influenza, high dose seasonal, preservative-free Celio Jhaveri MD Work Phone: [facility] 12-25-2016 tetanus toxoid, redu estuardo diphtheria toxoid, and acellular pertussis vaccine, adsorbed Celio Jhaveri MD Work Phone: [facility] 05-21-2016 influenza, high dose seasonal, preservative-free Celio Jhaveri MD Work Phone: [facility] 05-25-2015 pneumococcal conjuga te vaccine, 13 valent Celio Jhaveri MD Work Phone: [facility] Work Phone: 04-25-2015 influenza, high dose seasonal, preservative-free Celio Jhaveri MD Work Phone: [facility] 05-09-2014 influenza, seasonal, injectable Celio Jhaveri MD Work Phone: [facility] 05-04-2014 influenza, seasonal, injectable, preservative free Celio Jhaveri MD Work Phone: [facility] 06-21-2013 zoster vaccine, live Celio velasco MD Work Phone: [facility] 05-04-2013 influenza virus vacc ine, unspecified formulation Celio Jhaveri MD Work Phone: [facility] 03-24-2012 influenza virus vacc ine, unspecified formulation Celio Jhaveri MD Work Phone: [facility] 05-09-2010 influenza virus vacc ine, unspecified formulation Celio Jhaveri MD Work Phone: [facility] 10-25-2009 pneumococcal polysaccharide vaccine, 23 valent Celio Jhaveri MD Work Phone: [facility] 04-19-2009 influenza virus vacc ine, unspecified formulation Celio Jhaveri MD Work Phone: [facility] Work Phone: 12-08-2007 diphtheria and tetan us toxoids, adsorbed for pediatric use Celio Jhaveri MD Work Phone: [facility] Work Phone: 05-09-2005 influenza virus vacc ine, unspecified formulation Celio Jhaveri MD Work Phone: [facility] Work Phone: 05-01-1998 diphtheria and tetan us toxoids, adsorbed for pediatric use Celio Jhaveri MD Work Phone: [facility] Work Phone: Payers Date Payer Category Payer Medicare [employer] [place] [place] [id number] 2008-Present [phone] [address] [place] [address] [facility] [id number] 2008 Medicare [employer] [place] [id number] 2008-Present [phone] [address] [place] [address] [facility] [id number] 2008 Medicare [id number] Social History Date Type Detail Facility Start: 04-25-2015 End: 02-15-2022 Tobacco smoking status NHIS Ex-smoker [facility] Start: 03-05-2021 End: 04-22-2023 Alcohol intake Current drinker of alcohol (finding) [facility] Start: 01-09-2020 End: 09-03-2022 History SDOH Alcohol Frequency 3 [facility] Start: 01-09-2020 End: 09-03-2022 History SDOH Alcohol Std Drinks 1 [facility] Start: 01-09-2020 End: 09-03-2022 History SDOH Social Connections Phone 5 [facility] Start: 01-09-2020 History SDOH Social Connections Get Together 98 [facility] Start: 01-09-2020 End: 03-06-2022 History SDOH Physical Activity MPS 0 [facility] Start: 01-09-2020 End: 03-06-2022 History SDOH Stress 4 [facility] Start: 01-09-2020 End: 09-03-2022 History SDOH Transport Med 2 [facility] mauro Start: 01-09-2020 Education 18 [facility] Start: 04-25-2015 End: 02-15-2022 Tobacco Comment quit about 24 yrs ago; passive smoker prior to quitting [facility] Start: 1940 Sex Assigned At Female C [facility] Start: 09-08-2021 End: 02-15-2022 Exposure to SARS-CoV-2 (event) Not sure [facility] History of tobacco use Current smoker [facility] Start: 04-25-2015 End: 02-15-2022 Tobacco use and exposure Smokeless tobacco non-user [facility] Start: 09-03-2022 End: 01-09-2023 History of Social function [facility] Start: 09-03-2022 End: 01-09-2023 Social connection and isolation panel [facility] Do you belong to any clubs or organizations such as adventist groups, unions, fraternal or athletic groups, or school groups? Yes [facility] Are you now , , , , never or living with a partner? [facility] How often to you hav e a drink containing alcohol? 2-4 times a month [facility] How many standard dr inks containing alcohol do you have on a typical day? 1 or 2 [facility] How often do you hav e 6 or more drinks on 1 occasion? Never [facility] How hard is it for y ou to pay for the very basics like food, housing, medical care, and heating Not hard at all [facility] Do you feel stress - tense, restless, nervous, or anxious, or unable to sleep at night because your mind is troubled all the time - these days [OSQ] Only a little [facility] (I/We) worried madhu er (my/our) food would run out before (I/we) got money to buy more. Never true [facility] In the past 12 month s, was there a time when you were not able to pay the mortgage or rent on time? No [facility] Start: 01-09-2020 Gender identity Identifies as female gender (finding) [facility] Start: 01-09-2020 Sexual orientation Heterosexual (jeni gaytan) [facility] Tobacco smoking stat us KYIS Tobacco smoking consumption unknown [facility] Start: 1940 Sex Assigned At Not on file [facility] Clinical Notes 12-01-2009 to 07-18-2023 Telephone Encounter - Celio Jhaveri MD - 06/23/2023 10:41 PM ESTTelephone Encounter - Cookie Chavez LPN - 05/30/2023 3:23 PM ESTTelephone Encounter - Karina France RN - 05/22/2023 5:12 PM EST Note Date & Type Note Facility 07-18-2023 Note HNO ID: [id number] Author: ERENDIRA HERNANDEZ APRN.BUILDING COORDINATOR Service: ? Author Type: Nurse Specialist Type: Progress Notes Filed: 07/29/2023 17:12 Note Text: SUBJECTIVE: RSV Vaccine(1 - 1-dose 60+ series) Never done Shingrix Vaccine(2 of 3) due on 08/16/2013 Advance Directive Discussion due on 06/23/2023 HPI Patty Ridley is a 82 year [...] Apnea Chronic Insomnia Rls (Restless Legs Syndrome) Recurrent Major Depressive Disorder, in Partial Remission (Hcc) Persistent Atrial Fibrillation (Hcc) Presents today for preoperative visit in internal medicine. She is planning on insertion of spinal cord stimulator leads with Dr. Andie Schumacher orthopedics. No date for surgery is sent. She reports that surgery will either be done at [facility], she is not sure. Stated she had a lumbar MRI that showed impingement. She notes preference for not proceeding to surgery if possible. Therefore spinal cord stimulator leads are being considered. She will have trial leads placed, will proceed to permanent stimulator in 2 to 3 weeks following if the trial is successful. She reports that anesthesia will be a twilight. Notes that an overnight visit is planned. She indicates that both surgeon and global regulatory lead advised need to stop apixaban/Eliquis 3 days prior to surgery. Separately notes an emergency department visit on July 14, 2023. She was seen for 2 days of pain prior to arrival in the left groin and left knee. Pain with walking. History of bilateral knee replacements. History of Eliquis for A-fib. Emergency department completed x-rays with no acute findings. Advised that he ice affected areas and take Tylenol and follow-up with orthopedic doctor if needed. Noted exam and pain not consistent with DVT. Today notes primarily shortness of breath on exertion. She notes knee pain has improved with kipw-vvt-yibxyac medication. She notes shortness of breath on exertion is stable currently. SOBOE: walking 50 feet, stable of late. Orthopnea: states no longer bothersome, can lie flat PND: None reported CP: None reported Treating MYRNA: using CPAP consistently She reports that she is contacted [facility] and they have already given a go ahead for surgery. Without report of headache, chest pain, peripheral edema, orthopnea, fatigue, and PND. Last 14 Encounter BP Readings: Date: BP: 01/09/2023 122/88 11/19/2022 132/84 09/10/2022 122/88 06/17/2022 128/82 05/30/2022 110/84 03/12/2022 114/72 02/15/2022 100/64 02/11/2022 143/68 02/11/2022 145/69 11/14/2021 142/84 09/18/2021 118/68 08/13/2021 110/78 02/12/2021 130/78 01/30/2021 132/76 1. Age Group: 75 - 84 years 2. Sex: female 3. Functional Status: Partially dependent, some assistance with housework only 4. Emergency Case: No 5. ASA Class: Mild systemic disease 6. Steroid use for chronic condition: No 7. Ascites within 30 days prior to surgery: No 8. Systemic Sepsis within 48 hours prior to surgery: None 9. Ventilator Dependent: No 10. Disseminated Cancer: No 11. Diabetes: None 12. Hypertension requiring medication: No 13. Congestive Heart Failure in 30 days prior to surgery: No 14. Dyspnea: With moderate exertion 15. Current Smoker within 1 Year: No 16. History of COPD: No 17. Dialysis: No 18. Acute Renal Failure: No 19. BMI Class Calculation: Obese Steroid injection in the fall Review of Systems Constitutional: Negative. Respiratory: Positive for shortness of breath. Cardiovascular: Negative. Endocrine: Negative. Musculoskeletal: Positive for arthralgias and back pain. Neurological: Positive for weakness. Psychiatric/Behavioral: Negative for dysphoric mood. The patient is not nervous/anxious. Objective BP 128/87 Pulse 72 Resp 16 Wt 101.2 kg (223 lb) SpO2 97% BMI 37.11 kg/m? Physical Exam Vitals and [...] sounds. Abdominal: General: Bowel sounds are normal. Palpation (more content not included)... [facility] 06-23-2023 Miscellaneous Notes See my reply documented in this encounter [facility] 05-30-2023 Miscellaneous Notes Phoned patient and went [...] labs even if fasting Labs completed at [facility]. They are in scanned. Please review. View External Labs - CMP,lipids,TSH,T4 free direct [ID [id number]] View External Labs - A1c [ID [id number]] View External Labs - Hematology [ID [id number]] documented in this encounter [facility] 05-22-2023 Telephone encounter Note S: Patient calling in Nurse advice line and spoke with [facility] nurse regarding dizziness B: Onset of symptoms/concern Week A: Patient reports experiencing increased dizziness, saw global regulatory lead last week, global regulatory lead suggested dehydration, has headache as well. Has [...] within 24 hours. [facility] Advised to call PCP office to [...] poor fluid intake) Protocols used: Dizziness - [id number] [facility] 05-22-2023 Miscellaneous Notes S: Patient calling in Nurse advice line and spoke with [facility] nurse regarding dizziness B: Onset of symptoms/concern Week A: Patient reports experiencing increased dizziness, saw global regulatory lead last week, global regulatory lead suggested dehydration, has headache as well. Has [...] within 24 hours. Not currently seeing a [facility] physician. Advised to call PCP office [...] poor fluid intake) Protocols used: Dizziness - [id number] documented in this encounter [facility] 04-22-2023 Note HNO ID: [id number] Author: Celio Jhaveri MD Service: ? Author Type: Physician Type: Progress Notes Filed: 05/18/2023 7:01 PM Note Text: This note was created using mediafeediater. Subjective Patty Ridley is a 82 year [...] take as n (more content not included)... [facility] 04-22-2023 History of Presen t illness Narrative This note was created using Appknoxallyson. Subjective Patty Ridley is a 82 year [...] 65+ YR, HIGH DOSE, QUADRIVALENT (FLUZONE HIGH-DOSE) [employer] COVID-19 VACCINE (2022- SEASON) AGE 12+ YR 8. Encounter for [...] Celio Jhaveri MD documented in this encounter [facility] 04-13-2023 Miscellaneous Notes Reason for Call: Pt [...] SYMPTOMS: Had an episode of dizziness at [facility]. Was standing and talking after running around. Friends noticed and she sat down and felt better. Had a slight headache but gone now. Denies any palpitations. States there was a doctor at the [facility] who checked her pulse and thought it was a bit fast and irregular. 7. : na. Protocols used: Blood Pressure - [id number] documented in this encounter [facility] 04-03-2023 Miscellaneous Notes Okayed MATTHEW 01/09/23 Next [...] Bozena Odom Pss documented in this encounter [facility] 03-05-2023 Note HNO ID: [id number] Author: Checo Marquez APRN.AUTOMATIC LATHE TENDER Service: ? Author Type: Nurse Practitioner Type: [...] SURGICAL HISTORY OF Left 10/06/[address] [facility] STEREO LOC FOR CORE BRST BX LT [...] Former Smokeless toba (more content not included)... [facility] 01-09-2023 Note HNO ID: [id number] Author: Erendira Hernandez APRN.BUILDING COORDINATOR Service: ? Author Type: Nurse Specialist Type: [...] right groin pain. 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 Has not yet pursued treatment for this. She has undergone bilateral total knee replacements with . She has chronic back pain and sees a aquarium specialist for this. Notes left lateral shoulder pain and restricted motion of the left shoulder, chronic. Fall: no Mobility: walking with cane Back pain / radiculopathy: Knee pain 2002, MRI completed. Surgery: bilateral total knee. L TKA 3 years ago, R TKR 1 year ago. Ortho: [facility] Previously took meloxicam but not currently taking due to taking oral anticoagulation. Currently going to PT. Notes leg muscles feel weak, some discomfort. [facility] cardiology. In recent past had [...] Value 11/14/2021 235 07/18/2020 Test sent to [facility]. 12/02/2018 Test sent to [facility]. Cholesterol (mg/dL) Date Value 07/18/2020 178 12/02/2018 173 HDL Cholesterol (mg/dL) Date Value 11/14/2021 46 07/18/2020 Test sent to [facility]. 07/18/2020 50 12/02/2018 Test sent to [facility]. 12/02/2018 52 LDL Cholesterol (mg/dL) Date Value 11/14/2021 148 07/18/2020 Test sent to [facility]. 07/18/2020 96 12/02/2018 Test sent to [facility]. 12/02/2018 94 Triglyceride (mg/dL) Date Value 11/14/2021 204 07/18/2020 Test sent to [facility]. 07/18/2020 159 12/02/2018 Test sent to [facility]. 12/02/2018 133 Hemoglobin A1C (%) Date Value [...] lower leg: No (more content not included)... [facility] 01-09-2023 Instructions Erendira Hernandez APRN.CNS - 01/09/2023 12:22 PM EDT Keep Lexapro 10 mg. Start taking duloxetine to see if this helps with aches and pains. Increase gabapentin from 1 to 2 tablets at bedtime to see if this helps with pain. Consider addition of Celebrex if okay with your global regulatory lead. See your orthopedic provider for the right [...] medication is covered. documented in this encounter [facility] 01-09-2023 History of Presen t illness Narrative [...] right groin pain. 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 Has not yet pursued treatment for this. She has undergone bilateral total knee replacements with . She has chronic back pain and sees a aquarium specialist for this. Notes left lateral shoulder pain and restricted motion of the left shoulder, chronic. Fall: no Mobility: walking with cane Back pain / radiculopathy: Knee pain 2002, MRI completed. Surgery: bilateral total knee. L TKA 3 years ago, R TKR 1 year ago. Ortho: [facility] Previously took meloxicam but not currently taking due to taking oral anticoagulation. Currently going to PT. Notes leg muscles feel weak, some discomfort. [facility] cardiology. In recent past had [...] Value 11/14/2021 235 07/18/2020 Test sent to [facility]. 12/02/2018 Test sent to [facility]. Cholesterol (mg/dL) Date Value 07/18/2020 178 12/02/2018 173 HDL Cholesterol (mg/dL) Date Value 11/14/2021 46 07/18/2020 Test sent to [facility]. 07/18/2020 50 12/02/2018 Test sent to [facility]. 12/02/2018 52 LDL Cholesterol (mg/dL) Date Value 11/14/2021 148 07/18/2020 Test sent to [facility]. 07/18/2020 96 12/02/2018 Test sent to [facility]. 12/02/2018 94 Triglyceride (mg/dL) Date Value 11/14/2021 204 07/18/2020 Test sent to [facility]. 07/18/2020 159 12/02/2018 Test sent to [facility]. 12/02/2018 133 Hemoglobin A1C (%) Date Value [...] 0.96 mg/dL Final 07/18/2020 Test sent to [facility]. 0.58 - 0.96 mg/dL Final Comment: Account Credited HIDE 07/18/2020 0.85 0.6 - 1.3 MG/DL Final ASSESSMENT/PLAN: 1. Class 2 obesity due to excess calories with body mass index (BMI) of 37.0 to 37.9 in adult, unspecified whether serious comorbidity present - ICD9: 278.00, V85.37, ICD10: E66.09, Z68.37 (primary diagnosis) Interested in [place]. Understands this may not be covered by [...] to OAC. No bleeding difficulties. Erendira Hernandez APRN.BUILDING COORDINATOR Medical Decision Making: Problems: Moderate: 2+ stable chronic illnesses and 1+ chronic illnesses with change Risk: Moderate: Drug management Medical Decision Making Level: 4 - Moderate documented in this encounter [facility] 11-20-2022 Miscellaneous Notes Left message of test results on secure voicemail. Chuyita Kirby MA Please call and let patient know her COVID test was negative. documented in this encounter [facility] 11-19-2022 Note HNO ID: [id number] Author: Diana Jackson PA-C Service: ? Author Type: Physician Facing Baster Type: Progress Notes Filed: 11/19/2022 5:48 PM Note Text: This note was created using Appknoxriter. Subjective Patty Ridley is a 82 year [...] SURGICAL HISTORY OF Left 10/06/[address] [facility] STERE[facility] LOC FOR CORE BRST BX LT 04/23/2010 UNSPECIFIED ORAL SURGERY PROCEDURE, BY REPORT 03/15/2014 FAMILY HISTORY Problem Relation Age of Onset Heart Mother Hypertension Mother CHF Genitourinary () Father renal failure other (hodgkins disease) Father Breast Cancer Paternal Aunt Cancer Brother renal can (more content not included)... [facility] 10-23-2022 Miscellaneous Notes Okayed Patient has [...] Nhi Martin LPN documented in this encounter [facility] 09-16-2022 Miscellaneous Notes Left below results on identified vm. Nhi Martin LPN ----- Message from Celio Jhaveri MD sent at 09/15/2022 6:58 PM EDT ----- TSH now within normal limits Free T4 still within normal limits Stay on same dose thyroid medication documented in this encounter [facility] 09-11-2022 Miscellaneous Notes The following approved medication [...] CELIO JHAVERI MD documented in this encounter [facility] 09-10-2022 Note HNO ID: [id number] Author: Erendira Hernandez APRN.BUILDING COORDINATOR Service: ? Author Type: Nurse Specialist Type: [...] Apnea Chronic Insomnia Rls (Restless Legs Syndrome) [facility] cardiology Had recurrence of AF, DCCV was effective. Using CPAP consistently currently. At last visit dose of levothyroxine was decreased. [facility] labs: TSH 1.84 with last check Hypothyroidism. She is doing well on her current dose of Synthroid. TSH Date Value 11/14/2021 4.660 mIU/L 08/02/2021 4.410 uU/mL 07/18/2020 Test sent to [facility]. uU/mL 07/18/2020 1.62 IU/ml ) HTN: Without report of headache, chest pain, palpitations, dyspnea, peripheral edema, orthopnea, fatigue, and PND. . Last 3 Encounter BP Readings: Date: BP: 06/17/2022 128/82 05/30/2022 110/84 03/12/2022 114/72 Hyperlipidemia. Ms. Ridley reports doing well on current therapy of Her most recent lipid panels are: Cholesterol, Total (mg/dL) Date Value 11/14/2021 235 07/18/2020 Test sent to [facility]. 12/02/2018 Test sent to [facility]. Cholesterol (mg/dL) Date Value 07/18/2020 178 12/02/2018 173 HDL Cholesterol (mg/dL) Date Value 11/14/2021 46 07/18/2020 Test sent to [facility]. 07/18/2020 50 12/02/2018 Test sent to [facility]. 12/02/2018 52 LDL Cholesterol (mg/dL) Date Value 11/14/2021 148 07/18/2020 Test sent to [facility]. 07/18/2020 96 12/02/2018 Test sent to [facility]. 12/02/2018 94 Triglyceride (mg/dL) Date Value 11/14/2021 204 07/18/2020 Test sent to [facility]. 07/18/2020 159 12/02/2018 Test sent to [facility]. 12/02/2018 133 Anxiety/depression: Mood is stable. Current [...] directed triamcinolone acetonide (more content not included)... [facility] 09-10-2022 History of Presen t illness [...] Apnea Chronic Insomnia Rls (Restless Legs Syndrome) [facility] cardiology Had recurrence of AF, DCCV was effective. Using CPAP consistently currently. At last visit dose of levothyroxine was decreased. [facility] labs: TSH 1.84 with last check Hypothyroidism. She is doing well on her current dose of Synthroid. TSH Date Value 11/14/2021 4.660 mIU/L 08/02/2021 4.410 uU/mL 07/18/2020 Test sent to [facility]. uU/mL 07/18/2020 1.62 IU/ml ) HTN: Without report of headache, chest pain, palpitations, dyspnea, peripheral edema, orthopnea, fatigue, and PND. . Last 3 Encounter BP Readings: Date: BP: 06/17/2022 128/82 05/30/2022 110/84 03/12/2022 114/72 Hyperlipidemia. Ms. Ridley reports doing well on current therapy of Her most recent lipid panels are: Cholesterol, Total (mg/dL) Date Value 11/14/2021 235 07/18/2020 Test sent to [facility]. 12/02/2018 Test sent to [facility]. Cholesterol (mg/dL) Date Value 07/18/2020 178 12/02/2018 173 HDL Cholesterol (mg/dL) Date Value 11/14/2021 46 07/18/2020 Test sent to [facility]. 07/18/2020 50 12/02/2018 Test sent to [facility]. 12/02/2018 52 LDL Cholesterol (mg/dL) Date Value 11/14/2021 148 07/18/2020 Test sent to [facility]. 07/18/2020 96 12/02/2018 Test sent to [facility]. 12/02/2018 94 Triglyceride (mg/dL) Date Value 11/14/2021 204 07/18/2020 Test sent to [facility]. 07/18/2020 159 12/02/2018 Test sent to [facility]. 12/02/2018 133 Anxiety/depression: Mood is stable. Current [...] 0.96 mg/dL Final 07/18/2020 Test sent to [facility]. 0.58 - 0.96 mg/dL Final Comment: Account [...] let us know if not improving. Consider COLOR REPAIRER or dermatology visit if not improved. Erendira Hernandez APRN.SARAH Medical Decision Making: Problems: Moderate: 2+ stable chronic illnesses Data: Unique test(s) ordered: 1 Risk: Low: Low risk from testing/treatment Medical Decision Making Level: 3 - Low documented in this encounter [facility] 08-19-2022 Miscellaneous Notes MATTHEW: 03/12/2022 Last refill: [...] patient. Irena Petersen documented in this encounter [facility] 07-05-2022 Miscellaneous Notes Patient aware of results and Provider recommended follow up. Mirela Muller LPN Please let her know TSH is normal, T3 is just a little low, continue on current thyroid medication dose and keep up coming follow up with Erendira, can do labs again in about 2 months around time of appointment. Pt completed labs at [facility]. View External Lab - TSH,free T3 [ID [id number]] documented in this encounter [facility] 06-18-2022 Miscellaneous Notes Patient identified by name and date of . Reviewed chest xray result with patient. She is advised to follow up with her global regulatory lead regarding mild cardiac silhouette enlargement. She verbalized understanding. Kesha Tian APRN.FREDERICK documented in this encounter [facility] 06-17-2022 History of Presen t illness Narrative [...] SURGICAL HISTORY OF Left 10/06/[address] [facility] STEREO LOC FOR CORE BRST BX LT [...] Kesha Tian APRN.CNP documented in this encounter [facility] 06-17-2022 Instructions Kesha Tian APRN.CNP - 06/17/2022 [...] Kesha Tian APRN.CNP documented in this encounter [facility] 05-30-2022 History of Presen t illness Narrative [...] & curettagewith hysteroscopy HEART CATHETERIZATION 01/25/2011 Dr. iKser LIG/TRNSXJ FLP TUBE ABDL/VAG APPR UNI/BI Tubal [...] SURGICAL HISTORY OF Left 10/06/[address] [facility] STEREO LOC FOR CORE BRST BX LT [...] Kesha Tian APRN.CNP documented in this encounter [facility] 05-30-2022 Instructions Kesha Tian APRN.CNP - 05/30/2022 [...] expected course of illness Kesha Tian APRN.CNP ACUTE BRONCHITIS: You have acute bronchitis. This [...] Sinusitis Patient Education What is Sinusitis? Sinusitis [vquc-qcu-qegv-tis] is inflammation of the sinuses or swelling [...] help. You may be instructed to take dymt-gda-cvhaaus medications for symptoms. including fever reducers acetaminophen or ibuprofen, nasal saline spray, cough and cold preparations and decongestants as prescribed by the physician, nurse practitioner or physician dental hygiene administrative assistant. Self-Care and Prevention: Rest Fluids for hydration Good hand washing Humidifier Avoid smoking and exposure to second hand smoke Avoid sick contacts documented in this encounter [facility] 05-03-2022 Miscellaneous Notes PATIENT NOTIFIED OF SAME. Labs sent via web. New script sent for synthroid 100 mcg daily and orders for TSH, T3, T4. Please send lab orders to [facility] and let patient know. Thanks! PATIENT NOTIFIED OF SAME. Patient is agreeable to lowering dose of Levothyroxine. Will need order for TSH to be sent to [facility]. Patient is asking for the T3 and [...] scanned labs. Please review. Labs completed from [facility]. They have been entered and in scanned labs. Please review. documented in this encounter [facility] 02-23-2022 Miscellaneous Notes Noted that they updated [...] to pharmacy. No need to notify patient. [facility] documented in this encounter [facility] 02-15-2022 Instructions Danielle Saxena PA-C - 02/15/2022 2:24 PM EDT The following instructions are important for you related to your office visit today with the [facility]. INSTRUCTIONS FOLLOWING A POLYP FOUND [...] you should contact our office immediately @ [phone] and ask to be transferred to the General Surgery department. documented in this encounter [facility] 02-15-2022 History of Presen t illness Narrative FOLLOW UP VISIT - ENDOSCOPY NAME: Patty Ridley [facility] NO.: [id number] DATE OF SERVICE: 02/15/2022 : 1940 REFERRING PHYSICIAN: Celio Jhaveri MD Patty is a patient I am following for [...] which included preparing to see the patient, [id number] patient care, completing clinical documentation, obtaining and/or reviewing separately obtained history, counseling and educating the patient/family/caregiver, independently interpreting results (not separately reported), and communicating results to the patient/family/caregiver. Danielle Saxena PA-C documented in this encounter [facility] 02-12-2022 Miscellaneous Notes Called pt and all [...] making changes now. documented in this encounter [facility] 02-11-2022 History and physical note UPDATED HISTORY [...] SURGICAL HISTORY OF Left 10/06/[address] [facility] STERE[facility] LOC FOR CORE BRST BX LT [...] entered by the nurse and reviewed by md Nursing Notes: Birgit Walden LPN 09/18/2021 9:34 [...] of any colonoscopy past 2004 seen in [facility] or noted in surgical history or [...] patient was offered a surgery/procedure at a [facility] facility. I have counseled the patient regarding [...] SURGICAL HISTORY OF Left 10/06/[address] [facility] STEREO LOC FOR CORE BRST BX LT [...] entered by the nurse and reviewed by md Nursing Notes: Birgit WaldenCEZAR 09/18/2021 9:34 AM Signed REVIEW OF SYSTEMS: [...] of any colonoscopy past 2004 seen in [facility] or noted in surgical history or [...] patient was offered a surgery/procedure at a [facility] facility. I have counseled the patient regarding [...] Danielle Saxena PA-C documented in this encounter [facility] 12-12-2021 Miscellaneous Notes The following approved medication [...] Bozena Odom Pss documented in this encounter [facility] 11-14-2021 Instructions Sierra Santiago APRN.AUTOMATIC LATHE TENDER - 11/14/2021 9:21 AM EDT Diagnosis: Assessment [...] other serious complaints. documented in this encounter [facility] 11-14-2021 History of Presen t illness Narrative [...] SURGICAL HISTORY OF Left 10/06/[address] [facility] STERE[facility] LOC FOR CORE BRST BX LT [...] Patient agreeable to treatment plan. Sierra Santiago APRN.AUTOMATIC LATHE TENDER documented in this encounter [facility] 10-08-2021 Miscellaneous Notes cardiac clearance received and scanned cardiac clearance sent to [facility] 02-11-2022 COLON RINCON documented in this encounter [facility] 08-13-2021 History of Presen t illness Narrative This note was created using mediafeediater. Subjective Patty Ridley is a 81 year [...] they could not see anything. Done through [facility] (Bayron Pacheco; [place]). Discussed that [...] - COMP METABOLIC PANEL - CBC Celio Jhaveri MD documented in this encounter [facility] documented as of this encounter (statuses as of 11/07/2021) [facility] History of Past illness Narrative* Problem Noted Date Resolved Date Pain in limb 12/01/2009 09/26/2014 Sprain of neck 09/29/2006 09/26/2014 Unspecified constipation 011 Overview: Constipation documented as of this encounter (statuses as of 11/14/2021) [facility] History of Past illness Narrative* Problem Noted Date Resolved Date Pain in limb 12/01/2009 09/26/2014 Sprain of neck 09/29/2006 09/26/2014 Unspecified constipation 11/16/2 011 Overview: Constipation documented as of this encounter (statuses as of 12/13/2021) [facility] History of Past illness Narrative* Problem Noted Date Resolved Date Pain in limb 12/01/2009 09/26/2014 Sprain of neck 09/29/2006 09/26/2014 Unspecified constipation 11/16/2 011 Overview: Constipation documented as of this encounter (statuses as of 02/12/2022) [facility] History of Past illness Narrative* Problem Noted Date Resolved Date Pain in limb 12/01/2009 09/26/2014 Sprain of neck 09/29/2006 09/26/2014 Unspecified constipation 11/16/2 011 Overview: Constipation documented as of this encounter (statuses as of 02/12/2022) [facility] History of Past illness Narrative* Problem Noted Date Resolved Date Pain in limb 12/01/2009 09/26/2014 Sprain of neck 09/29/2006 09/26/2014 Unspecified constipation 11/16/2 011 Overview: Constipation documented as of this encounter (statuses as of 02/18/2022) [facility] of Past illness Narrative* Problem Noted Date Resolved Date Pain in limb 12/01/2009 09/26/2014 Sprain of neck 09/29/2006 09/26/2014 Unspecified constipation 11/16/2 011 Overview: Constipation documented as of this encounter (statuses as of 02/26/2022) [facility] History of Past illness Narrative* Problem Noted Date Resolved Date Pain in limb 12/01/2009 09/26/2014 Sprain of neck 09/29/2006 09/26/2014 Unspecified constipation 11/16/2 011 Overview: Constipation documented as of this encounter (statuses as of 02/28/2022) [facility] of Past illness Narrative* Problem Noted Date Resolved Date Pain in limb 12/01/2009 09/26/2014 Sprain of neck 09/29/2006 09/26/2014 Unspecified constipation 27/2 011 Overview: Constipation documented as of this encounter (statuses as of 05/03/2022) [facility] History of [facility] illness Narrative* Problem Noted Date Resolved Date Pain in limb 12/01/2009 09/26/2014 Sprain of neck 09/29/2006 09/26/2014 Unspecified constipation 0527/2 011 Overview: Constipation documented as of this encounter (statuses as of 05/30/2022) [facility] of Past illness Narrative* Problem Noted Date Resolved Date Pain in limb 12/01/2009 09/26/2014 Sprain of neck 09/29/2006 09/26/2014 Unspecified constipation 11/16/2 011 Overview: Constipation documented as of this encounter (statuses as of 06/22/2022) [facility] of [facility] illness Narrative* Problem Noted Date Resolved Date Pain in limb 12/01/2009 09/26/2014 Sprain of neck 09/29/2006 09/26/2014 Unspecified constipation 11/16/2 011 Overview: Constipation documented as of this encounter (statuses as of 06/24/2022) [facility] of [facility] illness Narrative* Problem Noted Date Resolved Date Pain in limb 12/01/2009 09/26/2014 Sprain of neck 09/29/2006 09/26/2014 Unspecified constipation 0527/2 011 Overview: Constipation documented as of this encounter (statuses as of 07/05/2022) [facility] of [facility] Narrative* Problem Noted Date Resolved Date Pain in limb 12/01/2009 09/26/2014 Sprain of neck 09/29/2006 09/26/2014 Unspecified constipation 27/2 011 Overview: Constipation documented as of this encounter (statuses as of 08/20/2022) [facility] of [facility] Narrative* Problem Noted Date Resolved Date Pain in limb 12/01/2009 09/26/2014 Sprain of neck 09/29/2006 09/26/2014 Unspecified constipation 011 Overview: Constipation documented as of this encounter (statuses as of 09/11/2022) [facility] of [facility] illness Narrative* Problem Noted Date Resolved Date Pain in limb 12/01/2009 09/26/2014 Sprain of neck 09/29/2006 09/26/2014 Unspecified constipation 011 Overview: Constipation documented as of this encounter (statuses as of 09/12/2022) [facility] of [facility] Narrative* Problem Noted Date Resolved Date Pain in limb 12/01/2009 09/26/2014 Sprain of neck 09/29/2006 09/26/2014 Unspecified constipation 2 011 Overview: Constipation documented as of this encounter (statuses as of 09/16/2022) [facility] of [facility] Narrative* Problem Noted Date Resolved Date Pain in limb 12/01/2009 09/26/2014 Sprain of neck 09/29/2006 09/26/2014 Unspecified constipation 2 011 Overview: Constipation documented as of this encounter (statuses as of 10/23/2022) [facility] of [facility] Narrative* Problem Noted Date Resolved Date Pain in limb 12/01/2009 09/26/2014 Sprain of neck 09/29/2006 09/26/2014 Unspecified constipation 2 011 Overview: Constipation documented as of this encounter (statuses as of 11/20/2022) [facility] of [facility] Narrative* Problem Noted Date Diagnosed Date Resolved Date Pain in limb 12/01/2009 09/26/2014 Sprain of neck 09/29/2006 09/26/2014 Unspecified constipation Overview: Constipation documented as of this encounter (statuses as of 01/10/2023) [facility] Narrative* Problem Noted Date Diagnosed Date Resolved Date Pain in limb 12/01/2009 09/26/2014 Sprain of neck 09/29/2006 09/26/2014 Unspecified constipation Overview: Constipation documented as of this encounter (statuses as of 04/04/2023) [facility] of [facility] Narrative* Problem Noted Date Diagnosed Date Resolved Date Pain in limb 12/01/2009 09/26/2014 Sprain of neck 09/29/2006 09/26/2014 Unspecified constipation Overview: Constipation documented as of this encounter (statuses as of 04/13/2023) [facility] of [facility] Narrative* Problem Noted Date Diagnosed Date Resolved Date Pain in limb 12/01/2009 09/26/2014 Sprain of neck 09/29/2006 09/26/2014 Unspecified constipation Overview: Constipation documented as of this encounter (statuses as of 05/08/2023) [facility] History of Past illness Narrative* Problem Noted Date Diagnosed Date Resolved Date Pain in limb 12/01/2009 09/26/2014 Sprain of neck 09/29/2006 09/26/2014 Unspecified constipation Overview: Constipation documented as of this encounter (statuses as of 05/18/2023) [facility] History of Past illness Narrative* Problem Noted Date Diagnosed Date Resolved Date Pain in limb 12/01/2009 09/26/2014 Sprain of neck 09/29/2006 09/26/2014 Unspecified constipation Overview: Constipation documented as of this encounter (statuses as of 05/30/2023) [facility] History of Past illness Narrative* Problem Noted Date Diagnosed Date Resolved Date Pain in limb 12/01/2009 09/26/2014 Sprain of neck 09/29/2006 09/26/2014 Unspecified constipation Overview: Constipation documented as of this encounter (statuses as of 06/24/2023) [facility] note* Diagnosis Anxiety- Primary Anxiety state, unspecified Depression, unspecified depression type Colon cancer screening Special screening for malignant neoplasms, colon Chronic allergic rhinitis Allergic rhinitis, cause unspecified Acquired hypothyroidism Unspecified hypothyroidism Mixed hyperlipidemia Encounter for long-term current use of medication [facility] Diagnosis Cough- Primary [facility] Diagnosis RLS (restless legs syndrome) Restless legs syndrome (RLS) [facility] Diagnosis Special screening for malignant neoplasm of colon- Primary Special screening for malignant neoplasms, colon Screening for colon cancer Special screening for malignant neoplasms, colon [facility] Diagnosis Hyperplastic polyp of descending colon- Primary [facility] Diagnosis Screening for colon cancer- Primary Special screening for malignant neoplasms, colon [facility] Diagnosis Acquired hypothyroidism Unspecified hypothyroidism [facility] Diagnosis Sinobronchitis- Primary Unspecified sinusitis (chronic) [facility] Diagnosis Bacterial sinusitis- Primary Unspecified sinusitis (chronic) Acute cough [facility] Diagnosis Chronic allergic rhinitis Allergic rhinitis, cause unspecified [facility] Diagnosis Acquired hypothyroidism- Primary Unspecified hypothyroidism Rectal itching Pruritus ani Neck muscle spasm Spasm of muscle Anxiety Anxiety state, unspecified Weakness of both lower extremities RLS (restless legs syndrome) Restless legs syndrome (RLS) Mixed hyperlipidemia 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 Vagina itching Pruritus of genital organs [facility] Diagnosis Rectal itching Pruritus ani [facility] Diagnosis Acquired hypothyroidism Unspecified hypothyroidism [facility] Diagnosis Class 2 obesity due to [...] (HCC) Atrial fibrillation [facility] Diagnosis Anxiety Anxiety state, unspecified Depression, unspecified depression type documented in this encounter [facility] note* Diagnosis Acquired hypothyroidism- Primary Unspecified hypothyroidism [...] of circulatory system documented in this encounter [facility] for referral (narrative)* Outpatient Procedure (Routine) - Closed Specialty Diagnoses / Procedures Referred By Christiano larry Referred To Contact [facility] Diagnoses Screening for colon cancer Procedures COLONOSCOPY SCREENING COLONOSCOPY FLX DX W/COLLJ SPEC WHEN Danielle Molina PA-C [address] [place] [address] [facility] [address] [address] Referral ID Status Reason Start Date Expiration Date V isits Requested Visits Authorized [id number] Closed Auto-Generate d Referral 09/18/2021 09/18/2022 1 1 [facility] for referral (narrative)* Outpatient Procedure (Routine) - Closed Specialty Diagnoses / Procedures Referred By Christiano larry Referred To Contact [facility] Diagnoses Screening for colon cancer Procedures COLONOSCOPY SCREENING COLONOSCOPY FLX DX W/COLLJ SPEC WHEN Danielle Molina PA-C [address] [place] [address] [facility] [address] [address] Referral ID Status Reason Start Date Expiration Date V isits Requested Visits Authorized [id number] Closed Auto-Generate d Referral 09/18/2021 09/18/2022 1 1 [facility] for referral (narrative)* Diagnostic Procedure Only (Routine) - Pending Review Specialty Diagnoses / Procedures Referred By Contac t Referred To Contact [facility] Diagnoses Iliac artery aneurysm (HCC) Procedures US ABD AORTA US RETROPERITONEAL REAL TIME W/IMAGE LIMITED Erendira Hernandez APRN.BUILDING COORDINATOR [address] [place] [address] [facility] Referral ID Status Reason Start Date Expiration Date Visits Requested Visits Authorized [id number] Pending Review Auto-Generat ed Referral 09/10/2022 10/10/2023 1 1 * Physical Therapy (Routine) - Pending Review Specialty Diagnoses / Procedures Referred By Christiano t Referred To Contact [facility] Diagnoses Weakness of both lower extremities Procedures CONSULT TO PHYSICAL THERAPY PHYSICAL THERAPY EVALUATION HIGH COMPLEX 45 MINS Erendira Hernandez APRN.BUILDING COORDINATOR [address] [place] [address] [facility] [address] [place] [address] Referral ID Status Reason Start Date Expiration Date Visits Requested Visits Authorized [id number] Pending Review Auto-Generat ed Referral 09/10/2022 09/10/2023 1 1 [facility] for visit Narrative* Outpatient Procedure (Routine) - Closed Specialty Diagnoses / Procedures Referred By Contac t Referred To Contact [facility] Diagnoses Screening for colon cancer Procedures COLONOSCOPY SCREENING COLONOSCOPY FLX DX W/COLLJ SPEC WHEN [facility] Danielle Saxena PA-C [address] [place] [address] [facility] [address] [place] [address] Referral ID Status Reason Start Date Expiration Date V isits Requested Visits Authorized [id number] Closed Auto-Generate d Referral 09/18/2021 09/18/2022 1 1 [facility] Reason for Referral Specialty Diagnoses / Procedures Referred By Contac t Referred To Contact General Surgery Diagnoses Colon cancer screening Procedures CONSULT TO GENERAL SURGERY OFFICE/OUTPATIENT [facility] MDM 60-74 MINUTES Celio Jhaveri MD [address] [place] [address] Referral ID Status Reason Start Date Expiration Date Visits Requested Visits Authorized [id number] Pending Review PCP Requested Referral 08/13/2021 08/13/2022 1 1 Specialty Diagnoses / Procedures Referred By Contac t Referred To Contact Diagnoses Class 2 obesity due to excess calories with body mass index (BMI) of 37.0 to 37.9 in adult, unspecified whether serious comorbidity present Procedures CONSULT [facility] OFFICE/OUTPATIENT [facility] 60-74 MINUTES Erendira Hernandez APRN.CNS [address] [place] [address] Referral ID Status Reason Start Date Expiration Date Visits Requested Visits Authorized [id number] Pending Review PCP Requested Referral 01/09/2023 01/09/2024 1 1 Advance Directives No Advanced Directives Records FoundDocuments on File Type Date Recorded Patient Mobile Equipment Servicer Expl anation Advance Directive(s) Documents on File Type Date Recorded Patient Mobile Equipment Servicer Expl anation Advance Directive(s) Health Concerns Infection [...] or prosecute any alcohol or drug abuse patient.[facility] the event this information is protected by the Federal Confidentiality of Alcohol and Drug Abuse Patient Records regulations: The Federal rules restrict any use of the information to criminally investigate or prosecute any alcohol or drug abuse patient.[facility] the event this information is protected by the Federal Confidentiality of Alcohol and Drug Abuse Patient Records regulations: The Federal rules restrict any use of the information to criminally investigate or prosecute any alcohol or drug abuse patient.[facility] the event this information is protected by the Federal Confidentiality of Alcohol and Drug Abuse Patient Records regulations: The Federal rules restrict any use of the information to criminally investigate or prosecute any alcohol or drug abuse patient.[facility] the event this information is protected by the Federal Confidentiality of Alcohol and Drug Abuse Patient Records regulations: The Federal rules restrict any use of the information to criminally investigate or prosecute any alcohol or drug abuse patient.[facility] the event this information is protected by the Federal Confidentiality of Alcohol and Drug Abuse Patient Records regulations: The Federal rules restrict any use of the information to criminally investigate or prosecute any alcohol or drug abuse patient.[facility] the event this information is protected by the Federal Confidentiality of Alcohol and Drug Abuse Patient Records regulations: The Federal rules restrict any use of the information to criminally investigate or prosecute any alcohol or drug abuse patient.[facility] the event this information is protected by the Federal Confidentiality of Alcohol and Drug Abuse Patient Records regulations: The Federal rules restrict any use of the information to criminally investigate or prosecute any alcohol or drug abuse patient.[facility] the event this information is protected by the Federal Confidentiality of Alcohol and Drug Abuse Patient Records regulations: The Federal rules restrict any use of the information to criminally investigate or prosecute any alcohol or drug abuse patient.[facility] the event this information is protected by the Federal Confidentiality of Alcohol and Drug Abuse Patient Records regulations: The Federal rules restrict any use of the information to criminally investigate or prosecute any alcohol or drug abuse patient.[facility] the event this information is protected by the Federal Confidentiality of Alcohol and Drug Abuse Patient Records regulations: The Federal rules restrict any use of the information to criminally investigate or prosecute any alcohol or drug abuse patient.[facility] the event this information is protected by the Federal Confidentiality of Alcohol and Drug Abuse Patient Records regulations: The Federal rules restrict any use of the information to criminally investigate or prosecute any alcohol or drug abuse patient.[facility] the event this information is protected by the Federal Confidentiality of Alcohol and Drug Abuse Patient Records regulations: The Federal rules restrict any use of the information to criminally investigate or prosecute any alcohol or drug abuse patient.[facility] the event this information is protected by the Federal Confidentiality of Alcohol and Drug Abuse Patient Records regulations: The Federal rules restrict any use of the information to criminally investigate or prosecute any alcohol or drug abuse patient.[facility] the event this information is protected by the Federal Confidentiality of Alcohol and Drug Abuse Patient Records regulations: The Federal rules restrict any use of the information to criminally investigate or prosecute any alcohol or drug abuse patient.[facility] the event this information is protected by the Federal Confidentiality of Alcohol and Drug Abuse Patient Records regulations: The Federal rules restrict any use of the information to criminally investigate or prosecute any alcohol or drug abuse patient.[facility] the event this information is protected by the Federal Confidentiality of Alcohol and Drug Abuse Patient Records regulations: The Federal rules restrict any use of the information to criminally investigate or prosecute any alcohol or drug abuse patient.[facility] the event this information is protected by the Federal Confidentiality of Alcohol and Drug Abuse Patient Records regulations: The Federal rules restrict any use of the information to criminally investigate or prosecute any alcohol or drug abuse patient.[facility] the event this information is protected by the Federal Confidentiality of Alcohol and Drug Abuse Patient Records regulations: The Federal rules restrict any use of the information to criminally investigate or prosecute any alcohol or drug abuse patient.[facility] the event this information is protected by the Federal Confidentiality of Alcohol and Drug Abuse Patient Records regulations: The Federal rules restrict any use of the information to criminally investigate or prosecute any alcohol or drug abuse patient.[facility] the event this information is protected by the Federal Confidentiality of Alcohol and Drug Abuse Patient Records regulations: The Federal rules restrict any use of the information to criminally investigate or prosecute any alcohol or drug abuse patient.[facility] the event this information is protected by the Federal Confidentiality of Alcohol and Drug Abuse Patient Records regulations: The Federal rules restrict any use of the information to criminally investigate or prosecute any alcohol or drug abuse patient.[facility] the event this information is protected by the Federal Confidentiality of Alcohol and Drug Abuse Patient Records regulations: The Federal rules restrict any use of the information to criminally investigate or prosecute any alcohol or drug abuse patient.[facility] the event this information is protected by the Federal Confidentiality of Alcohol and Drug Abuse Patient Records regulations: The Federal rules restrict any use of the information to criminally investigate or prosecute any alcohol or drug abuse patient.[facility] the event this information is protected by the Federal Confidentiality of Alcohol and Drug Abuse Patient Records regulations: The Federal rules restrict any use of the information to criminally investigate or prosecute any alcohol or drug abuse patient.[facility] the event this information is protected by the Federal Confidentiality of Alcohol and Drug Abuse Patient Records regulations: The Federal rules restrict any use of the information to criminally investigate or prosecute any alcohol or drug abuse patient.[facility] Reason for Visit (unrecogniz ed section and [...] Care Teams (unrecognized sec tion and content) Buyer Grain Relationship Specialty Start Date End Date Celio Jhaveri MD [address] [place] [address] PCP - General Internal Medicine 11/29/16 Buyer Grain Relationship Specialty Start Date End Date Celio Jhaveri MD [address] [place] [address], [place] [address] PCP - General Internal Medicine 11/29/16 Buyer Grain Relationship Specialty Start Date End Date Celio Jhaveri MD [address] [place] [address], [place] [address] PCP - General Internal Medicine 11/29/16 Buyer Grain Relationship Specialty Start Date End Date Celio Jhaveri MD [address] [place] [address], [place] [address] PCP - General Internal Medicine 11/29/16 Buyer Grain Relationship Specialty Start Date End Date Celio Jhaveri MD [address] [place] [address], [place] [address] PCP - General Internal Medicine 11/29/16 Buyer Grain Relationship Specialty Start Date End Date Celio Jhaveri MD [address] [place] [address], [place] [address] PCP - General Internal Medicine 11/29/16 Buyer Grain Relationship Specialty Start Date End Date Celio Jhaveri MD [address] [place] [address], [place] [address] PCP - General Internal Medicine 11/29/16 Buyer Grain Relationship Specialty Start Date End Date Celio Jhaveri MD [address] [place] [address], [place] [address] PCP - General Internal Medicine 11/29/16 Buyer Grain Relationship Specialty Start Date End Date Celio Jhaveri MD [address] [place] [address], [place] [address] PCP - General Internal Medicine 11/29/16 Buyer Grain Relationship Specialty Start Date End Date Celio Jhaveri MD [address] [place] [address] PCP - General Internal Medicine 11/29/16 Buyer Grain Relationship Specialty Start Date End Date Celio Jhaveri MD [address] [place] [address] PCP - General Internal Medicine 11/29/16 Buyer Grain Relationship Specialty Start Date End Date Celio Jhaveri MD [address] [place] [address] PCP - General Internal Medicine 11/29/16 Buyer Grain Relationship Specialty Start Date End Date Celio Jhaveri MD [address] [place] [address] PCP - General Internal Medicine 11/29/16 Buyer Grain Relationship Specialty Start Date End Date Celio Jhaveri MD [address] [place] [address] PCP - General Internal Medicine 11/29/16 Buyer Grain Relationship Specialty Start Date End Date Celio Jhaveri MD [address] [place] [address] PCP - General Internal Medicine 11/29/16 Buyer Grain Relationship Specialty Start Date End Date Celio Jhaveri MD [address] [place] [address] PCP - General Internal Medicine 11/29/16 Buyer Grain Relationship Specialty Start Date End Date Celio Jhaveri MD [address] [place] [address] PCP - General Internal Medicine 11/29/16 Buyer Grain Relationship Specialty Start Date End Date Celio Jhaveri MD [address] [facility] [place] [address] PCP - General Internal Medicine 11/29/16 Buyer Grain Relationship Specialty Start Date End Date Celio Jhaveri MD [address] [facility] [place] [address] PCP - General Internal Medicine 11/29/16 INFORMATION SOURCE (unrecogn ized section and content) DATE CREATED AUTHOR AUTHOR'S ORGANIZ ATION 05/25/2023 [facility] DATE CREATED AUTHOR AUTHOR'S ORGANIZ ATION 07/31/2023 [facility] FOR RECORDS PERTAINING TO PATIENTS WHO [...] BE BASED ON THE PRIMARY CLINICAL RECORDS. [facility]. provides no warranty or guarantee of the accuracy or completeness of information in this document.
--- NOTE | 2023-09-04 23:00 | RAD_ITS ---
EXAM: XR LUMBOSACRAL SPINE, 2 OR 3 VIEWS CLINICAL INDICATION: pain / ? stimulator placement TECHNIQUE: Frontal and lateral views of the lumbar spine and sacrum. COMPARISON: Fluoroscopic examination earlier on the same date. FINDINGS: VERTEBRAE: Multilevel facet arthrosis and endplate osteophytosis. Degenerative anterolisthesis of L4 upon L5. Preserved vertebral body height. No fracture. Preservation of the normal lumbar lordosis. DISC SPACES: Multilevel intervertebral disc height loss. SOFT TISSUES: Surgical clips within the left side of the abdomen. GASTROINTESTINAL TRACT: Normal as visualized. Included bowel gas pattern is non-obstructive. TUBES, LINES AND DEVICES: There is a single-lead spinal cord stimulator entering the spinal canal at the T12-L1 interlaminar space with the electrode tip terminating midline at the T8-T9 disc space. OTHER FINDINGS: Moderate stool retention. RAD/Lumbar Spine 2 or 3 Views IMPRESSION: 1. There is a single-lead spinal cord stimulator entering the spinal canal at the T12-L1 interlaminar space with the electrode tip terminating midline at the T8-T9 disc space. Degenerative changes. 2. Moderate stool retention. Electronically Signed: Ray Diana DO at 23:19 EDT ,
[2023-09-05] MEDS: Lorazepam 2 MG/ML WCH Syringe 1 MG IM (00:53)
[2023-09-05] MEDS: Gabapentin 300 MG Capsule PO (00:53)
--- NOTE | 2023-09-05 00:58 | EX.ED.DYSGE1 ---
HPI History of Present Illness Chief Complaint: Lower Extremity Injury Informant: patient and spouse/S.O. Narrative Narrative: Patient is an 83-year-old female with past medical history of lumbar stenosis and paroxysmal atrial fibrillation currently on Eliquis. She underwent a spinal stimulator placement on September 03. She states that she initially noticed some intermittent leg pain/spasm as the stimulator was placed. She states she returned home and has been resting and following the directions but she has been having increasing spasm and pain to the left leg. She states that she feels that radiate from the medial aspect of her left foot through the ankle and into the left calf. She states that there is no headache or change in vision or fever but as the spasms will not stop she presents to the hospital for evaluation. She states has been no associated vomiting or diarrhea to suggest electrolyte derangement [facility] Medical History Ambulates with cane Aneurysm of left common iliac artery Anxiety Arthritis Back pain Bladder disease Cardiology follow-up encounter Chronic cough CPAP (continuous positive airway pressure) dependence Former smoker Gastric reflux History of back pain History of cardioversion (~07/25/20) History of echocardiogram History of edema History of left heart catheterization (LHC) (~01/25/11) History of steroid therapy History of stress test Hypertension Hypothyroidism Leg cramps Longstanding persistent atrial fibrillation Loss of hearing Mixed anxiety depressive disorder Nephrolithiasis New onset atrial fibrillation Obesity (BMI 30.0-34.9) Osteoarthritis Paroxysmal atrial fibrillation Personal history of malignant neoplasm of breast Shortness of breath on exertion Syncope Wears glasses Home Medications triamcinolone acetonide 0.1 % topical cream 1 applic TP PRN PRN anal rash/itching 07/15/17 [History Last Taken Unknown] acetaminophen 500 mg tablet (Tylenol Extra Strength) 500 mg PO Q6H PRN Pain 1-10 Or Fever 06/15/20 [History Last Taken 09/03/23] cetirizine 10 mg tablet (Zyrtec) 10 mg PO DAILY 06/15/20 [History Last Taken 09/03/23] ketoconazole 2 % topical cream 1 applic topical DAILY PRN Agitation 06/15/20 [History Last Taken Unknown] hydrocortisone-acetic acid 1 %-2 % ear drops 10 ml OT PRN PRN EAR 10/16/20 [History Last Taken Unknown] omeprazole 20 mg tablet,delayed release 20 mg PO DAILY 07/12/22 [History Last Taken 09/03/23] buspirone 10 mg tablet 10 mg PO BID 11/01/22 [History Last Taken 09/03/23] escitalopram oxalate 10 mg tablet 10 mg PO DAILY 11/01/22 [History Last Taken 09/03/23] levothyroxine 100 mcg tablet 100 mcg PO DAILY 11/01/22 [History Last Taken 09/04/23] metoprolol tartrate 25 mg tablet 25 mg PO BID #180 tabs 01/13/23 [Rx Last Taken 09/03/23] duloxetine 20 mg capsule,delayed release 20 mg PO BID 05/09/23 [History Last Taken 09/03/23] semaglutide (weight loss) 0.25 mg/0.5 mL subcutaneous pen injector (Wegovy) 0.25 mg subcut Q7D 08/15/23 [History Last Taken 09/01/23] apixaban 5 mg tablet (Eliquis) 5 mg PO BID 09/04/23 [History Last Taken 08/31/23] cephalexin 500 mg capsule 500 mg PO Q8H 7 days #21 caps 09/04/23 [Rx Last Taken Unknown] Allergy/AdvReac Type Severity Reaction Status Date / Time codeine AdvReac Mild Other Verified 09/04/23 22:28 Family History Mother Pulmonary hypertension COPD (chronic obstructive pulmonary disease) Father Lymphoma Surgical History History of appendectomy History of blepharoplasty History of lumpectomy of left breast History of right knee joint replacement (~10/2020) History of total knee arthroplasty Trigger finger of right hand Social History Smoking Status: Former smoker alcohol intake: never substance use type: does not use caffeine: Yes ROS ROS ED Constitutional Constitutional ED: Denies chills or fever(s) Eyes Eyes: Denies change in vision ENT ENT ED: Denies sore throat Cardiovascular Cardiovascular: Denies chest pain Respiratory/Chest Respiratory/Chest: Denies cough or dyspnea Gastrointestinal Gastrointestinal: Denies abdominal pain, diarrhea, nausea or vomiting Genitourinary Genitourinary ED: Denies dysuria Musculoskeletal Musculoskeletal: Reports back pain and other Details: Positive left leg pain/spasm Integumentary Denies rash Neurologic Neurologic: Denies headache(s), paresthesias or weakness Hematologic/Lymphatic Hematologic/Lymphatic: Reports easy bleeding and easy bruising EXAM Physical Exam Const Vital Signs: 09/04/23 22:26 Temperature 96.8 F L Temperature Source Temporal Pulse Rate 89 Respiratory Rate 17 Blood Pressure 130/96 H Blood Pressure Mean 107 Pulse Ox 90 Oxygen Delivery Method Room Air Positive well nourished, well developed and obese General Appearance ED: well developed; Negative for pallor Nutritional Appearance: obese HEENT HEENT Narrative: Normocephalic atraumatic Eyes PERRL and EOMs intact bilaterally Neck supple Neck Narrative: No nuchal rigidity or meningeal signs noted Resp normal respiratory effort and clear to auscultation bilaterally Cardio regular rate and regular rhythm Back/Spine Back/Spine Narrative: No saddle anesthesia. Negative straight leg raise. No clonus or Babinski. Patellar reflexes are plus 1 out of 4 bilaterally. Soft tissue shows no bruising or erythema or warmth or lymphangitic streaking Extremity Extremity Narrative: Dorsalis pedis pulse is plus 2 out of 4 bilaterally. Capillary refills less than 3 seconds bilaterally. Compartments of the left leg are soft and compressible going against compartment syndrome. There is no asymmetric edema or pitting edema negative Homans' sign bilaterally going against DVT. Neuro oriented x3 and CN's II-XII intact bilaterally Sensorium / Orientation: alert Motor Exam: strength 5/5 throughout Psych mental status grossly normal Skin no rashes or lesions noted and no wounds General Skin Exam: Negative for jaundice or pallor MDM MDM MDM Narrative Medical decision making narrative: Patient presented to the ER slightly hypertensive otherwise with stable vitals. She denied any trauma since returning home from her spinal cord stimulator insertion. With intermittent pain differential diagnosis is for spinal stimulator malfunction versus spinal stimulator dislodgment there is also concern for CSF leak or internal bleeding. An x-ray of the spine was obtained and it shows that the spinal stimulator is in proper position without a break in the wiring and this is similar to the x-ray from earlier today. The patient does not have a fever there is no surrounding redness to where the spinal cord stimulator enters the back and there is no signs of bruising. Moreover the patient does not have headache or change in vision or weakness going against CSF leak. Patient has soft and compressible compartments going against compartment syndrome and there are no physical exam findings to suggest DVT so there is no need for a venous duplex. I contacted the patient's surgeon/Dr. Chaves. He recommend turning the stimulator off. This was done the patient was still having intermittent spasms and pain. Therefore she was given IM Ativan and gabapentin. On reevaluation she remains hemodynamically stable and has had moderate improvement of symptoms. At this time she does not have findings to suggest infection or CSF leak or compartment syndrome therefore she will be discharged home and she knows to contact her surgeons office in the morning for repeat evaluation History & Record Review Discussion w/independent historian: Patient and Significant other Radiography Diagnostic Testing: Clinical Impression(s) from Imaging Studies Lumbar Spine X-Ray 09/04/23 23:00 IMPRESSION: 1. There is a single-lead spinal cord stimulator entering the spinal canal at the T12-L1 interlaminar space with the electrode tip terminating midline at the T8-T9 disc space. Degenerative changes. 2. Moderate stool retention. Electronically Signed: Ray Diana DO at 23:19 EDT , X-ray of the lumbar spine as interpreted by the emergency medicine physician reveals a spinal cord stimulator to be intact and in place with degenerative changes of the spine Discharge Plan Triage Chief Complaint: Lower Extremity Injury ED Provider: Miguel Bhagat Dx/Rx/DC Orders Clinical Impression: Lumbar stenosis, Post-operative pain, Paroxysmal atrial fibrillation Instructions: Low Back Leg Pain Causes, Managing Post-Op Pain at Home Prescriptions: No Action ketoconazole 2 % cream 1 applic TOPICAL DAILY PRN (Reason: Agitation) acetaminophen [Tylenol Extra Strength] 500 mg tablet 500 mg PO Q6H PRN (Reason: Pain 1-10 Or Fever) cetirizine [Zyrtec] 10 mg tablet 10 mg PO DAILY levothyroxine 100 mcg tablet 100 mcg PO DAILY buspirone 10 mg tablet 10 mg PO BID escitalopram oxalate 10 mg tablet 10 mg PO DAILY Patient Comments: take 1 tablet by mouth once daily as directed omeprazole 20 mg tablet,delayed release (DR/EC) 20 mg PO DAILY duloxetine 20 mg capsule,delayed release(DR/EC) 20 mg PO BID triamcinolone acetonide 1 APPLIC cream 1 applic TP PRN PRN (Reason: anal rash/itching) hydrocortisone-acetic acid 10 ML drops 10 ml OT PRN PRN (Reason: EAR ) Wegovy 0.25 mg/0.5 mL pen injector 0.25 mg subcut Q7D cephalexin 500 mg capsule 500 mg PO Q8H 7 Days Qty: 21 0RF Eliquis 5 mg tablet 5 mg PO BID metoprolol tartrate 25 mg tablet 25 mg PO BID Qty: 180 3RF Primary Care Provider: Patrica Jhaveri Referrals: Checo Chaves DO [Med Staff - Active Staff] - Patrica Jhaveri MD [Primary Care Provider] - Activity Restrictions/Additional Instructions: Please contact your surgeon's office in the morning in order to get a repeat evaluation. Please keep your spinal stimulator turned off. If you develop fever headache change in vision weakness or have any further concerns please return the hospital for repeat evaluation Disposition Disposition: Home, Self Care
[2023-09-05 01:21] VITALS: BP 99/66; PULSE 83; RESP 6; TEMP 36.4; O2SAT 92
== END 2023-09-05 01:30 | disposition home or self-care (01) ==
PROVIDERS: Emergency Provider Emergency Medicine; PCP Internal Medicine; Visit Provider Emergency Medicine
DX: Z98.890 Other specified postprocedural states (principal); I48.0 Paroxysmal atrial fibrillation; Z87.891 Personal history of nicotine dependence; M48.061 Spinal stenosis, lumbar region without neurogenic claudication; Z79.01 Long term (current) use of anticoagulants; I10 Essential (primary) hypertension; K21.9 Gastro-esophageal reflux disease without esophagitis; Z79.899 Other long term (current) drug therapy; F41.8 Other specified anxiety disorders; E03.9 Hypothyroidism, unspecified; Z90.49 Acquired absence of other specified parts of digestive tract; Z96.651 Presence of right artificial knee joint
CPT/HCPCS: 72100

== ENCOUNTER → 2024-04-05 | Outpatient (CLI) | payer MEDICARE, SELFPAY ==
[2024-04-05 11:43] LABS: Absolute Lymphocyte Count 2.21 X10^3/uL (0.83-4.51); Absolute Neutrophil Count 3.8 X10^3/uL (2.0-7.7); Basophil# 0.06 X10^3/uL; Basophil% 0.9 % (0-1); Hematocrit 42.5 % (37-47); Hemoglobin 13.3 g/dL (12.0-15.0); Lymphocyte # 2.21 X10^3/ul (0.83-4.51); Lymphocyte % 32.6 % (19-41); Mean Corp Hgb Conc 31.3 g/dL (32-36); Mean Corpuscular Hgb 29.6 pg (27.0-32.0); Mean Corpuscular Volume 94.4 fL (81-99); Mean Platelet Vol. 9.3 fl (6.2-12.0); Monocyte# 0.72 X10^3/uL; Monocyte% 10.6 % (0-10); NRBC Flagged by Analyzer 0 % (0-5); Neutrophil # 3.78 X10^3/uL (2.7-7.7); Neutrophil % 55.8 % (47-70); Platelet Count 208 K/mm3 (150-450); RBC Distribution Width CV 12.3 % (11.6-14.6); RBC Distribution Width SD 42.7 fl (35.1-43.9); White Blood Count 6.8 K/mm3 (4.4-11.0)
[2024-04-05 11:47] LABS: Erythrocyte Sedimentation Rate 9 mm/hr (0-30)
[2024-04-05 12:18] LABS: CRP 4.79 mg/L (0.0-3.0)
== END | disposition home or self-care (01) ==
LOC: LAB 10:33
PROVIDERS: PCP Internal Medicine; Referring Provider Physician Assistant; Visit Provider Physician Assistant
DX: Z96.652 Presence of left artificial knee joint (principal); T84.032A Mechanical loosening of internal right knee prosthetic joint, initial encounter; T84.84XA Pain due to internal orthopedic prosthetic devices, implants and grafts, initial encounter
CPT/HCPCS: 36415; 85025; 85652; 86140

== ENCOUNTER → 2024-05-07 | Outpatient (CLI) | payer MEDICARE, SELFPAY ==
--- NOTE | 2024-05-07 09:02 | NM_ITS ---
CLINICAL: 83-year-old female with history of painful left knee arthroplasty. LIMITED 99m Tc MDP THREE PHASE BONE SCINTIGRAPHY COMPARISON: CT of the left knee report 05/07/2024 FINDINGS: Following the intravenous administration of 26.4 mCi of 99m Tc MDP, three-phase bone acquisitions of the knee articulations reveal: 1. The flow and immediate static blood pool acquisitions demonstrate normal arterial and venous phase distribution of the radiotracer in the bilateral knee arthroplasties. 2. Delayed images depict increased radiopharmaceutical concentration identified in the posterior medial tibial component of the symptomatic left knee prosthetic device. 3. Enhanced uptake is noted in the medial and lateral tibial and medial femoral components of the presumed asymptomatic right knee prosthesis. Facilitated radiopharmaceutical is noted in the patellofemoral compartments of both knees. 4. The remaining limited skeletal structures are scintigraphically unremarkable. NM/Bone Scan Three Phase IMPRESSION: 1. The increase in radiopharmaceutical concentration identified in the posterior medial tibial component of the symptomatic left knee arthroplasty likely represents a presentation of loosening. The specificity of this finding is facilitated in the setting of operative intervention > 2 years prior to the current presentation. If infection is a diagnostic consideration, correlation with labeled leukocyte imaging is recommended. 2. Augmented uptake noted in the presumed asymptomatic right knee prosthesis is most consistent with normal postsurgical change. 3. Increased radiotracer defined in the patellofemoral compartment of both knees is consistent with degenerative change in the absence of patellar hardware placement. Electronically Signed: Lauro Guardado, at 11:00 EST ,
--- NOTE | 2024-05-07 09:03 | CT_ITS ---
STUDY: CT LEFT KNEE WITHOUT CONTRAST REASON FOR EXAM: Female, 83 years old. PAIN DUE TO INTERNAL ORTHOPEDIC PROSTHESIS. MAR RADIATION DOSAGE (If Supplied By Facility): CTDIvol = ( 15.40 ) mGy, DLP = ( 398.39 ) mGycm TECHNIQUE: Transaxial CT imaging of the left knee was performed. Coronal and sagittal images were reformatted. Individualized dose optimization techniques were used for this CT. COMPARISON: Left knee radiographs dated 07/14/2023. FINDINGS: Again seen is a left total knee arthroplasty. There is no periprosthetic fracture or periprosthetic fluid collection. Normal proximal tibiofibular articulation. There is a small joint effusion. The quadriceps tendon is grossly normal. The patellar tendon is grossly normal. Normal Hoffa''s fat pad. The soft tissues are unremarkable. CT/Extremity Lower without Contra IMPRESSION: Left total knee arthroplasty, with no periprosthetic fracture. Small joint effusion. Electronically Signed: Montez Gleason MD at 14:16 EST Reading Location ID and State: [facility] / [place] , Service support ,
== END | disposition home or self-care (01) ==
LOC: NM 09:00
PROVIDERS: PCP Internal Medicine; Referring Provider Specialist; Visit Provider Specialist
DX: T84.84XA Pain due to internal orthopedic prosthetic devices, implants and grafts, initial encounter (principal); T84.033A Mechanical loosening of internal left knee prosthetic joint, initial encounter; Z96.652 Presence of left artificial knee joint; X58.XXXA Exposure to other specified factors, initial encounter
CPT/HCPCS: 73700; 78315; A9503

== ENCOUNTER 2024-06-28 16:59 | Emergency (ER) | payer MEDICARE, SELFPAY ==
[2024-06-28 17:02] VITALS: BP 140/98; PULSE 70; RESP 18; TEMP 35.9; O2SAT 97
--- NOTE | 2024-06-28 18:12 | EKG12_ITS ---
Test Reason : Blood Pressure : */* mmHG Vent. Rate : 64 BPM Atrial Rate : * BPM P-R Int : * ms QRS Dur : 98 ms QT Int : 442 ms P-R-T Axes : * -50 -7 degrees QTcB Int : 455 ms Atrial fibrillation Left anterior fascicular block Poor R wave progression Abnormal ECG Confirmed by Roldan Crespo ([id number]), film editor CAMMY BARKER ([id number]) on 06/29/2024 1:28:00 PM Referred By: Maynor Holt Confirmed By: Roldan Crespo
[2024-06-28 18:13] VITALS: BP 116/94; PULSE 58; RESP 17; TEMP 36.2; O2SAT 94
[2024-06-28 18:14] VITALS: O2SAT 94
--- NOTE | 2024-06-28 18:14 | ED.VIS.DYS ---
HPI History of Present Illness Chief Complaint: Shortness of Breath Informant: patient and spouse/S.O. Associated Symptoms cough Chest Pain: Positive for None Narrative Narrative: 83-year-old female tested positive for COVID at home, she has had symptoms for 7-8 days, she states 4 days ago she went to see her nurse practitioner and was prescribed Paxlovid and as a result, discontinued her Eliquis temporarily. She states she has 1 more day of that left. On Eliquis because of longstanding persistent atrial fibrillation. She states she has been having episodes of dyspnea, not associated with any chest discomfort or obvious palpitations/fluttering or lightheadedness/syncope. When asked about this in more detail, she states she has been having these episodes for years. They occur randomly. Sometimes they occur when she lies down at night. She presents to the ER today for this because in the past 3 or 4 days she has noticed them occurring more frequently. It is not every time she lies down. She has a persistent headache that she attributes to COVID, but other than that she has no other new symptoms. She has had all recommended COVID vaccinations. [facility] Medical History Loss of hearing Wears glasses Anxiety History of steroid therapy Ambulates with cane Bladder disease Arthritis Back pain Syncope Gastric reflux Former smoker CPAP (continuous positive airway pressure) dependence Shortness of breath on exertion Chronic cough Leg cramps History of edema Hypertension History of stress test History of echocardiogram Cardiology follow-up encounter History of back pain Longstanding persistent atrial fibrillation Paroxysmal atrial fibrillation History of cardioversion (~07/25/20) Osteoarthritis Aneurysm of left common iliac artery History of left heart catheterization (LHC) (~01/25/11) Personal history of malignant neoplasm of breast New onset atrial fibrillation Hypothyroidism Obesity (BMI 30.0-34.9) Nephrolithiasis Mixed anxiety depressive disorder Home Medications ?Medication ?Instructions ?Recorded ?Last Taken ?Type triamcinolone acetonide 0.1 % 1 applic TP PRN PRN anal 07/15/17 Unknown History topical cream rash/itching acetaminophen 500 mg tablet 500 mg PO Q6H PRN Pain 1-10 Or 06/15/20 09/03/23 History (Tylenol Extra Strength) Fever cetirizine 10 mg tablet (Zyrtec) 10 mg PO DAILY 06/15/20 09/03/23 History ketoconazole 2 % topical cream 1 applic topical DAILY PRN 06/15/20 Unknown History Agitation hydrocortisone-acetic acid 1 %-2 % 10 ml OT PRN PRN EAR 10/16/20 Unknown History ear drops omeprazole 20 mg tablet,delayed 20 mg PO DAILY 07/12/22 09/03/23 History release buspirone 10 mg tablet 10 mg PO BID 11/01/22 09/03/23 History escitalopram oxalate 10 mg tablet 10 mg PO DAILY 11/01/22 09/03/23 History levothyroxine 100 mcg tablet 100 mcg PO DAILY 11/01/22 09/04/23 History duloxetine 20 mg capsule,delayed 20 mg PO BID 05/09/23 09/03/23 History release cephalexin 500 mg capsule 500 mg PO Q8H 7 days #21 caps 09/04/23 Unknown Rx tramadol 50 mg tablet 50 mg PO Q6 PRN 11/07/23 Unknown History metoprolol tartrate 25 mg tablet 25 mg PO BID #180 TABLETS 01/12/24 Unknown Rx apixaban 5 mg tablet (Eliquis) 5 mg PO BID #180 tabs 04/26/24 Unknown Rx Allergy/AdvReac Type Severity Reaction Status Date / Time No Known Allergies Allergy Verified 06/28/24 17:00 Family History Mother Pulmonary hypertension COPD (chronic obstructive pulmonary disease) Father Lymphoma Surgical History Hx of spinal surgery (~10/01/23) History of right knee joint replacement (~10/2020) Trigger finger of right hand History of blepharoplasty History of lumpectomy of left breast History of total knee arthroplasty History of appendectomy Social History Smoking Status: Former smoker alcohol intake: never substance use type: does not use caffeine: Yes ROS ROS ED Constitutional Constitutional ED: Reports body ache(s), fatigue and headache(s); Denies chills or fever(s) Eyes Eyes: Denies change in vision or diplopia ENT ENT ED: Denies ear pain, rhinorrhea or sore throat Cardiovascular Cardiovascular: Reports paroxysmal nocturnal dyspnea; Denies chest pain, lightheadedness, palpitations or syncope Respiratory/Chest Respiratory/Chest: Reports cough, dyspnea and paroxysmal nocturnal dyspnea; Denies dyspnea on exertion or sputum Gastrointestinal Gastrointestinal: Denies abdominal pain, diarrhea, nausea or vomiting Genitourinary Genitourinary ED: Denies dysuria or hematuria Musculoskeletal Musculoskeletal: Denies back pain or neck pain Integumentary Denies abscess or rash Neurologic Neurologic: Reports headache(s); Denies paresthesias or weakness EXAM Physical Exam Const Vital Signs: 06/28/24 17:02 06/28/24 17:04 06/28/24 18:13 Temperature 96.7 F L 97.2 F L Temperature Source Temporal Oral Pulse Rate 70 58 L Respiratory Rate 18 17 Respiratory Effort Normal Non-Labored Respiratory Depth Normal Respiratory Pattern Normal Blood Pressure 140/98 H 116/94 H Blood Pressure Mean 112 101 Pulse Ox 97 94 Oxygen Delivery Method Room Air Room Air 06/28/24 18:14 06/28/24 18:55 06/28/24 20:00 Temperature 97.7 F L 97.7 F L Temperature Source Oral Oral Pulse Rate 63 65 Respiratory Rate 20 H 18 Respiratory Effort Respiratory Depth Respiratory Pattern Blood Pressure 123/96 H 130/97 H Blood Pressure Mean 105 108 Pulse Ox 94 94 98 Oxygen Delivery Method Room Air Room Air Room Air Positive well nourished and well developed Constitutional Narrative: Well-appearing, no distress General Appearance ED: well developed and NAD HEENT Reports moist mucous membranes normocephalic and atraumatic Eyes PERRL and EOMs intact bilaterally Neck full ROM, supple and no JVD Resp normal respiratory effort and clear to auscultation bilaterally Cardio no murmurs Rate: Negative for tachycardic Rhythm: abnormal rhythm irregularly irregular GI non-tender and non-distended Auscultation: normoactive bowel sounds Palpation: soft Back/Spine no CVA tenderness General Back: other FROM Extremity normal to inspection and no calf tenderness General Extremety ED: Negative for edema, pulses abnormal or tenderness General Extremity: Negative for edema or pulses abnormal Neuro oriented x3, CN's II-XII intact bilaterally and no sensory deficits noted Sensorium / Orientation: awake and alert Motor Exam: strength 5/5 throughout Psych mental status grossly normal Skin no rashes or lesions noted and no wounds MDM MDM MDM Narrative Medical decision making narrative: Although the patient technically is at a higher risk of developing a PE because she has COVID and recently discontinued her a apixaban, the symptoms are episodic and have been going on for years, and her vital signs are normal here with pulse ox at 97% room air so I really do not think she has an acute PE. Furthermore, I do not think she needs to have evaluation for PE because even if she has a small subsegmental one that is not affecting her hemodynamics, she is getting ready to restart her Eliquis anyway. Her work appears unremarkable. Her BNP is a little elevated, this is not abnormal for age, it is lower than her prior measurements. Furthermore, her 1 view chest x-ray my interpretation is normal showing no signs of venous congestion or CHF, radiology was in agreement. The rest of her tests are unremarkable except for some mild prerenal azotemia, her EKG shows rate controlled atrial fibrillation without an acute injury pattern, and for a couple of hours while we had her on the monitor, she had no recurrence of symptoms. I think reasonable to have her restart her Eliquis at half the dose for the next 2 days, as she has 1 dose left tonight of Paxlovid, and then resume at her normal dosing 5 mg twice daily. This has been shown in the [place] interaction formula checker to be reasonable treatment with regards to her risk/benefit profile I think that is very reasonable. I am also having respiratory place a 48-hour Holter monitor on her since she has been having frequent symptoms, and advising her to follow-up with cardiology afterwards. She is comfortable with that overall plan. Lab Data Attestation: I reviewed the patient's lab results. Labs: Laboratory Results - last 24 hr 06/28/24 17:54 WBC 7.7 RBC 4.54 Hgb 13.5 Hct 41.7 MCV 91.9 MCH 29.7 MCHC 32.4 RDW Std Deviation 41.1 RDW Coeff of [place] 12.3 Plt Count 217 MPV 9.6 Immature Gran % (Auto) 0.400 Neut % (Auto) 55.0 Lymph % (Auto) 36.4 Giles % (Auto) 7.7 Eos % (Auto) 0.0 Baso % (Auto) 0.5 Absolute Neuts (auto) 4.2 Absolute Lymphs (auto) 2.80 Nucleated RBC % 0 Sodium 137 Potassium 4.8 Chloride 105 Carbon Dioxide 27.0 Anion Gap 5 BUN 24 H Creatinine 0.78 Est GFR (MDRD) Af Amer 91 Est GFR (MDRD) Non-Af 75 BUN/Creatinine Ratio 30.8 H Glucose 89 Calcium 9.2 Troponin I High Sens 5 B-Natriuretic Peptide 132.3 H Radiography Diagnostic Testing: Clinical Impression(s) from Imaging Studies Chest X-Ray 06/28/24 18:15 IMPRESSION: Degenerative changes, as described above. No demonstrated acute cardiopulmonary process. Electronically Signed: Maynor Wilcox MD at 20:04 EST , Rhythm Strip Rhythm Strip: A-fib Rate: 65 Ectopy: None EKG Initial EKG: Attestation: I personally reviewed and interpreted this EKG as follows: Interpretation: No Acute Injury Pattern and Atrial Fibrillation Prior EKG tracings: available for review Prior: Unchanged Discharge Plan Triage Chief Complaint: Shortness of Breath ED Provider: Maynor Holt Dx/Rx/DC Orders Clinical Impression: Paroxysmal dyspnea, COVID-19, Longstanding persistent atrial fibrillation Instructions: ED Holter Monitor Prescriptions: No Action ketoconazole 2 % cream 1 applic TOPICAL DAILY PRN (Reason: Agitation) acetaminophen [Tylenol Extra Strength] 500 mg tablet 500 mg PO Q6H PRN (Reason: Pain 1-10 Or Fever) cetirizine [Zyrtec] 10 mg tablet 10 mg PO DAILY levothyroxine 100 mcg tablet 100 mcg PO DAILY buspirone 10 mg tablet 10 mg PO BID escitalopram oxalate 10 mg tablet 10 mg PO DAILY Patient Comments: take 1 tablet by mouth once daily as directed omeprazole 20 mg tablet,delayed release (DR/EC) 20 mg PO DAILY duloxetine 20 mg capsule,delayed release(DR/EC) 20 mg PO BID tramadol 50 mg tablet 50 mg PO Q6 PRN triamcinolone acetonide 1 APPLIC cream 1 applic TP PRN PRN (Reason: anal rash/itching) hydrocortisone-acetic acid 10 ML drops 10 ml OT PRN PRN (Reason: EAR ) cephalexin 500 mg capsule 500 mg PO Q8H 7 Days Qty: 21 0RF metoprolol tartrate 25 mg tablet 25 mg PO BID Qty: 180 3RF Eliquis 5 mg tablet 5 mg PO BID Qty: 180 3RF Primary Care Provider: Patirca Jhaveri Referrals: Nel Crowell, PA [Med Staff - Adv Practice Prof] - (pasha, after holter done) Activity Restrictions/Additional Instructions: Restart your Eliquis at half dose, 2.5 mg twice daily, tonight and take this way through 06/30, increasing back to your normal 1 tablet 5 mg twice daily on 07/01. Finish Paxlovid tonight as prescribed. Print Language: Romanian Disposition Disposition: Home, Self Care
--- NOTE | 2024-06-28 18:15 | RAD_ITS ---
STUDY: X-RAY CHEST REASON FOR EXAM: Female, 83 years old. SOB episodes, COVID TECHNIQUE: Single AP portable view of the chest. COMPARISON: August 08, 2023. FINDINGS: The lungs are clear and expanded. There is stable calcified right upper lung granuloma. There is no demonstrated pleural abnormality. There is mild cardiac enlargement. Normal mediastinum and william. Normal visualized pulmonary arteries. Normal visualized aortic arch and descending thoracic aorta. Stimulator wires extend to the mid thoracic spine. Normal visualized ribs, clavicles, and shoulders. There is no demonstrated abnormality of the visualized soft tissue structures of the upper abdomen. RAD/Chest 1 View (Portable) IMPRESSION: Degenerative changes, as described above. No demonstrated acute cardiopulmonary process. Electronically Signed: Maynor Wilcox MD at 20:04 EST ,
[2024-06-28 18:28] LABS: Absolute Neutrophil Count 4.2 X10^3/uL (2.0-7.7); Basophil# 0.04 X10^3/uL; Basophil% 0.5 % (0-1); Hematocrit 41.7 % (37-47); Hemoglobin 13.5 g/dL (12.0-15.0); Lymphocyte % 36.4 % (19-41); Mean Corp Hgb Conc 32.4 g/dL (32-36); Mean Corpuscular Hgb 29.7 pg (27.0-32.0); Mean Corpuscular Volume 91.9 fL (81-99); Mean Platelet Vol. 9.6 fl (6.2-12.0); Monocyte# 0.59 X10^3/uL; Monocyte% 7.7 % (0-10); NRBC Flagged by Analyzer 0 % (0-5); Neutrophil # 4.23 X10^3/uL (2.7-7.7); Platelet Count 217 K/mm3 (150-450); RBC Distribution Width CV 12.3 % (11.6-14.6); RBC Distribution Width SD 41.1 fl (35.1-43.9); Red Blood Count 4.54 M/mm3 (4.2-5.4); White Blood Count 7.7 K/mm3 (4.4-11.0)
[2024-06-28 18:52] LABS: Anion Gap 5 (5-15); BUN 24 mg/dL (7-18); BUN/Creat Ratio 30.8 RATIO (10-20); Calcium,Total 9.2 mg/dL (8.5-10.1); Chloride 105 mmol/L (98-107); Creatinine, Serum 0.78 mg/dL (0.55-1.02); EST Glomerular Filtration Rate 75 mL/min (>60); Est Glom Filt Rate - Afr Amer 91 mL/min (>60); Glucose 89 mg/dL (74-106); Potassium 4.8 mmol/L (3.5-5.1); Sodium Level 137 mmol/L (136-145); Troponin-I HS 5 pg/mL (3.0-54.0)
[2024-06-28 18:55] VITALS: BP 123/96; PULSE 63; RESP 20; TEMP 36.5; O2SAT 94
[2024-06-28 19:04] LABS: BNP,B-Type NATRIURETIC PEPTIDE 132.3 pg/mL (0-100)
[2024-06-28 19:43] VITALS: BMI 37.8
[2024-06-28 20:00] VITALS: BP 130/97; PULSE 65; RESP 18; TEMP 36.5; O2SAT 98
[2024-06-28 20:52] VITALS: BP 135/93; PULSE 62; RESP 16; TEMP 36.5; O2SAT 96
--- NOTE | 2024-06-29 02:20 | CPS ---
HOLTER MONITOR ORDERED AND COMPLETED ON WRONG V#. ORDERED AND COMPLETED ON PT.'S [facility] V#.
== END 2024-06-28 21:33 | disposition home or self-care (01) ==
PROVIDERS: Emergency Provider Emergency Medicine; PCP Internal Medicine; Referring Provider Emergency Medicine; Visit Provider Emergency Medicine
DX: U07.1 COVID-19 (principal); I48.11 Longstanding persistent atrial fibrillation; Z87.891 Personal history of nicotine dependence; I10 Essential (primary) hypertension; R06.00 Dyspnea, unspecified; K21.9 Gastro-esophageal reflux disease without esophagitis; Z79.899 Other long term (current) drug therapy; F41.8 Other specified anxiety disorders; E03.9 Hypothyroidism, unspecified; Z79.890 Hormone replacement therapy; Z96.651 Presence of right artificial knee joint; Z90.49 Acquired absence of other specified parts of digestive tract
CPT/HCPCS: 71045; 80048; 83880; 84484; 85025; 93005; 93225; 93226; 99284; A4216

== ENCOUNTER → 2024-06-28 | Outpatient (CLI) | payer MEDICARE, SELFPAY | END | disposition home or self-care (01) | PROVIDERS: PCP Internal Medicine; Referring Provider Internal Medicine Cardiovascular Disease; Visit Provider Internal Medicine Cardiovascular Disease | DX: I49.9 Cardiac arrhythmia, unspecified (principal) | CPT/HCPCS: 93225; 93226 ==

== ENCOUNTER → 2024-07-26 | Outpatient (CLI) | payer MEDICARE, SELFPAY ==
[2024-07-26 12:34] LABS: Absolute Lymphocyte Count 2.36 X10^3/uL (0.83-4.51); Absolute Neutrophil Count 3.2 X10^3/uL (2.0-7.7); Basophil# 0.04 X10^3/uL; Basophil% 0.6 % (0-1); Eosinophil# 0.02 X10^3/uL; Eosinophils% 0.3 % (0-5); Hematocrit 42.9 % (37-47); Hemoglobin 13.5 g/dL (12.0-15.0); Lymphocyte # 2.36 X10^3/ul (0.83-4.51); Lymphocyte % 37.9 % (19-41); Mean Corp Hgb Conc 31.5 g/dL (32-36); Mean Corpuscular Volume 92.1 fL (81-99); Mean Platelet Vol. 9.2 fl (6.2-12.0); Monocyte# 0.65 X10^3/uL; Monocyte% 10.4 % (0-10); NRBC Flagged by Analyzer 0 % (0-5); Neutrophil # 3.15 X10^3/uL (2.7-7.7); Neutrophil % 50.6 % (47-70); Platelet Count 215 K/mm3 (150-450); RBC Distribution Width CV 12.4 % (11.6-14.6); RBC Distribution Width SD 42.4 fl (35.1-43.9); Red Blood Count 4.66 M/mm3 (4.2-5.4); White Blood Count 6.2 K/mm3 (4.4-11.0)
[2024-07-26 12:44] LABS: Prothrombin Time (Protime)PT. 13.4 SECONDS (11.7-14.9)
[2024-07-26 12:45] LABS: Partial Thromboplast Time 26.6 Seconds (24.1-36.2)
--- NOTE | 2024-07-26 13:00 | RAD_ITS ---
EXAM: INJ/ASP KERON JT SHOULD/HIP/KNEE CLINICAL HISTORY: Chronic left hip pain. COMPARISON: None. TECHNIQUE: The procedure as well as the benefits and possible complications including infection and bleeding were explained to the patient. Informed consent was obtained. Under direct fluoroscopic imaging, a 22 gauge spinal needle was placed into the left hip joint. 2 cc of Isovue-300 was injected for confirmation. Following this, 6 mg of betamethasone and 3 cc of 1% lidocaine was injected. The patient tolerated the procedure well. The procedure was performed with nurse-practitioner [place]. FINDINGS: Injection of the left hip joint with 6 mg of betamethasone and 3 cc of 1% lidocaine. RAD/Inj/Asp Keron Jt Should/Hip/Knee IMPRESSION: Successful left hip injection. The patient tolerated the procedure well. Reading Location: [place] [id number]
[2024-07-26] MEDS: Lidocaine 2% (5ml sdv) 5 ML VIAL.MPF INFILT (13:18)
[2024-07-26] MEDS: Betamethasone/Betamethasone 30 MG/5 ML Vial 6 MG INTRAARTIC (13:20)
[2024-07-26] MEDS: Lidocaine 1% (5 ml sdv) 5 ML Vial 3 ML OPERA.SITE (13:21)
== END | disposition home or self-care (01) ==
PROVIDERS: PCP Internal Medicine; Referring Provider Specialist; Visit Provider Specialist
DX: Z01.812 Encounter for preprocedural laboratory examination (principal); T84.033A Mechanical loosening of internal left knee prosthetic joint, initial encounter; M16.12 Unilateral primary osteoarthritis, left hip
CPT/HCPCS: 20610; 36415; 77002; 85025; 85610; 85730; Q9967; J0702

== ENCOUNTER 2024-08-20 03:06 | Emergency (ER) | payer MEDICARE, SELFPAY ==
[2024-08-20 03:07] VITALS: BP 143/90; PULSE 77; RESP 16; TEMP 36.4; O2SAT 96; BMI 37.9
--- NOTE | 2024-08-20 03:32 | RAD_ITS ---
PROCEDURE: KNEE 3 VIEWS REASON FOR EXAM: Postoperative pain/swelling. TECHNIQUE: 3 view(s) of the left knee COMPARISON: Left knee x-ray dated 07/14/2023. FINDINGS: Since prior examination, patient appears to have undergone revision of left knee arthroplasty. There has been extension of the intramedullary component of the left knee hardware into the tibial and femoral bones. Anatomic alignment. No new fracture or dislocation is seen. There is no suprapatellar joint effusion present. RAD/Knee 3 Views IMPRESSION: As above. Reading Location: [id number]
--- NOTE | 2024-08-20 03:32 | RAD_ITS ---
PROCEDURE: CHEST 1 VIEW (PORTABLE) REASON FOR EXAM: Fever TECHNIQUE: Frontal view of the chest. COMPARISON: Chest x-ray from 06/28/2024. FINDINGS: The cardiac silhouette is prominent but stable in appearance. The lungs are clear. Stable granuloma seen within the right upper lung zone. There is no pneumothorax. Stable surgical clips overlying the left lower chest region. Stimulator wires noted overlying the midthoracic region. No acute osseous abnormalities identified. RAD/Chest 1 View (Portable) IMPRESSION: No focal infiltrate or consolidation is seen within the lungs. No change since prior. Reading Location: [id number]
[2024-08-20] MEDS: HYDROmorphone 1 MG/ML Syringe IV (03:46)
[2024-08-20] MEDS: Ondansetron 4 MG/2 ML Vial IV (03:46)
[2024-08-20 03:55] LABS: Absolute Lymphocyte Count 1.49 X10^3/uL (0.83-4.51); Absolute Neutrophil Count 3.1 X10^3/uL (2.0-7.7); Basophil# 0.04 X10^3/uL; Basophil% 0.7 % (0-1); Eosinophil# 0.13 X10^3/uL; Eosinophils% 2.4 % (0-5); Hematocrit 31.9 % (37-47); Lymphocyte # 1.49 X10^3/ul (0.83-4.51); Lymphocyte % 27.2 % (19-41); Mean Corp Hgb Conc 31.3 g/dL (32-36); Mean Corpuscular Hgb 29.8 pg (27.0-32.0); Mean Corpuscular Volume 94.9 fL (81-99); Mean Platelet Vol. 8.8 fl (6.2-12.0); Monocyte# 0.72 X10^3/uL; Monocyte% 13.2 % (0-10); NRBC Flagged by Analyzer 0 % (0-5); Neutrophil # 3.05 X10^3/uL (2.7-7.7); Neutrophil % 55.8 % (47-70); Platelet Count 257 K/mm3 (150-450); RBC Distribution Width CV 13.3 % (11.6-14.6); Red Blood Count 3.36 M/mm3 (4.2-5.4); White Blood Count 5.5 K/mm3 (4.4-11.0)
[2024-08-20 04:17] LABS: Erythrocyte Sedimentation Rate 28 mm/hr (0-30)
[2024-08-20 04:22] LABS: Lactic Acid < 1.0 mmol/L (0.0-2.0)
[2024-08-20 04:32] LABS: Procalcitonin 0.06 ng/mL (<=0.10)
[2024-08-20 04:35] LABS: Anion Gap 11 (5-15); BUN 16 mg/dL (4-19); BUN/Creat Ratio 22.4 RATIO (10-20); Calcium 8.5 mg/dL (7.6-11.0); Carbon Dioxide 23.3 mmol/L (22.0-29.0); Chloride 102 mmol/L (96-108); Creatinine, Serum 0.72 mg/dL (0.70-1.20); EST Glomerular Filtration Rate 83 (>60); Estimated Creatinine Clearance 61.32 ml/min; Glucose 98 mg/dL (70-99); Potassium 4.1 mmol/L (3.3-5.1); Sodium Level 136 mmol/L (133-145)
[2024-08-20 05:11] LABS: Bacteria 0 SEEN /hpf (None Seen); Mucous, Urine 0 SEEN /hpf (<or=2+); Squamous Epithelial Cells - UA 0 SEEN /hpf (5-10); White Blood Cells 0 SEEN /hpf (0-5)
[2024-08-20 05:12] LABS: Color, Urine Yellow (Yellow); Glucose, Dipstick Normal (Normal); Ketone-Dipstick 15 mg/dl (Negative); Leukocyte Esterase-Dipstick Negative /ul (Negative); Nitrite-Dipstick Negative (Negative); Occult Blood-Urine 10 /ul (Negative); Protein-Dipstick 15 mg/dl (Negative); Urine Bilirubin Dipstick Negative (Negative); Urine Clarity Sl. Cloudy (Clear); Urine Urobilinogen Normal (Normal)
[2024-08-20 05:32] LABS: Red Blood Cells-Urine 0 SEEN /hpf (0-5)
--- NOTE | 2024-08-20 05:49 | EX.ED.DYSGE1 ---
HPI History of Present Illness Chief Complaint: Lower Extremity Injury Informant: patient and spouse/S.O. Narrative Narrative: Patient is 84-year-old female with past medical history of hypothyroidism as well as paroxysmal atrial fibrillation currently on Eliquis. She had a left knee replacement revision 10 days ago. She states she has been doing well but is stopped taking her pain medication on a regular basis as she is running out. She states there is been no trauma but since reducing her pain medication she has noticed increased pain and swelling to the left knee. She states that the other day she had a fever of 100.4 at home and just felt overall unwell. She denies any dysuria abdominal pain nausea vomiting or diarrhea but states that with her overall unwell feeling and increased pain to the knee she is concerned for potential infection and comes in for evaluation [facility] Medical History (Updated 08/20/24 @ 06:[address] Miguel Bhagat, ) History of revision of total replacement of left knee joint Loss of hearing Wears glasses Anxiety History of steroid therapy Ambulates with cane Bladder disease Arthritis Back pain Syncope Gastric reflux Former smoker CPAP (continuous positive airway pressure) dependence Shortness of breath on exertion Chronic cough Leg cramps History of edema Hypertension History of stress test History of echocardiogram Cardiology follow-up encounter History of back pain Longstanding persistent atrial fibrillation Paroxysmal atrial fibrillation History of cardioversion (~07/25/20) Osteoarthritis Aneurysm of left common iliac artery History of left heart catheterization (LHC) (~01/25/11) Personal history of malignant neoplasm of breast New onset atrial fibrillation Hypothyroidism Obesity (BMI 30.0-34.9) Nephrolithiasis Mixed anxiety depressive disorder Home Medications ?Medication ?Instructions ?Recorded ?Last Taken ?Type acetaminophen 500 mg tablet 500 mg PO Q6H PRN Pain 1-10 Or 06/15/20 09/03/23 History (Tylenol Extra Strength) Fever cetirizine 10 mg tablet (Zyrtec) 10 mg PO DAILY 06/15/20 09/03/23 History ketoconazole 2 % topical cream 1 applic topical DAILY PRN 06/15/20 Unknown History Agitation hydrocortisone-acetic acid 1 %-2 % 10 ml OT PRN PRN EAR 10/16/20 Unknown History ear drops omeprazole 20 mg tablet,delayed 20 mg PO DAILY 07/12/22 09/03/23 History release buspirone 10 mg tablet 10 mg PO BID 11/01/22 09/03/23 History escitalopram oxalate 10 mg tablet 10 mg PO DAILY 11/01/22 09/03/23 History levothyroxine 100 mcg tablet 100 mcg PO DAILY 11/01/22 09/04/23 History tramadol 50 mg tablet 50 mg PO Q6 PRN pain 11/07/23 Unknown History metoprolol tartrate 25 mg tablet 25 mg PO BID #180 TABLETS 01/12/24 Unknown Rx apixaban 5 mg tablet (Eliquis) 5 mg PO BID #180 tabs 04/26/24 Unknown Rx doxycycline hyclate 100 mg capsule 100 mg PO Q12.TCU 08/20/24 Unknown History oxycodone 5 mg tablet 5 mg PO Q4H PRN pain 08/20/24 Unknown History oxycodone 5 mg tablet 5 mg PO Q6H PRN pain 5 days #20 08/20/24 Unknown Rx tabs Allergy/AdvReac Type Severity Reaction Status Date / Time No Known Allergies Allergy Verified 08/20/24 03:11 Family History Mother Pulmonary hypertension COPD (chronic obstructive pulmonary disease) Father Lymphoma Surgical History Hx of spinal surgery (~10/01/23) History of right knee joint replacement (~10/2020) Trigger finger of right hand History of blepharoplasty History of lumpectomy of left breast History of total knee arthroplasty History of appendectomy Social History Smoking Status: Former smoker alcohol intake: never substance use type: does not use caffeine: Yes ROS ROS ED Constitutional Constitutional ED: Reports fever(s); Denies chills Eyes Eyes: Denies change in vision ENT ENT ED: Denies rhinorrhea or sore throat Cardiovascular Cardiovascular: Denies chest pain Respiratory/Chest Respiratory/Chest: Reports cough; Denies dyspnea Gastrointestinal Gastrointestinal: Denies abdominal pain, diarrhea, nausea or vomiting Genitourinary Genitourinary ED: Denies dysuria Musculoskeletal Musculoskeletal: Reports myalgias and other Details: Positive left knee pain Integumentary Denies rash Neurologic Neurologic: Denies headache(s) Hematologic/Lymphatic Hematologic/Lymphatic: Reports easy bleeding and easy bruising EXAM Physical Exam Const Vital Signs: 08/20/24 03:07 08/20/24 05:59 Temperature 97.6 F L 98 F Temperature Source Oral Pulse Rate 77 78 Respiratory Rate 16 16 Blood Pressure 143/90 H 113/67 Blood Pressure Mean 107 82 Pulse Ox 96 97 Positive well nourished, well developed and obese General Appearance ED: well developed Nutritional Appearance: obese HEENT HEENT Narrative: Mild cobblestoning noted in the posterior pharynx consistent with sinus drainage without airway edema or compromise No secondary findings in the posterior pharynx to suggest infection Eyes PERRL and EOMs intact bilaterally General Eye ED: Negative for scleral icterus Neck supple Neck Narrative: No nuchal rigidity or meningeal signs noted Resp normal respiratory effort and clear to auscultation bilaterally Resp Narrative: Breath sounds are slight diminished throughout but overall clear to auscultation without signs of respiratory distress Cardio regular rate and regular rhythm GI non-tender, non-distended and no masses GI Narrative: Abdomen is soft nontender and nondistended with hypoactive bowel sounds. No voluntary guarding or rigidity or pulsatile mass Auscultation: hypoactive bowel sounds Palpation: soft Extremity Extremity Narrative: Postsurgical incision to the left anterior knee. There is faint surrounding erythema consistent with a reaction to the sutures but no surrounding erythema or warmth or streaking to suggest secondary infection such as cellulitis or abscess. There is soft tissue swelling to the left knee/lower leg compared to the right consistent with postoperative change; negative Homans' sign Active range of motion is decreased secondary to pain Compartments are soft and compressible going against compartment syndrome Neuro oriented x3, CN's II-XII intact bilaterally and no sensory deficits noted Sensorium / Orientation: alert Psych mental status grossly normal Skin no rashes or lesions noted Skin Narrative: Postoperative changes to the left knee as documented above that are clean dry and intact without obvious secondary findings to suggest infection MDM MDM MDM Narrative Medical decision making narrative: Patient arrived to the ER afebrile and in no acute distress. With report of fever at home there is concern for upper respiratory tract infection such as influenza versus COVID versus RSV. There is concern for pneumonia or UTI. Patient could also have postoperative infection such as cellulitis abscess or septic joint. Secondary to his basic labs with a urine sample were obtained. Urine sample showed no sign of infection labs showed no leukocytosis or left shift or lactic acidosis. Her CRP is slightly elevated at 24 but her procalcitonin and ESR normal going against a septic joint. X-ray of the chest reveals no pneumonia and the knee shows no obvious signs of hardware derangement joint effusion or moth-eaten appearance to suggest osteomyelitis. Therefore at this time I do not feel there is need for further workup as overall exam and testing do not show signs of systemic infection or septic joint. As she is on Eliquis I have low concern for DVT or PE and do not feel the need for a CTA or emergent venous duplex. The patient will be placed back on pain medication and will follow-up with her orthopedic surgeon on Friday as previously directed. However at this time she reports near resolution of her pain her vitals are stable her workup is negative and therefore she is otherwise safe for discharge History & Record Review Discussion w/independent historian: Patient and Significant other Lab Data Attestation: I reviewed the patient's lab results. Labs: Laboratory Results - last 24 hr 08/20/24 08/20/24 03:40 05:08 WBC 5.5 RBC 3.36 L Hgb 10.0 L Hct 31.9 L MCV 94.9 MCH 29.8 MCHC 31.3 L RDW Std Deviation 45.0 H RDW Coeff of [place] 13.3 Plt Count 257 MPV 8.8 Immature Gran % (Auto) 0.700 Neut % (Auto) 55.8 Lymph % (Auto) 27.2 [place] % (Auto) 13.2 H Eos % (Auto) 2.4 Baso % (Auto) 0.7 Absolute Neuts (auto) 3.1 Absolute Lymphs (auto) 1.49 Nucleated RBC % 0 ESR 28 Sodium 136 Potassium 4.1 Chloride Direct 102 Carbon Dioxide 23.3 Anion Gap 11 BUN 16 Creatinine 0.72 Estim Creat Clear Calc 61.32 Est GFR (MDRD) Non-Af 83 BUN/Creatinine Ratio 22.4 H Glucose 98 Lactic Acid < 1.0 Calcium 8.5 C-React Prot Ext Range 23.90 H Procalcitonin 0.06 Urine Color Yellow Urine Clarity Sl. Cloudy Urine pH 7.0 Ur Specific [place] 1.010 Urine Protein 15 H Urine Glucose (UA) Normal Urine Ketones 15 H Urine Occult Blood 10 H Urine Nitrite Negative Urine Bilirubin Negative Urine Urobilinogen Normal Ur Leukocyte Esterase Negative Urine RBC 0 SEEN Urine WBC 0 SEEN Ur Squamous Epith Cells 0 SEEN Urine Bacteria 0 SEEN Urine Mucus 0 SEEN Radiography Diagnostic Testing: Clinical Impression(s) from Imaging Studies Chest X-Ray 08/20/24 03:32 IMPRESSION: No focal infiltrate or consolidation is seen within the lungs. No change since prior. Reading Location: [facility] Knee X-Ray 08/20/24 03:32 IMPRESSION: As above. Reading Location: [facility] Chest x-ray as interpreted by the emergency medicine physician reveals no acute infiltrate pneumothorax or pleural effusion Discharge Plan Triage Chief Complaint: Lower Extremity Injury ED Provider: Miguel Bhagat Dx/Rx/DC Orders Clinical Impression: Post-operative pain, Paroxysmal atrial fibrillation, Hypothyroidism, Current use of ocean transportation intermediary anticoagulation Instructions: Managing Post-Op Pain at Home Prescriptions: New oxycodone 5 mg tablet 5 mg PO Q6H PRN (Reason: pain) 5 Days Qty: 20 0RF No Action ketoconazole 2 % cream 1 applic TOPICAL DAILY PRN (Reason: Agitation) acetaminophen [Tylenol Extra Strength] 500 mg tablet 500 mg PO Q6H PRN (Reason: Pain 1-10 Or Fever) cetirizine [Zyrtec] 10 mg tablet 10 mg PO DAILY levothyroxine 100 mcg tablet 100 mcg PO DAILY buspirone 10 mg tablet 10 mg PO BID escitalopram oxalate 10 mg tablet 10 mg PO DAILY Patient Comments: take 1 tablet by mouth once daily as directed omeprazole 20 mg tablet,delayed release (DR/EC) 20 mg PO DAILY tramadol 50 mg tablet 50 mg PO Q6 PRN (Reason: pain) hydrocortisone-acetic acid 10 ML drops 10 ml OT PRN PRN (Reason: EAR ) doxycycline hyclate 100 mg capsule 100 mg PO Q12.TCU oxycodone 5 mg tablet 5 mg PO Q4H PRN (Reason: pain) Rx Instructions: 1-2 tablets q 4hrs metoprolol tartrate 25 mg tablet 25 mg PO BID Qty: 180 3RF Eliquis 5 mg tablet 5 mg PO BID Qty: 180 3RF Primary Care Provider: Patrica Jhaveri Referrals: Patrica Jhaveri MD [Primary Care Provider] - Raul Del Valle MD [Med Staff - Active Staff] - Activity Restrictions/Additional Instructions: Your workup today showed no sign of joint infection or secondary infection such as pneumonia influenza/COVID or UTI. Continue the prescribed pain medication as directed and follow-up with the orthopedic surgeon for repeat evaluation Print Language: Israeli Disposition Disposition: Home, Self Care Discharge Date/Time: 08/20/24 06:05
[2024-08-20 05:59] VITALS: BP 113/67; PULSE 78; RESP 16; TEMP 36.6; O2SAT 97
[2024-08-20] MEDS: oxyCODONE 5 MG Tablet PO (06:02)
== END 2024-08-20 06:05 | disposition home or self-care (01) ==
PROVIDERS: Emergency Provider Emergency Medicine; PCP Internal Medicine; Visit Provider Emergency Medicine
DX: G89.18 Other acute postprocedural pain (principal); I48.0 Paroxysmal atrial fibrillation; Z87.891 Personal history of nicotine dependence; Z79.01 Long term (current) use of anticoagulants; I10 Essential (primary) hypertension; E03.9 Hypothyroidism, unspecified; Z96.652 Presence of left artificial knee joint; K21.9 Gastro-esophageal reflux disease without esophagitis; Z79.899 Other long term (current) drug therapy; Z79.890 Hormone replacement therapy; F41.9 Anxiety disorder, unspecified; Z90.49 Acquired absence of other specified parts of digestive tract; R50.9 Fever, unspecified
CPT/HCPCS: 71045; 73562; 80048; 81001; 83605; 84145; 85025; 85652; 86140; 87631; 96374; 96375; 99282; J2405

== ENCOUNTER 2024-08-31 02:07 | Emergency (ER) | payer MEDICARE, SELFPAY ==
[2024-08-31 02:07] VITALS: BP 127/100; PULSE 75; RESP 23; TEMP 36.4; O2SAT 93; BMI 37.5
[2024-08-31 02:20] VITALS: O2SAT 93
--- NOTE | 2024-08-31 02:42 | EX.ED.DYSGE1 ---
HPI History of Present Illness Chief Complaint: Shortness of Breath Informant: patient and spouse/S.O. Narrative Narrative: Patient is an 84-year-old female with past medical history of chronic atrial fibrillation on Eliquis as well as hypothyroidism obstructive sleep apnea on CPAP and history of anxiety. She states that over the past week as she starts to fall asleep in the evening she will suddenly awaken and feel short of breath for a few minutes. She states that she typically has her CPAP on when this occurs. She states that the symptoms only last a few minutes and then resolve. However she is having difficulty sleeping because as she gets ready for bed each night she is worried that the same event will occur. She states that this evening it happened and she was concerned that her pulse ox may be low and therefore comes in for evaluation [facility] Medical History (Updated 08/31/24 @ 04:[address] Miguel Bhagat, ) History of revision of total replacement of left knee joint Loss of hearing Wears glasses Anxiety History of steroid therapy Ambulates with cane Bladder disease Arthritis Back pain Syncope Gastric reflux Former smoker CPAP (continuous positive airway pressure) dependence Shortness of breath on exertion Chronic cough Leg cramps History of edema Hypertension History of stress test History of echocardiogram Cardiology follow-up encounter History of back pain Longstanding persistent atrial fibrillation Paroxysmal atrial fibrillation History of cardioversion (~07/25/20) Osteoarthritis Aneurysm of left common iliac artery History of left heart catheterization (LHC) (~01/25/11) Personal history of malignant neoplasm of breast New onset atrial fibrillation Hypothyroidism Obesity (BMI 30.0-34.9) Nephrolithiasis Mixed anxiety depressive disorder Home Medications ?Medication ?Instructions ?Recorded ?Last Taken ?Type acetaminophen 500 mg tablet 500 mg PO Q6H PRN Pain 1-10 Or 06/15/20 09/03/23 History (Tylenol Extra Strength) Fever cetirizine 10 mg tablet (Zyrtec) 10 mg PO DAILY 06/15/20 09/03/23 History ketoconazole 2 % topical cream 1 applic topical DAILY PRN 06/15/20 Unknown History Agitation hydrocortisone-acetic acid 1 %-2 % 10 ml OT PRN PRN EAR 10/16/20 Unknown History ear drops omeprazole 20 mg tablet,delayed 20 mg PO DAILY 07/12/22 09/03/23 History release buspirone 10 mg tablet 10 mg PO BID 11/01/22 09/03/23 History escitalopram oxalate 10 mg tablet 10 mg PO DAILY 11/01/22 09/03/23 History levothyroxine 100 mcg tablet 100 mcg PO DAILY 11/01/22 09/04/23 History tramadol 50 mg tablet 50 mg PO Q6 PRN pain 11/07/23 Unknown History metoprolol tartrate 25 mg tablet 25 mg PO BID #180 TABLETS 01/12/24 Unknown Rx apixaban 5 mg tablet (Eliquis) 5 mg PO BID #180 tabs 04/26/24 Unknown Rx doxycycline hyclate 100 mg capsule 100 mg PO Q12.TCU 08/20/24 Unknown History oxycodone 5 mg tablet 5 mg PO Q4H PRN pain 08/20/24 Unknown History oxycodone 5 mg tablet 5 mg PO Q6H PRN pain 5 days #20 08/20/24 Unknown Rx tabs Allergy/AdvReac Type Severity Reaction Status Date / Time No Known Allergies Allergy Verified 08/20/24 03:11 Family History Mother Pulmonary hypertension COPD (chronic obstructive pulmonary disease) Father Lymphoma Surgical History Hx of spinal surgery (~10/01/23) History of right knee joint replacement (~10/2020) Trigger finger of right hand History of blepharoplasty History of lumpectomy of left breast History of total knee arthroplasty History of appendectomy Social History Smoking Status: Former smoker alcohol intake: never substance use type: does not use caffeine: Yes ROS ROS ED Constitutional Constitutional ED: Denies chills or fever(s) Eyes Eyes: Denies blurry vision or change in vision ENT ENT ED: Denies rhinorrhea or sore throat Cardiovascular Cardiovascular: Denies chest pain or racing heartbeat Respiratory/Chest Respiratory/Chest: Reports dyspnea; Denies cough Gastrointestinal Gastrointestinal: Denies abdominal pain, diarrhea, nausea or vomiting Genitourinary Genitourinary ED: Denies dysuria Musculoskeletal Musculoskeletal: Denies myalgias or neck pain Integumentary Denies rash Neurologic Neurologic: Denies headache(s) Psychiatric Psychiatric: Reports anxiety Hematologic/Lymphatic Hematologic/Lymphatic: Reports easy bleeding and easy bruising Allergic/Immunologic Allergic/Immunologic ED: Denies mouth swelling or tongue swelling EXAM Physical Exam Const Vital Signs: 08/31/24 02:07 08/31/24 02:20 08/31/24 02:53 Temperature 97.5 F L 97.8 F Temperature Source Oral Pulse Rate 75 69 Respiratory Rate 23 H 18 Respiratory Effort Normal Non-Labored Respiratory Depth Normal Respiratory Pattern Normal Blood Pressure 127/100 H 114/86 H Blood Pressure Mean 109 95 Pulse Ox 93 94 Oxygen Delivery Method Room Air Room Air Positive well nourished, well developed and obese General Appearance ED: well developed; Negative for pallor Nutritional Appearance: obese HEENT HEENT Narrative: No tongue or lip swelling no oral lesions no airway edema or compromise Eyes PERRL and EOMs intact bilaterally Neck supple and no JVD Neck Narrative: No brawny edema in the submental space to suggest Feng's angina No crepitance/free air noted Chest Wall palpation of chest normal Resp normal respiratory effort Resp Narrative: Breath sounds are slight diminished throughout with faint rhonchi noted in the bilateral bases but no nasal flaring retractions tachypnea or accessory muscle use Cardio regular rate Rate: other Other Details: Irregularly irregular rhythm with regular rate consistent history of atrial fibrillation Extremity Extremity Narrative: There is asymmetric swelling of the left lower leg compared to right which patient states is chronic for her. There is a surgical wound to the anterior aspect of the left anterior knee that is clean dry and intact without secondary changes to suggest infection. Compartments are soft and compressible going against compartment syndrome Negative Homans' sign Neuro oriented x3, CN's II-XII intact bilaterally and no sensory deficits noted Sensorium / Orientation: alert Psych Mood & Affect: anxious Skin no rashes or lesions noted Skin Narrative: Postsurgical wound to the left anterior knee as documented above without secondary findings to suggest infection Capillary refill is less than 3 seconds and skin is normal in color going against acute blood loss anemia General Skin Exam: Negative for jaundice or pallor MDM MDM MDM Narrative Medical decision making narrative: Patient arrived to the ER hypertensive and mildly tachypneic but satting 93 to 95% on room air. She did appear visibly anxious. With her report of shortness of breath while falling asleep this could be related to worsening obstructive sleep apnea potential tracheal malacia versus tracheal stenosis or stricture formation. There is potential that she is having congestive heart failure or pneumonia or potentially acute blood loss anemia or has developed a spontaneous hemothorax. We discussed obtaining an x-ray and basic blood work to assess for these potential diagnoses. The patient however was recently worked up in the past few weeks and labs images revealed no acute finding. At this time as her vitals in the ER are stable indicating she is not hypoxic or in respiratory distress and she is at her recent workup not showing any acute findings she does not want to undergo further testing as she may need further evaluation by cardiology to assess her pulmonary hypertension or pulmonology to perform a bronchoscopy. We discussed a noninvasive chest x-ray to further assess her lung tissue but as her recent x-ray revealed no acute findings she does not see any utility in doing this. As her vitals are stable in ER and her exam indicates this is most likely breakthrough anxiety she does not want to undergo testing and wishes to be discharged and therefore stable vitals and a negative exam this will occur as she requests History & Record Review Discussion w/independent historian: Patient and Significant other Discharge Plan Triage Chief Complaint: Shortness of Breath ED Provider: Miguel Bhagat Dx/Rx/DC Orders Clinical Impression: Dyspnea, Mixed anxiety depressive disorder, Longstanding persistent atrial fibrillation, Hypothyroidism, Current use of detention anticoagulation Instructions: ED Dyspnea Prescriptions: No Action ketoconazole 2 % cream 1 applic TOPICAL DAILY PRN (Reason: Agitation) acetaminophen [Tylenol Extra Strength] 500 mg tablet 500 mg PO Q6H PRN (Reason: Pain 1-10 Or Fever) cetirizine [Zyrtec] 10 mg tablet 10 mg PO DAILY levothyroxine 100 mcg tablet 100 mcg PO DAILY buspirone 10 mg tablet 10 mg PO BID escitalopram oxalate 10 mg tablet 10 mg PO DAILY Patient Comments: take 1 tablet by mouth once daily as directed omeprazole 20 mg tablet,delayed release (DR/EC) 20 mg PO DAILY tramadol 50 mg tablet 50 mg PO Q6 PRN (Reason: pain) hydrocortisone-acetic acid 10 ML drops 10 ml OT PRN PRN (Reason: EAR ) doxycycline hyclate 100 mg capsule 100 mg PO Q12.TCU oxycodone 5 mg tablet 5 mg PO Q4H PRN (Reason: pain) Rx Instructions: 1-2 tablets q 4hrs oxycodone 5 mg tablet 5 mg PO Q6H PRN (Reason: pain) 5 Days Qty: 20 0RF metoprolol tartrate 25 mg tablet 25 mg PO BID Qty: 180 3RF Eliquis 5 mg tablet 5 mg PO BID Qty: 180 3RF Primary Care Provider: Patrica Jhaveri Referrals: Patrica Jhaveri MD [Primary Care Provider] - Activity Restrictions/Additional Instructions: There are multiple factors that could play into your shortness of breath as you are falling asleep. Discussed with your crack off person about pulmonary hypertension and the need for potential PDE 5 inhibitor such as sildenafil based on the severity of the pulmonary pretension as well as need for potential oxygen at night to feed into your CPAP. Continue all of your other medications as directed. In order to take away any potential fluid component please try sitting in a more upright position. Return to the ER should you have any further concern Print Language: Bangladeshi Disposition Disposition: Home, Self Care Discharge Date/Time: 08/31/24 02:54
[2024-08-31 02:53] VITALS: BP 114/86; PULSE 69; RESP 18; TEMP 36.6; O2SAT 94
== END 2024-08-31 02:54 | disposition home or self-care (01) ==
PROVIDERS: Emergency Provider Emergency Medicine; PCP Internal Medicine; Visit Provider Emergency Medicine
DX: R06.00 Dyspnea, unspecified (principal); I48.11 Longstanding persistent atrial fibrillation; E03.9 Hypothyroidism, unspecified; Z87.891 Personal history of nicotine dependence; I10 Essential (primary) hypertension; Z79.01 Long term (current) use of anticoagulants; F41.8 Other specified anxiety disorders; G47.33 Obstructive sleep apnea (adult) (pediatric); Z99.89 Dependence on other enabling machines and devices; Z79.899 Other long term (current) drug therapy; K21.9 Gastro-esophageal reflux disease without esophagitis; Z79.890 Hormone replacement therapy; Z96.651 Presence of right artificial knee joint; Z90.49 Acquired absence of other specified parts of digestive tract
CPT/HCPCS: 99282

== ENCOUNTER → 2024-09-01 | Outpatient (CLI) | payer MEDICARE, SELFPAY ==
[2024-09-01 09:50] LABS: Absolute Lymphocyte Count 1.41 X10^3/uL (0.83-4.51); Absolute Neutrophil Count 2.8 X10^3/uL (2.0-7.7); Basophil# 0.04 X10^3/uL; Basophil% 0.8 % (0-1); Eosinophil# 0.02 X10^3/uL; Eosinophils% 0.4 % (0-5); Hematocrit 32.3 % (37-47); Hemoglobin 10.1 g/dL (12.0-15.0); Lymphocyte # 1.41 X10^3/ul (0.83-4.51); Lymphocyte % 28.5 % (19-41); Mean Corp Hgb Conc 31.3 g/dL (32-36); Mean Corpuscular Hgb 29.2 pg (27.0-32.0); Mean Corpuscular Volume 93.4 fL (81-99); Mean Platelet Vol. 8.6 fl (6.2-12.0); Monocyte# 0.67 X10^3/uL; Monocyte% 13.6 % (0-10); NRBC Flagged by Analyzer 0 % (0-5); Neutrophil # 2.79 X10^3/uL (2.7-7.7); Neutrophil % 56.5 % (47-70); Platelet Count 205 K/mm3 (150-450); RBC Distribution Width CV 13.5 % (11.6-14.6); RBC Distribution Width SD 46.4 fl (35.1-43.9); Red Blood Count 3.46 M/mm3 (4.2-5.4); White Blood Count 4.9 K/mm3 (4.4-11.0)
[2024-09-01 10:34] LABS: Pro- Brain NATRIURETIC PEPTIDE 2866 pg/mL (<=1800)
== END | disposition home or self-care (01) ==
LOC: LAB 09:36
PROVIDERS: PCP Internal Medicine; Referring Provider Physician Assistant Medical; Visit Provider Physician Assistant Medical
DX: R06.02 Shortness of breath (principal)
CPT/HCPCS: 36415; 83880; 85025

== ENCOUNTER 2024-09-02 09:55 | Emergency (ER) | payer MEDICARE, SELFPAY ==
[2024-09-02 09:56] VITALS: BP 138/92; PULSE 67; RESP 14; TEMP 36.2; O2SAT 93; BMI 36.0
--- NOTE | 2024-09-02 10:26 | EX.ED.VIS.HA ---
HPI History of Present Illness Chief Complaint: Headache Detail of Chief Complaint: Bifrontal harsh throbbing constant headache Informant: patient Onset/Context/Timing Onset: Weeks Timing: Continuous Quality -Headache: Positive for Dull and Other (Harsh unrelenting) Location: Bifrontal Current Severity: Severe Maximum Severity: Severe Worsened by: Sound and light Relieved by: Oxycodone Associated Symptoms/Injury Associated Symptoms: Positive for Nausea and Photophobia; Negative for Fever, Vomiting, Sore Throat, Sinus Pressure, Numbness, Tingling, Preceding Aura, Visual Changes, Blurred Vision or Visual Loss Injury - JEAN-BAPTISTE: Negative for Direct Trauma Narrative Narrative: Patient is an 84-year-old female. 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 She cannot tell me the onset exactly. She states that the oxycodone took away all of her pain. She cannot tell me with the last dose of oxycodone was. She endorses light sensitivity and sound sensitivity. She denies neck pain or stiffness. She denies visual, ocular symptoms. She does endorse ringing or ears. She denies decreased hearing, or ear pain. She does endorse nausea. She states she took Pepto-Bismol yesterday. Apparently there is salicylate in the Pepto-Bismol and she reports that this made the ringing or ears worse. She denies abdominal pain, vomiting or diarrhea. She denies urologic symptoms. She denies paresthesia, anesthesia motors. She has problems with balance has had problems with balance for 3 to 4 years. She denies problems swallowing or speech. She does have symptoms consistent with chronic allergic rhinitis and postnasal drainage. Prior similar symptoms: No Recent Illness/Hospitalization: Yes (Orthopedic knee surgery) [facility] Medical History History of revision of total replacement of left knee joint Loss of hearing Wears glasses Anxiety History of steroid therapy Ambulates with cane Bladder disease Arthritis Back pain Syncope Gastric reflux Former smoker CPAP (continuous positive airway pressure) dependence Shortness of breath on exertion Chronic cough Leg cramps History of edema Hypertension History of stress test History of echocardiogram Cardiology follow-up encounter History of back pain Longstanding persistent atrial fibrillation Paroxysmal atrial fibrillation History of cardioversion (~07/25/20) Osteoarthritis Aneurysm of left common iliac artery History of left heart catheterization (LHC) (~01/25/11) Personal history of malignant neoplasm of breast New onset atrial fibrillation Hypothyroidism Obesity (BMI 30.0-34.9) Nephrolithiasis Mixed anxiety depressive disorder Home Medications ?Medication ?Instructions ?Recorded ?Last Taken ?Type acetaminophen 500 mg tablet 500 mg PO Q6H PRN Pain 1-10 Or 06/15/20 09/03/23 History (Tylenol Extra Strength) Fever cetirizine 10 mg tablet (Zyrtec) 10 mg PO DAILY 06/15/20 09/03/23 History ketoconazole 2 % topical cream 1 applic topical DAILY PRN 06/15/20 Unknown History Agitation hydrocortisone-acetic acid 1 %-2 % 10 ml OT PRN PRN EAR 10/16/20 Unknown History ear drops omeprazole 20 mg tablet,delayed 20 mg PO DAILY 07/12/22 09/03/23 History release buspirone 10 mg tablet 10 mg PO BID 11/01/22 09/03/23 History escitalopram oxalate 10 mg tablet 10 mg PO DAILY 11/01/22 09/03/23 History levothyroxine 100 mcg tablet 100 mcg PO DAILY 11/01/22 09/04/23 History metoprolol tartrate 25 mg tablet 25 mg PO BID #180 TABLETS 01/12/24 Unknown Rx apixaban 5 mg tablet (Eliquis) 5 mg PO BID #180 tabs 04/26/24 Unknown Rx oxycodone 5 mg tablet 5 mg PO Q6H PRN pain 5 days #20 08/20/24 Unknown Rx tabs furosemide 40 mg tablet (Lasix) 40 mg PO QAM #30 tabs 09/01/24 Unknown Rx alendronate 70 mg tablet 70 mg PO QWEEK 09/02/24 Unknown History amoxicillin 875 mg-potassium 875 mg PO Q12H #20 TABLETS 09/02/24 Unknown Rx clavulanate 125 mg tablet budesonide 32 mcg/actuation nasal 2 spray intranasal DAILY 09/02/24 Unknown History spray doxycycline hyclate 100 mg capsule 100 mg PO Q12.TCU 09/02/24 Unknown History hydrocodone-acetaminophen 5-325mg 1 tab PO Q6H PRN PRN Pain 2 days 09/02/24 Unknown Rx 5mg-325mg #5 TABLETS Allergy/AdvReac Type Severity Reaction Status Date / Time No Known Allergies Allergy Verified 09/02/24 10:00 Family History Mother Pulmonary hypertension COPD (chronic obstructive pulmonary disease) Father Lymphoma Surgical History Hx of spinal surgery (~10/01/23) History of right knee joint replacement (~10/2020) Trigger finger of right hand History of blepharoplasty History of lumpectomy of left breast History of total knee arthroplasty History of appendectomy Social History Smoking Status: Former smoker alcohol intake: never substance use type: does not use caffeine: Yes ROS ROS ED Constitutional Constitutional ED: Denies chills, fever(s), subjective, sweats or weight loss Eyes Eyes: Denies blurry vision, change in vision or diplopia ENT ENT ED: Reports rhinorrhea and other Details: Further detailed HPI narrative ; Denies ear pain or sore throat Cardiovascular Cardiovascular: Denies chest pain or palpitations Respiratory/Chest Respiratory/Chest: Denies cough, dyspnea or dyspnea on exertion Gastrointestinal Gastrointestinal: Reports nausea; Denies abdominal pain, constipation, diarrhea, melena or vomiting Genitourinary Genitourinary ED: Denies dysuria, hematuria or urinary frequency Musculoskeletal Musculoskeletal: Denies back pain or neck pain Integumentary Denies rash Neurologic Neurologic: Reports headache(s); Denies paresthesias or weakness Endocrine Endocrinology: Denies polydipsia, polyphagia or polyuria Hematologic/Lymphatic Hematologic/Lymphatic: Denies easy bleeding or easy bruising EXAM Physical Exam Const Vital Signs: 09/02/24 09:56 09/02/24 12:06 Temperature 97.2 F L Temperature Source Temporal Pulse Rate 67 73 Respiratory Rate 14 16 Blood Pressure 138/92 H 111/80 Blood Pressure Mean 107 90 Pulse Ox 93 95 Oxygen Delivery Method Room Air Room Air Positive well nourished and well developed Constitutional Narrative: BMI is 36.0. Patient is on her left side with her right hand against her forehead. She did not open her eyes during the entire history and physical other than when asked to for me to perform direct ophthalmologic funduscopic exam. General Appearance ED: well developed; Negative for cyanotic, diaphoretic or pallor HEENT Reports normocephalic, TM's clear and moist mucous membranes atraumatic; Negative for tenderness, temporal artery tenderness or vesicular rash Face and Sinus: sinus tenderness Positive for frontal (Bilaterally. Patient denied change in headache if she was supine, sitting up or bending over.) Tympanic Membrane ED: Yes TM's clear Eyes PERRL and EOMs intact bilaterally Eyes Narrative: There is no nystagmus. There is no APD. There is no papilledema. Cup-to-disc ratio appeared normal. She did not have photophobia based on my exam. General Eye ED: Negative for pale conjunctiva or scleral icterus Neck no lymphadenopathy, supple, no meningeal signs and no JVD Resp normal respiratory effort and clear to auscultation bilaterally Cardio regular rate, regular rhythm, S1 normal heart sound, S2 normal heart sound and no murmurs Extremity normal to inspection, full ROM and normal capillary refill Neuro oriented x3, CN's II-XII intact bilaterally and no sensory deficits noted Neuro Narrative: DTR bicep, brachialis, tricep, patella and ankle are 2+ and symmetric. There is no clonus Babinski sign noted. Braydon Coma Scale: document GCS findings To Voice Obeys Commands Oriented 14 Sensorium / Orientation: awake and alert Coordination / Balance: [id number] test normal Speech: speech normal Sensory Exam: sensory level loss detected Psych Mood & Affect: depressed Skin General Skin Exam: elasticity normal; Negative for jaundice or pallor Lesions: no lesions Rashes: no rashes MDM MDM MDM Narrative Medical decision making narrative: Patient with intractable headache. The fact that she is on anticoagulant will need to rule out intracranial bleed. This may represent vasculitis, sinus infection, headache of unknown etiology, temporal arteritis (doubtful since she has no tenderness over the left or right temporal artery), migraine headaches that she has a remote history of migraines. Her workup included CT, blood work including ESR. She was treated with IV ketorolac, diphenhydramine and metoclopramide. History & Record Review Additional record(s) reviewed:: Prior outpatient record (Office visit for cardiology authored by Nel Crowell was reviewed. Patient was started on Lasix. She states she did not take her Lasix today. The Lasix may have helped her headache. Since she had blood work yesterday the CBC was not repeated. Her BNP was 2866.), Prior ED visit (Patient was seen August 31 for dyspnea. She also was seen August 20 and June 28. She was seen July for lower extremity examThe visit in June was for shortness of breath. Injury.) and Prior labs Lab Data Attestation: I reviewed the patient's lab results. Lab results narrative: Sed rate is normal. Basic metabolic panel is unremarkable. Glucose slightly elevated with normal CO2 anion gap. Labs: Laboratory Results - last 24 hr 09/02/24 10:35 ESR 23 Sodium 140 Potassium 3.3 Chloride 101 Carbon Dioxide 27.0 Anion Gap 12 BUN 15 Creatinine 0.73 Estim Creat Clear Calc 59.66 Est GFR (MDRD) Non-Af 81 BUN/Creatinine Ratio 20.5 H Glucose 103 H Calcium 9.3 Radiography Diagnostic Testing: Clinical Impression(s) from Imaging Studies Brain CT 09/02/24 11:07 IMPRESSION: Cerebral atrophy. Findings suggestive of old tiny lacunar infarct in the insular cortex of the right temporal lobe. Partial opacification of the left ethmoid sinus. Reading Location: [id number] CAT scan report was reviewed. Patient has evidence of ethmoid sinusitis and old lacunar infarct. Treatment and Re-Evaluation Narrative: Patient was informed of her results. Patient be discharged home with hydrocodone. She states she cannot. Asked why since she has no allergies. She had no response. She also was told she was be placed on an antibiotic. She question how I made the diagnosis of ethmoid sinusitis. I informed her again that this was noted on the CAT scan and the only abnormality was noted on the CAT scan other than an old lacunar infarct. Discharge Plan Triage Chief Complaint: Headache ED Provider: Santos Tarango Dx/Rx/DC Orders Clinical Impression: Acute ethmoidal sinusitis, Mixed anxiety depressive disorder, Longstanding persistent atrial fibrillation, Current use of skilled nursing anticoagulation, Frontal headache Instructions: ED Sinusitis (Antibiotic Treatment) Prescriptions: New hydrocodone-acetaminophen 5-325 mg tablet 1 tab PO Q6H PRN PRN (Reason: Pain) 2 Days Qty: 5 0RF amoxicillin-pot clavulanate 875-125 mg tablet 875 mg PO Q12H Qty: 20 0RF No Action ketoconazole 2 % cream 1 applic TOPICAL DAILY PRN (Reason: Agitation) acetaminophen [Tylenol Extra Strength] 500 mg tablet 500 mg PO Q6H PRN (Reason: Pain 1-10 Or Fever) cetirizine [Zyrtec] 10 mg tablet 10 mg PO DAILY levothyroxine 100 mcg tablet 100 mcg PO DAILY buspirone 10 mg tablet 10 mg PO BID escitalopram oxalate 10 mg tablet 10 mg PO DAILY Patient Comments: take 1 tablet by mouth once daily as directed omeprazole 20 mg tablet,delayed release (DR/EC) 20 mg PO DAILY hydrocortisone-acetic acid 10 ML drops 10 ml OT PRN PRN (Reason: EAR ) oxycodone 5 mg tablet 5 mg PO Q6H PRN (Reason: pain) 5 Days Qty: 20 0RF budesonide 32 mcg/actuation spray,non-aerosol 2 spray INTRANASAL DAILY doxycycline hyclate 100 mg capsule 100 mg PO Q12.TCU alendronate 70 mg tablet 70 mg PO QWEEK metoprolol tartrate 25 mg tablet 25 mg PO BID Qty: 180 3RF Eliquis 5 mg tablet 5 mg PO BID Qty: 180 3RF furosemide [Lasix] 40 mg tablet 40 mg PO QAM Qty: 30 0RF Rx Instructions: take for 5 days then as directed Primary Care Provider: Patrica Jhaveri Referrals: Patrica Jhaveri MD [Primary Care Provider] - 1 Week if not improving Print Language: Wallisian Disposition Disposition: Home, Self Care
[2024-09-02] MEDS: DiphenhydrAMINE 50 MG/ML Syringe 25 MG IV (10:43)
[2024-09-02] MEDS: Metoclopramide 10 MG/2 ML Vial IV (10:44)
[2024-09-02] MEDS: Ketorolac 15 MG/ML Vial IV (10:44)
[2024-09-02 10:56] LABS: Erythrocyte Sedimentation Rate 23 mm/hr (0-30)
--- NOTE | 2024-09-02 11:07 | CT_ITS ---
EXAM: BRAIN/HEAD WITHOUT CONTRAST CLINICAL HISTORY: Headache. COMPARISON: None TECHNIQUE: Multiple axial tomographic images were obtained without intravenous contrast administration. Coronal and sagittal reconstruction were obtained as well. FINDINGS: Mild degree of cerebral atrophy. There is a tiny lacune in the insular cortex of the right temporal lobes suggestive of possible prior lacunar infarct. Mild degree of decreased attenuation in the periventricular region of the cerebral hemispheres in keeping with a chronic small-vessel disease. There is evidence of partial opacification of the left ethmoid sinus. CT/Brain/Head without Contrast IMPRESSION: Cerebral atrophy. Findings suggestive of old tiny lacunar infarct in the insular cortex of the ri ght temporal lobe. Partial opacification of the left ethmoid sinus. Reading Location: [id number]
[2024-09-02 11:12] LABS: Anion Gap 12 (5-15); BUN 15 mg/dL (4-19); BUN/Creat Ratio 20.5 RATIO (10-20); Calcium,Total 9.3 mg/dL (7.6-11.0); Chloride 101 mmol/L (98-108); Creatinine, Serum 0.73 mg/dL (0.70-1.20); EST Glomerular Filtration Rate 81 (>60); Estimated Creatinine Clearance 59.66 ml/min (50-250); Glucose 103 mg/dL (70-99); Potassium 3.3 mmol/L (3.3-5.1); Sodium Level 140 mmol/L (133-145)
[2024-09-02 12:06] VITALS: BP 111/80; PULSE 73; RESP 16; O2SAT 95
[2024-09-02] MEDS: Amox/Clavulanate 875 MG Tablet PO (12:31)
[2024-09-02] MEDS: HYDROcodone Bitartrate/Apap 5/325 Tablet PO (12:31)
[2024-09-02 12:36] VITALS: BP 111/80; PULSE 73; RESP 16; TEMP 36.4; O2SAT 95
== END 2024-09-02 12:37 | disposition home or self-care (01) ==
PROVIDERS: Emergency Provider Emergency Medicine; PCP Internal Medicine; Visit Provider Emergency Medicine
DX: R51.9 Headache, unspecified (principal); I48.11 Longstanding persistent atrial fibrillation; Z87.891 Personal history of nicotine dependence; I10 Essential (primary) hypertension; J01.20 Acute ethmoidal sinusitis, unspecified; Z79.01 Long term (current) use of anticoagulants; F41.8 Other specified anxiety disorders; K21.9 Gastro-esophageal reflux disease without esophagitis; Z79.899 Other long term (current) drug therapy; Z96.651 Presence of right artificial knee joint; Z90.49 Acquired absence of other specified parts of digestive tract
CPT/HCPCS: 70450; 80048; 85652; 96374; 96375; 99284; A4216

== ENCOUNTER → 2024-09-30 | Outpatient (CLI) | payer MEDICARE, SELFPAY ==
--- NOTE | 2024-09-30 13:52 | ECHOD_ITS ---
Reason For Study Reason For Study: Dyspnea/SOB Procedure This was a 2D Doppler, Color Flow transthoracic echocardiogram. Exam performed in department. Left Ventricle Normal LV size. The left ventricular ejection fraction is 55 %. No regional wall motion abnormalities noted. Right Ventricle Normal right ventricle. Normal systolic function. Atria The left atrium is moderately enlarged. The right atrium is moderately enlarged. Mitral Valve Bileaflet diffuse mitral valve thickening. Mild-Moderate (1-2+) eccentric mitral valve insufficiency. Tricuspid Valve Normal tricuspid valve. Mild (1+) tricuspid valve insufficiency. Pulmonary artery systolic pressure is 36 mmHg. Aortic Valve Trisinus/trileaflet aortic valve. Mild focal aortic valve thickening. Mild (1+) aortic valve insufficiency. Pulmonic Valve Normal pulmonic valve. Great Vessels Normal aortic root. The pulmonary artery is normal size. Inferior vena cava collapse with respiration. Pericardium/Pleural No pericardial effusion. MMode/2D Measurements & Calculations LVIDd: 4.5 cm IVSd: 0.83 cm Ao root diam: 3.7 cm LVIDs: 3.0 cm LVPWd: 0.85 cm RVDd: 3.4 cm FS: 33.4 % LAV(MOD-bp): 86.6 ml LVAd ap4: 19.5 cm2 SV(MOD-sp4): 24.9 ml LAV(MOD-bp) Indexed: 43.8 ml/m2 LVLd ap4: 6.2 cm SI(MOD-sp4): 12.6 ml/m2 LAV(MOD-sp2): 89.9 ml EDV(MOD-sp4): 48.8 ml LAV(MOD-sp4): 84.1 ml EDV(sp4-el): 51.5 ml LVAs ap4: 12.7 cm2 LVLs ap4: 5.7 cm ESV(MOD-sp4): 23.9 ml ESV(sp4-el): 24.2 ml EF(MOD-sp4): 51.0 % EF(sp4-el): 53.0 % SV(sp4-el): 27.3 ml LA A4 area: 26.0 cm2 LA dimension(2D): 4.5 cm RA A4 area: 21.1 cm2 TAPSE: 1.6 cm Doppler Measurements & Calculations MV E max gina: 116.1 cm/sec MV V2 max: 135.6 cm/sec Ao V2 max: 176.1 cm/sec MV max P.4 mmHg Ao max P.4 mmHg MV V2 mean: 70.7 cm/sec Ao V2 mean: 125.7 cm/sec MV mean P.5 mmHg Ao mean P.2 mmHg MV V2 VTI: 35.9 cm Ao V2 VTI: 38.9 cm AV (velocity ratio): 0.58 AI max gina: 454.5 cm/sec LV V1 max: 98.7 cm/sec MR max gina: 520.4 cm/sec AI max P.2 mmHg LV V1 max P.9 mmHg MR max P.4 mmHg LV V1 mean P.5 mmHg MR mean gina: 398.4 cm/sec AI dec slope: 154.5 cm/sec2 LV V1 mean: 74.3 cm/sec MR mean P.3 mmHg AI P1/2t: 861.7 msec LV V1 VTI: 22.8 cm MR VTI: 185.3 cm PA V2 max: 81.4 cm/sec TR max gina: 286.7 cm/sec TR max P.9 mmHg ECHO/Echo Complete Interpretation Summary Normal LV size. The left ventricular ejection fraction is 55 %. Mild-Moderate (1-2+) eccentric mitral valve insufficiency. Pulmonary artery systolic pressure is 36 mmHg. Mild (1+) aortic valve insufficiency. Ordering Physician: Nel Crowell Referring Physician: Nel Crowell Performed By: Arjun Nunez RCS
== END | disposition home or self-care (01) ==
PROVIDERS: PCP Internal Medicine; Referring Provider Physician Assistant Medical; Visit Provider Physician Assistant Medical
DX: R06.00 Dyspnea, unspecified (principal); I38 Endocarditis, valve unspecified
CPT/HCPCS: 93306

== ENCOUNTER 2025-01-24 08:00 | Day surgery (SDC) | payer MEDICARE, SELFPAY ==
--- NOTE | 2025-01-17 14:46 | PAT.ANE_ITS ---
Pre-Assessment Diagnosis/Proposed Procedure Planned Operative Procedure(s): LEFT HIP ARTICULAR STEROID INJECTION UNDER FLUOROSCOPY Anesthesia History Anesthesia History - senior data quality analyst: Anesthesia History - senior data quality analyst Hx Hospitalization Yes: 08/17- [facility] REVISION 01/17/25 14:21 ROSE GONZALEZ Any Problems With Anesthesia No 01/17/25 14:21 Cholinesterase deficiency No 01/17/25 14:21 You/Your Family Experience No 01/17/25 14:21 fever (hyperthermia) with Relationship Recent Exposure to Contagious No 09/04/23 09:23 Disease Does patient have nerve No 01/17/25 14:21 stimulator Patient instructed to have device shut off --Does patient have Pacemaker or ICD? When Was Last Pacemaker Check QUESTION #4 FULL TEXT: You/Your Family Experience fever (hyperthermia) with Anesthesia Last Oral Intake Last Oral intake: Last Oral Intake NPO since Meds taken in AM with sips of water? Meds patient instructed to take am of surgery PONV PONV - senior data quality analyst: PONV - senior data quality analyst Female Yes 01/17/25 14:21 HX of Motion Sickness No 01/17/25 14:21 HX of N/V After Surgery No 01/17/25 14:21 Non-Smoker Yes 01/17/25 14:21 Duration of Surgery greater No 01/17/25 14:21 than 60 minutes Number of Risk Factors 2 01/17/25 14:21 PONV Score Moderate Risk 01/17/25 14:21 Height & Weight Height & Weight: Anesthesia: Height & Weight Height 5 ft 4 in 09/22/24 08:28 Respiratory Assessment Respiratory Assessment - senior data quality analyst: Respiratory Tract Infection Hx - senior data quality analyst Hx Respiratory Tract Infection No 01/17/25 14:21 STOP Sleep Apnea STOP Sleep Apnea - senior data quality analyst: STOP Sleep Apnea - senior data quality analyst Hx Hypertension Yes: CONTROLLED WITH MED 01/17/25 14:21 Hx Sleep Apnea Yes 01/17/25 14:21 CPAP Yes 01/17/25 14:21 BIPAP No 01/17/25 14:21 Do you snore loudly (louder than talking or can be heard Do you often feel tired/ fatigued/ sleepy during daytime? Has anyone observed you stop breathing during sleep? STOP Results Positive 01/17/25 14:21 QUESTION #5 FULL TEXT : Do you snore loudly (louder than talking or can be heard through closed doors)? Tobacco Use History Tobacco Use History - senior data quality analyst: Tobacco Use History - senior data quality analyst Tobacco Use Non-smoker 11/04/20 22:04 Smoking Status Former smoker 01/17/25 14:21 Hx Tobacco Use No 01/17/25 14:21 Years Smoking Packs Smoked per Day Smoking Cessation Date was No - quit smoking greater 01/17/25 14:21 within the last 15 years than 15 years ago Hx Smoking Cessation Date 06/23/89 01/17/25 14:21 Hx Smoking Cessation No 01/17/25 14:21 Counseling Hematologic Medial History Hematologic Hx - senior data quality analyst: Hematologic Medical Hx - business insight and analytics manager Hx of Blood Transfusion No 01/17/25 14:21 Hx of Transfusion in last 3 No 01/17/25 14:21 Months Date of Last Transfusion (if within last 3 months) Ever experience any problems No 01/17/25 14:21 with transfusion(s)? Specify any problems Hx of Preganancy in last 3 No 01/17/25 14:21 Months Nurse Filling Out Transfusion [id number] 01/17/25 14:21 & Questions: Date: 01/17/25 01/17/25 14:21 Time: 14:23 01/17/25 14:21 Patient unable to answer at this time (ie. confused, unrespo /Reproduction History /Reproductive History - senior data quality analyst: /Reproductive Hx- senior data quality analyst Hx Now Gestational Age (in weeks): EDC: Hx Hx Para Hx Section SAB No 01/17/25 14:21 PFSH Medical History (Updated 01/17/25 @ 14:26 by Lucas Ventura) History of Holter monitoring History of revision of total replacement of left knee joint Loss of hearing Wears glasses Anxiety History of steroid therapy Ambulates with cane Bladder disease Arthritis Back pain Syncope Gastric reflux Former smoker CPAP (continuous positive airway pressure) dependence Shortness of breath on exertion Chronic cough Leg cramps History of edema Hypertension History of stress test History of echocardiogram Cardiology follow-up encounter History of back pain Longstanding persistent atrial fibrillation Paroxysmal atrial fibrillation History of cardioversion (~07/25/20) Osteoarthritis Aneurysm of left common iliac artery History of left heart catheterization (LHC) (~01/25/11) Personal history of malignant neoplasm of breast New onset atrial fibrillation Hypothyroidism Obesity (BMI 30.0-34.9) Nephrolithiasis Mixed anxiety depressive disorder Home Medications ?Medication ?Instructions ?Recorded ?Last Taken ?Type acetaminophen 500 mg tablet 500 mg PO Q6H PRN Pain 1-1 0 Or 06/15/20 09/03/23 History (Tylenol Extra Strength) Fever ketoconazole 2 % topical cream 1 applic topical DAILY PRN 06/15/20 Unknown History Agitation hydrocortisone-acetic acid 1 %-2 % 10 ml OT PRN PRN EA R 10/16/20 Unknown History ear drops omeprazole 20 mg tablet,delayed 20 mg PO DAILY 3 09/03/23 History release escitalopram oxalate 10 mg tablet 10 mg PO DAILY 11/0109/03/23 History levothyroxine 100 mcg tablet 100 mcg PO DAILY 11/01/22 09/04/23 History metoprolol tartrate 25 mg tablet 25 mg PO BID #180 TAB LETS 01/12/24 Unknown Rx apixaban 5 mg tablet (Eliquis) 5 mg PO BID #180 tabs 1 06/26/23 Unknown Rx budesonide 32 mcg/actuation nasal 2 spray intranasal D AILY 09/02/24 Unknown History spray furosemide 40 mg tablet (Lasix) 40 mg PO QAM PRN edema , weight 09/22/24 Unknown Rx gain #30 tabs alendronate 70 mg tablet 70 mg PO QWEEK 01/17/25 Unkn own History Allergy/AdvReac Type Severity Reaction Status Date / Time No Known Allergies Allergy Verified 01/17/25 14:17 Family History Mother Pulmonary hypertension COPD (chronic obstructive pulmonary disease) Father Lymphoma Surgical History Hx of spinal surgery (~10/01/23) History of right knee joint replacement (~10/2020) Trigger finger of right hand History of blepharoplasty History of lumpectomy of left breast History of total knee arthroplasty History of appendectomy Social History Smoking Status: Former smoker alcohol intake: never substance use type: does not use caffeine: Yes Audit: Pertinent Findings Pertinent Findings EKG Perinent findings: 06/28/2024. Atrial fibrillation 64 bpm. Poor R wave progression. Stress test pertinent findings: 06/27/2020. Normal. Echo (EF%) pertinent findings: 09/30/2024. Normal size function EF 55% pulmonary artery pressure 36. Moderate mitral valve insufficiency mild aortic valve insufficiency. Consult pertinent findings: Cardiology 09/22/2024. Valvular heart disease with worsening shortness of breath. Repeat echocardiogram to reevaluate. Atrial fibrillation. Chronic. Recommendation Anesthesia Recommendation Anesthesia recommendation: OPTIMIZED for anesthesia
[2025-01-24] VITALS (7 sets, daily range): BP systolic 111–119; BP diastolic 78–88; PULSE 55–66; RESP 16; TEMP 36–36.1; O2SAT 92–97; BMI 35.2
--- NOTE | 2025-01-24 08:04 | PRE.ANES_ITS ---
ASA Classification* ASA Classification ASA Classification: 3 Assessment & Plan Anesthesia* Anesthesia Assessment Anesthesia Assessment: Discussed sedation and/or anesthesia options, risks, benefits, and alternatives with patient/parents/legal guardian/POA. Questions invited. The patient/parents/legal guardian/POA seems to understand and agrees to proceed with anesthesia plan. Reviewed the physical assessment, medical history, allergy history and patient home medications list prior to surgery/procedure/anesthetic and documented any changes. Performed airway and anesthesia risk assessments. Anesthesia Type Anesthesia Type: MAC Anesthesia Focused Assessment* Airway Assessment Mouth opens: >3 cm Mallampati Score: II Labs Anesthesia Preop lab: CBC WBC 4.9 K/mm3 (4.4-11.0) 09/01/24 09:38 09/01/24 RBC 3.46 M/mm3 (4.2-5.4) L 09/01/24 09:38 09/01/24 Hgb 10.1 g/dL (12.0-15.0) L 09/01/24 09:38 5 Hct 32.3 % (37-47) L 09/01/24 09:38 09/01/24 Plt Count 205 K/mm3 (150-450) 09/01/24 09:38 09/01/24 CHEMISTRY Potassium 3.3 mmol/L (3.3-5.1) 09/02/24 10:35 09/02/24 Sodium 140 mmol/L (133-145) 09/02/24 10:35 09/02/24 Magnesium 2.5 mg/dL (1.6-2.6) 10/18/20 11:23 10/18/20 BUN 15 mg/dL (4-19) 09/02/24 10:35 09/02/24 Creatinine 0.73 mg/dL (0.70-1.20) 09/02/24 10:35 09/02/24 Glucose 103 mg/dL (70-99) H 09/02/24 10:35 09/02/24 POC Glucose 115 mg/dL (70-110) H 10/30/20 13:23 10/30/20 TSH 2.80 uIU/mL (0.358-3.74) 05/26/23 08:49 COAG PT 13.4 SECONDS (11.7-14.9) 07/26/24 12:14 Pre-Assessment Diagnosis/Proposed Procedure Planned Operative Procedure(s): LEFT HIP ARTICULAR STEROID INJECTION UNDER FLUOROSCOPY Anesthesia History Anesthesia History - manager pediatric: Anesthesia History - manager pediatric Hx Hospitalization Yes: 08/17- KNEE REVISION 01/17/25 14:21 ROSE GONZALEZ Any Problems With Anesthesia No 01/17/25 14:21 Cholinesterase deficiency No 01/17/25 14:21 You/Your Family Experience No 01/17/25 14:21 fever (hyperthermia) with Relationship Recent Exposure to Contagious No 09/04/23 09:23 Disease Does patient have nerve No 01/17/25 14:21 stimulator Patient instructed to have device shut off --Does patient have Pacemaker or ICD? When Was Last Pacemaker Check QUESTION #4 FULL TEXT: You/Your Family Experience fever (hyperthermia) with Anesthesia Last Oral Intake Last Oral intake: Last Oral Intake NPO since Meds taken in AM with sips of water? Meds patient instructed to take am of surgery PONV PONV - manager pediatric: PONV - manager pediatric Female Yes 01/17/25 14:21 HX of Motion Sickness No 01/17/25 14:21 HX of N/V After Surgery No 01/17/25 14:21 Non-Smoker Yes 01/17/25 14:21 Duration of Surgery greater No 01/17/25 14:21 than 60 minutes Number of Risk Factors 2 01/17/25 14:21 PONV Score Moderate Risk 01/17/25 14:21 Height & Weight Height & Weight: Anesthesia: Height & Weight Height 5 ft 4 in 09/22/24 08:28 Respiratory Assessment Respiratory Assessment - manager pediatric: Respiratory Tract Infection Hx - manager pediatric Hx Respiratory Tract Infection No 01/17/25 14:21 STOP Sleep Apnea STOP Sleep Apnea - manager pediatric: STOP Sleep Apnea - manager pediatric Hx Hypertension Yes: CONTROLLED WITH MED 01/17/25 14:21 Hx Sleep Apnea Yes 01/17/25 14:21 CPAP Yes 01/17/25 14:21 BIPAP No 01/17/25 14:21 Do you snore loudly (louder than talking or can be heard Do you often feel tired/ fatigued/ sleepy during daytime? Has anyone observed you stop breathing during sleep? STOP Results Positive 01/17/25 14:21 QUESTION #5 FULL TEXT : Do you snore loudly (louder than talking or can be heard through closed doors)? 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 Specify any problems Hx of Preganancy in last 3 No 01/17/25 14:21 Months Nurse Filling Out Transfusion [email or web address] 01/17/25 14:21 & Questions: Date: 01/17/25 01/17/25 14:21 Time: 14:23 01/17/25 14:21 Patient unable to answer at this time (ie. confused, unrespo /Reproduction History /Reproductive History - manager pediatric: /Reproductive Hx- manager pediatric Hx Now Gestational Age (in weeks): EDC: Hx Hx Para Hx Section SAB No 01/17/25 14:21 Active Medications Active Medications: Current Medications Generic Name Dose Route Start Last Admin Trade Name Freq PRN Reason Stop Dose Admin Lactated Ringer's 1,000 mls @ 15 mls/hr 01/24/25 08:15 IV .Q48H GEORGE PFSH Medical History History of Holter monitoring History of revision of total replacement of left knee joint Loss of hearing Wears glasses Anxiety History of steroid therapy Ambulates with cane Bladder disease Arthritis Back pain Syncope Gastric reflux Former smoker CPAP (continuous positive airway pressure) dependence Shortness of breath on exertion Chronic cough Leg cramps History of edema Hypertension History of stress test History of echocardiogram Cardiology follow-up encounter History of back pain Longstanding persistent atrial fibrillation Paroxysmal atrial fibrillation History of cardioversion (~07/25/20) Osteoarthritis Aneurysm of left common iliac artery History of left heart catheterization (LHC) (~01/25/11) Personal history of malignant neoplasm of breast New onset atrial fibrillation Hypothyroidism Obesity (BMI 30.0-34.9) Nephrolithiasis Mixed anxiety depressive disorder Home Medications ?Medication ?Instructions ?Recorded ?Last Taken ?Type acetaminophen 500 mg tablet 500 mg PO Q6H PRN Pain 1-1 0 Or 06/15/20 09/03/23 History (Tylenol Extra Strength) Fever ketoconazole 2 % topical cream 1 applic topical DAILY PRN 06/15/20 Unknown History Agitation hydrocortisone-acetic acid 1 %-2 % 10 ml OT PRN PRN EA R 10/16/20 Unknown History ear drops omeprazole 20 mg tablet,delayed 20 mg PO DAILY 3 09/03/23 History release escitalopram oxalate 10 mg tablet 10 mg PO DAILY 11/0109/03/23 History levothyroxine 100 mcg tablet 100 mcg PO DAILY 11/01/22 09/04/23 History metoprolol tartrate 25 mg tablet 25 mg PO BID #180 TAB LETS 01/12/24 Unknown Rx apixaban 5 mg tablet (Eliquis) 5 mg PO BID #180 tabs 1 06/26/23 Unknown Rx budesonide 32 mcg/actuation nasal 2 spray intranasal D AILY 09/02/24 Unknown History spray furosemide 40 mg tablet (Lasix) 40 mg PO QAM PRN edema , weight 09/22/24 Unknown Rx gain #30 tabs alendronate 70 mg tablet 70 mg PO QWEEK 01/17/25 Unkn own History Allergy/AdvReac Type Severity Reaction Status Date / Time No Known Allergies Allergy Verified 01/17/25 14:17 Family History Mother Pulmonary hypertension COPD (chronic obstructive pulmonary disease) Father Lymphoma Surgical History Hx of spinal surgery (~10/01/23) History of right knee joint replacement (~10/2020) Trigger finger of right hand History of blepharoplasty History of lumpectomy of left breast History of total knee arthroplasty History of appendectomy Social History Smoking Status: Former smoker alcohol intake: never substance use type: does not use caffeine: Yes Review of Systems (Anesthesia) ROS Narrative System reviewed and no additional complaints, except as documented.
[2025-01-24] MEDS: Lactated Ringers 1,000 ML 15 ML IV (08:39)
--- NOTE | 2025-01-24 09:18 | RAD_ITS ---
PROCEDURE: FLUORO GUIDED NEEDLE PLACEMENT 01/24/2025 REASON FOR EXAM: LT HIP INJECTION TECHNIQUE: FLUORO GUIDED NEEDLE PLACEMENT Radiation dose: Fluoroscopy: 2.3 seconds. Radiation dose: 0.58 mGy. 2 images were submitted. COMPARISON: None FINDINGS: Intraoperative fluoroscopic services provided for left hip injection. RAD/Fluoro Guided Needle Placement IMPRESSION: Intraoperative fluoroscopic services provided for left hip injection. Reading Location: [facility]
[2025-01-24] MEDS: Lidocaine 1% (5 ml sdv) 5 ML Vial (09:23)
--- NOTE | 2025-01-24 09:25 | PCM.OPRPT ---
Operative Report (Standard) Operative Information Date of Procedure: 01/24/25 Pre-Operative Diagnosis: Osteoarthritis of the left hip Post-Operative Diagnosis: Osteoarthritis of the left hip Surgery/Procedure Performed: Left hip intra-articular steroid injection under fluoroscopic guidance first breaker feeder: No Type of Anesthesia: Local MAC RN Documented Start/Stop Times: Operation Date: 01/24/25 09:30 Case Time Into Pre-Op 01/24/25 08:02 Out of Pre-Op 01/24/25 09:07 Anesthesia Start 01/24/25 09:16 Into Room 01/24/25 09:16 Procedure Start 01/24/25 09:22 Procedure Start Time: : Procedure Stop Time: : Select all DRAINS/GRAFTS/IMPLANTS that apply: None Estimated Blood Loss: 0 Specimen collected: No Description of surgery: ANESTHESIA: MAC. BLOOD LOSS: Minimal. COMPLICATIONS: None. DESCRIPTION OF PROCEDURE: History and physical of today was reviewed. Risks and benefits of the procedure were explained. The patient understood and agreed to proceed. Informed consent was obtained. IV inserted per routine protocol. The patient was taken to the operating room and placed in the supine position. The left hip area was prepped and draped in a sterile fashion using iodine x3. Under fluoroscopy guidance on AP view, the left hip joint was visualized. The skin and subcutaneous tissue was anesthetized with approximately 3 mL of 1% lidocaine using a 25-gauge regular needle approximately 3 cm cephalad to the left greater trochanter. Under direct visualization with fluoroscopy on an AP view, using a 22-gauge 5-inch spinal needle, the needle was advanced via the skin using the lateral approach. The tip of the needle was maneuvered and directed towards the superiormost aspect of the hip joint. Once the tip of the needle was at the vicinity of the joint, after negative aspiration for blood and positive aspiration of synovial fluid, a total of 1 mL of contrast was injected to confirm correct placement of the needle as well as halo spread around the hip joint. After repeated negative aspiration for blood and confirmation on AP as well as oblique view, a total of 10 mL of preservative-free 0.25% Marcaine with 80 mg of Depo-Medrol was injected easily. The needle was then removed intact. The patient experienced no sign or symptoms of intrathecal or intravascular injection. The patient experienced no paresthesia. The procedure was completed without any apparent difficulty or any complications. The patient appeared to tolerate it well. ASSESSMENT AND PLAN: This is an 84-year-old female with osteoarthritis of the left hip status post left hip intra-articular steroid injection under fluoroscopic guidance, patient will continue her current medications, patient will follow-up in approximately 1 to 2 weeks for reevaluation. Surgical Findings: 0 Complications Complications: No
--- NOTE | 2025-01-24 12:56 | PCM.POST.ANE ---
Anesthesia: Postop Eval I Current Vital Signs Temperature: 96.8 F Pulse Rate: 66 Blood Pressure: 116/78 Respiratory Rate: 16 Pulse Ox: 97 Oxygen Delivery Method: Room Air Assessment Airway patent: Yes Spontaneous unlabored respirations: Yes Mental status: Awake nausea: No Vomiting: No Anesthesia Complication: No Fluid Hydration Crystalloid volume administer (ml): 200 Total IV fluid infused: 200 Progress Note Anesthesia document: Postop Eval 1 completed: Yes
== END 2025-01-24 10:17 | disposition home or self-care (01) ==
LOC: SDC 08:00 → AC 08:02
PROVIDERS: PCP Internal Medicine; Referring Provider Anesthesiology Pain Medicine; Visit Provider Anesthesiology Pain Medicine
PROC: 3E0U3GC Introduction of Other Therapeutic Substance into Joints, Percutaneous Approach (ICD-10-PCS; CPT 20610; principal; 2025-01-24 09:25)
DX: M16.12 Unilateral primary osteoarthritis, left hip (principal); I48.0 Paroxysmal atrial fibrillation; I10 Essential (primary) hypertension; E03.9 Hypothyroidism, unspecified; Z79.01 Long term (current) use of anticoagulants; Z79.890 Hormone replacement therapy; Z79.899 Other long term (current) drug therapy; Z87.891 Personal history of nicotine dependence
CPT/HCPCS: 20610; 01992; 76000; 77002

== ENCOUNTER → 2025-03-11 | Outpatient (CLI) | payer MEDICARE, SELFPAY ==
--- NOTE | 2025-03-11 14:35 | RAD_ITS ---
PROCEDURE: L/S SPINE MIN 4 VIEWS 03/11/2025 REASON FOR EXAM: LUMBAR DEGENERATIVE DISC DISEASE TECHNIQUE: Procedure Code: RADSPLS Modality: DX Procedure: L/S SPINE MIN 4 VIEWS COMPARISON: Lumbar spine x-ray 09/04/2023 FINDINGS: Anterolisthesis L4 on L5 by 5 mm. Multilevel degenerate changes L2 through S1 of disc space narrowing, facet joint arthropathy and sclerotic endplates. Osteopenia. No acute bony abnormalities. No spondylolysis. Spinal stimulator is in place. RAD/L/S Spine Min 4 Views IMPRESSION: Mild progression of degenerative changes compared to x-ray 09/04/2023. Reading Location: [id number]
--- NOTE | 2025-03-11 14:35 | RAD_ITS ---
PROCEDURE: THORACIC SPINE 2 VIEWS 03/11/2025 REASON FOR EXAM: CHECK SCS LEAD PLACEMENT TECHNIQUE: Procedure Code: RADSPT2 Modality: DX Procedure: THORACIC SPINE 2 VIEWS COMPARISON: None FINDINGS: Osseous: Degenerative changes of the thoracic spine are noted. Mild upper thoracic rightward convex scoliosis. Posterior thoracic alignment appears anatomic. No radiographic evidence for acute displaced fracture. Leads: A stimulator device is seen overlying the right upper quadrant abdomen, extending below the level of imaging. Leads extend cranially overlying the midline thoracic spine, with the tip of the lead directed cephalad terminating at the level of T7. RAD/Thoracic Spine 2 Views IMPRESSION: Findings as discussed above. Reading Location: [id number]
== END | disposition home or self-care (01) ==
LOC: RAD 14:24
PROVIDERS: PCP Internal Medicine; Referring Provider Clinical Nurse Specialist Adult Health; Visit Provider Clinical Nurse Specialist Adult Health
DX: M51.369 Other intervertebral disc degeneration, lumbar region without mention of lumbar back pain or lower extremity pain (principal)
CPT/HCPCS: 72070; 72110

== ENCOUNTER → 2025-05-31 | Outpatient (CLI) | payer MEDICARE, SELFPAY ==
[2025-05-31 10:32] LABS: AST(SGOT) 24 U/L (<=31); Alanine Aminotransfer ALT/SGPT 18 U/L (<=34); Albumin, Serum 4.2 g/dL (3.4-4.8); Alkaline Phosphatase 77 U/L (35-104); Anion Gap 10 (5-15); BUN 24 mg/dL (4-19); BUN/Creat Ratio 28.7 RATIO (10-20); Calcium,Total 9.2 mg/dL (7.6-11.0); Carbon Dioxide 27.9 mmol/L (21.0-32.0); Chloride 102 mmol/L (98-108); Cholesterol 211 mg/dL (<=200); Globulin 2.9 g/dL (2.2-4.2); Glucose 101 mg/dL (70-99); Hematocrit 42.0 % (37-47); Hemoglobin 13.3 g/dL (12.0-15.0); Immature Granulocytes Count 0.010 X10^3/uL (0.0-0.0); Low Density Lipoprotein Calc. 135 mg/dL; Mean Corp Hgb Conc 31.7 g/dL (32-36); Mean Corpuscular Volume 92.9 fL (81-99); Mean Platelet Vol. 9.3 fl (6.2-12.0); NRBC Flagged by Analyzer 0 % (0-5); Platelet Count 209 K/mm3 (150-450); Potassium 4.1 mmol/L (3.3-5.1); RBC Distribution Width CV 12.7 % (11.6-14.6); RBC Distribution Width SD 43.0 fl (35.1-43.9); Red Blood Count 4.52 M/mm3 (4.2-5.4); Triglycerides 113 mg/dL; Very Low Density Lipoprotein 23 mg/dL (5-40); White Blood Count 5.6 K/mm3 (4.4-11.0); cholesterol:hdl ratio screen 3.77
== END | disposition home or self-care (01) ==
LOC: LAB 08:23
PROVIDERS: PCP Internal Medicine; Referring Provider Clinical Nurse Specialist; Visit Provider Clinical Nurse Specialist
DX: E78.2 Mixed hyperlipidemia (principal); I48.19 Other persistent atrial fibrillation; E03.9 Hypothyroidism, unspecified; G47.33 Obstructive sleep apnea (adult) (pediatric); F33.41 Major depressive disorder, recurrent, in partial remission
CPT/HCPCS: 36415; 80053; 80061; 83036; 84443; 85025

== ENCOUNTER 2025-06-06 11:29 | Day surgery (SDC) | payer MEDICARE, SELFPAY ==
--- NOTE | 2025-06-01 17:42 | PAT.ANESEVAL ---
Pre-Assessment Diagnosis/Proposed Procedure Planned Operative Procedure(s): BLOCK CAUDAL Anesthesia History Anesthesia History - library clerk: Anesthesia History - library clerk Hx Hospitalization Yes: 08/17- KNEE REVISION 06/01/25 15:16 ROSE GONZALEZ Any Problems With Anesthesia No 06/01/25 15:16 Cholinesterase deficiency No 06/01/25 15:16 You/Your Family Experience No 06/01/25 15:16 fever (hyperthermia) with Relationship Recent Exposure to Contagious No 01/24/25 08:28 Disease Does patient have nerve Yes 06/01/25 15:16 stimulator Patient instructed to have device shut off --Does patient have Pacemaker or ICD? When Was Last Pacemaker Check QUESTION #4 FULL TEXT: You/Your Family Experience fever (hyperthermia) with Anesthesia Last Oral Intake Last Oral intake: Last Oral Intake NPO since Meds taken in AM with sips of water? Meds patient instructed to take am of surgery PONV PONV - library clerk: PONV - library clerk Female Yes 06/01/25 15:16 HX of Motion Sickness No 06/01/25 15:16 HX of N/V After Surgery No 06/01/25 15:16 Non-Smoker Yes 06/01/25 15:16 Duration of Surgery greater No 06/01/25 15:16 than 60 minutes Number of Risk Factors 2 06/01/25 15:16 PONV Score Moderate Risk 06/01/25 15:16 Height & Weight Height & Weight: Anesthesia: Height & Weight Height 5 ft 4 in 01/24/25 08:28 Respiratory Assessment Respiratory Assessment - library clerk: Respiratory Tract Infection Hx - library clerk Hx Respiratory Tract Infection No 06/01/25 15:16 STOP Sleep Apnea STOP Sleep Apnea - library clerk: STOP Sleep Apnea - library clerk Hx Hypertension Yes: CONTROLLED WITH MED 06/01/25 15:16 Hx Sleep Apnea Yes 06/01/25 15:16 CPAP Yes 06/01/25 15:16 BIPAP No 06/01/25 15:16 Do you snore loudly (louder than talking or can be heard Do you often feel tired/ fatigued/ sleepy during daytime? Has anyone observed you stop breathing during sleep? STOP Results Positive 06/01/25 15:16 QUESTION #5 FULL TEXT : Do you snore loudly (louder than talking or can be heard through closed doors)? 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 Specify any problems Hx of Preganancy in last 3 No 06/01/25 15:16 Months Nurse Filling Out Transfusion DSCHRIBER 06/01/25 15:16 & Questions: Date: 06/01/25 06/01/25 15:16 Time: 15:17 06/01/25 15:16 Patient unable to answer at this time (ie. confused, unrespo /Reproduction History /Reproductive History - library clerk: /Reproductive Hx- library clerk Hx Now No 06/01/25 15:16 Gestational Age (in weeks): EDC: Hx Hx Para Hx Section SAB No 06/01/25 15:16 Does the father of the baby or his family experience fever w Father of the baby Malignant Hypertension history comment PFSH Medical History Hip pain History of Holter monitoring History of revision of total replacement of left knee joint Loss of hearing Wears glasses Anxiety Ambulates with cane Bladder disease Arthritis Back pain Syncope Gastric reflux Former smoker CPAP (continuous positive airway pressure) dependence Shortness of breath on exertion Chronic cough Leg cramps History of edema Hypertension History of stress test History of echocardiogram Cardiology follow-up encounter History of back pain Paroxysmal atrial fibrillation History of cardioversion Osteoarthritis Aneurysm of left common iliac artery History of left heart catheterization (LHC) (~01/25/11) Personal history of malignant neoplasm of breast Hypothyroidism Obesity (BMI 30.0-34.9) Nephrolithiasis Mixed anxiety depressive disorder Home Medications ?Medication ?Instructions ?Recorded ?Last Taken ?Type ketoconazole 2 % topical cream 1 applic topical DAILY PRN 06/15/20 Unknown History Agitation hydrocortisone-acetic acid 1 %-2 % 10 ml OT PRN PRN EAR 10/16/20 Unknown History ear drops omeprazole 20 mg tablet,delayed 20 mg PO DAILY 07/12/22 01/24/25 History release levothyroxine 100 mcg tablet 100 mcg PO DAILY 11/01/22 01/24/25 History apixaban 5 mg tablet (Eliquis) 5 mg PO BID #180 tabs 04/26/24 01/23/25 Rx budesonide 32 mcg/actuation nasal 2 spray intranasal DAILY 09/02/24 Unknown History spray furosemide 40 mg tablet (Lasix) 40 mg PO QAM PRN edema, weight 09/22/24 Unknown Rx gain #30 tabs alendronate 70 mg tablet 70 mg PO QWEEK 01/17/25 Unknown History metoprolol tartrate 25 mg tablet 25 mg PO BID #180 TABLETS 03/28/25 Unknown Rx acetaminophen 500 mg tablet 1,000 mg PO BID 05/25/25 Unknown History (Tylenol Extra Strength) cetirizine 10 mg tablet 10 mg PO DAILY 05/25/25 Unknown History duloxetine 20 mg capsule,delayed 20 mg PO BID 05/25/25 Unknown History release lorazepam 1 mg tablet 0.5 - 1 mg PO QDAY PRN anxiety 05/25/25 Unknown History cholecalciferol (vitamin D3) 25 25 mcg PO DAILY 06/01/25 Unknown History mcg (1,000 unit) capsule (Vitamin D3) hydrocodone-acetaminophen 5-325mg 1 - 2 tab PO Q6H PRN pain 06/01/25 Unknown History 5mg-325mg Allergy/AdvReac Type Severity Reaction Status Date / Time No Known Allergies Allergy Verified 06/01/25 15:11 Family History Mother Pulmonary hypertension COPD (chronic obstructive pulmonary disease) Father Lymphoma Surgical History Hx of spinal surgery (~10/01/23) History of right knee joint replacement (~10/2020) Trigger finger of right hand History of blepharoplasty History of lumpectomy of left breast History of total knee arthroplasty History of appendectomy Social History Smoking Status: Former smoker alcohol intake: never substance use type: does not use caffeine: Yes Prior Cardiac Testing/Procedures Prior Cardiac Testing/Procedures: Echocardiogram (EF 55% with mild MR and Pumhtn 36mmhg) Addt'l Information Additional Findings: NSR EKG Recommendation Anesthesia Recommendation Anesthesia recommendation: OPTIMIZED for anesthesia
[2025-06-06] VITALS (9 sets, daily range): BP systolic 137–151; BP diastolic 82–108; PULSE 68–86; RESP 16–18; TEMP 36.2–36.4; O2SAT 96–98; BMI 36.7
[2025-06-06] MEDS: Lactated Ringers 1,000 ML 15 ML IV (12:01)
--- NOTE | 2025-06-06 12:10 | RAD_ITS ---
PROCEDURE: FLUOR GUIDANCE FOR SPINE INJ 06/06/2025 REASON FOR EXAM: CAUDAL BLOCK TECHNIQUE: Procedure Code: RADSPN Modality: DX Procedure: FLUOR GUIDANCE FOR SPINE INJ. Fluoroscopy: 2.2 seconds. Radiation dose: 2.06 mGy. 1 image was submitted. COMPARISON: None FINDINGS: Intraoperative fluoroscopic services provided for caudal block. RAD/Fluor Guidance for Spine Inj IMPRESSION: Intraoperative fluoroscopic services provided for caudal block. Reading Location: [facility]
--- NOTE | 2025-06-06 12:20 | PRE.ANES_ITS ---
ASA Classification* ASA Classification ASA Classification: 3 Assessment & Plan Anesthesia* Anesthesia Assessment Anesthesia Assessment: Discussed sedation and/or anesthesia options, risks, benefits, and alternatives with patient/parents/legal guardian/POA. Questions invited. The patient/parents/legal guardian/POA seems to understand and agrees to proceed with anesthesia plan. Reviewed the physical assessment, medical history, allergy history and patient home medications list prior to surgery/procedure/anesthetic and documented any changes. Performed airway and anesthesia risk assessments. Anesthesia Type Anesthesia Type: MAC History Source History Obtained from:: Patient and Chart Anesthesia Focused Assessment* Temperature: 97.6 F Pulse Rate: 86 Blood Pressure: 137/93 Respiratory Rate: 18 Pulse Ox: 97 Oxygen Delivery Method: Room Air Airway Assessment Mouth opens: >3 cm Mallampati Score: I Teeth Condition: Caps/Crowns (Patient has a couple caps.) and Upper (Patient has a permanent upper bridge.) Neck Range of motion (ROM): Limited ROM (Slight Decrease) Labs Anesthesia Preop lab: CBC WBC, (4.4-11.0) 5.6 K/mm3 05/31/25, 08:33 RBC, (4.2-5.4) 4.52 M/mm3 05/31/25, 08:33 Hgb, (12.0-15.0) 13.3 g/dL 05/31/25, 08:33 Hct, (37-47) 42.0 % 05/31/25, 08:33 Plt Count, (150-450) 209 K/mm3 05/31/25, 08:33 CHEMISTRY Potassium, (3.3-5.1) 4.1 mmol/L 05/31/25, 08:33 Sodium, (133-145) 140 mmol/L 05/31/25, 08:33 Magnesium, (1.6-2.6) 2.5 mg/dL 10/18/20, 11:23 BUN, (4-19) 24 mg/dL H 05/31/25, 08:33 Creatinine, (0.70-1.20) 0.83 mg/dL 05/31/25, 08:33 Glucose, (70-99) 101 mg/dL H 05/31/25, 08:33 POC Glucose, (70-110) 115 mg/dL H 10/30/20, 13:23 TSH, (0.300-4.200) 4.970 uIU/mL H 05/31/25, 08:33 COAG PT, (11.7-14.9) 13.4 SECONDS 07/26/24, 12:14 Pre-Assessment Diagnosis/Proposed Procedure Planned Operative Procedure(s): BLOCK CAUDAL Anesthesia History Anesthesia History - administrative professional: Anesthesia History - administrative professional Hx Hospitalization Yes: 08/17- KNEE REVISION 06/01/25 15:16 ROSE FERNANDESLTMAN Any Problems With Anesthesia No 06/01/25 15:16 Cholinesterase deficiency No 06/01/25 15:16 You/Your Family Experience No 06/01/25 15:16 fever (hyperthermia) with Relationship Recent Exposure to Contagious No 06/06/25 12:01 Disease Does patient have nerve Yes 06/01/25 15:16 stimulator Patient instructed to have device shut off --Does patient have Pacemaker No 06/06/25 12:01 or ICD? When Was Last Pacemaker Check QUESTION #4 FULL TEXT: You/Your Family Experience fever (hyperthermia) with Anesthesia Last Oral Intake Last Oral intake: Last Oral Intake NPO since 20:30 06/06/25 12:01 Meds taken in AM with sips of Yes 06/06/25 12:01 water? Meds patient instructed to tylenol, levothyroxine 06/06/25 12:01 take am of surgery PONV PONV - administrative professional: PONV - administrative professional Female Yes 06/01/25 15:16 HX of Motion Sickness No 06/01/25 15:16 HX of N/V After Surgery No 06/01/25 15:16 Non-Smoker Yes 06/01/25 15:16 Duration of Surgery greater No 06/01/25 15:16 than 60 minutes Number of Risk Factors 2 06/01/25 15:16 PONV Score Moderate Risk 06/01/25 15:16 Height & Weight Height & Weight: Anesthesia: Height & Weight Height 5 ft 4 in 06/06/25 12:01 Weight: 97 kg 06/06/25 12:01 Body Mass Index (BMI) 36.7 06/06/25 12:01 Respiratory Assessment Respiratory Assessment - administrative professional: Respiratory Tract Infection Hx - administrative professional Hx Respiratory Tract Infection No 06/01/25 15:16 STOP Sleep Apnea STOP Sleep Apnea - administrative professional: STOP Sleep Apnea - administrative professional Hx Hypertension Yes: CONTROLLED WITH MED 06/01/25 15:16 Hx Sleep Apnea Yes 06/01/25 15:16 CPAP Yes 06/01/25 15:16 BIPAP No 06/01/25 15:16 Do you snore loudly (louder than talking or can be heard Do you often feel tired/ fatigued/ sleepy during daytime? Has anyone observed you stop breathing during sleep? STOP Results Positive 06/01/25 15:16 QUESTION #5 FULL TEXT : Do you snore loudly (louder than talking or can be heard through closed doors)? 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 Specify any problems Hx of Preganancy in last 3 No 06/01/25 15:16 Months Nurse Filling Out Transfusion DSCHRIBER 06/01/25 15:16 & Questions: Date: 06/01/25 06/01/25 15:16 Time: 15:17 06/01/25 15:16 Patient unable to answer at this time (ie. confused, unrespo /Reproduction History /Reproductive History - administrative professional: /Reproductive Hx- administrative professional Hx Now No 06/01/25 15:16 Gestational Age (in weeks): EDC: Hx Hx Para Hx Section SAB No 06/01/25 15:16 Does the father of the baby or his family experience fever w Father of the baby Malignant Hypertension history comment Active Medications Active Medications: Current Medications Generic Name Dose Route Start Last Admin Trade Name Freq PRN Reason Stop Dose Admin Lactated Ringer's 1,000 mls @ 15 mls/hr 06/06/25 11:45 06/06/25 12:01 IV 15 mls/hr .Q48H GEORGE Administration PFSH Medical History Hip pain History of Holter monitoring History of revision of total replacement of left knee joint Loss of hearing Wears glasses Anxiety Ambulates with cane Bladder disease Arthritis Back pain Syncope Gastric reflux Former smoker CPAP (continuous positive airway pressure) dependence Shortness of breath on exertion Chronic cough Leg cramps History of edema Hypertension History of stress test History of echocardiogram Cardiology follow-up encounter History of back pain Paroxysmal atrial fibrillation History of cardioversion Osteoarthritis Aneurysm of left common iliac artery History of left heart catheterization (LHC) (~01/25/11) Personal history of malignant neoplasm of breast Hypothyroidism Obesity (BMI 30.0-34.9) Nephrolithiasis Mixed anxiety depressive disorder Home Medications ?Medication ?Instructions ?Recorded ?Last Taken ?Type ketoconazole 2 % topical cream 1 applic topical DAILY PRN 06/15/20 Unknown History Agitation hydrocortisone-acetic acid 1 %-2 % 10 ml OT PRN PRN EA R 10/16/20 Unknown History ear drops omeprazole 20 mg tablet,delayed 20 mg PO DAILY 3 01/24/25 History release levothyroxine 100 mcg tablet 100 mcg PO DAILY 11/01/22 06/06/25 History apixaban 5 mg tablet (Eliquis) 5 mg PO BID #180 tabs 1 06/26/23 06/03/25 Rx budesonide 32 mcg/actuation nasal 2 spray intranasal D AILY 09/02/24 Unknown H istory spray furosemide 40 mg tablet (Lasix) 40 mg PO QAM PRN edema , weight 09/22/24 Unknown Rx gain #30 tabs alendronate 70 mg tablet 70 mg PO QWEEK 01/17/25 Unkn own History metoprolol tartrate 25 mg tablet 25 mg PO BID #180 TAB LETS 03/28/25 06/05/25 Rx acetaminophen 500 mg tablet 1,000 mg PO BID 05/25/25 1 08/07/24 History (Tylenol Extra Strength) cetirizine 10 mg tablet 10 mg PO DAILY 05/25/25 Unkn own History duloxetine 20 mg capsule,delayed 20 mg PO BID 05/25/25 Unknown History release lorazepam 1 mg tablet 0.5 - 1 mg PO QDAY PRN anxie ty 05/25/25 Unknown History cholecalciferol (vitamin D3) 25 25 mcg PO DAILY Unknown History mcg (1,000 unit) capsule (Vitamin D3) hydrocodone-acetaminophen 5-325mg 1 - 2 tab PO Q6H PRN pain 06/01/25 Unknown History 5mg-325mg Allergy/AdvReac Type Severity Reaction Status Date / Time No Known Allergies Allergy Verified 06/06/25 11:58 Family History Mother Pulmonary hypertension COPD (chronic obstructive pulmonary disease) Father Lymphoma Surgical History Hx of spinal surgery (~10/01/23) History of right knee joint replacement (~10/2020) Trigger finger of right hand History of blepharoplasty History of lumpectomy of left breast History of total knee arthroplasty History of appendectomy Social History Smoking Status: Former smoker alcohol intake: never substance use type: does not use caffeine: Yes Review of Systems (Anesthesia) ROS Narrative System reviewed and no additional complaints, except as documented.
[2025-06-06] MEDS: Lidocaine 1% (5 ml sdv) 5 ML Vial (12:46)
[2025-06-06] MEDS: 0.9% Normal Saline (Pres. free 10 ML Vial (12:46)
--- NOTE | 2025-06-06 12:53 | OP.PCM_ITS ---
Operative Report (Standard) Operative Information Date of Procedure: 06/06/25 Pre-Operative Diagnosis: lumbosacral radiculopathy, lumbosacral degenerative disc disease, lumbosacral spinal stenosis Post-Operative Diagnosis: lumbosacral radiculopathy, lumbosacral degenerative disc disease, lumbosacral spinal stenosis Surgery/Procedure Performed: Diagnostic/therapeutic caudal epidural steroid injection under fluoroscopic guidance central office associate: No Type of Anesthesia: Local MAC RN Documented Start/Stop Times: Operation Date: 06/06/25 13:10 Case Time Into Pre-Op 06/06/25 11:35 Anesthesia Start 06/06/25 12:34 Into Room 06/06/25 12:34 Procedure Start 06/06/25 12:45 Procedure End 06/06/25 12:47 Anesthesia End 06/06/25 12:49 Out of Room 06/06/25 12:49 Into Recovery 06/06/25 12:50 Procedure Start Time: 12:53 Procedure Stop Time: 12:53 Select all DRAINS/GRAFTS/IMPLANTS that apply: None Estimated Blood Loss: 1 Specimen collected: No Description of surgery: ANESTHESIA: MAC. BLOOD LOSS: Minimal. COMPLICATIONS: None. DESCRIPTION OF PROCEDURE: History and physical of today was reviewed. Risks and benefits of the procedure were explained. The patient understood and agreed to proceed. Informed consent was obtained. IV inserted per routine protocol. The patient was taken to the operating room and placed in the prone position with a pillow positioned underneath the abdomen. The lower back and tailbone area was prepped and draped in a sterile fashion using iodine x3. Under fluoroscopy guidance on a lateral view, the caudal space was identified. The skin and subcutaneous tissue was anesthetized with approximately 3 mL of 1% lidocaine using a 25-gauge regular needle. Under direct visualization with fluoroscopy, using a 22-gauge 3-1/2-inch spinal needle, the needle was advanced via the skin through the sacral hiatus. The tip of the needle was passed through the sacrococcygeal ligament and advanced to approximately S4 area. After negative aspiration of blood or CSF, a total of 3 mL of contrast was injected to confirm correct placement of the needle as well as cephalad spread. The spread was followed to approximately L5 area. After confirmation on AP as well as lateral view and repeated negative aspiration, a total of 15 mL of preservative-free 0.125% Marcaine with 80 mg of Depo-Medrol was injected easily. The needle was then removed intact. The patient experienced no sign or symptoms of intrathecal or intravascular injection. The patient experienced no paresthesia. The procedure was completed without any apparent difficulty or any complications. The patient appeared to tolerate it well. ASSESSMENT AND PLAN: This is an 84-year-old female with lumbosacral radiculopathy, lumbosacral de generative disc disease, lumbosacral spinal stenosis, status post diagnostic/therapeutic caudal epidural steroid injection under fluoroscopic guidance, patient will continue her current medications, patient will follow-up in approximately 1 to 2 weeks for reevaluation. Surgical Findings: 0 Complications Complications: No Admit VTE Documentation VTE Present on Admission: No VTE Mechan Device Prophylaxis: None VTE Pharm Prophylaxis ordered?: No
--- NOTE | 2025-06-06 12:56 | PCM.POST.ANE ---
Anesthesia: Postop Eval I Current Vital Signs Temperature: 97.2 F Pulse Rate: 73 Blood Pressure: 138/82 Respiratory Rate: 16 Pulse Ox: 98 Assessment Airway patent: Yes Spontaneous unlabored respirations: Yes nausea: No Vomiting: No Anesthesia Complication: No Fluid Hydration Crystalloid volume administer (ml): 200 Total IV fluid infused: 200 Progress Note Anesthesia document: Postop Eval 1 completed: Yes
--- NOTE | 2025-06-06 14:57 | POSTOPAN2_ITS ---
Anesthesia Postop Eval I Sum Postop Eval Completion status Anesthesia document: Postop Eval 1 completed: Yes Anesthesia Postop Eval I Summary Anesthesia Postop Eval I Summary: Anesthesia Postop Eval I: Assessment Summary Airway patent Yes 06/06/25 12:56 MANAGER [email or web address] Spontaneous unlabored Yes 06/06/25 12:56 MANAGER [email or web address] respirations Mental status nausea No 06/06/25 12:56 MANAGER [email or web address] Vomiting No 06/06/25 12:56 MANAGER [email or web address] Anesthesia Postop Eval I: Fluid Summary Crystalloid volume administer 200 06/06/25 12:56 MANAGER [email or web address] (ml) Colloids volume administered ( ml) Blood Product volume administered (ml) Total IV fluid infused 200 06/06/25 12:56 MANAGER [email or web address] Anesthesia Postop Eval I: Summary Notes Anesthesia Complication No 06/06/25 12:56 MANAGER [email or web address] Anesthesia Complication Comment: Post-operative progress note Anesthesia: Postop Eval II Evaluation Mental status: Awake and Calm Pain Level: 0 nausea: No Vomiting: No Complications Anesthesia Complication: No
--- NOTE | 2025-06-06 14:57 | PCM.POSTANE2 ---
Anesthesia Postop Eval I Sum Postop Eval Completion status Anesthesia document: Postop Eval 1 completed: Yes Anesthesia Postop Eval I Summary Anesthesia Postop Eval I Summary: Anesthesia Postop Eval I: Assessment Summary Airway patent Yes 06/06/25 12:56 DIRECTOR OF STRATEGIC INITIATIVES.[email or web address] Spontaneous unlabored Yes 06/06/25 12:56 DIRECTOR OF STRATEGIC INITIATIVES.TNES respirations Mental status nausea No 06/06/25 12:56 DIRECTOR OF STRATEGIC INITIATIVES.TNES Vomiting No 06/06/25 12:56 DIRECTOR OF STRATEGIC INITIATIVES.TNES Anesthesia Postop Eval I: Fluid Summary Crystalloid volume administer 200 06/06/25 12:56 DIRECTOR OF STRATEGIC INITIATIVES.TNES (ml) Colloids volume administered ( ml) Blood Product volume administered (ml) Total IV fluid infused 200 06/06/25 12:56 DIRECTOR OF STRATEGIC INITIATIVES.TNES Anesthesia Postop Eval I: Summary Notes Anesthesia Complication No 06/06/25 12:56 DIRECTOR OF STRATEGIC INITIATIVES.TNES Anesthesia Complication Comment: Post-operative progress note Anesthesia: Postop Eval II Evaluation Mental status: Awake and Calm Pain Level: 0 nausea: No Vomiting: No Complications Anesthesia Complication: No
== END 2025-06-06 14:13 | disposition home or self-care (01) ==
LOC: SDC 11:34 → AC 11:36
PROVIDERS: PCP Internal Medicine; Referring Provider Anesthesiology Pain Medicine; Visit Provider Anesthesiology Pain Medicine
PROC: 3E0S3BZ Introduction of Anesthetic Agent into Epidural Space, Percutaneous Approach (ICD-10-PCS; CPT 62282; principal; 2025-06-06 13:05)
DX: M51.17 Intervertebral disc disorders with radiculopathy, lumbosacral region (principal); M48.07 Spinal stenosis, lumbosacral region; Z79.01 Long term (current) use of anticoagulants; Z79.899 Other long term (current) drug therapy
CPT/HCPCS: 62323; 01992; 64483; 77003; J2405